=== PATIENT | male | born 1945 | race Caucasian/White ===

== ENCOUNTER 2021-07-30 19:03 | Inpatient (IN) | payer MEDICARE ==
[~2021-07-30 19:03] MED LIST: HUMAN PROTHROMBIN COMPLX 500 UNIT/16 ML VIAL IV ONE
[2021-07-30] MEDS ORDERED: SODIUM CHLORIDE 0.9% 1,000 ML IV STA ×4 (19:12→21:36)
[2021-07-30] MEDS ORDERED: PANTOPRAZOLE 40 MG/10 ML VIAL IVP STA (19:12)
--- NOTE | 2021-07-30 19:17 | ED ---
General Adult HPI - General Stated complaint: Rectal bleed Time Seen by Provider: 07/30/21 19:03 Source: patient, EMS Mode of arrival: EMS Limitations: no limitations - History of Present Illness Initial comments: Patient is a pleasant 76-year-old male presenting to the emergency department with possible rectal bleeding. Patient last known well was yesterday. Patient was found on the floor today. Patient is unclear how he got there. Patient does not believe he fell or passed out. Patient amiss to having some bleeding for the past week. Patient believes he may be coming from the rectum however cannot provide much history on this. Patient is on Eliquis however is unclear why. Patient states he feels fine and has no specific complaints. EMS had blood pressures between 78 and 98 systolic. No abdominal pain or vomiting. Patient denies any area of pain from potential fall. - Related Data Home Medications Medication Instructions Recorded Confirmed Aspirin EC [Ecotrin] 81 mg PO DAILY 03/12/16 03/12/16 Levothyroxine Sodium [Synthroid] 175 mcg PO DAILY 03/12/16 03/12/16 Pravastatin Sodium [Pravachol] 10 mg PO DAILY 03/12/16 03/12/16 amLODIPine BESYLATE [Norvasc] 5 mg PO DAILY 03/12/16 03/12/16 hydroCHLOROthiazide 25 mg PO DAILY 03/12/16 03/12/16 lisinopriL 40 mg PO DAILY 03/12/16 03/12/16 Allergies Allergy/AdvReac Type Severity Reaction Status Date / Time No Known Allergies Allergy Verified 03/12/16 14:04 Review of Systems ROS Statement: Those systems with pertinent positive or pertinent negative responses have been documented in the HPI. ROS Other: All systems not noted in ROS Statement are negative. Constitutional: Denies: fever Eyes: Denies: eye pain ENT: Denies: ear pain Respiratory: Denies: cough Cardiovascular: Denies: chest pain Endocrine: Denies: fatigue Gastrointestinal: Reports: as per HPI. Denies: abdominal pain Genitourinary: Denies: dysuria Musculoskeletal: Denies: back pain Skin: Denies: rash Neurological: Denies: headache, weakness, confusion Past Medical History Past Medical History: Hyperlipidemia, Hypertension, Thyroid Disorder History of Any Multi-Drug Resistant Organisms: None Reported Additional Past Surgical History / Comment(s): aaa Past Psychological History: No Psychological Hx Reported Past Alcohol Use History: None Reported Past Drug Use History: None Reported General Exam Limitations: no limitations General appearance: alert Head exam: Present: atraumatic, normocephalic Eye exam: Present: normal appearance, PERRL ENT exam: Present: mucous membranes dry Neck exam: Present: normal inspection. Absent: tenderness Respiratory exam: Present: normal lung sounds bilaterally Cardiovascular Exam: Present: regular rate, normal rhythm GI/Abdominal exam: Present: soft. Absent: distended, tenderness, guarding, rebound, rigid Rectal exam: Present: other (Rectal exam is somewhat limited by blood in the undergarments. During rectal exam there is not gross blood however. There is some mild stool.). Absent: bloody stool exam: Present: other (Underwear is soaked in blood.) Extremities exam: Present: normal inspection Back exam: Present: normal inspection Neurological exam: Present: alert, oriented X3, CN II-XII intact. Absent: motor sensory deficit Expanded Motor strength exam: RUE: 5, LUE: 5, RLE: 5, LLE: 5 Psychiatric exam: Present: normal affect, normal mood Skin exam: Present: normal color Course Vital Signs 07/30/21 07/30/21 19:10 20:00 Temperature 97.2 F L Pulse Rate 76 85 Respiratory 18 18 Rate Blood Pressure 85/72 75/50 O2 Sat by Pulse 94 L 94 L Oximetry - Reevaluation(s) Reevaluation #1: 07/30/21 19:19 Denny Catheter with gross hematuria 07/30/21 21:34 Case was discussed with Dr. Serrano who did review the scan. He does recommend removing catheter and keeping patient nothing by mouth after midnight as he will likely need to do procedure tomorrow. Case also discussed with Dr. Andrade, who will admit covering for Dr. Wills. Case also discussed with Dr. Hampton who does agree with ICU admission. He does recommend 1 unit of red cells as well as K central. Patient reevaluated several times. EKG Findings - EKG Comments: EKG Findings:: Normal sinus rhythm with rate of 78. For screening AV block TX 208. QRS 90. QT 420. QTc were 78. Left axis. Low QRS voltage. No acute ST change. Procedures - Central Line Placement Right Femoral Consent Obtained: verbal consent, emergent situation Patient Placed on Monitor/Pulse Ox: Yes Prep: mask, gown, gloves Central Line Prep: Chlorhexidine scrub Local Anesthesia Used: Lidocaine 1% Amount of Anesthesia Used (mls): 2 Ultrasound Used for Placement: No Central Line Lumen Inserted: triple Central Line Position: good blood return, all ports aspirated, flushed, capped, sutured in place with 3-0 nylon Dressing Applied: Tegaderm Patient Tolerated Procedure: well, no complications Medical Decision Making - Lab Data Result diagrams: 07/30/21 19:12 07/30/21 19:12 Lab Results 07/30/21 07/30/21 07/30/21 Range/Units 19:12 19:12 19:12 WBC 12.9 H (3.8-10.6) k/uL RBC 3.51 L (4.30-5.90) m/uL Hgb 10.3 L (13.0-17.5) gm/dL Hct 31.0 L (39.0-53.0) % MCV 88.4 (80.0-100.0) fL MCH 29.4 (25.0-35.0) pg MCHC 33.3 (31.0-37.0) g/dL RDW 15.7 H (11.5-15.5) % Plt Count 307 (150-450) k/uL MPV 7.9 Neutrophils % 90 % Lymphocytes % 4 % Monocytes % 5 % Eosinophils % 0 % Basophils % 0 % Neutrophils # 11.6 H (1.3-7.7) k/uL Lymphocytes # 0.5 L (1.0-4.8) k/uL Monocytes # 0.6 (0-1.0) k/uL Eosinophils # 0.0 (0-0.7) k/uL Basophils # 0.0 (0-0.2) k/uL PT 11.4 (9.0-12.0) sec INR 1.1 (<1.2) APTT 24.9 (22.0-30.0) sec Sodium 138 (137-145) mmol/L Potassium 5.3 H (3.5-5.1) mmol/L Chloride 107 (98-107) mmol/L Carbon Dioxide 16 L (22-30) mmol/L Anion Gap 15 mmol/L BUN 81 H (9-20) mg/dL Creatinine 6.82 H (0.66-1.25) mg/dL Est GFR (CKD-EPI)AfAm 8 (>60 ml/min/1.73 sqM) Est GFR (CKD-EPI)NonAf 7 (>60 ml/min/1.73 sqM) Glucose 96 (74-99) mg/dL Calcium 8.8 (8.4-10.2) mg/dL Total Bilirubin 0.5 (0.2-1.3) mg/dL AST 45 (17-59) U/L ALT 18 (4-49) U/L Alkaline Phosphatase 84 (38-126) U/L Troponin I (0.000-0.034) ng/mL Total Protein 5.7 L (6.3-8.2) g/dL Albumin 2.9 L (3.5-5.0) g/dL Blood Type Blood Type Confirm Blood Type Recheck Bld Type Recheck Status Antibody Screen Crossmatch Spec Expiration Date 07/30/21 07/30/21 07/30/21 Range/Units 19:12 19:12 19:34 WBC (3.8-10.6) k/uL RBC (4.30-5.90) m/uL Hgb (13.0-17.5) gm/dL Hct (39.0-53.0) % MCV (80.0-100.0) fL MCH (25.0-35.0) pg MCHC (31.0-37.0) g/dL RDW (11.5-15.5) % Plt Count (150-450) k/uL MPV Neutrophils % % Lymphocytes % % Monocytes % % Eosinophils % % Basophils % % Neutrophils # (1.3-7.7) k/uL Lymphocytes # (1.0-4.8) k/uL Monocytes # (0-1.0) k/uL Eosinophils # (0-0.7) k/uL Basophils # (0-0.2) k/uL PT (9.0-12.0) sec INR (<1.2) APTT (22.0-30.0) sec Sodium (137-145) mmol/L Potassium (3.5-5.1) mmol/L Chloride (98-107) mmol/L Carbon Dioxide (22-30) mmol/L Anion Gap mmol/L BUN (9-20) mg/dL Creatinine (0.66-1.25) mg/dL Est GFR (CKD-EPI)AfAm (>60 ml/min/1.73 sqM) Est GFR (CKD-EPI)NonAf (>60 ml/min/1.73 sqM) Glucose (74-99) mg/dL Calcium (8.4-10.2) mg/dL Total Bilirubin (0.2-1.3) mg/dL AST (17-59) U/L ALT (4-49) U/L Alkaline Phosphatase (38-126) U/L Troponin I 0.119 H* (0.000-0.034) ng/mL Total Protein (6.3-8.2) g/dL Albumin (3.5-5.0) g/dL Blood Type A Positive Blood Type Confirm A Positive Blood Type Recheck No Previous Record Bld Type Recheck Status CABO Indicated Antibody Screen NEGATIVE Crossmatch See Detail Spec Expiration Date 08/02/20212311 - Radiology Data Radiology results: report reviewed (CT abdomen and pelvis shows bilateral hydronephrosis and hydroureter. Possible malpositioned Denny catheter. CT brain and cervical spine shows no acute abnormality.), image reviewed (Chest x- ray shows atheromatous aorta. Mild pulmonary fibrosis.) Critical Care Time Critical Care Time: Yes Total Critical Care Time: 44 Disposition Clinical Impression: Acute renal failure (ARF), Hypotension, Hematuria Disposition: ADMITTED IP TO THIS [facility] Condition: Serious Is patient prescribed a controlled substance at d/c from ED?: No Referrals: None,Stated [REFERRING] - 1-2 days Decision Time: 22:28
[2021-07-30 19:34] LABS: Basophils % (A) 0 %; Eosinophils % (A) 0 %; HGB 10.3 gm/dL (13.0-17.5); Lymphocytes # (A) 0.5 k/uL (1.0-4.8); Lymphocytes % (A) 4 %; MCH 29.4 pg (25.0-35.0); MCHC 33.3 g/dL (31.0-37.0); MCV 88.4 fL (80.0-100.0); Mean Platelet Volume 7.9; Monocytes # (A) 0.6 k/uL (0-1.0); Monocytes % (A) 5 %; Neutrophils # (A) 11.6 k/uL (1.3-7.7); Neutrophils % (A) 90 %; Platelet Count 307 k/uL (150-450); RBC 3.51 m/uL (4.30-5.90); RDW 15.7 % (11.5-15.5); WBC 12.9 k/uL (3.8-10.6)
[2021-07-30 19:43] LABS: Albumin 2.9 g/dL (3.5-5.0); Calcium 8.8 mg/dL (8.4-10.2); Potassium 5.3 mmol/L (3.5-5.1); Total Bilirubin 0.5 mg/dL (0.2-1.3); Total Protein 5.7 g/dL (6.3-8.2)
[2021-07-30 19:46] LABS: INR 1.1 (<1.2); Partial Thromboplastin Time 24.9 sec (22.0-30.0); Prothrombin Time 11.4 sec (9.0-12.0)
--- NOTE | 2021-07-30 20:27 | CT ---
EXAMINATION TYPE: CT brain tomer [facility] DATE OF EXAM: 07/30/2021 COMPARISON: None HISTORY: Fall CT DLP: 1487.3 mGycm Automated exposure control for dose reduction was used. There is cerebral cortical atrophy. There is no mass effect nor midline shift. There is no sign of in tracranial hemorrhage. Ovarium is intact. Skull base is intact. There is normal aeration of the masto id sinuses. Cervical vertebra have normal alignment. There is degenerative disc space narrowing at C3-4 C4-5 and C5-6 with spurring. Facet joints are intact. There is no compression fracture. IMPRESSION: Mild multilevel cervical spondylotic changes. No fracture. Cerebral atrophy. No acute intracranial abnormality.
--- NOTE | 2021-07-30 20:38 | CT ---
EXAMINATION TYPE: CT abdomen pelvis wo con DATE OF EXAM: 07/30/2021 COMPARISON: None HISTORY: Hematuria, arf CT DLP: 871.3 mGycm Automated exposure control for dose reduction was used. Images obtained from the diaphragm to the floor the pelvis with no contrast. There is some mild infiltrate and atelectasis at the lung bases. Heart size is fairly normal. Liver spleen pancreas stomach appear intact. The bile ducts are not dilated. Gallbladder appears normal. There is no adrenal mass. There is bilateral hydronephrosis and hydroureter. Hydroureter more on the right side compared to the left. There is bilateral renal vascular calcification. No renal calculus s een. No evidence of a ureteral calculus. There is Denny catheter in the prosthetic urethra.. Prostate is large and measures 5 cm. There is no inguinal hernia. There is no free fluid in the pelvis. There are stents in the abdominal aorta and iliac arteries. There is no mesenteric edema. There is no ascites or free air. There is no bowel obstruction. The lumbar vertebra appear intact. There is no compression fracture. Bony pelvis is intact. The hip j oints are intact. There is degenerative hip joint space narrowing with acetabular spur formation. IMPRESSION: Bilateral hydronephrosis and hydroureter. No obstructing calculus seen. Malposition of the Denny cath eter apparently in the prosthetic urethra. Atherosclerotic vascular disease. 4 cm lower abdominal aor tic aneurysm. Colonic diverticula without sign of diverticulitis. Urinary bladder not well evaluated due to lack of distention.
--- NOTE | 2021-07-30 20:39 | XR ---
EXAMINATION TYPE: XR chest 1V portable DATE OF EXAM: 07/30/2021 COMPARISON: NONE HISTORY: Weakness TECHNIQUE: Single view FINDINGS: There is no heart failure nor confluent pneumonic infiltrate. There is coarsening of the in terstitial markings. Thoracic aorta is atheromatous. IMPRESSION: Atheromatous aorta. Mild pulmonary fibrosis. No heart failure.
[2021-07-30] MEDS ORDERED: Kcentra PER PHARMACY 1 EACH MISC MISCELLANE PRN (21:32)
[2021-07-30] MEDS ORDERED: HUMAN PROTHROMBIN COMPLX IV ONE (21:45)
[2021-07-30] MEDS ORDERED: MORPHINE SULFATE 4 MG/ML SYRINGE IV PRN ×2 (22:29)
[2021-07-30] MEDS ORDERED: MORPHINE SULFATE 2 MG/ML SYRINGE IV PRN ×2 (22:29)
[2021-07-30] MEDS ORDERED: NALOXONE 0.4 MG/ML 1 ML VIAL IV PRN (22:29)
[2021-07-30] MEDS: NOREPINEPHRINE 32 MG in SODIUM CHLORIDE 0.9% 218 ML IV SCH (22:52)
[2021-07-30 23:38] LABS: Glucose,Whole Blood 82 mg/dL (75-99)
[2021-07-31 01:16] LABS: Basophils % (A) 0 %; Eosinophils % (A) 0 %; HCT 32.8 % (39.0-53.0); HGB 10.4 gm/dL (13.0-17.5); Lymphocytes # (A) 0.4 k/uL (1.0-4.8); Lymphocytes % (A) 4 %; MCH 28.8 pg (25.0-35.0); MCHC 31.7 g/dL (31.0-37.0); MCV 90.8 fL (80.0-100.0); Mean Platelet Volume 7.7; Monocytes # (A) 0.6 k/uL (0-1.0); Monocytes % (A) 5 %; Neutrophils # (A) 9.8 k/uL (1.3-7.7); Neutrophils % (A) 89 %; Platelet Count 297 k/uL (150-450); RBC 3.61 m/uL (4.30-5.90); RDW 15.4 % (11.5-15.5)
[2021-07-31 04:52] LABS: RBC,Urine >182 /hpf (0-5); WBC,Urine >182 /hpf (0-5)
[2021-07-31 04:53] LABS: Appearance,Urine Bloody (Clear)
[2021-07-31 04:55] LABS: Color,Urine Red
[2021-07-31 05:28] LABS: Basophils % (A) 0 %; Eosinophils % (A) 0 %; HCT 34.1 % (39.0-53.0); Lymphocytes # (A) 0.5 k/uL (1.0-4.8); Lymphocytes % (A) 3 %; MCH 28.8 pg (25.0-35.0); MCHC 32.2 g/dL (31.0-37.0); MCV 89.4 fL (80.0-100.0); Mean Platelet Volume 8.5; Monocytes # (A) 0.5 k/uL (0-1.0); Monocytes % (A) 4 %; Neutrophils # (A) 12.1 k/uL (1.3-7.7); Neutrophils % (A) 91 %; Platelet Count 306 k/uL (150-450); RBC 3.81 m/uL (4.30-5.90); RDW 15.6 % (11.5-15.5); WBC 13.3 k/uL (3.8-10.6)
[2021-07-31 05:56] LABS: Albumin 2.6 g/dL (3.5-5.0); Calcium 8.3 mg/dL (8.4-10.2); Potassium 4.7 mmol/L (3.5-5.1); Total Bilirubin 0.5 mg/dL (0.2-1.3); Total Protein 5.2 g/dL (6.3-8.2)
--- NOTE | 2021-07-31 07:45 | P.GSCN ---
History of Present Illness Consult date: 07/31/21 Reason for Consult: Hydronephrosis, hematuria Requesting physician: Bren Andrade History of present illness: The patient is a 76-year-old white male found on the floor yesterday. He has experienced bleeding for the past week, which he believed was coming from his rectum, but he now has a condom catheter and it is clear that the bleeding is of urinary source. He takes Eliquis and is a vague historian. Upon presentation to the ER, he was found to be in renal failure. CT scan shows bilateral hydronephrosis as well as bladder irregularity. Review of Systems - Constitutional Denies chills, Denies fever - Gastrointestinal Denies abdominal pain, Denies nausea, Denies vomiting - Genitourinary Reports as per HPI Past Medical History Past Medical History: Hearing Disorder / Deafness, Hyperlipidemia, Hypertension, Osteoarthritis (OA), Prostate Disorder, Thyroid Disorder History of Any Multi-Drug Resistant Organisms: None Reported Additional Past Surgical History / Comment(s): aaa Past Psychological History: No Psychological Hx Reported Smoking Status: Current every day smoker Past Alcohol Use History: None Reported Past Drug Use History: None Reported Medications and Allergies Home Medications Medication Instructions Recorded Confirmed Type Aspirin EC [Ecotrin] 81 mg PO DAILY 03/12/16 03/12/16 History Levothyroxine Sodium [Synthroid] 175 mcg PO DAILY 03/12/16 03/12/16 History Pravastatin Sodium [Pravachol] 10 mg PO DAILY 03/12/16 03/12/16 History amLODIPine BESYLATE [Norvasc] 5 mg PO DAILY 03/12/16 03/12/16 History hydroCHLOROthiazide 25 mg PO DAILY 03/12/16 03/12/16 History lisinopriL 40 mg PO DAILY 03/12/16 03/12/16 History Allergies Allergy/AdvReac Type Severity Reaction Status Date / Time No Known Allergies Allergy Verified 03/12/16 14:04 Surgical - Exam Vital Signs Temp Pulse Resp BP Pulse Ox 97.2 F L 76 18 85/72 94 L 07/30/21 19:10 07/30/21 19:10 07/30/21 19:10 07/30/21 19:10 07/30/21 19:10 - General well developed, well nourished, no distress - Neck no masses, trachea midline - Respiratory normal respiratory effort - Abdomen Abdomen: soft, non tender, no guarding, no rigid, no rebound - Genitourinary normal penis with no external lesions, testicles non-tender - Psychiatric oriented to time, oriented to person, oriented to place, speech is normal, dhara ry intact Results - Labs 07/31/21 05:08 07/31/21 05:08 Abnormal Lab Results - Last 24 Hours (Table) 07/30/21 07/30/21 07/30/21 Range/Units 19:12 19:12 19:12 WBC 12.9 H (3.8-10.6) k/uL RBC 3.51 L (4.30-5.90) m/uL Hgb 10.3 L (13.0-17.5) gm/dL Hct 31.0 L (39.0-53.0) % RDW 15.7 H (11.5-15.5) % Neutrophils # 11.6 H (1.3-7.7) k/uL Lymphocytes # 0.5 L (1.0-4.8) k/uL Potassium 5.3 H (3.5-5.1) mmol/L Chloride (98-107) mmol/L Carbon Dioxide 16 L (22-30) mmol/L BUN 81 H (9-20) mg/dL Creatinine 6.82 H (0.66-1.25) mg/dL Calcium (8.4-10.2) mg/dL Creatine Kinase (55-170) U/L Troponin I 0.119 H* (0.000-0.034) ng/mL Total Protein 5.7 L (6.3-8.2) g/dL Albumin 2.9 L (3.5-5.0) g/dL Urine RBC (0-5) /hpf Urine WBC (0-5) /hpf Crossmatch 07/30/21 07/30/21 07/31/21 Range/Units 19:12 19:12 00:45 WBC 11.0 H (3.8-10.6) k/uL RBC 3.61 L (4.30-5.90) m/uL Hgb 10.4 L (13.0-17.5) gm/dL Hct 32.8 L (39.0-53.0) % RDW (11.5-15.5) % Neutrophils # 9.8 H (1.3-7.7) k/uL Lymphocytes # 0.4 L (1.0-4.8) k/uL Potassium (3.5-5.1) mmol/L Chloride (98-107) mmol/L Carbon Dioxide (22-30) mmol/L BUN (9-20) mg/dL Creatinine (0.66-1.25) mg/dL Calcium (8.4-10.2) mg/dL Creatine Kinase 643 H (55-170) U/L Troponin I (0.000-0.034) ng/mL Total Protein (6.3-8.2) g/dL Albumin (3.5-5.0) g/dL Urine RBC (0-5) /hpf Urine WBC (0-5) /hpf Crossmatch See Detail 07/31/21 07/31/21 07/31/21 Range/Units 04:00 05:08 05:08 WBC 13.3 H (3.8-10.6) k/uL RBC 3.81 L (4.30-5.90) m/uL Hgb 11.0 L (13.0-17.5) gm/dL Hct 34.1 L (39.0-53.0) % RDW 15.6 H (11.5-15.5) % Neutrophils # 12.1 H (1.3-7.7) k/uL Lymphocytes # 0.5 L (1.0-4.8) k/uL Potassium (3.5-5.1) mmol/L Chloride 114 H (98-107) mmol/L Carbon Dioxide 10 L (22-30) mmol/L BUN 77 H (9-20) mg/dL Creatinine 6.10 H (0.66-1.25) mg/dL Calcium 8.3 L (8.4-10.2) mg/dL Creatine Kinase (55-170) U/L Troponin I (0.000-0.034) ng/mL Total Protein 5.2 L (6.3-8.2) g/dL Albumin 2.6 L (3.5-5.0) g/dL Urine RBC >182 H (0-5) /hpf Urine WBC >182 H (0-5) /hpf Crossmatch Diabetes panel 07/30/21 07/31/21 Range/Units 19:12 05:08 Sodium 138 141 (137-145) mmol/L Potassium 5.3 H 4.7 (3.5-5.1) mmol/L Chloride 107 114 H (98-107) mmol/L Carbon Dioxide 16 L 10 L (22-30) mmol/L BUN 81 H 77 H (9-20) mg/dL Creatinine 6.82 H 6.10 H (0.66-1.25) mg/dL Glucose 96 92 (74-99) mg/dL Calcium 8.8 8.3 L (8.4-10.2) mg/dL AST 45 47 (17-59) U/L ALT 18 18 (4-49) U/L Alkaline Phosphatase 84 73 (38-126) U/L Total Protein 5.7 L 5.2 L (6.3-8.2) g/dL Albumin 2.9 L 2.6 L (3.5-5.0) g/dL Calcium panel 07/30/21 07/31/21 Range/Units 19:12 05:08 Calcium 8.8 8.3 L (8.4-10.2) mg/dL Albumin 2.9 L 2.6 L (3.5-5.0) g/dL Pituitary panel 07/30/21 07/31/21 Range/Units 19:12 05:08 Sodium 138 141 (137-145) mmol/L Potassium 5.3 H 4.7 (3.5-5.1) mmol/L Chloride 107 114 H (98-107) mmol/L Carbon Dioxide 16 L 10 L (22-30) mmol/L BUN 81 H 77 H (9-20) mg/dL Creatinine 6.82 H 6.10 H (0.66-1.25) mg/dL Glucose 96 92 (74-99) mg/dL Calcium 8.8 8.3 L (8.4-10.2) mg/dL Adrenal panel 07/30/21 07/31/21 Range/Units 19:12 05:08 Sodium 138 141 (137-145) mmol/L Potassium 5.3 H 4.7 (3.5-5.1) mmol/L Chloride 107 114 H (98-107) mmol/L Carbon Dioxide 16 L 10 L (22-30) mmol/L BUN 81 H 77 H (9-20) mg/dL Creatinine 6.82 H 6.10 H (0.66-1.25) mg/dL Glucose 96 92 (74-99) mg/dL Calcium 8.8 8.3 L (8.4-10.2) mg/dL Total Bilirubin 0.5 0.5 (0.2-1.3) mg/dL AST 45 47 (17-59) U/L ALT 18 18 (4-49) U/L Alkaline Phosphatase 84 73 (38-126) U/L Total Protein 5.7 L 5.2 L (6.3-8.2) g/dL Albumin 2.9 L 2.6 L (3.5-5.0) g/dL - Imaging CT scan - abdomen: report reviewed, image reviewed Assessment and Plan (1) Gross hematuria Current Visit: Yes Status: Acute Code(s): R31.0 - GROSS HEMATURIA SNOMED Code(s): 282112486 (2) Unspecified hydronephrosis Current Visit: Yes Status: Acute Code(s): N13.30 - UNSPECIFIED HYDR ONEPHROSIS SNOMED Code(s): 39290068 Plan: The patient has unexplained gross hematuria, and he has been found to have bilateral hydronephrosis with renal failure. Specifically, CT scan shows moderate to severe right hydroureteronephrosis down to the bladder, and mild left hydroureteronephrosis. 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 I have recommended to the patient that he undergo cystoscopy, evacuation of clot, transurethral resection of bladder tumor, and possible ureteral stent placement. I have reviewed both the rationale and potential risks of the procedure with the patient. Risks include anesthesia, bleeding, infection, and bladder perforation. He understands and wishes to proceed. I am hopeful that this can be performed later today. Time with Patient: Greater than 30
[2021-07-31] MEDS: PANTOPRAZOLE 40 MG/10 ML VIAL IV SCH (09:13)
--- NOTE | 2021-07-31 10:45 | P.NPCON ---
History of Present Illness - Reason for Consult Consult date: 07/31/21 acute renal failure - Chief Complaint Acute kidney injury - History of Present Illness 76-year-old male seen in consultation because of acute kidney injury. His admission creatinine 6.82, no previous creatinines available He came in because of what was thought by the patient to be rectal bleeding but turned out to be gross hematuria. Workup including CAT scan shows bilateral hydronephrosis and hydroureter suggestive of bladder cancer. Patient denies taking any nonsteroidals. On admission his blood pressure was somewhat low in the 90s to 100's systolic range and additionally home medication included lisinopril hydrochlorothiazide and aspirin levothyroxine pravastatin and amlodipine. Patient is a poor historian and hard of hearing. No nausea vomiting diarrhea abdominal pain no fever chills cough shortness of breath No previous labs available Past Medical History Past Medical History: Hearing Disorder / Deafness, Hyperlipidemia, Hypertension, Osteoarthritis (OA), Prostate Disorder, Thyroid Disorder History of Any Multi-Drug Resistant Organisms: None Reported Additional Past Surgical History / Comment(s): aaa Past Psychological History: No Psychological Hx Reported Smoking Status: Current every day smoker Past Alcohol Use History: None Reported Past Drug Use History: None Reported Medications and Allergies Home Medications Medication Instructions Recorded Confirmed Type Aspirin EC [Ecotrin] 81 mg PO DAILY 03/12/16 03/12/16 History Levothyroxine Sodium [Synthroid] 175 mcg PO DAILY 03/12/16 03/12/16 History Pravastatin Sodium [Pravachol] 10 mg PO DAILY 03/12/16 03/12/16 History amLODIPine BESYLATE [Norvasc] 5 mg PO DAILY 03/12/16 03/12/16 History hydroCHLOROthiazide 25 mg PO DAILY 03/12/16 03/12/16 History lisinopriL 40 mg PO DAILY 03/12/16 03/12/16 History Allergies Allergy/AdvReac Type Severity Reaction Status Date / Time No Known Allergies Allergy Verified 03/12/16 14:04 Physical Exam Vitals: Vital Signs Temp Pulse Pulse Resp BP BP Pulse Ox 07/31/21 10:00 93 25 H 114/83 95 07/31/21 09:45 96 24 104/57 94 L 07/31/21 09:30 92 23 96/55 93 L 07/31/21 09:15 94 24 93/58 95 07/31/21 09:00 91 23 102/60 94 L 07/31/21 08:45 85 18 95/58 93 L 07/31/21 08:30 93 22 99/65 93 L 07/31/21 08:15 92 21 99/58 94 L 07/31/21 08:00 97.5 F L 92 16 101/63 94 L 07/31/21 07:50 93 23 101/63 93 L 07/31/21 07:40 85 23 98/58 93 L 07/31/21 07:30 92 26 H 93 L 07/31/21 07:20 83 18 94 L 07/31/21 07:10 84 17 93 L 07/31/21 07:00 84 19 97/57 94 L 07/31/21 06:30 86 29 H 94/54 94 L 07/31/21 06:20 38 H 94/54 93 L 07/31/21 06:10 82 18 93/55 94 L 07/31/21 06:00 90 15 88/54 94 L 07/31/21 05:50 87 18 88/54 94 L 07/31/21 05:40 95 19 94/56 94 L 07/31/21 05:30 87 38 H 92/56 93 L 07/31/21 05:20 83 19 92/56 95 07/31/21 05:10 92 22 87/59 94 L 07/31/21 05:00 82 26 H 92/54 93 L 07/31/21 04:50 39 H 92/54 94 L 07/31/21 04:40 90 18 85/55 94 L 07/31/21 04:30 95 11 L 90/60 93 L 07/31/21 04:20 86 22 90/60 94 L 07/31/21 04:10 95 13 89/57 94 L 07/31/21 04:00 86 28 H 112/97 94 L 07/31/21 03:50 91 18 112/97 94 L 07/31/21 03:40 41 H 103/81 07/31/21 03:30 99 28 H 87/58 92 L 07/31/21 03:20 92 23 87/58 93 L 07/31/21 03:10 94 31 H 85/56 94 L 07/31/21 03:00 91 25 H 91/53 94 L 07/31/21 02:50 25 H 91/53 94 L 07/31/21 02:40 86 35 H 77/54 93 L 07/31/21 02:30 90 33 H 104/85 93 L 07/31/21 02:20 91 18 104/85 94 L 07/31/21 02:10 92 6 L 78/48 92 L 07/31/21 02:00 75 9 L 76/51 90 L 07/31/21 01:50 85 16 76/51 94 L 07/31/21 01:40 92 27 H 75/51 93 L 07/31/21 01:30 91 30 H 72/51 94 L 07/31/21 01:20 91 20 72/51 93 L 07/31/21 01:10 93 21 74/53 94 L 07/31/21 01:00 82 18 71/54 92 L 07/31/21 00:50 84 16 71/54 93 L 07/31/21 00:40 92 20 81/57 93 L 07/31/21 00:30 88 34 H 93/53 93 L 07/31/21 00:20 92 15 93/53 07/31/21 00:10 86 14 84/57 96 07/31/21 00:00 90 78 24 78/55 94 L 07/30/21 23:59 86 17 95 07/30/21 23:45 97.6 F 82 18 78/52 07/30/21 23:19 89 18 81/51 92 L 07/30/21 23:10 97.4 F L 20 80/54 07/30/21 23:02 70 18 76/50 95 07/30/21 22:40 97.9 F 84 18 74/48 07/30/21 22:38 97.5 F L 82 21 82/58 07/30/21 22:29 98.0 F 83 18 71/43 07/30/21 22:20 82 18 78/52 94 L 07/30/21 22:00 84 18 70/40 93 L 07/30/21 21:30 80 18 82/50 94 L 07/30/21 21:00 80 20 70/44 94 L 07/30/21 20:30 82 18 80/55 93 L 07/30/21 20:00 85 18 75/50 94 L 07/30/21 19:10 97.2 F L 76 18 85/72 94 L Intake and Output 07/30/21 07/31/21 07/31/21 22:59 06:59 14:59 Intake Total 0 1245.049 67.843 Output Total 40 35 Balance 0 1205.049 32.843 Intake: IV 40 0.9 40 Intake, IV Titration 935.049 27.843 Amount Norepinephrine 32 mg In 15.049 27.843 Sodium Chloride 0.9% 218 ml @ 0.05 MCG/KG/MIN 1. 807 mls/hr IV .Q24H [facility] Rx#:[id number] Sodium Chloride 0.9% 1, 920 000 ml @ 130 mls/hr IV . Q7H42M [facility] Rx#:[id number] Blood Product 0 310 Rc As-1 Unit 0 310 [id number] Output: Urine 40 35 Other: Voiding Method Diaper External Catheter # Voids 1 Weight 81.4 kg 81.4 kg On examination he is awake alert but hard of hearing HEENT exam no JVP neck is supple no facial asymmetry no lymph nodes in the neck Lungs are clear to auscultation less than optimal air entry. Heart sounds are unremarkable for any murmur rub gallop Abdomen soft nontender no suprapubic tenderness. No masses felt. Nondistended Extremity exam reveals trace edema Neurologically awake alert seems to be oriented but poor memory of events Results - Lab Results Most recent lab results Calcium 8.3 mg/dL (8.4-10.2) L 07/31/21 05:08 07/31/21 05:08 07/31/21 05:08 Assessment and Plan Assessment: Impression 1. Acute kidney injury possibly chronic no old creatinine available etiology is bilateral [place] nephrosis with likely bladder pathology such as cancer. Creatinine is 6.82 2. Hyperkalemia secondary to acute kidney injury potassium was 5.3 improved to 4.7 3. Likely bladder cancer with involvement of ureteral orifices with bilateral hydrouretenephrosis he did 4. Gap and non-gap acidosis from acute kidney injury bicarb is 16 and this morning is 17. 5. Anemia hemoglobin is 11. Likely from a year and chronic kidney disease. Recommendation 1. Patient currently on norepinephrine, trying to taper it off 2. Start IV normal saline at 75 an hour and maintain it unless vision goes into congestive heart failure 3. Start by mouth bicarbonate 650 4 times a day. 4. Patient proceeding to the cystoscopy this morning Thank you for this consultation and we'll continue to follow closely
[2021-07-31] MEDS ORDERED: SODIUM CHLORIDE 0.9% 1,000 ML IV SCH (11:00)
[2021-07-31] MEDS ORDERED: NEOSTIGMINE 1 MG/ML 10 ML VIAL ONE (11:45)
[2021-07-31] MEDS ORDERED: fentaNYL (PF) 50 MCG/ML 2 ML AMP ONE (11:45)
[2021-07-31] MEDS ORDERED: ROCURONIUM 10 MG/ML (5 ML VIAL) IV ONE ×2 (11:45→20:19)
[2021-07-31] MEDS ORDERED: SUCCINYLCHOLINE CHLORIDE 100 MG/5 ML SYR IV ONE (11:45)
[2021-07-31] MEDS ORDERED: IV FLUID CONTINUATION 1,000 ML IV ONE (11:45)
[2021-07-31] MEDS ORDERED: PHENYLEPHRINE-0.9% NACL SYG 1,000 MCG/10 ML SYRINGE ONE (11:45)
[2021-07-31] MEDS ORDERED: PROPOFOL 10 MG/ML 20 ML VIAL IV ONE ×2 (11:45→20:19)
[2021-07-31] MEDS ORDERED: GLYCOPYRROLATE 0.2 MG/ML 2 ML VIAL ONE (11:45)
[2021-07-31] MEDS: SODIUM CHLORIDE 0.9% 250 ML IV ONE ×2 (12:45→14:29)
[2021-07-31] MEDS ORDERED: SODIUM CHLORIDE 0.9% 250 ML IV ONE ×2 (12:45)
--- NOTE | 2021-07-31 13:31 | P.OP ---
Date of Procedure: 07/31/21 Preoperative Diagnosis: Gross hematuria secondary to bladder tumor, bilateral hydronephrosis Postoperative Diagnosis: Same Procedure(s) Performed: Cystoscopy, evacuation of clot, TURBT (large) Anesthesia: DARRINA Surgeon: Aime Vinson Estimated Blood Loss (ml): 10 IV fluids (ml): 500 Pathology: other (Tumor fragments from right posterolateral bladder wall tumor.) Condition: stable Disposition: PACU Indications for Procedure: The patient is a 76-year-old white male with gross hematuria. CT scan shows bilateral hydronephrosis as well as bladder irregularity. Operative Findings: Several hundred mL of clot removed from bladder. A large, sessile tumor arising from right posterolateral bladder wall. The ureteral orifices are not seen. Description of Procedure: The patient was taken in the operating room and placed in the dorsal lithotomy position, with his legs supported in Kirit stirrups. The external genitalia was prepped and draped sterilely. The 30 lens was used to introduce the 23-Ugandan Stortz cystoscopic sheath through the urethra and into the bladder under direct vision. The urethra appeared normal. The prostate showed evidence of minimal lateral lobe enlargement. No tumors were seen within the prostatic urethra. Upon entering the bladder, abundant clot was noted. The 30 Second Showcase evacuator was used to remove several 100 mL of clot from the bladder. Cystoscopy was then performed. A large, sessile tumor arose from the right posterolateral bladder wall. Although there was no tumor within the left hemitrigone, neither ureteral orifice could be seen. There was no active bleeding. The The Congers urethrotome was used to incise the urethra to 25-Ugandan. The 25-Ugandan ACMI resectoscope sheath was introduced into the bladder. Using the bipolar cutting loop, a portion of the tumor was resected. It was dense, obviously high-grade and muscle invasive. Excellent hemostasis was attained. The Ellik evacuator was used to remove all of the tissue fragments from the bladder. The resected tissue was saved and sent for pathologic examination. A 20-Ugandan Denny catheter was inserted. The return was essentially clear. The patient tolerated the procedure well. He was taken to the recovery room in stable condition.
--- NOTE | 2021-07-31 14:02 | P.CNPUL ---
History of Present Illness Consult date: 07/31/21 Requesting physician: Bren Andrade Reason for consult: other (Critical care management) Chief complaint: Altered mental status, found on floor History of present illness: This is a 76-year-old male patient with a known history of hypertension, hyperlipidemia, hypothyroidism. He is brought into the emergency room last evening after being found on the floor. He was unsure if he fell or passed out. He felt that he had some bleeding that he noted in the toilet and sure whether it was rectal bleeding. Denny catheter was placed and there was gross hematuria. Computed tomography scan of the brain revealed no acute intracranial process. No evidence of fracture. She scan of the abdomen and pelvis revealed bilateral hydronephrosis and hydroureter. No obstructing calculus was seen. There was malposition of the Denny catheter apparently in the prostatic urethra. Chest x-ray showed mild pulmonary fibrosis. White count 13.3. Hemoglobin 11.1. Sodium 141. Potassium 4.7. Creatinine 6.10. Troponin 0.119, 0.077. He was ordered 1 unit of packed red blood cells and received K centra and was admitted to the ICU for closer monitoring. He is seen today in consultation. He is awake and alert in no acute distress. Maintaining O2 saturations in the 90s on room air. He is requiring norepinephrine at 0.07 mcg/kg/m to maintain mean arterial pressures greater than 60. 0.9 normal saline at 75 ML's per hour. The plan is for cystoscopy with Dr. Vinson today. He had several 100 ML's of clot removed from the bladder. 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 A portion of the tumor was resected. It was a dense, obviously high-grade and muscle invasive. Excellent hemostasis was attained. Pathology is pending. Review of Systems REVIEW OF SYSTEMS: CONSTITUTIONAL: He can is. Found on floor. Denies any recent significant weight loss or weight gain. EYES: Denies change in vision. EARS, NOSE, MOUTH, THROAT: Denies headaches, denies sore throat. CARDIOVASCULAR: Denies chest pain, palpitations or syncopal episodes. RESPIRATORY: Denies shortness of breath, cough, congestion or hemoptysis. GASTROINTESTINAL: Denies change in appetite, denies abdominal pain GENITOURINARY: Positive for hematuria, denies infections. MUSKULOSKELETAL: Denies pain, denies swelling. INTEGUMENTARY: Denies rash, denies eczema. NEUROLOGICAL: Denies recent memory loss, no recent seizure activity. PSYCHIATRIC: Denies anxiety, denies depression. HEMATOLOGIC/LYMPHATIC: Denies anemia, denies enlarged lymph nodes. Past Medical History Past Medical History: Hearing Disorder / Deafness, Hyperlipidemia, Hypertension, Osteoarthritis (OA), Prostate Disorder, Thyroid Disorder History of Any Multi-Drug Resistant Organisms: None Reported Additional Past Surgical History / Comment(s): aaa Past Psychological History: No Psychological Hx Reported Smoking Status: Current every day smoker Past Alcohol Use History: None Reported Past Drug Use History: None Reported Medications and Allergies Home Medications Medication Instructions Recorded Confirmed Type hydroCHLOROthiazide 25 mg PO DAILY 03/12/16 07/31/21 History lisinopriL 40 mg PO DAILY 03/12/16 07/31/21 History Clopidogrel [Plavix] 75 mg PO DAILY 07/31/21 07/31/21 History Levothyroxine Sodium [Euthyrox] 175 mcg PO DAILY 07/31/21 07/31/21 History Rosuvastatin Calcium [Crestor] 5 mg PO DAILY 07/31/21 07/31/21 History rOPINIRole HCL [Requip] 1 mg PO BID 07/31/21 07/31/21 History Allergies Allergy/AdvReac Type Severity Reaction Status Date / Time No Known Allergies Allergy Verified 03/12/16 14:04 Physical Exam Vitals: Vital Signs Temp Pulse Pulse Resp BP BP Pulse Ox 07/31/21 11:45 92/52 07/31/21 11:30 93 22 97/61 94 L 07/31/21 11:15 86 12 87/59 95 07/31/21 11:00 91 26 H 91/55 93 L 07/31/21 10:45 88 12 79/65 95 07/31/21 10:30 93 17 104/58 96 07/31/21 10:15 96 24 93/63 94 L 07/31/21 10:00 93 25 H 114/83 95 07/31/21 09:45 96 24 104/57 94 L 07/31/21 09:30 92 23 96/55 93 L 07/31/21 09:15 94 24 93/58 95 07/31/21 09:00 91 23 102/60 94 L 07/31/21 08:45 85 18 95/58 93 L 07/31/21 08:30 93 22 99/65 93 L 07/31/21 08:15 92 21 99/58 94 L 07/31/21 08:00 97.5 F L 92 16 101/63 94 L 07/31/21 07:50 93 23 101/63 93 L 07/31/21 07:40 85 23 98/58 93 L 07/31/21 07:30 92 26 H 93 L 07/31/21 07:20 83 18 94 L 07/31/21 07:10 84 17 93 L 07/31/21 07:00 84 19 97/57 94 L 07/31/21 06:30 86 29 H 94/54 94 L 07/31/21 06:20 38 H 94/54 93 L 07/31/21 06:10 82 18 93/55 94 L 07/31/21 06:00 90 15 88/54 94 L 07/31/21 05:50 87 18 88/54 94 L 07/31/21 05:40 95 19 94/56 94 L 07/31/21 05:30 87 38 H 92/56 93 L 07/31/21 05:20 83 19 92/56 95 07/31/21 05:10 92 22 87/59 94 L 07/31/21 05:00 82 26 H 92/54 93 L 07/31/21 04:50 39 H 92/54 94 L 07/31/21 04:40 90 18 85/55 94 L 07/31/21 04:30 95 11 L 90/60 93 L 07/31/21 04:20 86 22 90/60 94 L 07/31/21 04:10 95 13 89/57 94 L 07/31/21 04:00 86 28 H 112/97 94 L 07/31/21 03:50 91 18 112/97 94 L 07/31/21 03:40 41 H 103/81 07/31/21 03:30 99 28 H 87/58 92 L 07/31/21 03:20 92 23 87/58 93 L 07/31/21 03:10 94 31 H 85/56 94 L 07/31/21 03:00 91 25 H 91/53 94 L 07/31/21 02:50 25 H 91/53 94 L 07/31/21 02:40 86 35 H 77/54 93 L 07/31/21 02:30 90 33 H 104/85 93 L 07/31/21 02:20 91 18 104/85 94 L 07/31/21 02:10 92 6 L 78/48 92 L 07/31/21 02:00 75 9 L 76/51 90 L 07/31/21 01:50 85 16 76/51 94 L 07/31/21 01:40 92 27 H 75/51 93 L 07/31/21 01:30 91 30 H 72/51 94 L 07/31/21 01:20 91 20 72/51 93 L 07/31/21 01:10 93 21 74/53 94 L 07/31/21 01:00 82 18 71/54 92 L 07/31/21 00:50 84 16 71/54 93 L 07/31/21 00:40 92 20 81/57 93 L 07/31/21 00:30 88 34 H 93/53 93 L 07/31/21 00:20 92 15 93/53 07/31/21 00:10 86 14 84/57 96 07/31/21 00:00 90 78 24 78/55 94 L 07/30/21 23:59 86 17 95 07/30/21 23:45 97.6 F 82 18 78/52 07/30/21 23:19 89 18 81/51 92 L 07/30/21 23:10 97.4 F L 20 80/54 07/30/21 23:02 70 18 76/50 95 07/30/21 22:40 97.9 F 84 18 74/48 07/30/21 22:38 97.5 F L 82 21 82/58 07/30/21 22:29 98.0 F 83 18 71/43 07/30/21 22:20 82 18 78/52 94 L 07/30/21 22:00 84 18 70/40 93 L 07/30/21 21:30 80 18 82/50 94 L 07/30/21 21:00 80 20 70/44 94 L 07/30/21 20:30 82 18 80/55 93 L 07/30/21 20:00 85 18 75/50 94 L 07/30/21 19:10 97.2 F L 76 18 85/72 94 L Intake and Output 07/30/21 07/31/21 07/31/21 22:59 06:59 14:59 Intake Total 0 1245.049 742.843 Output Total 40 55 Balance 0 1205.049 687.843 Intake: IV 715 0.9 115 Intake, IV Titration 935.049 27.843 Amount Norepinephrine 32 mg In 15.049 27.843 Sodium Chloride 0.9% 218 ml @ 0.05 MCG/KG/MIN 1. 807 mls/hr IV .Q24H [facility] Rx#:[id number] Sodium Chloride 0.9% 1, 920 000 ml @ 130 mls/hr IV . Q7H42M [facility] Rx#:[id number] Blood Product 0 310 Rc As-1 Unit 0 310 [id number] Output: Urine 40 45 Estimated Blood Loss 10 Other: Voiding Method Diaper Diaper External Catheter External Catheter # Voids 1 Weight 81.4 kg 81.4 kg GENERAL EXAM: Alert, pleasant 76-year-old gentleman, on room air, comfortable in no apparent distress. HEAD: Normocephalic. EYES: Normal reaction of pupils, equal size. NOSE: Clear with pink turbinates. THROAT: No erythema or exudates. NECK: No masses, no JVD. CHEST: No chest wall deformity. LUNGS: Equal air entry with no crackles, wheeze, rhonchi or dullness. CVS: S1 and S2 normal with no audible murmur, regular rhythm. ABDOMEN: No hepatosplenomegaly, normal bowel sounds, no guarding or rigidity. SPINE: No scoliosis or deformity SKIN: No rashes CENTRAL NERVOUS SYSTEM: No focal deficits, tone is normal in all 4 extremities. EXTREMITIES: There is no peripheral edema. No clubbing, no cyanosis. Periphe ral pulses are intact. Results - Laboratory Findings CBC and BMP: 07/31/21 05:08 07/31/21 05:08 PT/INR, D-dimer PT 11.4 sec (9.0-12.0) 07/30/21 19:12 INR 1.1 (<1.2) 07/30/21 19:12 Abnormal lab findings: Abnormal Labs 07/30/21 07/30/21 07/30/21 19:12 19:12 19:12 WBC 12.9 H RBC 3.51 L Hgb 10.3 L Hct 31.0 L RDW 15.7 H Neutrophils # 11.6 H Lymphocytes # 0.5 L Potassium 5.3 H Chloride Carbon Dioxide 16 L BUN 81 H Creatinine 6.82 H Calcium Creatine Kinase Troponin I 0.119 H* Total Protein 5.7 L Albumin 2.9 L Urine RBC Urine WBC Crossmatch 07/30/21 07/30/21 07/31/21 19:12 19:12 00:45 WBC 11.0 H RBC 3.61 L Hgb 10.4 L Hct 32.8 L RDW Neutrophils # 9.8 H Lymphocytes # 0.4 L Potassium Chloride Carbon Dioxide BUN Creatinine Calcium Creatine Kinase 643 H Troponin I Total Protein Albumin Urine RBC Urine WBC Crossmatch See Detail 07/31/21 07/31/21 07/31/21 04:00 05:08 05:08 WBC 13.3 H RBC 3.81 L Hgb 11.0 L Hct 34.1 L RDW 15.6 H Neutrophils # 12.1 H Lymphocytes # 0.5 L Potassium Chloride 114 H Carbon Dioxide 10 L BUN 77 H Creatinine 6.10 H Calcium 8.3 L Creatine Kinase Troponin I Total Protein 5.2 L Albumin 2.6 L Urine RBC >182 H Urine WBC >182 H Crossmatch 07/31/21 05:08 WBC RBC Hgb Hct RDW Neutrophils # Lymphocytes # Potassium Chloride Carbon Dioxide BUN Creatinine Calcium Creatine Kinase Troponin I 0.077 H* Total Protein Albumin Urine RBC Urine WBC Crossmatch Assessment and Plan Assessment: 1 Gross hematuria secondary to bladder tumor status post cystoscopy and biopsies on 07/31/2021. Pathology pending 2 Hypotension requiring pressor support 3 Anemia secondary to above received 1 unit of packed blood cells and K centra. Current hemoglobin 11.0 4 Acute kidney injury secondary to hydronephrosis secondary to above, creatinine 6.10 improved from 6.82 5 Troponin leak 6 Hyperlipidemia 7 History of hypertension 8 Hypothyroidism 9 Smoker Plan: The patient was seen and evaluated by Dr. Hampton CAT scan, chest x-ray, labs reviewed Still requiring pressor support for hypotension Continue to monitor closely here in the ICU Suspect bladder cancer Monitor for recurrent hematuria We will continue to follow and make further recommendations based on his clinical status I, the cosigning physician, performed a history & physical examination of the patient. Lungs sounds are clear. Maintaining good O2 saturations in the 90s on room air. I discussed the assessment and plan of care with my nurse practitioner, Flory Green. I attest to the above consultation as dictated by her. Time with Patient: Greater than 30
[2021-07-31] MEDS ORDERED: propofoL 100 ML IV ONE (14:14)
[2021-07-31 14:48] LABS: ABG Base Excess -17.5 mmol/L; ABG HCO3 13 mmol/L (21-25); ABG Oxygen Saturation 95.8 % (94-97); ABG PCO2 48 mmHg (35-45); ABG PO2 105 mmHg (83-108); ABG TCO2 15 mmol/L (19-24); Allen Test Performed? Yes
[2021-07-31 14:52] LABS: ABG PH 7.04 (7.35-7.45)
[2021-07-31] MEDS ORDERED: SODIUM BICARB 8.4% 50 ML SYR (1 MEQ/ML) IV STA ×2 (14:58→19:58)
--- NOTE | 2021-07-31 15:03 | P.HPIM ---
History of Present Illness H&P Date: 07/31/21 Chief Complaint: Gross hematuria, altered mentation This 76-year-old pleasant gentleman, patient of Dr. Wills. History of hypertension hyperlipidemia, hypothyroidism, who was noted to have some bleeding in the toilet for several days, unsure how long the duration was, however he is on blood thinners, he was found on the floor today, patient denies any headache, however it's unclear how the patient fell. He does not admit to syncopal event, patient was subsequently setting to emergency room from home, to the emergency via EMS, a condom catheter was placed, and that's how they found that patient is having gross hematuria rather than rectal bleeding. In emergency room, central line was placed for IV hydration, blood pressure was 75/50, daily urinalysis, shows over 182 RBCs and WBC, hemoglobin 10.4 WBC count 11.0, platelet 297, creatinine of 6.1, BUN of 77, unknown baseline. Patient had CAT scan, head and cervical spine, shows multilevel cervical spondylosis change, no fracture, and no dislocation. No intracranial hemorrhage, intact calvarium. Computed tomography scan of the abdomen, shows bilateral hydronephrosis, and hydroureter, more on the right than the left, there is bilateral renal vascular calcification, no renal calculi, no ureteral calculi. There is no inguinal hernia, no fluid in the pelvis, bilateral stents in the abdominal aorta and cely c arteries, no mesenteric edema, no ascites or free air. No bowel obstruction, bladder imaging is not well evaluated due to lack of distention there is colonic diverticula, without signs of diverticulitis. Chest x-ray shows mild pulmonary fibrosis Consult was made with nephrology, urology and intensive care management, patient admitted to ICU for significant gross hematuria, obstructive uropathy, with mental status changes, and suspected syncope, with a fall long- term anticoagulation, elevated troponin Patient is taken to the operating room, for cystoscopy, evacuation of clot, and transient Trial resection of the bladder as a CAT scan per review from urology, shows bladder irregularity. There is a large sessile tumor, in the right posterolateral bladder wall. It was dense and suspected to have obviously a high grade tumor, with muscular invasion Review of Systems Constitutional: Reports as per HPI, Denies anorexia, Denies chills, Denies ch ronic headaches, Denies chronic pain, Denies daytime sleepiness, Denies fatigue, Denies fever, Denies lethargy, Denies malaise, Denies night sweats, Denies poor appetite, Denies sweats, Denies weakness, Denies weight gain, Denies weight loss Cardiovascular: Reports as per HPI Respiratory: Reports as per HPI Gastrointestinal: Reports as per HPI, Reports abdominal pain, Denies belching, Denies bloating, Denies BRBPR, Denies change in bowel habits, Denies coffee ground emesis, Denies constipation, Denies diarrhea, Denies dyspepsia, Denies early satiety, Denies excessive gas, Denies heartburn, Denies hematemesis, Denies hematochezia, Denies indigestion, Denies jaundice, Denies lactose intolerance, Denies loss of appetite, Denies melena, Denies nausea, Denies vomiting Genitourinary: Reports hematuria, Reports incontinence Musculoskeletal: Reports as per HPI, Reports limitation of motion Neurological: Reports change in mentation, Reports weakness Psychiatric: Reports as per HPI, Reports disorientation, Reports insomnia Endocrine: Reports as per HPI Hematologic/Lymphatic: Reports as per HPI, Reports easy bleeding Allergic/Immunologic: Reports as per HPI Past Medical History Past Medical History: Hearing Disorder / Deafness, Hyperlipidemia, Hypertension, Osteoarthritis (OA), Prostate Disorder, Thyroid Disorder History of Any Multi-Drug Resistant Organisms: None Reported Additional Past Surgical History / Comment(s): aaa Past Psychological History: No Psychological Hx Reported Smoking Status: Current every day smoker Past Alcohol Use History: None Reported Past Drug Use History: None Reported Medications and Allergies Home Medications Medication Instructions Recorded Confirmed Type hydroCHLOROthiazide 25 mg PO DAILY 03/12/16 07/31/21 History lisinopriL 40 mg PO DAILY 03/12/16 07/31/21 History Clopidogrel [Plavix] 75 mg PO DAILY 07/31/21 07/31/21 History Levothyroxine Sodium [Euthyrox] 175 mcg PO DAILY 07/31/21 07/31/21 History Rosuvastatin Calcium [Crestor] 5 mg PO DAILY 07/31/21 07/31/21 History rOPINIRole HCL [Requip] 1 mg PO BID 07/31/21 07/31/21 History Allergies Allergy/AdvReac Type Severity Reaction Status Date / Time No Known Allergies Allergy Verified 03/12/16 14:04 Physical Exam Vitals: Vital Signs Temp Pulse Pulse Resp BP BP Pulse Ox 07/31/21 11:00 91 26 H 91/55 93 L 07/31/21 10:45 88 12 79/65 95 07/31/21 10:30 93 17 104/58 96 07/31/21 10:15 96 24 93/63 94 L 07/31/21 10:00 93 25 H 114/83 95 07/31/21 09:45 96 24 104/57 94 L 07/31/21 09:30 92 23 96/55 93 L 07/31/21 09:15 94 24 93/58 95 07/31/21 09:00 91 23 102/60 94 L 07/31/21 08:45 85 18 95/58 93 L 07/31/21 08:30 93 22 99/65 93 L 07/31/21 08:15 92 21 99/58 94 L 07/31/21 08:00 97.5 F L 92 16 101/63 94 L 07/31/21 07:50 93 23 101/63 93 L 07/31/21 07:40 85 23 98/58 93 L 07/31/21 07:30 92 26 H 93 L 07/31/21 07:20 83 18 94 L 07/31/21 07:10 84 17 93 L 07/31/21 07:00 84 19 97/57 94 L 07/31/21 06:30 86 29 H 94/54 94 L 07/31/21 06:20 38 H 94/54 93 L 07/31/21 06:10 82 18 93/55 94 L 07/31/21 06:00 90 15 88/54 94 L 07/31/21 05:50 87 18 88/54 94 L 07/31/21 05:40 95 19 94/56 94 L 07/31/21 05:30 87 38 H 92/56 93 L 07/31/21 05:20 83 19 92/56 95 07/31/21 05:10 92 22 87/59 94 L 07/31/21 05:00 82 26 H 92/54 93 L 07/31/21 04:50 39 H 92/54 94 L 07/31/21 04:40 90 18 85/55 94 L 07/31/21 04:30 95 11 L 90/60 93 L 07/31/21 04:20 86 22 90/60 94 L 07/31/21 04:10 95 13 89/57 94 L 07/31/21 04:00 86 28 H 112/97 94 L 07/31/21 03:50 91 18 112/97 94 L 07/31/21 03:40 41 H 103/81 07/31/21 03:30 99 28 H 87/58 92 L 07/31/21 03:20 92 23 87/58 93 L 07/31/21 03:10 94 31 H 85/56 94 L 07/31/21 03:00 91 25 H 91/53 94 L 07/31/21 02:50 25 H 91/53 94 L 07/31/21 02:40 86 35 H 77/54 93 L 07/31/21 02:30 90 33 H 104/85 93 L 07/31/21 02:20 91 18 104/85 94 L 07/31/21 02:10 92 6 L 78/48 92 L 07/31/21 02:00 75 9 L 76/51 90 L 07/31/21 01:50 85 16 76/51 94 L 07/31/21 01:40 92 27 H 75/51 93 L 07/31/21 01:30 91 30 H 72/51 94 L 07/31/21 01:20 91 20 72/51 93 L 07/31/21 01:10 93 21 74/53 94 L 07/31/21 01:00 82 18 71/54 92 L 07/31/21 00:50 84 16 71/54 93 L 07/31/21 00:40 92 20 81/57 93 L 07/31/21 00:30 88 34 H 93/53 93 L 07/31/21 00:20 92 15 93/53 07/31/21 00:10 86 14 84/57 96 07/31/21 00:00 90 78 24 78/55 94 L 07/30/21 23:59 86 17 95 07/30/21 23:45 97.6 F 82 18 78/52 07/30/21 23:19 89 18 81/51 92 L 07/30/21 23:10 97.4 F L 20 80/54 07/30/21 23:02 70 18 76/50 95 07/30/21 22:40 97.9 F 84 18 74/48 07/30/21 22:38 97.5 F L 82 21 82/58 07/30/21 22:29 98.0 F 83 18 71/43 07/30/21 22:20 82 18 78/52 94 L 07/30/21 22:00 84 18 70/40 93 L 07/30/21 21:30 80 18 82/50 94 L 07/30/21 21:00 80 20 70/44 94 L 07/30/21 20:30 82 18 80/55 93 L 07/30/21 20:00 85 18 75/50 94 L 07/30/21 19:10 97.2 F L 76 18 85/72 94 L Intake and Output 07/30/21 07/31/21 07/31/21 22:59 06:59 14:59 Intake Total 0 1245.049 142.843 Output Total 40 45 Balance 0 1205.049 97.843 Intake: IV 115 0.9 115 Intake, IV Titration 935.049 27.843 Amount Norepinephrine 32 mg In 15.049 27.843 Sodium Chloride 0.9% 218 ml @ 0.05 MCG/KG/MIN 1. 807 mls/hr IV .Q24H [facility] Rx#:[id number] Sodium Chloride 0.9% 1, 920 000 ml @ 130 mls/hr IV . Q7H42M [facility] Rx#:[id number] Blood Product 0 310 Rc As-1 Unit 0 310 [id number] Output: Urine 40 45 Other: Voiding Method Diaper External Catheter # Voids 1 Weight 81.4 kg 81.4 kg - Constitutional General appearance: cooperative, no acute distress - EENT Eyes: EOMI, PERRLA, dentition normal, normal appearance ENT: NA/AT - Neck Neck: normal ROM - Respiratory Respiratory: bilateral: CTA, negative: diminished, dullness Results CBC & Chem 7: 07/31/21 05:08 07/31/21 05:08 Labs: Abnormal Lab Results - Last 24 Hours (Table) 07/30/21 07/30/21 07/30/21 Range/Units 19:12 19:12 19:12 WBC 12.9 H (3.8-10.6) k/uL RBC 3.51 L (4.30-5.90) m/uL Hgb 10.3 L (13.0-17.5) gm/dL Hct 31.0 L (39.0-53.0) % RDW 15.7 H (11.5-15.5) % Neutrophils # 11.6 H (1.3-7.7) k/uL Lymphocytes # 0.5 L (1.0-4.8) k/uL Potassium 5.3 H (3.5-5.1) mmol/L Chloride (98-107) mmol/L Carbon Dioxide 16 L (22-30) mmol/L BUN 81 H (9-20) mg/dL Creatinine 6.82 H (0.66-1.25) mg/dL Calcium (8.4-10.2) mg/dL Creatine Kinase (55-170) U/L Troponin I 0.119 H* (0.000-0.034) ng/mL Total Protein 5.7 L (6.3-8.2) g/dL Albumin 2.9 L (3.5-5.0) g/dL Urine RBC (0-5) /hpf Urine WBC (0-5) /hpf Crossmatch 07/30/21 07/30/21 07/31/21 Range/Units 19:12 19:12 00:45 WBC 11.0 H (3.8-10.6) k/uL RBC 3.61 L (4.30-5.90) m/uL Hgb 10.4 L (13.0-17.5) gm/dL Hct 32.8 L (39.0-53.0) % RDW (11.5-15.5) % Neutrophils # 9.8 H (1.3-7.7) k/uL Lymphocytes # 0.4 L (1.0-4.8) k/uL Potassium (3.5-5.1) mmol/L Chloride (98-107) mmol/L Carbon Dioxide (22-30) mmol/L BUN (9-20) mg/dL Creatinine (0.66-1.25) mg/dL Calcium (8.4-10.2) mg/dL Creatine Kinase 643 H (55-170) U/L Troponin I (0.000-0.034) ng/mL Total Protein (6.3-8.2) g/dL Albumin (3.5-5.0) g/dL Urine RBC (0-5) /hpf Urine WBC (0-5) /hpf Crossmatch See Detail 07/31/21 07/31/21 07/31/21 Range/Units 04:00 05:08 05:08 WBC 13.3 H (3.8-10.6) k/uL RBC 3.81 L (4.30-5.90) m/uL Hgb 11.0 L (13.0-17.5) gm/dL Hct 34.1 L (39.0-53.0) % RDW 15.6 H (11.5-15.5) % Neutrophils # 12.1 H (1.3-7.7) k/uL Lymphocytes # 0.5 L (1.0-4.8) k/uL Potassium (3.5-5.1) mmol/L Chloride 114 H (98-107) mmol/L Carbon Dioxide 10 L (22-30) mmol/L BUN 77 H (9-20) mg/dL Creatinine 6.10 H (0.66-1.25) mg/dL Calcium 8.3 L (8.4-10.2) mg/dL Creatine Kinase (55-170) U/L Troponin I (0.000-0.034) ng/mL Total Protein 5.2 L (6.3-8.2) g/dL Albumin 2.6 L (3.5-5.0) g/dL Urine RBC >182 H (0-5) /hpf Urine WBC >182 H (0-5) /hpf Crossmatch 07/31/21 Range/Units 05:08 WBC (3.8-10.6) k/uL RBC (4.30-5.90) m/uL Hgb (13.0-17.5) gm/dL Hct (39.0-53.0) % RDW (11.5-15.5) % Neutrophils # (1.3-7.7) k/uL Lymphocytes # (1.0-4.8) k/uL Potassium (3.5-5.1) mmol/L Chloride (98-107) mmol/L Carbon Dioxide (22-30) mmol/L BUN (9-20) mg/dL Creatinine (0.66-1.25) mg/dL Calcium (8.4-10.2) mg/dL Creatine Kinase (55-170) U/L Troponin I 0.077 H* (0.000-0.034) ng/mL Total Protein (6.3-8.2) g/dL Albumin (3.5-5.0) g/dL Urine RBC (0-5) /hpf Urine WBC (0-5) /hpf Crossmatch Thrombosis Risk Factor Assmnt - DVT/VTE Prophylaxis DVT/VTE Prophylaxis: Contraindicated - See note (Cross hematuria, bladder tumors/p resection 07/30/21) - Choose All That Apply Any of the Below Risk Factors Present?: No Other Risk Factors: Yes Each Risk Factor Represents 2 Points: Central venous access, Malignancy Each Risk Factor Represents 3 Points: Age 75 years or older Other congenital or acquired thrombophilia - If yes, enter type in comment: No Thrombosis Risk Factor Assessment Total Risk Factor Score: 7 Thrombosis Risk Factor Assessment Level: High Risk Assessment and Plan Plan: 1. Gross hematuria, with hypotension, obstructive uropathy, and a suspected bladder tumor, malignancy is highly suspected resumed UTI with pyuria. Patient was seen by urology, status post transurethral bladder resection on 07/31/2021 Dr. Vinson. Patient is in ICU, for hypotension, and is on Levophed. Monitor for CBC, patient will need blood transfusion for hemoglobin under 8 secondary to current Anemia, and NonSTEMI cannot be ruled out IV Rocephin 2. Acute blood loss anemia, with hypotension, from cross hematuria, requiring vasopressors, norepinephrine, maintained in ICU treatment, critical care medicine with Dr. Hampton 3. Obstructive uropathy, with acute kidney failure unknown baseline for CK D. Bilateral hydronephrosis and hydroureter, required bladder to more with partial resection of the bladder on 1120, monitor for renal function, Dr. Contreras is consulted 4. Troponinemia echocardiogram ordered, suspected demand ischemia, with hypotension crisis, troponins are on the downward trend 4. BPH with prostatomegaly has indwelling Denny catheter at this time 5 Thyroid disorder on levothyroxine 175 g daily 6 hyperlipidemia 7 hypertension currently hypotensive hydrocal ties and lisinopril was held 8 current tobacco use DVT prophylaxis heparin subcu, to start in 24 hours. Post op patient reviewed his receive 1 dose kcentra 07/30 GI prophylaxis IV Protonix
[2021-07-31] MEDS: LEVOTHYROXINE 88 MCG TAB PO SCH (15:28)
[2021-07-31] MEDS: SODIUM BICARBONATE TAB 650 MG TAB PO SCH ×3 (15:28→22:52)
[2021-07-31] MEDS ORDERED: DEXTROSE 5% IN WATER 1,000 ML with SODIUM BICARB (1 MEQ/ML) 150 ML IV ONE (15:30)
--- NOTE | 2021-07-31 15:40 | XR ---
EXAMINATION TYPE: XR chest 1V portable DATE OF EXAM: 07/31/2021 COMPARISON: Yesterday HISTORY: Weakness TECHNIQUE: Single view FINDINGS: Endotracheal tube is 3 cm from the litzy. There is nasogastric tube and the tip appears to be at the gastroesophageal junction. There is slight coarsening of the interstitial markings. IMPRESSION: There is improvement in the pulmonary interstitial edema compared to yesterday. Nasogastr ic tube is at the gastroesophageal junction probably in the distal esophagus.
[2021-07-31 15:57] LABS: Glucose,Whole Blood 140 mg/dL (75-99)
[2021-07-31 16:21] LABS: Calcium 8.1 mg/dL (8.4-10.2); Potassium 5.1 mmol/L (3.5-5.1)
[2021-07-31 17:17] LABS: Partial Thromboplastin Time 23.7 sec (22.0-30.0); Prothrombin Time 10.5 sec (9.0-12.0)
[2021-07-31] MEDS ORDERED: CISATRACURIUM 2 MG/ML 5 ML VIAL IV ONE (18:00)
--- NOTE | 2021-07-31 18:32 | P.PN ---
Progress Note - Text Progress Note Date: 07/31/21 Discussed nephrostomy with Drs. Hampton, Alisson, and called Juan Pablo from Anesthesia at 520Pm. At bedside with patient at 6pm following call team from chemical laboratory scientist. Patient systolic 73mmHg and moving about despite max sedation. Juan Pablo suggested paralyzing patient, but sales support manager not comfortable without anesthesia support. Will reassess in am. Dr. Hampton and Alisson aware.
[2021-07-31 19:43] LABS: ABG Base Excess -12.1 mmol/L; ABG HCO3 15 mmol/L (21-25); ABG PCO2 34 mmHg (35-45); ABG PH 7.26 (7.35-7.45); ABG PO2 156 mmHg (83-108); ABG TCO2 16 mmol/L (19-24); Allen Test Performed? Yes
[2021-07-31] MEDS: fentaNYL (PF). 1,000 MCG in SODIUM CHLORIDE 0.9% 80 ML IV SCH (20:03)
[2021-07-31] MEDS ORDERED: LIDOCAINE 1% INJ 10MG/ML (20 ML MDV) SQ ONE (20:43)
--- NOTE | 2021-07-31 21:05 | P.OP ---
Date of Procedure: 07/31/21 Preoperative Diagnosis: hydronephrosis right kidney, only mild left Procedure(s) Performed: right neph tube Anesthesia: local, other (per anesthesia) Estimated Blood Loss (ml): 5 Condition: stable Disposition: no change Operative Findings: cloudy whitten urine sent for cx Description of Procedure: 8.5 fr tube
[2021-07-31] MEDS ORDERED: SODIUM CHLORIDE 0.9% 1,000 ML IV ONE (22:11)
[2021-07-31] MEDS ORDERED: SODIUM CHLORIDE 0.9% 150 ML with VASOPRESSIN 60 UNIT IV SCH ×2 (22:15)
[2021-07-31] MEDS: CISATRACURIUM 200 MG in SODIUM CHLORIDE 0.9% 180 ML IV SCH (22:28)
[2021-07-31 23:04] LABS: HCT 33.3 % (39.0-53.0); HGB 10.7 gm/dL (13.0-17.5); Hypochromasia Slight; MCH 29.5 pg (25.0-35.0); MCHC 32.1 g/dL (31.0-37.0); MCV 91.8 fL (80.0-100.0); Mean Platelet Volume 7.6; Platelet Count 245 k/uL (150-450); RBC 3.63 m/uL (4.30-5.90); RDW 15.5 % (11.5-15.5); WBC 1.6 k/uL (3.8-10.6)
[2021-08-01] MEDS: NOREPINEPHRINE 32 MG in SODIUM CHLORIDE 0.9% 218 ML IV SCH ×3 (00:30→23:38)
--- NOTE | 2021-08-01 00:49 | XR ---
EXAMINATION TYPE: XR chest 1V portable DATE OF EXAM: 08/01/2021 COMPARISON: NONE HISTORY: Tube placement TECHNIQUE: 2 views FINDINGS: The endotracheal tube is 6 cm from the litzy. There is nasogastric tube in the stomach. Th ere is some interstitial increased density at the lung bases consistent with scarring and subsegmenta l atelectasis. There is no heart failure. IMPRESSION: Interstitial density at the lung bases is the same or slightly worse than yesterday. No h eart failure seen.
[2021-08-01 01:04] LABS: Anisocytosis (M) Present; Band Neutrophils % 10 %; Lymphocytes # (M) 0.26 k/uL (1.0-4.8); Neutrophils % (M) 68 %; Nucleated Red Blood Cells 0 /100 WBC (0-0); Polychromasia Present; Total Cells Counted 100
[2021-08-01] MEDS: DEXTROSE 5% IN WATER 1,000 ML with SODIUM BICARB (1 MEQ/ML) 150 ML IV SCH ×2 (03:18→15:20)
[2021-08-01 05:32] LABS: Anisocytosis Slight; HCT 34.1 % (39.0-53.0); HGB 10.7 gm/dL (13.0-17.5); Hypochromasia Slight; MCH 28.3 pg (25.0-35.0); MCHC 31.4 g/dL (31.0-37.0); MCV 90.2 fL (80.0-100.0); Mean Platelet Volume 7.9; Platelet Count 250 k/uL (150-450); Poikilocytosis Slight; RBC 3.78 m/uL (4.30-5.90); RDW 16.1 % (11.5-15.5); WBC 13.7 k/uL (3.8-10.6)
[2021-08-01 05:35] LABS: Albumin 2.2 g/dL (3.5-5.0); Calcium 7.5 mg/dL (8.4-10.2); Total Protein 4.8 g/dL (6.3-8.2)
[2021-08-01 05:47] LABS: ABG Base Excess -4.9 mmol/L; ABG HCO3 24 mmol/L (21-25); ABG Oxygen Saturation 93.7 % (94-97); ABG PO2 70 mmHg (83-108); ABG TCO2 27 mmol/L (19-24); Allen Test Performed? Yes
[2021-08-01 05:48] LABS: Glucose,Whole Blood 174 mg/dL (75-99)
[2021-08-01 05:50] LABS: ABG PCO2 75 mmHg (35-45); ABG PH 7.12 (7.35-7.45)
[2021-08-01] MEDS: INSULIN ASPART (NovoLOG) 100 UNIT/ML VIAL SQ SCH ×3 (06:40→17:43)
[2021-08-01] MEDS: LEVOTHYROXINE 88 MCG TAB PO SCH (06:40)
[2021-08-01 06:46] LABS: Anisocytosis (M) Present; Band Neutrophils % 10 %; Lymphocytes # (M) 0.27 k/uL (1.0-4.8); Metamyelocytes # (M) 0.14 k/uL (0); Metamyelocytes % 1 %; Neutrophils % (M) 87 %; Nucleated Red Blood Cells 0 /100 WBC (0-0); Polychromasia Present; Total Cells Counted 100
[2021-08-01] MEDS ORDERED: SODIUM CHLORIDE 0.9% 2,000 ML IV ONE (08:16)
[2021-08-01] MEDS: SODIUM CHLORIDE 0.9% 1,000 ML IV ONE ×2 (08:20→09:24)
[2021-08-01] MEDS ORDERED: SODIUM CHLORIDE 0.9% 150 ML with VASOPRESSIN 60 UNIT IV SCH ×2 (08:30)
--- NOTE | 2021-08-01 08:39 | P.PN ---
Subjective Patient is seen in follow-up for acute kidney injury. Patient had a right-sided nephrostomy tube placed July 31. No significant output. Intubated. Currently on max dose of Levophed and vasopressin. He is on bicarb drip and also receiving normal saline boluses. Vital signs - tachycardic. On high-dose vasopressor support. HEENT: Intubated. LUNGS: Breath sounds decreased. HEART: Tachycardic. ABDOMEN: Soft, mild distention noted. EXTREMITITES: No edema. Objective - Vital Signs Vital signs: Vital Signs Temp 98 F 08/01/21 08:00 Pulse 103 H 08/01/21 08:00 Resp 20 08/01/21 08:00 BP 97/63 08/01/21 08:00 Pulse Ox 99 08/01/21 08:00 Intake & Output 07/31/21 08/01/21 08/01/21 18:59 06:59 18:59 Intake Total 5991.846 0541.264 110 Output Total 60 60 Balance 1331.432 5436.264 110 Intake: IV 1165 1310 110 0.9 265 110 10 Dextrose 5% in Water 1, 300 1200 100 000 ml @ 100 mls/hr IV . [id number] ONE with Sodium Bicarb (1 Meq/ml) 150 ml Rx#:[id number] Intake, IV Titration 105.884 514.264 Amount Cisatracurium 200 mg In 19.007 Sodium Chloride 0.9% 180 ml @ 1 MCG/KG/MIN 4.884 mls/hr IV .Q24H [facility] Rx#: [id number] Norepinephrine 32 mg In 56.067 267.785 Sodium Chloride 0.9% 218 ml @ 0.05 MCG/KG/MIN 1. 807 mls/hr IV .Q24H [facility] Rx#:[id number] propofoL 1,000 mg In 49.817 227.472 Empty Bag 1 bag @ Titrate IV .Q0M [facility] Rx#: [id number] Output: Urine 50 60 Estimated Blood Loss 10 Other: Voiding Method Indwelling Catheter Indwelling Catheter # Voids 0 0 ABP, PAP, CO, CI - Last Documented Arterial Blood Pressure 71/43 - Labs CBC & Chem 7: 08/01/21 04:12 08/01/21 04:12 Labs: Abnormal Lab Results - Last 24 Hours (Table) 07/31/21 07/31/21 07/31/21 Range/Units 14:45 15:34 15:55 WBC (3.8-10.6) k/uL RBC (4.30-5.90) m/uL Hgb (13.0-17.5) gm/dL Hct (39.0-53.0) % RDW (11.5-15.5) % Neutrophils # (Manual) (1.3-7.7) k/uL Lymphocytes # (Manual) (1.0-4.8) k/uL Metamyelocytes # (Man) (0) k/uL ABG pH 7.04 L* (7.35-7.45) ABG pCO2 48 H (35-45) mmHg ABG pO2 (83-108) mmHg ABG HCO3 13 L (21-25) mmol/L ABG Total CO2 15 L (19-24) mmol/L ABG O2 Saturation (94-97) % Sodium 146 H (137-145) mmol/L Chloride 116 H (98-107) mmol/L Carbon Dioxide 14 L (22-30) mmol/L BUN 81 H (9-20) mg/dL Creatinine 6.51 H (0.66-1.25) mg/dL Glucose 122 H (74-99) mg/dL POC Glucose (mg/dL) 140 H (75-99) mg/dL Calcium 8.1 L (8.4-10.2) mg/dL Alkaline Phosphatase (38-126) U/L Total Protein (6.3-8.2) g/dL Albumin (3.5-5.0) g/dL 07/31/21 07/31/21 08/01/21 Range/Units 19:40 22:10 04:12 WBC 1.6 L 13.7 H (3.8-10.6) k/uL RBC 3.63 L 3.78 L (4.30-5.90) m/uL Hgb 10.7 L 10.7 L (13.0-17.5) gm/dL Hct 33.3 L 34.1 L (39.0-53.0) % RDW 16.1 H (11.5-15.5) % Neutrophils # (Manual) 1.20 L 13.20 H (1.3-7.7) k/uL Lymphocytes # (Manual) 0.26 L 0.27 L (1.0-4.8) k/uL Metamyelocytes # (Man) 0.14 H (0) k/uL ABG pH 7.26 L (7.35-7.45) ABG pCO2 34 L (35-45) mmHg ABG pO2 156 H (83-108) mmHg ABG HCO3 15 L (21-25) mmol/L ABG Total CO2 16 L (19-24) mmol/L ABG O2 Saturation 100.0 H (94-97) % Sodium (137-145) mmol/L Chloride (98-107) mmol/L Carbon Dioxide (22-30) mmol/L BUN (9-20) mg/dL Creatinine (0.66-1.25) mg/dL Glucose (74-99) mg/dL POC Glucose (mg/dL) (75-99) mg/dL Calcium (8.4-10.2) mg/dL Alkaline Phosphatase (38-126) U/L Total Protein (6.3-8.2) g/dL Albumin (3.5-5.0) g/dL 08/01/21 08/01/21 08/01/21 Range/Units 04:12 05:43 05:46 WBC (3.8-10.6) k/uL RBC (4.30-5.90) m/uL Hgb (13.0-17.5) gm/dL Hct (39.0-53.0) % RDW (11.5-15.5) % Neutrophils # (Manual) (1.3-7.7) k/uL Lymphocytes # (Manual) (1.0-4.8) k/uL Metamyelocytes # (Man) (0) k/uL ABG pH 7.12 L* (7.35-7.45) ABG pCO2 75 H* (35-45) mmHg ABG pO2 70 L (83-108) mmHg ABG HCO3 (21-25) mmol/L ABG Total CO2 27 H (19-24) mmol/L ABG O2 Saturation 93.7 L (94-97) % Sodium (137-145) mmol/L Chloride 112 H (98-107) mmol/L Carbon Dioxide (22-30) mmol/L BUN 80 H (9-20) mg/dL Creatinine 6.53 H (0.66-1.25) mg/dL Glucose 178 H (74-99) mg/dL POC Glucose (mg/dL) 174 H (75-99) mg/dL Calcium 7.5 L (8.4-10.2) mg/dL Alkaline Phosphatase 133 H (38-126) U/L Total Protein 4.8 L (6.3-8.2) g/dL Albumin 2.2 L (3.5-5.0) g/dL Microbiology - Last 24 Hours (Table) 07/31/21 04:00 Urine Culture - Preliminary Urine,Voided Assessment and Plan Plan: Assessment: 1. Acute kidney injury secondary to ATN secondary to hypotension and obstructive uropathy. Creatinine was 6.8 on admission and is 6.5 today. Unknown baseline renal function. 2. Hematuria and bilateral hydronephrosis with high suspicion for bladder cancer. Status post right-sided nephrostomy tube placed 07/31/2021. 3. Acute hypercapnic respiratory failure. 4. Metabolic acidosis secondary to acute kidney injury maintained on bicarb drip. 5. Shock maintained on high-dose vasopressor support. Plan: Maintain bicarb drip. Wean vasopressors. Currently receiving normal saline boluses. Recheck BMP at 4 PM today. Continue to assess daily for need for renal replacement therapy. Patient is currently hemodynamically unstable but will attempt SLED if needed. Check phosphorus level.
[2021-08-01 08:44] LABS: Appearance,Urine Turbid (Clear); Bacteria,Urine Many /hpf; Bilirubin,Urine Negative (Negative); Blood,Urine Moderate (Negative); Glucose,Urine (UA) Negative (Negative); Ketones,Urine Negative (Negative); Leukocyte Esterase,Urine Large (Negative); Nitrite,Urine Positive (Negative); PH, Urine 7.5 (5.0-8.0); Protein,Urine 2+ (Negative); RBC,Urine >182 /hpf (0-5); Urobilinogen,Urine <2.0 mg/dL (<2.0); WBC,Urine >182 /hpf (0-5)
[2021-08-01 08:48] LABS: Color,Urine Red; Specific Gravity,Urine 1.049 (1.001-1.035)
[2021-08-01] MEDS ORDERED: ATORVASTATIN 10 MG TAB PO SCH (09:00)
--- NOTE | 2021-08-01 09:16 | IR ---
EXAMINATION TYPE: IR nephrostomy, US guide intraoperative DATE OF EXAM: 07/31/2021 COMPARISON: CT scan dated 07/30/2021 HISTORY: Hydronephrosis, ureteral obstruction PROCEDURE: Maximal barrier technique was utilized. The skin overlying the right kidney was localized using ultrasound and the overlying skin prepped and draped. Ultrasound was utilized with sterile te chnique. Lidocaine used for local anesthesia. Skin blaire was made with a scalpel. Access was gained under ultrasound with a 21-gauge needle to the upper pole posterior calyx right kidney. Urine was cl oudy and returned in the hub of the needle. A 0.018 inch wire was advanced. The access site was dil ated and subsequently an 8.5-Sing[place]an catheter was advanced over wire in the renal pelvis and fixed in place. Urine returned in the hub of the catheter was great colored, turbid. Gentle hand-injection o f contrast material was performed verifying placement. Catheter was fixed to the skin with 2-0 silk a nd a sterile dressing was placed. The patient remained in stable condition without complication. Th e patient was discharged to observation. Attention directed to the left kidney. Ultrasound shows only mild hydronephrosis. IMPRESSION: STATUS POST 8.5 SERBIAN NEPHROSTOMY TUBE PLACEMENT WITH ULTRASOUND AND FLUOROSCOPIC ELAN GREENE. THIS PROCEDURE WAS PERFORMED BY THE UNDERSIGNED. Only mild hydronephrosis noted within the left kidney.
--- NOTE | 2021-08-01 09:24 | P.PN ---
Progress Note - Text Progress Note Date: 08/01/21 Mr. Lorenzo underwent cystoscopy with evacuation of clot yesterday. He was found to have a large, sessile bladder tumor arising from the right posterolateral bladder wall. The tumor was partially resected. Ureteral stents could not be placed. He subsequently underwent placement of a right percutaneous nephrostomy tube, which is draining blood-tinged urine. Unfortunately, output from the nephrostomy tube is minimal and he is requiring vasopressors for hypotension. If his condition stabilizes, he may benefit from left nephrostomy tube placement.
[2021-08-01] MEDS: SODIUM BICARBONATE TAB 650 MG TAB PO SCH ×4 (09:26→21:10)
[2021-08-01] MEDS: HEPARIN SODIUM,PORCINE/PF 5,000 UNIT/0.5 ML SYRINGE SQ SCH ×2 (09:26→21:09)
[2021-08-01] MEDS: PANTOPRAZOLE 40 MG/10 ML VIAL IV SCH (09:26)
[2021-08-01] MEDS: CHLORHEXIDINE GLUCONATE 15 ML CUP MUCOUS MEM SCH ×2 (09:27→21:10)
--- NOTE | 2021-08-01 09:59 | ECHOF ---
Referral Reason:decreased BP MEASUREMENTS -------- HEIGHT: 180.3 cm WEIGHT: 81.2 kg BP: RVIDd: 3.7 cm (< 3.3) IVSd: 1.0 cm (0.6 - 1.1) LVIDd: 3.7 cm (3.9 - 5.3) LVPWd: 0.9 cm (0.6 - 1.1) IVSs: 1.4 cm LVIDs: 3.1 cm LVPWs: 0.9 cm MV E Tal: 0.83 m/s MV DecT: 179 ms MV A Tal: 0.81 m/s MV E/A Ratio: 1.02 RAP: 5.00 mmHg RVSP: 26.36 mmHg FINDINGS -------- This was a technically difficult study with suboptimal views. The left ventricular size is normal. Left ventricular wall thickness is normal. Overall left vent ricular systolic function is moderate-severely impaired with, an EF between 30 - 35 %. The right ventricle is mild to moderately enlarged. The left atrial size is normal. The right atrium was not well visualized. Lumason used The aortic valve was not well visualized. The mitral valve was not well visualized. There is trace mitral regurgitation. The tricuspid valve was not well visualized. Mild tricuspid regurgitation present. Right ventricu lar systolic pressure is normal at < 35 mmHg. The pulmonic valve was not well visualized. The aortic root size is normal. Normal inferior vena cava with normal inspiratory collapse consistent with estimated right atrial pre ssure of 5 mmHg. There is no pericardial effusion. CONCLUSIONS -------- 1. The left ventricular size is normal. 2. Left ventricular wall thickness is normal. 3. Overall left ventricular systolic function is moderate-severely impaired with, an EF between 30 - 35 %. 4. The right ventricle is mild to moderately enlarged. 5. There is trace mitral regurgitation. 6. Mild tricuspid regurgitation present. 7. There is no pericardial effusion. SONOSCOPE OPERATOR: Kaylie Can RDCS
--- NOTE | 2021-08-01 10:25 | P.PN ---
Subjective Progress Note Date: 08/01/21 Principal diagnosis: Respiratory failure. This is a 76-year-old male patient with a known history of hypertension, hyperlipidemia, hypothyroidism. He is brought into the emergency room last evening after being found on the floor. He was unsure if he fell or passed out. He felt that he had some bleeding that he noted in the toilet and sure whether it was rectal bleeding. Denny catheter was placed and there was gross hematuria. Computed tomography scan of the brain revealed no acute intracranial process. No evidence of fracture. She scan of the abdomen and pelvis revealed bilateral hydronephrosis and hydroureter. No obstructing calculus was seen. There was malposition of the Denny catheter apparently in the prostatic urethra. Chest x-ray showed mild pulmonary fibrosis. White count 13.3. Hemoglobin 11.1. Sodium 141. Potassium 4.7. Creatinine 6.10. Troponin 0.119, 0.077. He was ordered 1 unit of packed red blood cells and received K centra and was admi tted to the ICU for closer monitoring. He is seen today in consultation. He is awake and alert in no acute distress. Maintaining O2 saturations in the 90s on room air. He is requiring norepinephrine at 0.07 mcg/kg/m to maintain mean arterial pressures greater than 60. 0.9 normal saline at 75 ML's per hour. The plan is for cystoscopy with Dr. Vinson today. He had several 100 ML's of clot removed from the bladder. 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 A portion of the tumor was resected. It was a dense, obviously high-grade and muscle invasive. Excellent hemostasis was attained. Pathology is pending. Progress note dated 08/01/2021. This is a 76-year-old male admitted to the hospital on July 30. He came in with a number of issues including rectal bleeding. The patient went to the operating room yesterday, and had a right nephrostomy tube placed, a cystoscopy, and bladder tumor resection. The patient was intubated yesterday for the operative procedure. He remains on the ventilator. He has a history of hypertension, hyperlipidemia, and hypothyroidism. Currently, he is on the volume assist control mode, rate 20, tidal volume 500, FiO2 40%, and PEEP of 5. Blood gases show a PaO2 of 70, a pCO2 of 75, and a pH is 7.12. Those blood gases were done on a rate of 16 and a tidal volume of 455. Currently, the patient is on a number drips including 3 ampules of sodium bicarbonate and D5W at 100 mL an hour, will follow-up 40 mcg/kg/m, Nimbex at 0.25 mcg/kg/m, fentanyl at 0.5 mcg/kg/h, norepinephrine at 75 mcg/m, and vasopressin at 0.03 units per minute. White count 13.7, hemoglobin 10.7, hematocrit 34.1, and platelet count 250,000. Sodium 145, potassium 4, chlorides 112, CO2 23, anion gap 10, UA and 80, creatinine 6.53. Albumin is 2.2. Chest x-ray shows some interstitial density at the lung bases, which are worse in the prior x-ray. Objective - Vital Signs Vital signs: Vital Signs Temp 98 F 08/01/21 08:00 Pulse 98 08/01/21 09:00 Resp 20 08/01/21 09:00 BP 86/59 08/01/21 09:00 Pulse Ox 100 08/01/21 09:00 Intake & Output 07/31/21 08/01/21 08/01/21 18:59 06:59 18:59 Intake Total 0902.939 3021.264 1330 Output Total 60 60 105 Balance 4764.104 9154.264 1225 Intake: IV 1165 1310 1330 0.9 247 423 0477 Dextrose 5% in Water 1, 300 1200 300 000 ml @ 100 mls/hr IV . [id number] ONE with Sodium Bicarb (1 Meq/ml) 150 ml Rx#:[id number] Intake, IV Titration 105.884 514.264 Amount Cisatracurium 200 mg In 19.007 Sodium Chloride 0.9% 180 ml @ 1 MCG/KG/MIN 4.884 mls/hr IV .Q24H [facility] Rx#: [id number] Norepinephrine 32 mg In 56.067 267.785 Sodium Chloride 0.9% 218 ml @ 0.05 MCG/KG/MIN 1. 807 mls/hr IV .Q24H [facility] Rx#:[id number] propofoL 1,000 mg In 49.817 227.472 Empty Bag 1 bag @ Titrate IV .Q0M [facility] Rx#: [id number] Output: Drainage 15 Right Lateral Back 15 Urine 50 60 90 Estimated Blood Loss 10 Other: Voiding Method Indwelling Catheter Indwelling Catheter Indwelling Catheter # Voids 0 0 ABP, PAP, CO, CI - Last Documented Arterial Blood Pressure 78/46 - Exam No acute distress, the patient is sedated and paralyzed, and is an orally placed endotracheal tube and NG tube. HEENT examination is grossly unremarkable. Neck supple. Full range of motion. No adenopathy thyromegaly or neck vein distention. Cardiovascular examination reveals regular rhythm rate. S1-S2 normal. No S3 or S4. No discernible murmur noted. Heart sounds are distant. Heart rate 98 bpm. Lungs reveal diffuse bilateral coarse rhonchi. Breath sounds are equal. No wheezes or crackles noted. Abdomen is soft, without bowel sounds. Extremities are intact. No cyanosis clubbing or edema. Skin is without rash or lesion. Neurologic examination cannot be adequately assessed. - Labs CBC & Chem 7: 08/01/21 04:12 08/01/21 04:12 Labs: Abnormal Lab Results - Last 24 Hours (Table) 07/31/21 07/31/21 07/31/21 Range/Units 14:45 15:34 15:55 WBC (3.8-10.6) k/uL RBC (4.30-5.90) m/uL Hgb (13.0-17.5) gm/dL Hct (39.0-53.0) % RDW (11.5-15.5) % Neutrophils # (Manual) (1.3-7.7) k/uL Lymphocytes # (Manual) (1.0-4.8) k/uL Metamyelocytes # (Man) (0) k/uL ABG pH 7.04 L* (7.35-7.45) ABG pCO2 48 H (35-45) mmHg ABG pO2 (83-108) mmHg ABG HCO3 13 L (21-25) mmol/L ABG Total CO2 15 L (19-24) mmol/L ABG O2 Saturation (94-97) % Sodium 146 H (137-145) mmol/L Chloride 116 H (98-107) mmol/L Carbon Dioxide 14 L (22-30) mmol/L BUN 81 H (9-20) mg/dL Creatinine 6.51 H (0.66-1.25) mg/dL Glucose 122 H (74-99) mg/dL POC Glucose (mg/dL) 140 H (75-99) mg/dL Calcium 8.1 L (8.4-10.2) mg/dL Alkaline Phosphatase (38-126) U/L Total Protein (6.3-8.2) g/dL Albumin (3.5-5.0) g/dL Ur Specific [place] (1.001-1.035) Urine Protein (Negative) Urine Blood (Negative) Ur Leukocyte Esterase (Negative) Urine RBC (0-5) /hpf Urine WBC (0-5) /hpf Urine Bacteria (None) /hpf 07/31/21 07/31/21 07/31/21 Range/Units 19:40 20:57 22:10 WBC 1.6 L (3.8-10.6) k/uL RBC 3.63 L (4.30-5.90) m/uL Hgb 10.7 L (13.0-17.5) gm/dL Hct 33.3 L (39.0-53.0) % RDW (11.5-15.5) % Neutrophils # (Manual) 1.20 L (1.3-7.7) k/uL Lymphocytes # (Manual) 0.26 L (1.0-4.8) k/uL Metamyelocytes # (Man) (0) k/uL ABG pH 7.26 L (7.35-7.45) ABG pCO2 34 L (35-45) mmHg ABG pO2 156 H (83-108) mmHg ABG HCO3 15 L (21-25) mmol/L ABG Total CO2 16 L (19-24) mmol/L ABG O2 Saturation 100.0 H (94-97) % Sodium (137-145) mmol/L Chloride (98-107) mmol/L Carbon Dioxide (22-30) mmol/L BUN (9-20) mg/dL Creatinine (0.66-1.25) mg/dL Glucose (74-99) mg/dL POC Glucose (mg/dL) (75-99) mg/dL Calcium (8.4-10.2) mg/dL Alkaline Phosphatase (38-126) U/L Total Protein (6.3-8.2) g/dL Albumin (3.5-5.0) g/dL Ur Specific [place] 1.049 H (1.001-1.035) Urine Protein 2+ H (Negative) Urine Blood Moderate H (Negative) Ur Leukocyte Esterase Large H (Negative) Urine RBC >182 H (0-5) /hpf Urine WBC >182 H (0-5) /hpf Urine Bacteria Many H (None) /hpf 08/01/21 08/01/21 08/01/21 Range/Units 04:12 04:12 05:43 WBC 13.7 H (3.8-10.6) k/uL RBC 3.78 L (4.30-5.90) m/uL Hgb 10.7 L (13.0-17.5) gm/dL Hct 34.1 L (39.0-53.0) % RDW 16.1 H (11.5-15.5) % Neutrophils # (Manual) 13.20 H (1.3-7.7) k/uL Lymphocytes # (Manual) 0.27 L (1.0-4.8) k/uL Metamyelocytes # (Man) 0.14 H (0) k/uL ABG pH 7.12 L* (7.35-7.45) ABG pCO2 75 H* (35-45) mmHg ABG pO2 70 L (83-108) mmHg ABG HCO3 (21-25) mmol/L ABG Total CO2 27 H (19-24) mmol/L ABG O2 Saturation 93.7 L (94-97) % Sodium (137-145) mmol/L Chloride 112 H (98-107) mmol/L Carbon Dioxide (22-30) mmol/L BUN 80 H (9-20) mg/dL Creatinine 6.53 H (0.66-1.25) mg/dL Glucose 178 H (74-99) mg/dL POC Glucose (mg/dL) (75-99) mg/dL Calcium 7.5 L (8.4-10.2) mg/dL Alkaline Phosphatase 133 H (38-126) U/L Total Protein 4.8 L (6.3-8.2) g/dL Albumin 2.2 L (3.5-5.0) g/dL Ur Specific [place] (1.001-1.035) Urine Protein (Negative) Urine Blood (Negative) Ur Leukocyte Esterase (Negative) Urine RBC (0-5) /hpf Urine WBC (0-5) /hpf Urine Bacteria (None) /hpf 08/01/21 Range/Units 05:46 WBC (3.8-10.6) k/uL RBC (4.30-5.90) m/uL Hgb (13.0-17.5) gm/dL Hct (39.0-53.0) % RDW (11.5-15.5) % Neutrophils # (Manual) (1.3-7.7) k/uL Lymphocytes # (Manual) (1.0-4.8) k/uL Metamyelocytes # (Man) (0) k/uL ABG pH (7.35-7.45) ABG pCO2 (35-45) mmHg ABG pO2 (83-108) mmHg ABG HCO3 (21-25) mmol/L ABG Total CO2 (19-24) mmol/L ABG O2 Saturation (94-97) % Sodium (137-145) mmol/L Chloride (98-107) mmol/L Carbon Dioxide (22-30) mmol/L BUN (9-20) mg/dL Creatinine (0.66-1.25) mg/dL Glucose (74-99) mg/dL POC Glucose (mg/dL) 174 H (75-99) mg/dL Calcium (8.4-10.2) mg/dL Alkaline Phosphatase (38-126) U/L Total Protein (6.3-8.2) g/dL Albumin (3.5-5.0) g/dL Ur Specific [place] (1.001-1.035) Urine Protein (Negative) Urine Blood (Negative) Ur Leukocyte Esterase (Negative) Urine RBC (0-5) /hpf Urine WBC (0-5) /hpf Urine Bacteria (None) /hpf Microbiology - Last 24 Hours (Table) 07/31/21 04:00 Urine Culture - Preliminary Urine,Voided Assessment and Plan Assessment: Gross hematuria, secondary to bladder tumor, status post cystoscopy and biopsies, 07/31/2021. Routine postoperative ventilator management. Hypotension, likely secondary to sepsis. Anemia, status post 1 unit of PRBCs. Acute kidney injury, secondary to ATN. Mild troponin leak. Hyperlipidemia. History of hypertension. Hypothyroidism. Prior history of tobacco use. Plan: Plan dated 08/01/2021. Currently, obviously, the patient's quite ill. He is essentially maxed out on norepinephrine and vasopressin. He is currently sedated and paralyzed. Not much more to do for this patient. The patient remains on Rocephin. The other medications are reviewed and are appropriate. Unnecessary medications will be discontinued. Overall prognosis is poor. We will continue to follow make recommendations where appropriate. Time with Patient: Greater than 30
[2021-08-01 11:08] LABS: Glucose,Whole Blood 131 mg/dL (75-99)
[2021-08-01] MEDS: fentaNYL (PF). 1,000 MCG in SODIUM CHLORIDE 0.9% 80 ML IV SCH ×2 (11:44→21:32)
--- NOTE | 2021-08-01 15:37 | P.PN ---
Subjective Progress Note Date: 08/01/21 HISTORY OF PRESENT ILLNESS This 76-year-old pleasant gentleman, patient of Dr. Wills. History of hypertension hyperlipidemia, hypothyroidism, who was noted to have some bleeding in the toilet for several days, unsure how long the duration was, however he is on blood thinners, he was found on the floor today, patient denies any headache, however it's unclear how the patient fell. He does not admit to syncopal event, patient was subsequently setting to emergency room from home, to the emergency via EMS, a condom catheter was placed, and that's how they found that patient is having gross hematuria rather than rectal bleeding. In emergency room, central line was placed for IV hydration, blood pressure was 75/50, daily urinalysis, shows over 182 RBCs and WBC, hemoglobin 10.4 WBC count 11.0, platelet 297, creatinine of 6.1, BUN of 77, unknown baseline. Patient had CAT scan, head and cervical spine, shows multilevel cervical spondylosis change, no fracture, and no dislocation. No intracranial hemorrhage, intact calvarium. Computed tomography scan of the abdomen, shows bilateral hydronephrosis, and hydroureter, more on the right than the left, there is bilateral renal vascular calcification, no renal calculi, no ureteral calculi. There is no inguinal hernia, no fluid in the pelvis, bilateral stents in the abdominal aorta and iliac arteries, no mesenteric edema, no ascites or free air. No bowel obstruction, bladder imaging is not well evaluated due to lack of distention there is colonic diverticula, without signs of diverticulitis. Chest x-ray shows mild pulmonary fibrosis Consult was made with nephrology, urology and intensive care management, patient admitted to ICU for significant gross hematuria, obstructive uropathy, with mental status changes, and suspected syncope, with a fall long-term anticoagulation, elevated troponin Patient is taken to the operating room, for cystoscopy, evacuation of clot, and transient Trial resection of the bladder as a CAT scan per review from urology, shows bladder irregularity. There is a large sessile tumor, in the right posterolateral bladder wall. It was dense and suspected to have obviously a high grade tumor, with muscular invasion 08/01: A remains in the intensive care unit intubated on mechanical ventilation with tidal volume 500, FiO2 40, PEEP of 5. Patient is on levo fed, vasopressin, Nimbex, fentanyl, bicarb drip and propofol. The patient has hematuria from Denny catheter and nephrostomy tube and there is small amount of leaking from the meatus. REVIEW OF SYSTEMS Unable to obtain due to intubation PHYSICAL EXAMINATION Gen: This is a 76-year-old male. He is resting in ICU bed, intubated and on mechanical ventilation HEENT: Head is atraumatic, normocephalic. Pupils equal, round. Sclerae is anicteric. NECK: Supple. No JVD. No lymphadenopathy. No thyromegaly. LUNGS: Bilateral rhonchi. No intercostal retractions. HEART: Regular rate and rhythm. No murmur. ABDOMEN: Soft. Bowel sounds are present. No masses. No tenderness. EXTREMITIES: No pedal edema. No calf tenderness. NEUROLOGICAL: Patient is awake, alert and oriented x3. Cranial nerves 2 through 12 are grossly intact. ASSESSMENT AND PLAN 1. Gross hematuria, with hypotension, obstructive uropathy, and a suspected bladder tumor, malignancy is highly suspected resumed UTI with pyuria. Patient was seen by urology, status post transurethral bladder resection on 07/31/2021 Dr. Vinson. Patient is in ICU, for hypotension, and is on Levophed. Monitor for CBC, patient will need blood transfusion for hemoglobin under 8 secondary to current Anemia, and NonSTEMI cannot be ruled out IV Rocephin 2. Acute blood loss anemia, with hypovolemic hypotension, from gross hematuria, requiring vasopressors, norepinephrine, maintained in ICU treatment, critical care medicine following. 3. Obstructive uropathy, with acute kidney failure unknown baseline for CK D. Bilateral hydronephrosis and hydroureter, required bladder to more with partial resection of the bladder on 1120, monitor for renal function, nephrology is consulted 4. Elevated troponin, rule out non-ST elevated myocardial infarction. Cardiology consult added. 5. Acute hypoxic respiratory failure requiring ongoing intubation mechanical ventilation. Patient is managed by infertility medical assistant. 6. BPH with prostatomegaly has indwelling Denny catheter at this time 7. Hypothyroidism. Continue levothyroxine 175 g daily 8. Hyperlipidemia 9. Hypertension currently hypotensive. 10. Tobacco use and dependence. DVT prophylaxis heparin subcu, to start in 24 hours. Post op patient reviewed his receive 1 dose kcentra 07/30 GI prophylaxis IV Protonix Impression and plan of care have been directed as dictated by the signing physician. Laurie Lawson nurse practitioner acting as scribe for signing physician. Objective - Vital Signs Vital signs: Vital Signs Temp 98 F 08/01/21 08:00 Pulse 96 08/01/21 10:15 Resp 20 08/01/21 10:15 BP 84/60 08/01/21 10:15 Pulse Ox 99 08/01/21 10:15 Intake & Output 07/31/21 08/01/21 08/01/21 18:59 06:59 18:59 Intake Total 6168.964 3142.264 1440 Output Total 60 60 115 Balance 0108.402 8412.264 1325 Intake: IV 1165 1310 1440 0.9 945 550 0760 Dextrose 5% in Water 1, 300 1200 400 000 ml @ 100 mls/hr IV . [id number] ONE with Sodium Bicarb (1 Meq/ml) 150 ml Rx#:[id number] Intake, IV Titration 105.884 514.264 Amount Cisatracurium 200 mg In 19.007 Sodium Chloride 0.9% 180 ml @ 1 MCG/KG/MIN 4.884 mls/hr IV .Q24H [facility] Rx#: [id number] Norepinephrine 32 mg In 56.067 267.785 Sodium Chloride 0.9% 218 ml @ 0.05 MCG/KG/MIN 1. 807 mls/hr IV .Q24H [facility] Rx#:[id number] propofoL 1,000 mg In 49.817 227.472 Empty Bag 1 bag @ Titrate IV .Q0M [facility] Rx#: [id number] Output: Drainage 25 Right Lateral Back 25 Urine 50 60 90 Estimated Blood Loss 10 Other: Voiding Method Indwelling Catheter Indwelling Catheter Indwelling Catheter # Voids 0 0 ABP, PAP, CO, CI - Last Documented Arterial Blood Pressure 72/48 - Labs CBC & Chem 7: 08/01/21 04:12 08/01/21 04:12 Labs: Abnormal Lab Results - Last 24 Hours (Table) 07/31/21 07/31/21 07/31/21 Range/Units 14:45 15:34 15:55 WBC (3.8-10.6) k/uL RBC (4.30-5.90) m/uL Hgb (13.0-17.5) gm/dL Hct (39.0-53.0) % RDW (11.5-15.5) % Neutrophils # (Manual) (1.3-7.7) k/uL Lymphocytes # (Manual) (1.0-4.8) k/uL Metamyelocytes # (Man) (0) k/uL ABG pH 7.04 L* (7.35-7.45) ABG pCO2 48 H (35-45) mmHg ABG pO2 (83-108) mmHg ABG HCO3 13 L (21-25) mmol/L ABG Total CO2 15 L (19-24) mmol/L ABG O2 Saturation (94-97) % Sodium 146 H (137-145) mmol/L Chloride 116 H (98-107) mmol/L Carbon Dioxide 14 L (22-30) mmol/L BUN 81 H (9-20) mg/dL Creatinine 6.51 H (0.66-1.25) mg/dL Glucose 122 H (74-99) mg/dL POC Glucose (mg/dL) 140 H (75-99) mg/dL Calcium 8.1 L (8.4-10.2) mg/dL Alkaline Phosphatase (38-126) U/L Total Protein (6.3-8.2) g/dL Albumin (3.5-5.0) g/dL Ur Specific [place] (1.001-1.035) Urine Protein (Negative) Urine Blood (Negative) Ur Leukocyte Esterase (Negative) Urine RBC (0-5) /hpf Urine WBC (0-5) /hpf Urine Bacteria (None) /hpf 07/31/21 07/31/21 07/31/21 Range/Units 19:40 20:57 22:10 WBC 1.6 L (3.8-10.6) k/uL RBC 3.63 L (4.30-5.90) m/uL Hgb 10.7 L (13.0-17.5) gm/dL Hct 33.3 L (39.0-53.0) % RDW (11.5-15.5) % Neutrophils # (Manual) 1.20 L (1.3-7.7) k/uL Lymphocytes # (Manual) 0.26 L (1.0-4.8) k/uL Metamyelocytes # (Man) (0) k/uL ABG pH 7.26 L (7.35-7.45) ABG pCO2 34 L (35-45) mmHg ABG pO2 156 H (83-108) mmHg ABG HCO3 15 L (21-25) mmol/L ABG Total CO2 16 L (19-24) mmol/L ABG O2 Saturation 100.0 H (94-97) % Sodium (137-145) mmol/L Chloride (98-107) mmol/L Carbon Dioxide (22-30) mmol/L BUN (9-20) mg/dL Creatinine (0.66-1.25) mg/dL Glucose (74-99) mg/dL POC Glucose (mg/dL) (75-99) mg/dL Calcium (8.4-10.2) mg/dL Alkaline Phosphatase (38-126) U/L Total Protein (6.3-8.2) g/dL Albumin (3.5-5.0) g/dL Ur Specific [place] 1.049 H (1.001-1.035) Urine Protein 2+ H (Negative) Urine Blood Moderate H (Negative) Ur Leukocyte Esterase Large H (Negative) Urine RBC >182 H (0-5) /hpf Urine WBC >182 H (0-5) /hpf Urine Bacteria Many H (None) /hpf 08/01/21 08/01/21 08/01/21 Range/Units 04:12 04:12 05:43 WBC 13.7 H (3.8-10.6) k/uL RBC 3.78 L (4.30-5.90) m/uL Hgb 10.7 L (13.0-17.5) gm/dL Hct 34.1 L (39.0-53.0) % RDW 16.1 H (11.5-15.5) % Neutrophils # (Manual) 13.20 H (1.3-7.7) k/uL Lymphocytes # (Manual) 0.27 L (1.0-4.8) k/uL Metamyelocytes # (Man) 0.14 H (0) k/uL ABG pH 7.12 L* (7.35-7.45) ABG pCO2 75 H* (35-45) mmHg ABG pO2 70 L (83-108) mmHg ABG HCO3 (21-25) mmol/L ABG Total CO2 27 H (19-24) mmol/L ABG O2 Saturation 93.7 L (94-97) % Sodium (137-145) mmol/L Chloride 112 H (98-107) mmol/L Carbon Dioxide (22-30) mmol/L BUN 80 H (9-20) mg/dL Creatinine 6.53 H (0.66-1.25) mg/dL Glucose 178 H (74-99) mg/dL POC Glucose (mg/dL) (75-99) mg/dL Calcium 7.5 L (8.4-10.2) mg/dL Alkaline Phosphatase 133 H (38-126) U/L Total Protein 4.8 L (6.3-8.2) g/dL Albumin 2.2 L (3.5-5.0) g/dL Ur Specific [place] (1.001-1.035) Urine Protein (Negative) Urine Blood (Negative) Ur Leukocyte Esterase (Negative) Urine RBC (0-5) /hpf Urine WBC (0-5) /hpf Urine Bacteria (None) /hpf 08/01/21 Range/Units 05:46 WBC (3.8-10.6) k/uL RBC (4.30-5.90) m/uL Hgb (13.0-17.5) gm/dL Hct (39.0-53.0) % RDW (11.5-15.5) % Neutrophils # (Manual) (1.3-7.7) k/uL Lymphocytes # (Manual) (1.0-4.8) k/uL Metamyelocytes # (Man) (0) k/uL ABG pH (7.35-7.45) ABG pCO2 (35-45) mmHg ABG pO2 (83-108) mmHg ABG HCO3 (21-25) mmol/L ABG Total CO2 (19-24) mmol/L ABG O2 Saturation (94-97) % Sodium (137-145) mmol/L Chloride (98-107) mmol/L Carbon Dioxide (22-30) mmol/L BUN (9-20) mg/dL Creatinine (0.66-1.25) mg/dL Glucose (74-99) mg/dL POC Glucose (mg/dL) 174 H (75-99) mg/dL Calcium (8.4-10.2) mg/dL Alkaline Phosphatase (38-126) U/L Total Protein (6.3-8.2) g/dL Albumin (3.5-5.0) g/dL Ur Specific [place] (1.001-1.035) Urine Protein (Negative) Urine Blood (Negative) Ur Leukocyte Esterase (Negative) Urine RBC (0-5) /hpf Urine WBC (0-5) /hpf Urine Bacteria (None) /hpf Microbiology - Last 24 Hours (Table) 07/31/21 04:00 Urine Culture - Preliminary Urine,Voided
[2021-08-01 17:03] LABS: Potassium 4.3 mmol/L (3.5-5.1)
[2021-08-01] MEDS: SODIUM CHLORIDE 0.9% 150 ML with VASOPRESSIN 60 UNIT IV SCH ×2 (21:33)
[2021-08-01] MEDS: CISATRACURIUM 200 MG in SODIUM CHLORIDE 0.9% 180 ML IV SCH (22:19)
[2021-08-01] MEDS ORDERED: CISATRACURIUM 2 MG/ML 5 ML VIAL IV ONE (23:49)
[2021-08-01 23:58] LABS: Glucose,Whole Blood 121 mg/dL (75-99)
[2021-08-02] MEDS: INSULIN ASPART (NovoLOG) 100 UNIT/ML VIAL SQ SCH ×4 (01:11→18:21)
[2021-08-02] MEDS: DEXTROSE 5% IN WATER 1,000 ML with SODIUM BICARB (1 MEQ/ML) 150 ML IV SCH (02:58)
[2021-08-02 05:59] LABS: Anisocytosis Slight; HCT 30.1 % (39.0-53.0); HGB 9.9 gm/dL (13.0-17.5); MCH 29.1 pg (25.0-35.0); MCV 88.1 fL (80.0-100.0); Mean Platelet Volume 8.3; Platelet Count 125 k/uL (150-450); Poikilocytosis Slight; RBC 3.41 m/uL (4.30-5.90); RDW 16.3 % (11.5-15.5); WBC 21.2 k/uL (3.8-10.6)
[2021-08-02 05:59] LABS: Glucose,Whole Blood 113 mg/dL (75-99)
[2021-08-02 06:03] LABS: Calcium 6.8 mg/dL (8.4-10.2); Phosphorus 6.1 mg/dL (2.5-4.5); Potassium 4.1 mmol/L (3.5-5.1)
[2021-08-02] MEDS: LEVOTHYROXINE 88 MCG TAB PO SCH (06:21)
[2021-08-02 06:31] LABS: Allen Test Performed? Yes
[2021-08-02 06:36] LABS: ABG Base Excess 0.2 mmol/L; ABG HCO3 27 mmol/L (21-25); ABG PCO2 59 mmHg (35-45); ABG PH 7.28 (7.35-7.45); ABG PO2 92 mmHg (83-108); ABG TCO2 13 mmol/L (19-24)
[2021-08-02 06:38] LABS: Band Neutrophils % 8 %; Monocytes # (M) 0.42 k/uL (0-1.0); Neutrophils % (M) 82 %; Nucleated Red Blood Cells 0 /100 WBC (0-0); Total Cells Counted 100
[2021-08-02] MEDS: NOREPINEPHRINE 32 MG in SODIUM CHLORIDE 0.9% 218 ML IV SCH (08:12)
--- NOTE | 2021-08-02 08:12 | XR ---
EXAMINATION TYPE: XR chest 1V portable DATE OF EXAM: 08/02/2021 COMPARISON: Chest x-ray 08/01/2021 HISTORY: Intubated TECHNIQUE: Single frontal view of the chest is obtained. FINDINGS: Endotracheal tube and NG tube are overlying appropriate positions. There are overlying art ifacts. No evident pneumothorax, difficult to exclude a small left pleural effusion. There is retroca rdiac density obscuring the hemidiaphragm, bilateral patchy perihilar density is noted. Cardiac media stinal silhouette is stable. IMPRESSION: Correlate for pneumonia, interstitial edema, findings are similar to prior exam
[2021-08-02] MEDS: SODIUM BICARBONATE TAB 650 MG TAB PO SCH ×4 (09:09→21:43)
[2021-08-02] MEDS: HEPARIN SODIUM,PORCINE/PF 5,000 UNIT/0.5 ML SYRINGE SQ SCH ×2 (09:09→21:43)
[2021-08-02] MEDS: CHLORHEXIDINE GLUCONATE 15 ML CUP MUCOUS MEM SCH ×2 (09:09→21:43)
[2021-08-02] MEDS: PANTOPRAZOLE 40 MG/10 ML VIAL IV SCH (09:09)
--- NOTE | 2021-08-02 09:20 | P.PN ---
Subjective Patient is seen in follow-up for acute kidney injury. Patient had a right-sided nephrostomy tube placed July 31. About 250 mL output from the nephrostomy tube. Urine output remains low. Creatinine stable. Intubated. Currently on max dose of Levophed and vasopressin. He is on bicarb drip. Vital signs: On high-dose vasopressor support. HEENT: Intubated. LUNGS: Breath sounds decreased. HEART: Regular rate and rhythm. ABDOMEN: Soft, no distention. EXTREMITITES: No edema. Objective - Vital Signs Vital signs: Vital Signs Temp 98.9 F 08/02/21 04:00 Pulse 78 08/02/21 08:15 Resp 20 08/02/21 08:15 BP 108/64 08/02/21 08:15 Pulse Ox 100 08/02/21 08:15 Intake & Output 08/01/21 08/02/21 08/02/21 18:59 06:59 18:59 Intake Total 3951.053 1690.685 575.810 Output Total 315 487 250 Balance 3636.053 1203.685 325.810 Weight 81.4 kg Intake: IV 3320 1320 220 0.9 2120 120 20 Dextrose 5% in Water 1, 1200 1100 000 ml @ 100 mls/hr IV . [id number] ONE with Sodium Bicarb (1 Meq/ml) 150 ml Rx#:[id number] Dextrose 5% in Water 1, 100 200 000 ml @ 100 mls/hr IV . [id number] [facility] with Sodium Bicarb (1 Meq/ml) 150 ml Rx#:[id number] Intake, IV Titration 451.053 330.685 355.810 Amount Cisatracurium 200 mg In 27.676 23.199 64.591 Sodium Chloride 0.9% 180 ml @ 1 MCG/KG/MIN 4.884 mls/hr IV .Q24H [facility] Rx#: [id number] Norepinephrine 32 mg In 263.087 86.398 217.633 Sodium Chloride 0.9% 218 ml @ 0.05 MCG/KG/MIN 1. 807 mls/hr IV .Q24H [facility] Rx#:[id number] Sodium Chloride 0.9% 150 21.088 0 ml @ 0.04 UNITS/MIN 6.12 mls/hr IV .Q24H [facility] with Vasopressin 60 unit Rx#: [id number] fentaNYL (PF). 1,000 mcg 63.831 In Sodium Chloride 0.9% 80 ml @ 0.5 MCG/KG/HR 4. 07 mls/hr IV .Q24H [facility] Rx #:[id number] propofoL 1,000 mg In 96.459 200 73.586 Empty Bag 1 bag @ Titrate IV .Q0M [facility] Rx#: [id number] Other 180 40 Output: Drainage 215 147 Right Lateral Back 215 147 Urine 100 340 250 Other: Voiding Method Indwelling Catheter Indwelling Catheter ABP, PAP, CO, CI - Last Documented Arterial Blood Pressure 107/52 - Labs CBC & Chem 7: 08/02/21 05:18 08/02/21 05:18 Labs: Abnormal Lab Results - Last 24 Hours (Table) 08/01/21 08/01/21 08/01/21 Range/Units 04:12 11:07 16:00 WBC (3.8-10.6) k/uL RBC (4.30-5.90) m/uL Hgb (13.0-17.5) gm/dL Hct (39.0-53.0) % RDW (11.5-15.5) % Plt Count (150-450) k/uL Neutrophils # (Manual) (1.3-7.7) k/uL ABG pH (7.35-7.45) ABG pCO2 (35-45) mmHg ABG HCO3 (21-25) mmol/L ABG Total CO2 (19-24) mmol/L ABG O2 Saturation (94-97) % Chloride 111 H (98-107) mmol/L BUN 80 H (9-20) mg/dL Creatinine 6.35 H (0.66-1.25) mg/dL Glucose 111 H (74-99) mg/dL POC Glucose (mg/dL) 131 H (75-99) mg/dL Calcium 7.0 L (8.4-10.2) mg/dL Phosphorus 6.0 H (2.5-4.5) mg/dL Procalcitonin 42.40 H (0.02-0.09) ng/mL 08/01/21 08/02/21 08/02/21 Range/Units 23:57 05:18 05:18 WBC 21.2 H (3.8-10.6) k/uL RBC 3.41 L (4.30-5.90) m/uL Hgb 9.9 L (13.0-17.5) gm/dL Hct 30.1 L (39.0-53.0) % RDW 16.3 H (11.5-15.5) % Plt Count 125 L (150-450) k/uL Neutrophils # (Manual) 19.00 H (1.3-7.7) k/uL ABG pH (7.35-7.45) ABG pCO2 (35-45) mmHg ABG HCO3 (21-25) mmol/L ABG Total CO2 (19-24) mmol/L ABG O2 Saturation (94-97) % Chloride (98-107) mmol/L BUN 78 H (9-20) mg/dL Creatinine 6.41 H (0.66-1.25) mg/dL Glucose 125 H (74-99) mg/dL POC Glucose (mg/dL) 121 H (75-99) mg/dL Calcium 6.8 L (8.4-10.2) mg/dL Phosphorus 6.1 H (2.5-4.5) mg/dL Procalcitonin (0.02-0.09) ng/mL 08/02/21 08/02/21 Range/Units 05:48 06:20 WBC (3.8-10.6) k/uL RBC (4.30-5.90) m/uL Hgb (13.0-17.5) gm/dL Hct (39.0-53.0) % RDW (11.5-15.5) % Plt Count (150-450) k/uL Neutrophils # (Manual) (1.3-7.7) k/uL ABG pH 7.28 L (7.35-7.45) ABG pCO2 59 H (35-45) mmHg ABG HCO3 27 H (21-25) mmol/L ABG Total CO2 13 L (19-24) mmol/L ABG O2 Saturation 98.0 H (94-97) % Chloride (98-107) mmol/L BUN (9-20) mg/dL Creatinine (0.66-1.25) mg/dL Glucose (74-99) mg/dL POC Glucose (mg/dL) 113 H (75-99) mg/dL Calcium (8.4-10.2) mg/dL Phosphorus (2.5-4.5) mg/dL Procalcitonin (0.02-0.09) ng/mL Microbiology - Last 24 Hours (Table) 08/01/21 11:12 Gram Stain - Preliminary Sputum Sputum Culture - Preliminary 07/31/21 20:57 Urine Culture - Preliminary Urine,Suprapubic 07/31/21 04:00 Urine Culture - Preliminary Urine,Voided Gram Neg Bacilli Assessment and Plan Plan: Assessment: 1. Acute kidney injury secondary to ATN secondary to hypotension and obstructive uropathy. Creatinine was 6.8 on admission and is 6.41 today. Unknown baseline renal function. 2. Hematuria and bilateral hydronephrosis with high suspicion for bladder cancer. Status post right-sided nephrostomy tube placed 07/31/2021. 3. Acute hypercapnic respiratory failure. 4. Metabolic acidosis secondary to acute kidney injury maintained on bicarb drip. 5. Shock maintained on high-dose vasopressor support. 6. Hyperphosphatemia secondary to acute kidney injury. Plan: Stop bicarb drip. Start normal saline at 75 mL an hour. Wean FiO2 and vasopressors. Recheck BMP this afternoon. Continue to assess daily for need for renal replacement therapy. Patient remains hemodynamically unstable but will attempt SLED if needed.
[2021-08-02] MEDS: SODIUM CHLORIDE 0.45% 1,000 ML IV SCH ×2 (09:35→23:12)
[2021-08-02] MEDS: SODIUM CHLORIDE 0.9% 1,000 ML IV SCH ×2 (09:42→23:12)
--- NOTE | 2021-08-02 11:38 | P.PN ---
Subjective Progress Note Date: 08/02/21 Principal diagnosis: Respiratory failure. This is a 76-year-old male patient with a known history of hypertension, hyperlipidemia, hypothyroidism. He is brought into the emergency room last evening after being found on the floor. He was unsure if he fell or passed out. He felt that he had some bleeding that he noted in the toilet and sure whether it was rectal bleeding. Denny catheter was placed and there was gross hematuria. Computed tomography scan of the brain revealed no acute intracranial process. No evidence of fracture. She scan of the abdomen and pelvis revealed bilateral hydronephrosis and hydroureter. No obstructing calculus was seen. There was malposition of the Denny catheter apparently in the prostatic urethra. Chest x-ray showed mild pulmonary fibrosis. White count 13.3. Hemoglobin 11.1. Sodium 141. Potassium 4.7. Creatinine 6.10. Troponin 0.119, 0.077. He was ordered 1 unit of packed red blood cells and received K centra and was admi tted to the ICU for closer monitoring. He is seen today in consultation. He is awake and alert in no acute distress. Maintaining O2 saturations in the 90s on room air. He is requiring norepinephrine at 0.07 mcg/kg/m to maintain mean arterial pressures greater than 60. 0.9 normal saline at 75 ML's per hour. The plan is for cystoscopy with Dr. Vinson today. He had several 100 ML's of clot removed from the bladder. 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 A portion of the tumor was resected. It was a dense, obviously high-grade and muscle invasive. Excellent hemostasis was attained. Pathology is pending. Progress note dated 08/01/2021. This is a 76-year-old male admitted to the hospital on July 30. He came in with a number of issues including rectal bleeding. The patient went to the operating room yesterday, and had a right nephrostomy tube placed, a cystoscopy, and bladder tumor resection. The patient was intubated yesterday for the operative procedure. He remains on the ventilator. He has a history of hypertension, hyperlipidemia, and hypothyroidism. Currently, he is on the volume assist control mode, rate 20, tidal volume 500, FiO2 40%, and PEEP of 5. Blood gases show a PaO2 of 70, a pCO2 of 75, and a pH is 7.12. Those blood gases were done on a rate of 16 and a tidal volume of 455. Currently, the patient is on a number drips including 3 ampules of sodium bicarbonate and D5W at 100 mL an hour, will follow-up 40 mcg/kg/m, Nimbex at 0.25 mcg/kg/m, fentanyl at 0.5 mcg/kg/h, norepinephrine at 75 mcg/m, and vasopressin at 0.03 units per minute. White count 13.7, hemoglobin 10.7, hematocrit 34.1, and platelet count 250,000. Sodium 145, potassium 4, chlorides 112, CO2 23, anion gap 10, UA and 80, creatinine 6.53. Albumin is 2.2. Chest x-ray shows some interstitial density at the lung bases, which are worse in the prior x-ray. Progress note dated 08/02/2021. 76-year-old male, 251. The patient was admitted to the hospital on July 30. He came in with hematuria. The patient went to the operating room, and had a right nephrostomy tube placed, a cystoscopy, and bladder tumor resection. Pat hology is currently pending. The patient was intubated for the procedure, remains on the mechanical ventilator. Today, is postop day #2. The patient remains on the volume assist control mode, rate 20, tidal volume 500, FiO2 40%, and PEEP of 5. Blood gases show pO2 of 92, pCO2 of 59, and a pH of 7.28. The rate was increased from 20-26 breaths or minute. The patient currently is on vasopressin at 0.04 units per minute, propofol at 40 mcg/kg/m, norepinephrine 37 mcg/m, and 3 ampules of sodium bicarbonate and D5W at 100 mL an hour. In addition, the patient is on fentanyl at 0.5 mcg/kg/h, and Nimbex at 0.5 mcg/kg/m. The patient has a carrier IV of saline at 10 mL an hour. Because of the normal bicarbonate concentration on the electrolyte profile,the bicarbonate drip will be discontinued in favor of 0.45 saline at 75 mL an hour. White count 21.2, hemoglobin 9.9, hematocrit 30.1, and platelet count 125,000. Sodium 144, potassium 4.1, chlorides 107, CO2 25, anion gap is 12, BUN 78, and creatinine 6.41. Glucose is 125. Phosphorus is 6.1. Chest x-ray shows diffuse bilateral infiltrates, with a small left pleural effusion, which could be consistent with either pneumonia or interstitial edema. Objective - Vital Signs Vital signs: Vital Signs Temp 98.6 F 08/02/21 08:30 Pulse 77 08/02/21 11:15 Resp 26 H 08/02/21 11:15 BP 90/57 08/02/21 11:15 Pulse Ox 100 08/02/21 11:15 Intake & Output 08/01/21 08/02/21 08/02/21 18:59 06:59 18:59 Intake Total 3951.053 1690.685 866.186 Output Total 315 487 305 Balance 3636.053 1203.685 561.186 Weight 81.4 kg 81.4 kg Intake: IV 3320 1320 475 0.9 2120 120 50 Dextrose 5% in Water 1, 1200 1100 000 ml @ 100 mls/hr IV . [id number] ONE with Sodium Bicarb (1 Meq/ml) 150 ml Rx#:[id number] Dextrose 5% in Water 1, 100 200 000 ml @ 100 mls/hr IV . [id number] [facility] with Sodium Bicarb (1 Meq/ml) 150 ml Rx#:[id number] Sodium Chloride 0.45% 1, 225 000 ml @ 75 mls/hr IV . [id number] [facility] Rx#:[id number] Intake, IV Titration 451.053 330.685 391.186 Amount Cisatracurium 200 mg In 27.676 23.199 64.591 Sodium Chloride 0.9% 180 ml @ 1 MCG/KG/MIN 4.884 mls/hr IV .Q24H [facility] Rx#: [id number] Norepinephrine 32 mg In 263.087 86.398 253.009 Sodium Chloride 0.9% 218 ml @ 0.05 MCG/KG/MIN 1. 807 mls/hr IV .Q24H [facility] Rx#:[id number] Sodium Chloride 0.9% 150 21.088 0 ml @ 0.04 UNITS/MIN 6.12 mls/hr IV .Q24H [facility] with Vasopressin 60 unit Rx#: [id number] fentaNYL (PF). 1,000 mcg 63.831 In Sodium Chloride 0.9% 80 ml @ 0.5 MCG/KG/HR 4. 07 mls/hr IV .Q24H [facility] Rx #:[id number] propofoL 1,000 mg In 96.459 200 73.586 Empty Bag 1 bag @ Titrate IV .Q0M [facility] Rx#: [id number] Other 180 40 Output: Drainage 215 147 250 Right Lateral Back 215 147 250 Urine 100 340 55 Other: Voiding Method Indwelling Catheter Indwelling Catheter Indwelling Catheter ABP, PAP, CO, CI - Last Documented Arterial Blood Pressure 80/42 - Exam No acute distress, the patient is sedated and paralyzed, and is an orally placed endotracheal tube and NG tube. HEENT examination is grossly unremarkable. Neck supple. Full range of motion. No adenopathy thyromegaly or neck vein distention. Cardiovascular examination reveals regular rhythm rate. S1-S2 normal. No S3 or S4. No discernible murmur noted. Heart sounds are distant. Heart rate 77 bpm. Lungs reveal diffuse bilateral coarse rhonchi. Breath sounds are equal. No wheezes or crackles noted. Abdomen is soft, without bowel sounds. Extremities are intact. No cyanosis clubbing or edema. Skin is without rash or lesion. Neurologic examination cannot be adequately assessed because he is sedated and paralyzed. - Labs CBC & Chem 7: 08/02/21 05:18 08/02/21 05:18 Labs: Abnormal Lab Results - Last 24 Hours (Table) 08/01/21 08/01/21 08/01/21 Range/Units 04:12 16:00 23:57 WBC (3.8-10.6) k/uL RBC (4.30-5.90) m/uL Hgb (13.0-17.5) gm/dL Hct (39.0-53.0) % RDW (11.5-15.5) % Plt Count (150-450) k/uL Neutrophils # (Manual) (1.3-7.7) k/uL ABG pH (7.35-7.45) ABG pCO2 (35-45) mmHg ABG HCO3 (21-25) mmol/L ABG Total CO2 (19-24) mmol/L ABG O2 Saturation (94-97) % Chloride 111 H (98-107) mmol/L BUN 80 H (9-20) mg/dL Creatinine 6.35 H (0.66-1.25) mg/dL Glucose 111 H (74-99) mg/dL POC Glucose (mg/dL) 121 H (75-99) mg/dL Calcium 7.0 L (8.4-10.2) mg/dL Phosphorus 6.0 H (2.5-4.5) mg/dL Procalcitonin 42.40 H (0.02-0.09) ng/mL 08/02/21 08/02/21 08/02/21 Range/Units 05:18 05:18 05:48 WBC 21.2 H (3.8-10.6) k/uL RBC 3.41 L (4.30-5.90) m/uL Hgb 9.9 L (13.0-17.5) gm/dL Hct 30.1 L (39.0-53.0) % RDW 16.3 H (11.5-15.5) % Plt Count 125 L (150-450) k/uL Neutrophils # (Manual) 19.00 H (1.3-7.7) k/uL ABG pH (7.35-7.45) ABG pCO2 (35-45) mmHg ABG HCO3 (21-25) mmol/L ABG Total CO2 (19-24) mmol/L ABG O2 Saturation (94-97) % Chloride (98-107) mmol/L BUN 78 H (9-20) mg/dL Creatinine 6.41 H (0.66-1.25) mg/dL Glucose 125 H (74-99) mg/dL POC Glucose (mg/dL) 113 H (75-99) mg/dL Calcium 6.8 L (8.4-10.2) mg/dL Phosphorus 6.1 H (2.5-4.5) mg/dL Procalcitonin (0.02-0.09) ng/mL 08/02/21 Range/Units 06:20 WBC (3.8-10.6) k/uL RBC (4.30-5.90) m/uL Hgb (13.0-17.5) gm/dL Hct (39.0-53.0) % RDW (11.5-15.5) % Plt Count (150-450) k/uL Neutrophils # (Manual) (1.3-7.7) k/uL ABG pH 7.28 L (7.35-7.45) ABG pCO2 59 H (35-45) mmHg ABG HCO3 27 H (21-25) mmol/L ABG Total CO2 13 L (19-24) mmol/L ABG O2 Saturation 98.0 H (94-97) % Chloride (98-107) mmol/L BUN (9-20) mg/dL Creatinine (0.66-1.25) mg/dL Glucose (74-99) mg/dL POC Glucose (mg/dL) (75-99) mg/dL Calcium (8.4-10.2) mg/dL Phosphorus (2.5-4.5) mg/dL Procalcitonin (0.02-0.09) ng/mL Microbiology - Last 24 Hours (Table) 07/31/21 04:00 Urine Culture - Final Urine,Voided Klebsiella oxytoca 08/01/21 11:12 Gram Stain - Preliminary Sputum Sputum Culture - Preliminary 07/31/21 20:57 Urine Culture - Preliminary Urine,Suprapubic Assessment and Plan Assessment: Gross hematuria, secondary to bladder tumor, status post cystoscopy and biopsies, 07/31/2021. Routine postoperative ventilator management, with intubation for the procedure above, on July 31. Hypotension, likely secondary to sepsis. Anemia, status post 1 unit of PRBCs. Acute kidney injury, secondary to ATN. Mild troponin leak. Hyperlipidemia. History of hypertension. Hypothyroidism. Prior history of tobacco use. Plan: Plan dated 08/01/2021. Currently, obviously, the patient's quite ill. He is essentially maxed out on norepinephrine and vasopressin. He is currently sedated and paralyzed. Not much more to do for this patient. The patient remains on Rocephin. The other medications are reviewed and are appropriate. Unnecessary medications will be discontinued. Overall prognosis is poor. We will continue to follow make recommendations where appropriate. Plan dated 08/02/2021. The respiratory rate on the ventilator will be increased to 26 breaths per minute. This will help to reduce see PaCO2, and increase the pH to are normal range. The patient remains on both vasopressin and norepinephrine, for blood pressure support. In addition, the patient's on propofol, Nimbex, and fentanyl. The patient's sodium bicarbonate drip will be continued, and the patient will be placed on half-normal saline at 75 mL an hour. We will continue to follow make recommendations where appropriate. Overall prognosis remains poor. Time with Patient: Greater than 30
[2021-08-02 11:53] LABS: Glucose,Whole Blood 122 mg/dL (75-99)
--- NOTE | 2021-08-02 12:00 | P.CRDCN ---
History of Present Illness History of present illness: This is Dr. Hubbard dictating a consult on this patient The patient was interviewed and examined IMPRESSION / ASSESSMENT: Patient with multiple medical problems and currently intubated on multiple pressors and sodium bicarb drip Borderline troponin abnormality LV dysfunction EF is 30-35% PLAN: From a cardiac standpoint we ordered 2-D echo shows severe LV dysfunction. In this setting of being intubated with S3 failure and hemodynamic instability troponins are quite expected Troponin leak is minor considering renal failure, and severe hemodynamic instability Continue ICU care From a cardiac standpoint no further workup to this point HPI Patient presented with rectal bleeding He is found on the floor His blood pressure was between [address] of the abdomen and pelvis showed bilateral hydronephrosis and hydroureter Chest x-ray showed after matters aorta and mild pulmonary fibrosis His 2-D echo shows reduced LV systolic function of 30-35% Cardiac G was consulted on account of borderline troponins of 0.12 and 0.77 I saw the patient on 01 of August, he was intubated, he was on multiple pressors Chest x-ray today shows diffuse bilateral infiltrates with small left pleural effusion ROS: No fever chills or rigors, no cough, phlegm or expectoration, no nausea, vomiting or diarrhea, no hematuria, dysuria, no musculoskeletal complaints, no strokes or seizures, no skin lesions. EXAMINATION: Blood pressure 90 mmHg respirations 26 pulse rate in the 70s Breath sounds are reduced bilaterally Heart sounds S1 and S2 are soft REVIEW OF LABS, ECG & MEDICAL DATA history of hypertension dyslipidemia hypothyroidism Hemoglobin around 10, mildly increased white count of 13.7 Patient is acidotic Sodium 142 potassium 4.3 Creatinine greater than 6 Past Medical History Past Medical History: Hearing Disorder / Deafness, Hyperlipidemia, Hypertension, Osteoarthritis (OA), Prostate Disorder, Thyroid Disorder History of Any Multi-Drug Resistant Organisms: None Reported Additional Past Surgical History / Comment(s): aaa Past Psychological History: No Psychological Hx Reported Smoking Status: Current every day smoker Past Alcohol Use History: None Reported Past Drug Use History: None Reported Medications and Allergies Home Medications Medication Instructions Recorded Confirmed Type hydroCHLOROthiazide 25 mg PO DAILY 03/12/16 07/31/21 History lisinopriL 40 mg PO DAILY 03/12/16 07/31/21 History Clopidogrel [Plavix] 75 mg PO DAILY 07/31/21 07/31/21 History Levothyroxine Sodium [Euthyrox] 175 mcg PO DAILY 07/31/21 07/31/21 History Rosuvastatin Calcium [Crestor] 5 mg PO DAILY 07/31/21 07/31/21 History rOPINIRole HCL [Requip] 1 mg PO BID 07/31/21 07/31/21 History Allergies Allergy/AdvReac Type Severity Reaction Status Date / Time No Known Allergies Allergy Verified 03/12/16 14:04 Physical Exam Vitals: Vital Signs Temp Pulse Resp BP Pulse Ox 08/02/21 11:15 77 26 H 90/57 100 08/02/21 11:00 78 26 H 87/58 100 08/02/21 10:45 78 26 H 87/52 97 08/02/21 10:30 78 26 H 99/63 08/02/21 10:15 78 26 H 92/59 100 08/02/21 10:00 79 26 H 93/63 100 08/02/21 09:45 77 26 H 98/64 100 08/02/21 09:30 81 26 H 108/66 08/02/21 09:15 75 26 H 96/61 100 08/02/21 09:00 81 26 H 90/57 100 08/02/21 08:45 81 20 101/85 100 08/02/21 08:30 98.6 F 84 20 111/66 100 08/02/21 08:15 78 20 108/64 100 08/02/21 08:00 81 20 111/68 99 08/02/21 07:45 82 20 98/60 99 08/02/21 07:30 96 20 88/52 99 08/02/21 07:15 98 20 85/50 98 08/02/21 07:00 98 20 84/52 98 08/02/21 06:45 97 20 88/52 98 08/02/21 06:30 96 20 99/59 98 08/02/21 06:15 91 20 99/59 99 08/02/21 06:00 90 20 95/59 99 08/02/21 05:45 89 20 100/63 99 08/02/21 05:30 90 20 104/60 99 08/02/21 05:15 94 20 93/56 99 08/02/21 05:00 96 20 90/57 98 08/02/21 04:45 98 20 103/59 98 08/02/21 04:30 98 20 87/54 99 08/02/21 04:15 98 20 91/58 98 08/02/21 04:00 98.9 F 95 20 88/56 98 08/02/21 03:45 97 20 91/57 98 08/02/ 03:30 96 20 87/55 98 08/02/ 03:15 95 20 89/56 98 08/02/21 03:00 93 20 92/56 98 08/02/21 02:45 92 20 93/55 99 08/02/21 02:30 99 20 95/58 98 08/02/21 02:15 99 20 95/58 98 08/02/21 02:00 103 H 20 91/56 98 08/02/21 01:45 106 H 20 91/56 98 08/02/21 01:30 105 H 20 92/55 98 08/02/21 01:15 103 H 20 99/61 98 08/02/21 01:00 100 20 105/61 99 08/02/21 00:45 101 H 20 105/61 98 08/02/21 00:30 100 20 104/62 98 08/02/ 00:15 91 20 110/67 99 08/02/ 00:00 98.9 F 89 20 82/53 99 22/21 23:45 96 20 82/53 99 22/21 23:30 94 20 102/63 99 22/21 23:15 93 20 98/59 99 22/21 23:00 92 20 99/63 99 22/21 22:47 94 20 99/63 99 22/21 22:45 92 20 99/63 99 22/21 22:30 96 20 97/59 99 22/21 22:15 96 20 89/57 99 22/21 22:00 98 20 95/59 98 22/21 21:45 98 20 95/59 99 22/21 21:30 98 20 94/58 99 22/21 21:15 98 20 93/61 99 22/21 21:00 95 20 97/62 99 22/21 20:45 97 20 97/62 99 22/21 20:30 96 20 98/61 99 22/21 20:15 95 20 98/63 99 08/01/21 20:00 98.4 F 96 20 98/64 100 08/01/21 19:45 96 20 98/64 100 08/01/21 19:30 96 20 98/62 99 08/01/21 19:00 97 20 85/56 99 08/01/21 18:45 93 20 85/56 99 08/01/21 18:30 93 20 94/61 99 08/01/21 18:15 93 20 90/59 100 08/01/21 18:00 97 20 88/57 99 08/01/21 17:45 97 20 98/63 08/01/21 17:30 96 20 95/64 99 08/01/21 17:15 95 20 94/61 08/01/21 17:00 96 20 93/60 99 08/01/21 16:45 96 20 91/60 99 08/01/21 16:30 93 20 91/60 99 08/01/21 16:15 93 20 93/61 99 08/01/21 16:00 98.5 F 92 20 94/64 99 08/01/21 15:45 92 20 91/62 08/01/21 15:37 20 08/01/21 15:30 91 20 85/56 08/01/21 15:15 91 20 85/55 99 08/01/21 15:00 93 20 92/61 100 08/01/21 14:45 96 20 94/60 99 08/01/21 14:30 94 20 89/62 99 08/01/21 14:15 98.2 F 93 20 94/60 100 08/01/21 14:00 93 20 74/52 100 08/01/21 13:45 98 20 88/61 99 08/01/21 13:30 94 20 91/61 100 08/01/21 13:15 93 20 87/56 99 08/01/21 13:00 95 20 85/58 100 08/01/21 12:45 96 20 84/57 99 08/01/21 12:30 95 20 93/61 100 08/01/21 12:15 94 20 96/66 100 08/01/21 12:00 98.1 F 96 20 89/62 98 Intake and Output 08/01/21 08/02/21 08/02/21 22:59 06:59 14:59 Intake Total 5189.674 8408.583 866.186 Output Total 377 265 305 Balance 941.613 735.583 561.186 Intake: IV 990 770 475 0.9 90 70 50 Dextrose 5% in Water 1, 900 600 000 ml @ 100 mls/hr IV . [id number] ONE with Sodium Bicarb (1 Meq/ml) 150 ml Rx#:[id number] Dextrose 5% in Water 1, 100 200 000 ml @ 100 mls/hr IV . [id number] [facility] with Sodium Bicarb (1 Meq/ml) 150 ml Rx#:[id number] Sodium Chloride 0.45% 1, 225 000 ml @ 75 mls/hr IV . [id number] [facility] Rx#:[id number] Intake, IV Titration 228.613 230.583 391.186 Amount Cisatracurium 200 mg In 23.199 64.591 Sodium Chloride 0.9% 180 ml @ 1 MCG/KG/MIN 4.884 mls/hr IV .Q24H [facility] Rx#: [id number] Norepinephrine 32 mg In 128.511 86.398 253.009 Sodium Chloride 0.9% 218 ml @ 0.05 MCG/KG/MIN 1. 807 mls/hr IV .Q24H [facility] Rx#:[id number] Sodium Chloride 0.9% 150 0.102 20.986 0 ml @ 0.04 UNITS/MIN 6.12 mls/hr IV .Q24H [facility] with Vasopressin 60 unit Rx#: [id number] propofoL 1,000 mg In 100 100 73.586 Empty Bag 1 bag @ Titrate IV .Q0M [facility] Rx#: [id number] Other 100 Output: Drainage 167 125 250 Right Lateral Back 167 125 250 Urine 210 140 55 Other: Voiding Method Indwelling Catheter Indwelling Catheter Indwelling Catheter Weight 81.4 kg ABP, PAP, CO, CI - Last 8 Hours Arterial Blood Pressure 80/42 Arterial Blood Pressure 79/43 Arterial Blood Pressure 80/43 Arterial Blood Pressure 81/43 Arterial Blood Pressure 95/50 Arterial Blood Pressure 83/43 Arterial Blood Pressure 88/46 Arterial Blood Pressure 96/50 Arterial Blood Pressure 103/52 Arterial Blood Pressure 89/44 Arterial Blood Pressure 81/42 Arterial Blood Pressure 107/52 Arterial Blood Pressure 109/52 Arterial Blood Pressure 130/59 Arterial Blood Pressure 92/45 Arterial Blood Pressure 81/42 Arterial Blood Pressure 80/42 Arterial Blood Pressure 80/42 Arterial Blood Pressure 90/44 Arterial Blood Pressure 100/46 Arterial Blood Pressure 98/46 Arterial Blood Pressure 96/46 Arterial Blood Pressure 96/47 Arterial Blood Pressure 93/47 Arterial Blood Pressure 88/45 Arterial Blood Pressure 104/50 Arterial Blood Pressure 79/43 Arterial Blood Pressure 92/46 Results 08/02/21 05:18 08/02/21 05:18 CBC 08/02/21 Range/Units 05:18 WBC 21.2 H (3.8-10.6) k/uL RBC 3.41 L (4.30-5.90) m/uL Hgb 9.9 L (13.0-17.5) gm/dL Hct 30.1 L (39.0-53.0) % Plt Count 125 L (150-450) k/uL Comprehensive Metabolic Panel 08/01/21 08/02/21 Range/Units 16:00 05:18 Sodium 142 144 (137-145) mmol/L Potassium 4.3 4.1 (3.5-5.1) mmol/L Chloride 111 H 107 (98-107) mmol/L Carbon Dioxide 22 25 (22-30) mmol/L BUN 80 H 78 H (9-20) mg/dL Creatinine 6.35 H 6.41 H (0.66-1.25) mg/dL Glucose 111 H 125 H (74-99) mg/dL Calcium 7.0 L 6.8 L (8.4-10.2) mg/dL Current Medications Generic Name Dose Route Start Last Admin Trade Name Freq PRN Reason Stop Dose Admin Chlorhexidine Gluconate 15 ml 08/01/21 09:00 08/02/21 09:09 Chlorhexidine Gluconate 15 Ml Cup MUCOUS MEM 15 ml BID [facility] Administration Heparin Sodium (Porcine) 5,000 unit 08/01/21 09:00 08/02/21 09:09 Heparin Sodium,Porcine/Pf 5,000 Unit/0.5 Ml Syringe SQ 5,000 unit Q12HR [facility] Administration Norepinephrine Bitartrate 32 250 mls @ 1.807 mls/hr 07/30/21 22:30 08/02/21 11:28 mg/ Sodium Chloride IV 0.34 mcg/kg/min .Q24H [facility] 12.29 mls/hr Titration Protocol 0.05 MCG/KG/MIN Ceftriaxone Sodium 1 gm/ 50 mls @ 100 mls/hr 07/31/21 14:30 08/02/21 09:09 Sodium Chloride IVPB 100 mls/hr Q24HR [facility] Administration Propofol 1,000 mg/ IV Solution 100 mls @ 0 mls/hr 07/31/21 14:30 08/02/21 08:06 IV 40 mcg/kg/min .Q0M [facility] 19.536 mls/hr Administration Protocol Titrate Fentanyl Citrate 1,000 mcg/ 100 mls @ 4.07 mls/hr 07/31/21 20:00 08/01/21 21:32 Sodium Chloride IV Not Given .Q24H [facility] Protocol 0.5 MCG/KG/HR Cisatracurium Besylate 200 mg/ 200 mls @ 4.884 mls/hr 07/31/21 22:15 08/02/21 08:38 Sodium Chloride IV 0.5 mcg/kg/min .Q24H [facility] 2.442 mls/hr Titration Protocol 1 MCG/KG/MIN Vasopressin 60 unit/ Sodium 153 mls @ 6.12 mls/hr 08/01/21 21:09 08/02/21 07:35 Chloride IV 0.04 units/min .Q24H [facility] 6.12 mls/hr Titration Protocol 0.04 UNITS/MIN Sodium Chloride 1,000 mls @ 75 mls/hr 08/02/21 09:30 08/02/21 09:42 Saline 0.9% IV 75 mls/hr .[id number] [facility] Administration Sodium Chloride 1,000 mls @ 75 mls/hr 08/02/21 09:30 08/02/21 09:35 Saline 0.45% IV 75 mls/hr .[id number] [facility] Administration Insulin Aspart 0 unit 08/01/21 06:00 08/02/21 06:08 Insulin Aspart (Novolog) 100 Unit/Ml Vial SQ Not Given Q6H [facility] Protocol Levothyroxine Sodium 176 mcg 07/31/21 12:00 08/02/21 06:21 Levothyroxine 88 Mcg Tab PO 176 mcg DAILY@0630 [facility] Administration Miscellaneous Information 1 each 07/30/21 21:32 Kcentra Per Pharmacy 1 Each Misc MISCELLANE DIRECTED PRN Bleeding Protocol Naloxone HCl 0.2 mg 07/30/21 22:29 Naloxone 0.4 Mg/Ml 1 Ml Vial IV Q2M PRN Opioid Reversal Pantoprazole Sodium 40 mg 07/31/21 09:00 08/02/21 09:09 Pantoprazole 40 Mg/10 Ml Vial IV 40 mg DAILY [facility] Administration Sodium Bicarbonate 650 mg 07/31/21 13:00 08/02/21 09:09 Sodium Bicarbonate Tab 650 Mg Tab PO 650 mg QID [facility] Administration Intake and Output 08/01/21 08/02/21 08/02/21 22:59 06:59 14:59 Intake Total 5425.522 8711.583 866.186 Output Total 377 265 305 Balance 941.613 735.583 561.186 Intake: IV 990 770 475 0.9 90 70 50 Dextrose 5% in Water 1, 900 600 000 ml @ 100 mls/hr IV . [id number] ONE with Sodium Bicarb (1 Meq/ml) 150 ml Rx#:[id number] Dextrose 5% in Water 1, 100 200 000 ml @ 100 mls/hr IV . [id number] [facility] with Sodium Bicarb (1 Meq/ml) 150 ml Rx#:[id number] Sodium Chloride 0.45% 1, 225 000 ml @ 75 mls/hr IV . [id number] [facility] Rx#:[id number] Intake, IV Titration 228.613 230.583 391.186 Amount Cisatracurium 200 mg In 23.199 64.591 Sodium Chloride 0.9% 180 ml @ 1 MCG/KG/MIN 4.884 mls/hr IV .Q24H [facility] Rx#: [id number] Norepinephrine 32 mg In 128.511 86.398 253.009 Sodium Chloride 0.9% 218 ml @ 0.05 MCG/KG/MIN 1. 807 mls/hr IV .Q24H [facility] Rx#:[id number] Sodium Chloride 0.9% 150 0.102 20.986 0 ml @ 0.04 UNITS/MIN 6.12 mls/hr IV .Q24H [facility] with Vasopressin 60 unit Rx#: [id number] propofoL 1,000 mg In 100 100 73.586 Empty Bag 1 bag @ Titrate IV .Q0M [facility] Rx#: [id number] Other 100 Output: Drainage 167 125 250 Right Lateral Back 167 125 250 Urine 210 140 55 Other: Voiding Method Indwelling Catheter Indwelling Catheter Indwelling Catheter Weight 81.4 kg Patient Weight 08/03/21 06:59 Weight 81.4 kg 08/02/21 05:18 08/02/21 05:18
--- NOTE | 2021-08-02 12:50 | P.PN ---
Subjective Progress Note Date: 08/02/21 HISTORY OF PRESENT ILLNESS This 76-year-old pleasant gentleman, patient of Dr. Wills. History of hypertension hyperlipidemia, hypothyroidism, who was noted to have some bleeding in the toilet for several days, unsure how long the duration was, however he is on blood thinners, he was found on the floor today, patient denies any headache, however it's unclear how the patient fell. He does not admit to syncopal event, patient was subsequently setting to emergency room from home, to the emergency via EMS, a condom catheter was placed, and that's how they found that patient is having gross hematuria rather than rectal bleeding. In emergency room, central line was placed for IV hydration, blood pressure was 75/50, daily urinalysis, shows over 182 RBCs and WBC, hemoglobin 10.4 WBC count 11.0, platelet 297, creatinine of 6.1, BUN of 77, unknown baseline. Patient had CAT scan, head and cervical spine, shows multilevel cervical spondylosis change, no fracture, and no dislocation. No intracranial hemorrhage, intact calvarium. Computed tomography scan of the abdomen, shows bilateral hydronephrosis, and hydroureter, more on the right than the left, there is bilateral renal vascular calcification, no renal calculi, no ureteral calculi. There is no inguinal hernia, no fluid in the pelvis, bilateral stents in the abdominal aorta and iliac arteries, no mesenteric edema, no ascites or free air. No bowel obstruction, bladder imaging is not well evaluated due to lack of distention there is colonic diverticula, without signs of diverticulitis. Chest x-ray shows mild pulmonary fibrosis Consult was made with nephrology, urology and intensive care management, patient admitted to ICU for significant gross hematuria, obstructive uropathy, with mental status changes, and suspected syncope, with a fall long-term anticoagulation, elevated troponin Patient is taken to the operating room, for cystoscopy, evacuation of clot, and transient Trial resection of the bladder as a CAT scan per review from urology, shows bladder irregularity. There is a large sessile tumor, in the right posterolateral bladder wall. It was dense and suspected to have obviously a high grade tumor, with muscular invasion 08/01: Patient remains in the intensive care unit intubated on mechanical ventilation with tidal volume 500, FiO2 40, PEEP of 5. Patient is on levo fed, vasopressin, Nimbex, fentanyl, bicarb drip and propofol. The patient has hematuria from Denny catheter and nephrostomy tube and there is small amount of leaking from the meatus. 08/02: Patient remains in the intensive care unit intubated and on mechanical ventilation with tidal volume 500, FiO2 50, PEEP 5. Patient has been weaned down on norepinephrine continued on vasopressin, Nimbex, fentanyl and propofol. He has been afebrile, heart rate 77, blood pressure 92/59, pulse ox 100%. He had monitor sinus rhythm. Repeat blood work reveals WBC 21.2, hemoglobin 9.9, platelet count 125. Lites are within normal limits. BUN 78 creatinine 6.41. Capillary blood glucose running between 113 and 121. Urine culture has been finalized with ESBL Klebsiella oxytoca and antibiotics will be changed from ceftriaxone to Zosyn. REVIEW OF SYSTEMS Unable to obtain due to intubation PHYSICAL EXAMINATION Gen: This is a 76-year-old male. He is resting in ICU bed, intubated and on mechanical ventilation HEENT: Head is atraumatic, normocephalic. Sclerae is anicteric. NECK: Supple. No JVD. No lymphadenopathy. No thyromegaly. LUNGS: Bilateral rhonchi. No intercostal retractions. HEART: Regular rate and rhythm. No murmur. ABDOMEN: Soft. Bowel sounds are present. No masses. No tenderness. Denny catheter with hematuria. Nephrostomy tube draining jemal urine. EXTREMITIES: No pedal edema. No calf tenderness. NEUROLOGICAL: Patient is sedated. ASSESSMENT AND PLAN 1. Gross hematuria, with hypotension, obstructive uropathy, and a suspected bladder tumor, malignancy is highly suspected resumed UTI with pyuria. Patient was seen by urology, status post transurethral bladder resection on 07/31/2021 Dr. Vinson. Patient managed in ICU. 2. Acute blood loss anemia, with hypovolemic and septic hypotension, from gross hematuria, requiring vasopressors, norepinephrine, maintained in ICU treatment, critical care medicine following. She is status post 1 unit packed RBCs. 3. Acute kidney injury secondary to bilateral hydronephrosis and hydroureter with workup suggestive of bladder cancer, unknown baseline for CK D. neurology consult appreciated. 4. Elevated troponin, rule out non-ST elevated myocardial infarction. Cardiology consult pending. 5. Acute hypoxic respiratory failure requiring ongoing intubation mechanical ventilation. Patient is managed by structural ironworker. 6. Acute ESBL Klebsiella urinary tract infection with sepsis and septic shock requiring vasopressors. IV antibiotics changed from ceftriaxone to Zosyn, continue vasopressor support. 7. Thrombocytopenia secondary to sepsis. 8. BPH with prostatomegaly has indwelling Denny catheter at this time 9. Hypothyroidism. Continue levothyroxine 175 g daily 10. Hyperlipidemia 11. Hypertension currently hypotensive. 12. Tobacco use and dependence. DVT prophylaxis heparin subcu, to start in 24 hours. Post op patient reviewed his receive 1 dose kcentra 07/30 GI prophylaxis IV Protonix Prognosis guarded. CODE STATUS full code Impression and plan of care have been directed as dictated by the signing physician. Laurie Lawson nurse practitioner acting as scribe for signing physician. Objective - Vital Signs Vital signs: Vital Signs Temp 98.6 F 08/02/21 08:30 Pulse 79 08/02/21 10:00 Resp 26 H 08/02/21 10:00 BP 93/63 08/02/21 10:00 Pulse Ox 100 08/02/21 10:00 Intake & Output 08/01/21 08/02/21 08/02/21 18:59 06:59 18:59 Intake Total 3951.053 1690.685 769.438 Output Total 315 487 250 Balance 3636.053 1203.685 519.438 Weight 81.4 kg 81.4 kg Intake: IV 3320 1320 390 0.9 2120 120 40 Dextrose 5% in Water 1, 1200 1100 000 ml @ 100 mls/hr IV . [id number] ONE with Sodium Bicarb (1 Meq/ml) 150 ml Rx#:[id number] Dextrose 5% in Water 1, 100 200 000 ml @ 100 mls/hr IV . [id number] [facility] with Sodium Bicarb (1 Meq/ml) 150 ml Rx#:[id number] Sodium Chloride 0.45% 1, 150 000 ml @ 75 mls/hr IV . [id number] [facility] Rx#:[id number] Intake, IV Titration 451.053 330.685 379.438 Amount Cisatracurium 200 mg In 27.676 23.199 64.591 Sodium Chloride 0.9% 180 ml @ 1 MCG/KG/MIN 4.884 mls/hr IV .Q24H [facility] Rx#: [id number] Norepinephrine 32 mg In 263.087 86.398 241.261 Sodium Chloride 0.9% 218 ml @ 0.05 MCG/KG/MIN 1. 807 mls/hr IV .Q24H [facility] Rx#:[id number] Sodium Chloride 0.9% 150 21.088 0 ml @ 0.04 UNITS/MIN 6.12 mls/hr IV .Q24H [facility] with Vasopressin 60 unit Rx#: [id number] fentaNYL (PF). 1,000 mcg 63.831 In Sodium Chloride 0.9% 80 ml @ 0.5 MCG/KG/HR 4. 07 mls/hr IV .Q24H [facility] Rx #:[id number] propofoL 1,000 mg In 96.459 200 73.586 Empty Bag 1 bag @ Titrate IV .Q0M [facility] Rx#: [id number] Other 180 40 Output: Drainage 215 147 Right Lateral Back 215 147 Urine 100 340 250 Other: Voiding Method Indwelling Catheter Indwelling Catheter Indwelling Catheter ABP, PAP, CO, CI - Last Documented Arterial Blood Pressure 83/43 - Labs CBC & Chem 7: 08/02/21 05:18 08/02/21 05:18 Labs: Abnormal Lab Results - Last 24 Hours (Table) 08/01/21 08/01/21 08/01/21 Range/Units 04:12 11:07 16:00 WBC (3.8-10.6) k/uL RBC (4.30-5.90) m/uL Hgb (13.0-17.5) gm/dL Hct (39.0-53.0) % RDW (11.5-15.5) % Plt Count (150-450) k/uL Neutrophils # (Manual) (1.3-7.7) k/uL ABG pH (7.35-7.45) ABG pCO2 (35-45) mmHg ABG HCO3 (21-25) mmol/L ABG Total CO2 (19-24) mmol/L ABG O2 Saturation (94-97) % Chloride 111 H (98-107) mmol/L BUN 80 H (9-20) mg/dL Creatinine 6.35 H (0.66-1.25) mg/dL Glucose 111 H (74-99) mg/dL POC Glucose (mg/dL) 131 H (75-99) mg/dL Calcium 7.0 L (8.4-10.2) mg/dL Phosphorus 6.0 H (2.5-4.5) mg/dL Procalcitonin 42.40 H (0.02-0.09) ng/mL 08/01/21 08/02/21 08/02/21 Range/Units 23:57 05:18 05:18 WBC 21.2 H (3.8-10.6) k/uL RBC 3.41 L (4.30-5.90) m/uL Hgb 9.9 L (13.0-17.5) gm/dL Hct 30.1 L (39.0-53.0) % RDW 16.3 H (11.5-15.5) % Plt Count 125 L (150-450) k/uL Neutrophils # (Manual) 19.00 H (1.3-7.7) k/uL ABG pH (7.35-7.45) ABG pCO2 (35-45) mmHg ABG HCO3 (21-25) mmol/L ABG Total CO2 (19-24) mmol/L ABG O2 Saturation (94-97) % Chloride (98-107) mmol/L BUN 78 H (9-20) mg/dL Creatinine 6.41 H (0.66-1.25) mg/dL Glucose 125 H (74-99) mg/dL POC Glucose (mg/dL) 121 H (75-99) mg/dL Calcium 6.8 L (8.4-10.2) mg/dL Phosphorus 6.1 H (2.5-4.5) mg/dL Procalcitonin (0.02-0.09) ng/mL 08/02/21 08/02/21 Range/Units 05:48 06:20 WBC (3.8-10.6) k/uL RBC (4.30-5.90) m/uL Hgb (13.0-17.5) gm/dL Hct (39.0-53.0) % RDW (11.5-15.5) % Plt Count (150-450) k/uL Neutrophils # (Manual) (1.3-7.7) k/uL ABG pH 7.28 L (7.35-7.45) ABG pCO2 59 H (35-45) mmHg ABG HCO3 27 H (21-25) mmol/L ABG Total CO2 13 L (19-24) mmol/L ABG O2 Saturation 98.0 H (94-97) % Chloride (98-107) mmol/L BUN (9-20) mg/dL Creatinine (0.66-1.25) mg/dL Glucose (74-99) mg/dL POC Glucose (mg/dL) 113 H (75-99) mg/dL Calcium (8.4-10.2) mg/dL Phosphorus (2.5-4.5) mg/dL Procalcitonin (0.02-0.09) ng/mL Microbiology - Last 24 Hours (Table) 08/01/21 11:12 Gram Stain - Preliminary Sputum Sputum Culture - Preliminary 07/31/21 20:57 Urine Culture - Preliminary Urine,Suprapubic 07/31/21 04:00 Urine Culture - Preliminary Urine,Voided Gram Neg Bacilli
[2021-08-02] MEDS: PIPERACILLIN-TAZOBACTAM 3.375 GM in SODIUM CHLORIDE 0.9% 100 ML IVPB SCH ×2 (13:18→21:43)
[2021-08-02] MEDS: fentaNYL (PF). 1,000 MCG in SODIUM CHLORIDE 0.9% 80 ML IV SCH (13:45)
[2021-08-02 17:53] LABS: Glucose,Whole Blood 115 mg/dL (75-99)
[2021-08-02 18:56] LABS: Calcium 6.9 mg/dL (8.4-10.2); Potassium 3.6 mmol/L (3.5-5.1)
[2021-08-02 23:51] LABS: Glucose,Whole Blood 134 mg/dL (75-99)
[2021-08-02] MEDS: CISATRACURIUM 200 MG in SODIUM CHLORIDE 0.9% 180 ML IV SCH (23:53)
[2021-08-03 00:59] LABS: Glucose,Whole Blood 148 mg/dL (75-99)
[2021-08-03] MEDS: ERTAPENEM 0.5 GM in SODIUM CHLORIDE 0.9% 50 ML IVPB SCH ×2 (01:02→20:15)
[2021-08-03] MEDS: INSULIN ASPART (NovoLOG) 100 UNIT/ML VIAL SQ SCH ×4 (01:03→17:40)
[2021-08-03 01:20] LABS: Hepatitis B Surface AB- Quant 3.5 mIU/mL; Hepatitis B Surface Antibody Nonreactive (Nonreactive); Hepatitis B Surface Antigen Nonreactive (Nonreactive)
[2021-08-03] MEDS: NOREPINEPHRINE 32 MG in SODIUM CHLORIDE 0.9% 218 ML IV SCH (02:50)
[2021-08-03 05:46] LABS: Calcium 7.2 mg/dL (8.4-10.2); Potassium 3.3 mmol/L (3.5-5.1)
[2021-08-03 05:48] LABS: Glucose,Whole Blood 124 mg/dL (75-99)
[2021-08-03 05:57] LABS: ABG Base Excess -0.5 mmol/L; ABG HCO3 24 mmol/L (21-25); ABG Oxygen Saturation 99.3 % (94-97); ABG PCO2 37 mmHg (35-45); ABG PH 7.42 (7.35-7.45); ABG PO2 126 mmHg (83-108); ABG TCO2 25 mmol/L (19-24); Allen Test Performed? Yes
[2021-08-03] MEDS: SODIUM CHLORIDE 0.9% 150 ML with VASOPRESSIN 60 UNIT IV SCH ×2 (06:00)
[2021-08-03] MEDS: fentaNYL (PF). 1,000 MCG in SODIUM CHLORIDE 0.9% 80 ML IV SCH ×2 (06:00→15:49)
[2021-08-03 06:47] LABS: Anisocytosis Slight; Basophils % (A) 0 %; Eosinophils % (A) 0 %; HCT 27.6 % (39.0-53.0); HGB 9.3 gm/dL (13.0-17.5); Lymphocytes # (A) 0.6 k/uL (1.0-4.8); Lymphocytes % (A) 4 %; MCH 29.2 pg (25.0-35.0); MCHC 33.5 g/dL (31.0-37.0); MCV 87.2 fL (80.0-100.0); Mean Platelet Volume 9.3; Monocytes # (A) 0.4 k/uL (0-1.0); Monocytes % (A) 2 %; Neutrophils # (A) 13.3 k/uL (1.3-7.7); Neutrophils % (A) 92 %; Poikilocytosis Slight; RBC 3.17 m/uL (4.30-5.90); RDW 16.3 % (11.5-15.5); WBC 14.5 k/uL (3.8-10.6)
[2021-08-03] MEDS ORDERED: POTASSIUM BICARBONATE/CIT AC 20 MEQ TABLET.EFF PO ONE ×2 (08:23→15:27)
[2021-08-03] MEDS ORDERED: FUROSEMIDE 10 MG/ML 10 ML VIAL IV STA (08:23)
--- NOTE | 2021-08-03 09:11 | XR ---
EXAMINATION TYPE: XR chest 1V portable DATE OF EXAM: 08/03/2021 COMPARISON: Chest x-ray 08/02/2021 HISTORY: Intubated TECHNIQUE: Single frontal view of the chest is obtained. FINDINGS: Endotracheal tube and NG tube are overlying appropriate positions. There is interval obscu red appearance of the right hemidiaphragm. Cardiac mediastinal silhouette is stable accounting for di fferences in technique. There is no evident pneumothorax. There are overlying artifacts. Bibasilar in creased attenuation is present. Interstitium is increased. IMPRESSION: Correlate for pneumonia, congestive heart failure versus atelectasis, possible associate d effusion
--- NOTE | 2021-08-03 09:26 | P.PN ---
Subjective Patient is seen in follow-up for acute kidney injury. Patient had a right-sided nephrostomy tube placed July 31. About 250 mL output from the nephrostomy tube. Urine output 10-15 mL an hour. Creatinine 6.47 today. Intubated. Remains on Levophed and vasopressin. Vital signs: On vasopressor support. HEENT: Intubated. LUNGS: Breath sounds decreased. HEART: Regular rate and rhythm. ABDOMEN: Soft, no distention. EXTREMITITES: Trace edema. Objective - Vital Signs Vital signs: Vital Signs Temp 97.8 F 08/03/21 08:00 Pulse 63 08/03/21 08:00 Resp 26 H 08/03/21 08:00 BP 117/78 08/03/21 08:00 Pulse Ox 100 08/03/21 08:00 Intake & Output 08/02/21 08/03/21 08/03/21 18:59 06:59 18:59 Intake Total 2107.911 1533.809 211.244 Output Total 720 105 275 Balance 9809.158 2349.809 -63.756 Weight 81.4 kg 93.2 kg Intake: IV 1170 1120 170 0.9 120 120 20 Dextrose 5% in Water 1, 200 000 ml @ 100 mls/hr IV . [id number] [facility] with Sodium Bicarb (1 Meq/ml) 150 ml Rx#:[id number] Piperacillin-Tazobactam 3 100 100 .375 gm In Sodium Chloride 0.9% 100 ml @ 25 mls/hr IVPB Q12HR [facility] Rx #:[id number] Sodium Chloride 0.45% 1, 750 900 150 000 ml @ 75 mls/hr IV . [id number] [facility] Rx#:[id number] Intake, IV Titration 767.911 383.809 41.244 Amount Cisatracurium 200 mg In 75.051 Sodium Chloride 0.9% 180 ml @ 1 MCG/KG/MIN 4.884 mls/hr IV .Q24H [facility] Rx#: [id number] Norepinephrine 32 mg In 327.496 78.148 41.244 Sodium Chloride 0.9% 218 ml @ 0.05 MCG/KG/MIN 1. 807 mls/hr IV .Q24H [facility] Rx#:[id number] Sodium Chloride 0.9% 150 0 131.912 ml @ 0.04 UNITS/MIN 6.12 mls/hr IV .Q24H [facility] with Vasopressin 60 unit Rx#: [id number] fentaNYL (PF). 1,000 mcg 100 In Sodium Chloride 0.9% 80 ml @ 0.5 MCG/KG/HR 4. 07 mls/hr IV .Q24H [facility] Rx #:[id number] propofoL 1,000 mg In 265.364 173.749 Empty Bag 1 bag @ Titrate IV .Q0M [facility] Rx#: [id number] Tube Feeding 140 30 Other 30 Output: Drainage 600 25 250 Right Lateral Back 600 25 250 Urine 120 80 25 Other: Voiding Method Indwelling Catheter Indwelling Catheter ABP, PAP, CO, CI - Last Documented Arterial Blood Pressure 113/55 - Labs CBC & Chem 7: 08/03/21 04:30 08/03/21 04:30 Labs: Abnormal Lab Results - Last 24 Hours (Table) 08/02/21 08/02/21 08/02/21 Range/Units 11:52 17:51 18:08 WBC (3.8-10.6) k/uL RBC (4.30-5.90) m/uL Hgb (13.0-17.5) gm/dL Hct (39.0-53.0) % RDW (11.5-15.5) % ABG pO2 (83-108) mmHg ABG Total CO2 (19-24) mmol/L ABG O2 Saturation (94-97) % Potassium (3.5-5.1) mmol/L Carbon Dioxide (22-30) mmol/L BUN 84 H (9-20) mg/dL Creatinine 6.28 H (0.66-1.25) mg/dL Glucose 109 H (74-99) mg/dL POC Glucose (mg/dL) 122 H 115 H (75-99) mg/dL Calcium 6.9 L (8.4-10.2) mg/dL 08/02/21 08/03/21 08/03/21 Range/Units 23:47 00:58 04:30 WBC 14.5 H (3.8-10.6) k/uL RBC 3.17 L (4.30-5.90) m/uL Hgb 9.3 L (13.0-17.5) gm/dL Hct 27.6 L (39.0-53.0) % RDW 16.3 H (11.5-15.5) % ABG pO2 (83-108) mmHg ABG Total CO2 (19-24) mmol/L ABG O2 Saturation (94-97) % Potassium (3.5-5.1) mmol/L Carbon Dioxide (22-30) mmol/L BUN (9-20) mg/dL Creatinine (0.66-1.25) mg/dL Glucose (74-99) mg/dL POC Glucose (mg/dL) 134 H 148 H (75-99) mg/dL Calcium (8.4-10.2) mg/dL 08/03/21 08/03/21 08/03/21 Range/Units 04:30 05:46 05:53 WBC (3.8-10.6) k/uL RBC (4.30-5.90) m/uL Hgb (13.0-17.5) gm/dL Hct (39.0-53.0) % RDW (11.5-15.5) % ABG pO2 126 H (83-108) mmHg ABG Total CO2 25 H (19-24) mmol/L ABG O2 Saturation 99.3 H (94-97) % Potassium 3.3 L (3.5-5.1) mmol/L Carbon Dioxide 21 L (22-30) mmol/L BUN 85 H (9-20) mg/dL Creatinine 6.47 H (0.66-1.25) mg/dL Glucose 125 H (74-99) mg/dL POC Glucose (mg/dL) 124 H (75-99) mg/dL Calcium 7.2 L (8.4-10.2) mg/dL Microbiology - Last 24 Hours (Table) 08/02/21 05:18 Blood Culture - Preliminary Blood No Growth after 24 hours 08/02/21 16:48 Urine Culture - Preliminary Urine,Catheterized 07/31/21 20:57 Urine Culture - Preliminary Urine,Suprapubic Gram Neg Bacilli 07/31/21 04:00 Urine Culture - Final Urine,Voided Klebsiella oxytoca 08/01/21 11:05 Blood Culture - Preliminary Blood No Growth after 24 hours Assessment and Plan Plan: Assessment: 1. Acute kidney injury secondary to ATN secondary to hypotension and obstructive uropathy. Creatinine was 6.8 on admission and is 6.47 today. Unknown baseline renal function. Urine output 10-15 mL an hour. About 250 mL obtained from the nephrostomy 2. 2. Hematuria and bilateral hydronephrosis with high suspicion for bladder cancer. Status post right-sided nephrostomy tube placed 07/31/2021. 3. Acute hypercapnic and hypoxic respiratory failure. 4. Metabolic acidosis secondary to acute kidney injury s/p bicarb drip. Now on oral bicarb. 5. Shock maintained on high-dose vasopressor support. 6. Hyperphosphatemia secondary to acute kidney injury. 7. Klebsiella UTI on antibiotics. Plan: Receiving tube feeds. Change maintenance fluids to normal saline at 50 mL an hour. Lasix 80 mg IV once today. Wean FiO2 and vasopressors. Potassium being replaced. Continue to assess daily for need for renal replacement therapy. No urgent need at this time. Add PhosLo.
[2021-08-03] MEDS: LEVOTHYROXINE 88 MCG TAB PO SCH (09:31)
[2021-08-03] MEDS: SODIUM BICARBONATE TAB 650 MG TAB PO SCH ×4 (09:31→21:47)
[2021-08-03] MEDS: CHLORHEXIDINE GLUCONATE 15 ML CUP MUCOUS MEM SCH ×2 (09:31→20:15)
[2021-08-03] MEDS: HEPARIN SODIUM,PORCINE/PF 5,000 UNIT/0.5 ML SYRINGE SQ SCH ×2 (09:31→20:15)
[2021-08-03] MEDS: PANTOPRAZOLE 40 MG/10 ML VIAL IV SCH (09:31)
[2021-08-03 09:49] LABS: Platelet Count 93 k/uL (150-450)
--- NOTE | 2021-08-03 11:14 | P.PN ---
Subjective Progress Note Date: 08/03/21 Principal diagnosis: Respiratory failure. This is a 76-year-old male patient with a known history of hypertension, hyperlipidemia, hypothyroidism. He is brought into the emergency room last evening after being found on the floor. He was unsure if he fell or passed out. He felt that he had some bleeding that he noted in the toilet and sure whether it was rectal bleeding. Denny catheter was placed and there was gross hematuria. Computed tomography scan of the brain revealed no acute intracranial process. No evidence of fracture. She scan of the abdomen and pelvis revealed bilateral hydronephrosis and hydroureter. No obstructing calculus was seen. There was malposition of the Denny catheter apparently in the prostatic urethra. Chest x-ray showed mild pulmonary fibrosis. White count 13.3. Hemoglobin 11.1. Sodium 141. Potassium 4.7. Creatinine 6.10. Troponin 0.119, 0.077. He was ordered 1 unit of packed red blood cells and received K centra and was admi tted to the ICU for closer monitoring. He is seen today in consultation. He is awake and alert in no acute distress. Maintaining O2 saturations in the 90s on room air. He is requiring norepinephrine at 0.07 mcg/kg/m to maintain mean arterial pressures greater than 60. 0.9 normal saline at 75 ML's per hour. The plan is for cystoscopy with Dr. Vinson today. He had several 100 ML's of clot removed from the bladder. 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 A portion of the tumor was resected. It was a dense, obviously high-grade and muscle invasive. Excellent hemostasis was attained. Pathology is pending. Progress note dated 08/01/2021. This is a 76-year-old male admitted to the hospital on July 30. He came in with a number of issues including rectal bleeding. The patient went to the operating room yesterday, and had a right nephrostomy tube placed, a cystoscopy, and bladder tumor resection. The patient was intubated yesterday for the operative procedure. He remains on the ventilator. He has a history of hypertension, hyperlipidemia, and hypothyroidism. Currently, he is on the volume assist control mode, rate 20, tidal volume 500, FiO2 40%, and PEEP of 5. Blood gases show a PaO2 of 70, a pCO2 of 75, and a pH is 7.12. Those blood gases were done on a rate of 16 and a tidal volume of 455. Currently, the patient is on a number drips including 3 ampules of sodium bicarbonate and D5W at 100 mL an hour, will follow-up 40 mcg/kg/m, Nimbex at 0.25 mcg/kg/m, fentanyl at 0.5 mcg/kg/h, norepinephrine at 75 mcg/m, and vasopressin at 0.03 units per minute. White count 13.7, hemoglobin 10.7, hematocrit 34.1, and platelet count 250,000. Sodium 145, potassium 4, chlorides 112, CO2 23, anion gap 10, UA and 80, creatinine 6.53. Albumin is 2.2. Chest x-ray shows some interstitial density at the lung bases, which are worse in the prior x-ray. Progress note dated 08/02/2021. 76-year-old male, 251. The patient was admitted to the hospital on July 30. He came in with hematuria. The patient went to the operating room, and had a right nephrostomy tube placed, a cystoscopy, and bladder tumor resection. Pat hology is currently pending. The patient was intubated for the procedure, remains on the mechanical ventilator. Today, is postop day #2. The patient remains on the volume assist control mode, rate 20, tidal volume 500, FiO2 40%, and PEEP of 5. Blood gases show pO2 of 92, pCO2 of 59, and a pH of 7.28. The rate was increased from 20-26 breaths or minute. The patient currently is on vasopressin at 0.04 units per minute, propofol at 40 mcg/kg/m, norepinephrine 37 mcg/m, and 3 ampules of sodium bicarbonate and D5W at 100 mL an hour. In addition, the patient is on fentanyl at 0.5 mcg/kg/h, and Nimbex at 0.5 mcg/kg/m. The patient has a carrier IV of saline at 10 mL an hour. Because of the normal bicarbonate concentration on the electrolyte profile,the bicarbonate drip will be discontinued in favor of 0.45 saline at 75 mL an hour. White count 21.2, hemoglobin 9.9, hematocrit 30.1, and platelet count 125,000. Sodium 144, potassium 4.1, chlorides 107, CO2 25, anion gap is 12, BUN 78, and creatinine 6.41. Glucose is 125. Phosphorus is 6.1. Chest x-ray shows diffuse bilateral infiltrates, with a small left pleural effusion, which could be consistent with either pneumonia or interstitial edema. Progress note dated 08/03/2021. 76-year-old male, again seen in room 251. The patient remains on the mechanical ventilator. He was admitted to the hospital on July 30. He came in with hematuria. He went to the operating room and had a right nephrostomy tube, cystoscopy, and bladder tumor resection. Pathology is currently pending. Urine cytology was nondiagnostic. He is postop day #3. He remains on the ventilator, on the volume assist control mode, rate 26, tidal volume 500, FiO2 40%, and PEEP of 5. Arterial blood gases show a PaO2 of 126, pCO2 37, and pH is 7.41. The FiO2 was dropped to 30%. He remains on propofol at 25 mcg/kg/m, vasopressin at 0.04 units per minute, norepinephrine at 13 mcg/m, and fentanyl at 0.5 mcg/kg/h. In addition, he is on saline at 50 mL an hour, and vital 1.2 at 40 mL an hour, with a goal of 45 mL an hour. Nimbex has been weaned off. White count 14.5, hemoglobin 9.3, hematocrit 27.6, and platelet count 93,000. Sodium 140, pot assium 3.3, chlorides 106, CO2 21, anion gap is 13, BUN is 85, with a creatinine 6.47. Calcium is 7.2. Urine is showing Klebsiella oxytoca from the . Chest x-ray showed diffuse patchy infiltrates, which could be consistent with pneumonia or fluid overload. Objective - Vital Signs Vital signs: Vital Signs Temp 97.8 F 08/03/21 08:00 Pulse 63 08/03/21 08:00 Resp 26 H 08/03/21 08:00 BP 117/78 08/03/21 08:00 Pulse Ox 100 08/03/21 08:00 Intake & Output 08/02/21 08/03/21 08/03/21 18:59 06:59 18:59 Intake Total 2107.911 1533.809 451.244 Output Total 720 105 300 Balance 2890.515 5978.809 151.244 Weight 81.4 kg 93.2 kg Intake: IV 1170 1120 290 0.9 120 120 40 Dextrose 5% in Water 1, 200 000 ml @ 100 mls/hr IV . [id number] [facility] with Sodium Bicarb (1 Meq/ml) 150 ml Rx#:[id number] Piperacillin-Tazobactam 3 100 100 .375 gm In Sodium Chloride 0.9% 100 ml @ 25 mls/hr IVPB Q12HR [facility] Rx #:[id number] Sodium Chloride 0.45% 1, 750 900 250 000 ml @ 75 mls/hr IV . [id number] [facility] Rx#:[id number] Intake, IV Titration 767.911 383.809 41.244 Amount Cisatracurium 200 mg In 75.051 Sodium Chloride 0.9% 180 ml @ 1 MCG/KG/MIN 4.884 mls/hr IV .Q24H [facility] Rx#: [id number] Norepinephrine 32 mg In 327.496 78.148 41.244 Sodium Chloride 0.9% 218 ml @ 0.05 MCG/KG/MIN 1. 807 mls/hr IV .Q24H [facility] Rx#:[id number] Sodium Chloride 0.9% 150 0 131.912 ml @ 0.04 UNITS/MIN 6.12 mls/hr IV .Q24H [facility] with Vasopressin 60 unit Rx#: [id number] fentaNYL (PF). 1,000 mcg 100 In Sodium Chloride 0.9% 80 ml @ 0.5 MCG/KG/HR 4. 07 mls/hr IV .Q24H [facility] Rx #:[id number] propofoL 1,000 mg In 265.364 173.749 Empty Bag 1 bag @ Titrate IV .Q0M [facility] Rx#: [id number] Tube Feeding 140 30 120 Other 30 Output: Drainage 600 25 250 Right Lateral Back 600 25 250 Urine 120 80 50 Other: Voiding Method Indwelling Catheter Indwelling Catheter ABP, PAP, CO, CI - Last Documented Arterial Blood Pressure 113/55 - Exam No acute distress, the patient is sedated and has an orally placed endotracheal tube and NG tube. HEENT examination is grossly unremarkable. Neck supple. Full range of motion. No adenopathy thyromegaly or neck vein distention. Cardiovascular examination reveals regular rhythm rate. S1-S2 normal. No S3 or S4. No discernible murmur noted. Heart sounds are distant. Heart rate 63 bpm. Lungs reveal diffuse bilateral coarse rhonchi. Breath sounds are equal. No wheezes or crackles noted. Abdomen is soft, without bowel sounds. Extremities are intact. No cyanosis clubbing or edema. Skin is without rash or lesion. Neurologic examination cannot be adequately assessed because he is heavily sedated. - Labs CBC & Chem 7: 08/03/21 04:30 08/03/21 04:30 Labs: Abnormal Lab Results - Last 24 Hours (Table) 08/02/21 08/02/21 08/02/21 Range/Units 11:52 17:51 18:08 WBC (3.8-10.6) k/uL RBC (4.30-5.90) m/uL Hgb (13.0-17.5) gm/dL Hct (39.0-53.0) % RDW (11.5-15.5) % Plt Count (150-450) k/uL Neutrophils # (1.3-7.7) k/uL Lymphocytes # (1.0-4.8) k/uL ABG pO2 (83-108) mmHg ABG Total CO2 (19-24) mmol/L ABG O2 Saturation (94-97) % Potassium (3.5-5.1) mmol/L Carbon Dioxide (22-30) mmol/L BUN 84 H (9-20) mg/dL Creatinine 6.28 H (0.66-1.25) mg/dL Glucose 109 H (74-99) mg/dL POC Glucose (mg/dL) 122 H 115 H (75-99) mg/dL Calcium 6.9 L (8.4-10.2) mg/dL 08/02/21 08/03/21 08/03/21 Range/Units 23:47 00:58 04:30 WBC 14.5 H (3.8-10.6) k/uL RBC 3.17 L (4.30-5.90) m/uL Hgb 9.3 L (13.0-17.5) gm/dL Hct 27.6 L (39.0-53.0) % RDW 16.3 H (11.5-15.5) % Plt Count 93 L (150-450) k/uL Neutrophils # 13.3 H (1.3-7.7) k/uL Lymphocytes # 0.6 L (1.0-4.8) k/uL ABG pO2 (83-108) mmHg ABG Total CO2 (19-24) mmol/L ABG O2 Saturation (94-97) % Potassium (3.5-5.1) mmol/L Carbon Dioxide (22-30) mmol/L BUN (9-20) mg/dL Creatinine (0.66-1.25) mg/dL Glucose (74-99) mg/dL POC Glucose (mg/dL) 134 H 148 H (75-99) mg/dL Calcium (8.4-10.2) mg/dL 08/03/21 08/03/21 08/03/21 Range/Units 04:30 05:46 05:53 WBC (3.8-10.6) k/uL RBC (4.30-5.90) m/uL Hgb (13.0-17.5) gm/dL Hct (39.0-53.0) % RDW (11.5-15.5) % Plt Count (150-450) k/uL Neutrophils # (1.3-7.7) k/uL Lymphocytes # (1.0-4.8) k/uL ABG pO2 126 H (83-108) mmHg ABG Total CO2 25 H (19-24) mmol/L ABG O2 Saturation 99.3 H (94-97) % Potassium 3.3 L (3.5-5.1) mmol/L Carbon Dioxide 21 L (22-30) mmol/L BUN 85 H (9-20) mg/dL Creatinine 6.47 H (0.66-1.25) mg/dL Glucose 125 H (74-99) mg/dL POC Glucose (mg/dL) 124 H (75-99) mg/dL Calcium 7.2 L (8.4-10.2) mg/dL Microbiology - Last 24 Hours (Table) 08/02/21 05:18 Blood Culture - Preliminary Blood No Growth after 24 hours 08/02/21 16:48 Urine Culture - Preliminary Urine,Catheterized 07/31/21 20:57 Urine Culture - Preliminary Urine,Suprapubic Gram Neg Bacilli 07/31/21 04:00 Urine Culture - Final Urine,Voided Klebsiella oxytoca 08/01/21 11:05 Blood Culture - Preliminary Blood No Growth after 24 hours Assessment and Plan Assessment: Gross hematuria, secondary to bladder tumor, status post cystoscopy and biopsies, 07/31/2021, postop day #3. Routine postoperative ventilator management, with intubation for the procedure above, on July 31. Hypotension, likely secondary to sepsis from Klebsiella oxytoca urinary tract infection. Anemia, status post 1 unit of PRBCs. Acute kidney injury, secondary to ATN. Mild troponin leak. Hyperlipidemia. History of hypertension. Hypothyroidism. Prior history of tobacco use. Plan: Plan dated 08/01/2021. Currently, obviously, the patient's quite ill. He is essentially maxed out on norepinephrine and vasopressin. He is currently sedated and paralyzed. Not much more to do for this patient. The patient remains on Rocephin. The other medications are reviewed and are appropriate. Unnecessary medications will be discontinued. Overall prognosis is poor. We will continue to follow make recommendations where appropriate. Plan dated 08/02/2021. The respiratory rate on the ventilator will be increased to 26 breaths per minute. This will help to reduce see PaCO2, and increase the pH to are normal range. The patient remains on both vasopressin and norepinephrine, for blood pressure support. In addition, the patient's on propofol, Nimbex, and fentanyl. The patient's sodium bicarbonate drip will be continued, and the patient will be placed on half-normal saline at 75 mL an hour. We will continue to follow make recommendations where appropriate. Overall prognosis remains poor. Plan dated 08/03/2021. The Klebsiella in the urine was extended spectrum beta-lactamase producing Klebsiella. The patient is currently on ertapenem. The patient remains on norepinephrine and vasopressin. The patient's overall prognosis is very poor. Pathology from the recent surgery still pending. Urine cytology was nondiagnostic. We were able to wean the patient off the Nimbex. We will continue to follow and make recommendations where appropriate. Overall progn osis remains very poor. Time with Patient: Greater than 30
[2021-08-03] MEDS: IPRATROPIUM-ALBUTEROL 3 ML NEB INHALATION SCH ×4 (11:30→23:04)
[2021-08-03 11:56] LABS: Glucose,Whole Blood 148 mg/dL (75-99)
--- NOTE | 2021-08-03 12:45 | P.CONS ---
History of Present Illness - Reason for Consult Consult date: 08/02/21 ESBL UTI Requesting physician: Bren Andrade - Chief Complaint hematuria x 1 day - History of Present Illness History of Present Illness : Patient is a 76-year male presenting to the ER on 07/30/2021 for evaluation of possible rectal bleeding patient apparently did have symptom started the day before presentation to the hospital patient denies having any abdominal pain no vomiting patient subsequently was noticed to have hematuria after placement of a condom catheter patient did have a CT abdominal pelvis which was bilateral hydronephrosis and hydroureter no obstructing calculus is seen chronic diverticula without signs of diverticulitis patient did have a ultrasound guided nephrostomy tube placement on the right side on 07/31/2021 patient subsequently did have cystoscopy with evacuation of clot and transurethral resection of a bladder tumor, patient did have urine cultures which were finalized with ESBL Klebsiella patient has been treated with Zosyn infectious he was consulted for further management of antibiotic therapy most information has been obtained from review the chart talking to nursing staff as the patient is currently intubated on the vent sedated and is unable to provide reliable history Review of system: Positive points mentioned in history of present illness complete review could not be obtained because of his underlying medical condition Past medical history : Reviewed, documented below Past surgical history : Reviewed, documented below Social history: Reviewed, documented below Medications: Reviewed, as documented below EXAMINATION: Vital sigans= Reviewed and documented below GENERAL DESCRIPTION: Elderly male intubated on the vent, no distress. No tachypnea or accessory muscle of respiration use. HEENT: Shows Pallor , no scleral icterus. Oral mucous membrane is dry. NECK: Trachea central, no thyromegaly. LUNGS: Unlabored breathing. Decreased breath sound at the base. No wheeze or crackle. HEART: S1, S2, regular rate and rhythm. ABDOMEN: Soft, no tenderness , guarding or rigidity EXTREMITIES: No edema feet SKIN: No rash, no masses palpable. NEUROLOGICAL: The patient is sedated on the vent LABS AND RADIOLOGY: Reviewed results see below Assessment : Patient presented to the hospital with hematuria in this patient subsequent work-up condition with evidence of bilateral hydronephrosis patient is status post right nephrostomy tube placement and is also status post cystoscopy with resection of bladder tumor with urine culture have been finalized with ESBL Klebsiella 2-renal insufficiency and high risk of nephrotoxicity1- Plan: 1-discontinue Zosyn 2-start the patient on Invanz 500 mg daily to suggest to the kidney function 3-urine culture obtained from the Denny catheter is a previous sample was from his right nephrostomy tube We will follow on clinical condition and cultures to further adjust medication if needed Thank you for this consultation we will follow the patient along with you Past Medical History Past Medical History: Hearing Disorder / Deafness, Hyperlipidemia, Hypertension, Osteoarthritis (OA), Prostate Disorder, Thyroid Disorder History of Any Multi-Drug Resistant Organisms: ESBL Year Discovered:: 07/31/21 MDRO Source:: ESBL URINE Additional Past Surgical History / Comment(s): aaa Past Psychological History: No Psychological Hx Reported Smoking Status: Current every day smoker Past Alcohol Use History: None Reported Past Drug Use History: None Reported Medications and Allergies Home Medications Medication Instructions Recorded Confirmed Type hydroCHLOROthiazide 25 mg PO DAILY 03/12/16 07/31/21 History lisinopriL 40 mg PO DAILY 03/12/16 07/31/21 History Clopidogrel [Plavix] 75 mg PO DAILY 07/31/21 07/31/21 History Levothyroxine Sodium [Euthyrox] 175 mcg PO DAILY 07/31/21 07/31/21 History Rosuvastatin Calcium [Crestor] 5 mg PO DAILY 07/31/21 07/31/21 History rOPINIRole HCL [Requip] 1 mg PO BID 07/31/21 07/31/21 History Allergies Allergy/AdvReac Type Severity Reaction Status Date / Time No Known Allergies Allergy Verified 03/12/16 14:04 Physical Exam Vitals: Vital Signs Temp Pulse Resp BP Pulse Ox 08/03/21 12:15 68 26 H 109/71 98 08/03/21 12:00 97.8 F 63 26 H 109/73 99 08/03/21 11:45 66 26 H 104/66 99 08/03/21 11:39 57 L 08/03/21 11:30 65 26 H 104/69 99 08/03/21 11:15 65 26 H 105/69 99 08/03/21 11:00 61 26 H 105/68 99 08/03/21 10:45 64 26 H 107/69 99 08/03/21 10:30 64 26 H 108/68 99 08/03/21 10:15 67 26 H 101/68 99 08/03/21 10:00 63 26 H 103/67 99 08/03/21 09:45 67 26 H 107/71 99 08/03/21 09:30 60 26 H 105/71 99 08/03/21 09:15 61 26 H 106/68 99 08/03/21 09:00 58 L 26 H 107/66 99 08/03/21 08:45 61 26 H 114/76 100 08/03/21 08:30 64 26 H 115/78 100 08/03/21 08:15 59 L 26 H 118/74 100 08/03/21 08:00 97.8 F 63 26 H 117/78 100 08/03/21 07:45 56 L 26 H 116/76 100 08/03/21 07:30 54 L 26 H 100/69 100 08/03/21 07:15 59 L 26 H 113/75 100 08/03/21 07:00 59 L 26 H 114/76 100 08/03/21 06:45 57 L 26 H 110/73 100 08/03/21 06:30 59 L 26 H 114/79 100 08/03/21 06:15 66 26 H 113/73 100 08/03/21 06:00 59 L 26 H 109/71 100 08/03/21 05:45 63 26 H 107/69 100 08/03/21 05:30 70 26 H 111/71 100 08/03/21 05:15 60 26 H 110/73 100 08/03/21 05:00 64 26 H 110/73 100 08/03/21 04:45 61 26 H 114/73 100 08/03/21 04:30 63 26 H 116/72 100 08/03/21 04:15 63 26 H 119/74 100 08/03/21 04:00 97 F L 63 26 H 120/78 100 08/03/21 03:45 64 26 H 116/76 100 08/03/21 03:30 64 26 H 113/78 100 08/03/21 03:15 63 26 H 114/73 100 08/03/21 03:00 63 26 H 113/74 100 08/03/21 02:45 68 26 H 112/70 100 08/03/21 02:30 64 26 H 108/72 100 08/03/21 02:15 64 26 H 100/66 100 08/03/21 02:00 64 26 H 99/62 99 08/03/21 01:45 70 26 H 106/70 100 08/03/21 01:30 70 26 H 85/62 100 08/03/21 01:15 74 26 H 91/57 100 08/03/21 01:00 76 26 H 110/71 99 08/03/21 00:45 79 26 H 106/72 95 08/03/21 00:30 85 45 H 104/73 95 08/03/21 00:15 75 26 H 110/71 100 08/03/21 00:00 97.9 F 72 26 H 101/65 100 08/02/21 23:45 71 26 H 101/64 08/02/21 23:30 73 26 H 106/70 100 08/02/21 23:15 73 26 H 114/72 100 08/02/21 23:00 67 26 H 102/66 100 08/02/21 22:45 72 26 H 103/67 100 08/02/21 22:30 72 26 H 101/65 100 08/02/21 22:15 72 26 H 92/60 100 08/02/21 22:00 74 26 H 92/60 08/02/21 21:45 74 26 H 95/65 100 08/02/21 21:30 73 26 H 102/66 100 08/02/21 21:15 72 26 H 104/65 08/02/21 21:00 74 26 H 102/67 100 08/02/21 20:45 75 26 H 99/65 08/02/21 20:30 74 26 H 104/67 100 08/02/21 20:15 75 24 98/61 100 08/02/21 20:00 98.2 F 72 26 H 96/61 08/02/21 19:45 74 26 H 91/59 100 08/02/21 19:30 73 26 H 95/62 08/02/21 19:15 75 26 H 107/67 100 08/02/21 19:00 74 26 H 91/58 100 08/02/21 18:45 77 26 H 91/58 100 08/02/21 18:30 75 26 H 94/60 08/02/21 18:15 73 26 H 105/65 100 08/02/21 18:00 73 26 H 102/64 100 08/02/21 17:45 76 26 H 93/61 100 08/02/21 17:30 73 26 H 82/52 100 08/02/21 17:15 81 26 H 95/62 100 08/02/21 17:00 75 26 H 95/60 100 08/02/21 16:45 74 26 H 95/61 08/02/21 16:30 75 26 H 91/59 100 08/02/21 16:15 75 26 H 90/59 08/02/21 16:00 98.9 F 75 26 H 92/58 08/02/21 15:45 76 26 H 87/57 100 08/02/21 15:30 77 26 H 85/56 08/02/21 15:15 78 26 H 91/58 100 08/02/21 15:00 77 26 H 101/62 100 08/02/21 14:45 77 26 H 95/58 100 08/02/21 14:30 78 26 H 93/58 100 08/02/21 14:15 76 26 H 87/57 08/02/21 14:00 78 26 H 101/63 08/02/21 13:45 75 26 H 104/63 100 08/02/21 13:30 78 26 H 101/61 100 08/02/21 13:15 77 26 H 87/53 100 08/02/21 13:00 76 26 H 92/59 08/02/21 12:45 78 26 H 97/61 100 Intake and Output 08/02/21 08/03/21 08/03/21 22:59 06:59 14:59 Intake Total 9242.243 5624.471 571.244 Output Total 320 35 320 Balance 762.900 0672.471 251.244 Intake: IV 855 680 410 0.9 80 80 60 Piperacillin-Tazobactam 3 175 .375 gm In Sodium Chloride 0.9% 100 ml @ 25 mls/hr IVPB Q12HR [facility] Rx #:[id number] Sodium Chloride 0.45% 1, 600 600 350 000 ml @ 75 mls/hr IV . [id number] [facility] Rx#:[id number] Intake, IV Titration 114.986 373.471 41.244 Amount Norepinephrine 32 mg In 42.256 67.81 41.244 Sodium Chloride 0.9% 218 ml @ 0.05 MCG/KG/MIN 1. 807 mls/hr IV .Q24H [facility] Rx#:[id number] Sodium Chloride 0.9% 150 131.912 ml @ 0.04 UNITS/MIN 6.12 mls/hr IV .Q24H [facility] with Vasopressin 60 unit Rx#: [id number] propofoL 1,000 mg In 72.730 173.749 Empty Bag 1 bag @ Titrate IV .Q0M [facility] Rx#: [id number] Tube Feeding 110 120 Other 30 Output: Drainage 225 250 Right Lateral Back 225 250 Urine 95 35 70 Other: Voiding Method Indwelling Catheter Indwelling Catheter Indwelling Catheter Weight 93.2 kg ABP, PAP, CO, CI - Last 8 Hours Arterial Blood Pressure 101/49 Arterial Blood Pressure 107/51 Arterial Blood Pressure 107/52 Arterial Blood Pressure 101/49 Arterial Blood Pressure 104/50 Arterial Blood Pressure 103/49 Arterial Blood Pressure 102/48 Arterial Blood Pressure 100/47 Arterial Blood Pressure 100/47 Arterial Blood Pressure 100/47 Arterial Blood Pressure 98/47 Arterial Blood Pressure 106/51 Arterial Blood Pressure 102/48 Arterial Blood Pressure 104/52 Arterial Blood Pressure 105/49 Arterial Blood Pressure 110/52 Arterial Blood Pressure 110/53 Arterial Blood Pressure 113/55 Arterial Blood Pressure 113/53 Arterial Blood Pressure 111/51 Arterial Blood Pressure 102/50 Arterial Blood Pressure 107/53 Arterial Blood Pressure 110/52 Arterial Blood Pressure 108/51 Arterial Blood Pressure 111/53 Arterial Blood Pressure 108/51 Arterial Blood Pressure 107/50 Arterial Blood Pressure 102/48 Arterial Blood Pressure 110/54 Arterial Blood Pressure 112/56 Arterial Blood Pressure 113/55 Results CBC & Chem 7: 08/03/21 04:30 08/03/21 04:30 Labs: Abnormal Lab Results - Last 24 Hours (Table) 08/02/21 08/02/21 08/02/21 Range/Units 17:51 18:08 23:47 WBC (3.8-10.6) k/uL RBC (4.30-5.90) m/uL Hgb (13.0-17.5) gm/dL Hct (39.0-53.0) % RDW (11.5-15.5) % Plt Count (150-450) k/uL Neutrophils # (1.3-7.7) k/uL Lymphocytes # (1.0-4.8) k/uL ABG pO2 (83-108) mmHg ABG Total CO2 (19-24) mmol/L ABG O2 Saturation (94-97) % Potassium (3.5-5.1) mmol/L Carbon Dioxide (22-30) mmol/L BUN 84 H (9-20) mg/dL Creatinine 6.28 H (0.66-1.25) mg/dL Glucose 109 H (74-99) mg/dL POC Glucose (mg/dL) 115 H 134 H (75-99) mg/dL Calcium 6.9 L (8.4-10.2) mg/dL 08/03/21 08/03/21 08/03/21 Range/Units 00:58 04:30 04:30 WBC 14.5 H (3.8-10.6) k/uL RBC 3.17 L (4.30-5.90) m/uL Hgb 9.3 L (13.0-17.5) gm/dL Hct 27.6 L (39.0-53.0) % RDW 16.3 H (11.5-15.5) % Plt Count 93 L (150-450) k/uL Neutrophils # 13.3 H (1.3-7.7) k/uL Lymphocytes # 0.6 L (1.0-4.8) k/uL ABG pO2 (83-108) mmHg ABG Total CO2 (19-24) mmol/L ABG O2 Saturation (94-97) % Potassium 3.3 L (3.5-5.1) mmol/L Carbon Dioxide 21 L (22-30) mmol/L BUN 85 H (9-20) mg/dL Creatinine 6.47 H (0.66-1.25) mg/dL Glucose 125 H (74-99) mg/dL POC Glucose (mg/dL) 148 H (75-99) mg/dL Calcium 7.2 L (8.4-10.2) mg/dL 08/03/21 08/03/21 08/03/21 Range/Units 05:46 05:53 11:55 WBC (3.8-10.6) k/uL RBC (4.30-5.90) m/uL Hgb (13.0-17.5) gm/dL Hct (39.0-53.0) % RDW (11.5-15.5) % Plt Count (150-450) k/uL Neutrophils # (1.3-7.7) k/uL Lymphocytes # (1.0-4.8) k/uL ABG pO2 126 H (83-108) mmHg ABG Total CO2 25 H (19-24) mmol/L ABG O2 Saturation 99.3 H (94-97) % Potassium (3.5-5.1) mmol/L Carbon Dioxide (22-30) mmol/L BUN (9-20) mg/dL Creatinine (0.66-1.25) mg/dL Glucose (74-99) mg/dL POC Glucose (mg/dL) 124 H 148 H (75-99) mg/dL Calcium (8.4-10.2) mg/dL Microbiology - Last 24 Hours (Table) 08/01/21 11:12 Gram Stain - Final Sputum Sputum Culture - Final Strep agalactiae - (group b) 08/02/21 05:18 Blood Culture - Preliminary Blood No Growth after 24 hours 08/02/21 16:48 Urine Culture - Preliminary Urine,Catheterized 07/31/21 20:57 Urine Culture - Preliminary Urine,Suprapubic Gram Neg Bacilli 07/31/21 04:00 Urine Culture - Final Urine,Voided Klebsiella oxytoca 08/01/21 11:05 Blood Culture - Preliminary Blood No Growth after 24 hours
[2021-08-03] MEDS: SODIUM CHLORIDE 0.9% 1,000 ML IV SCH (13:01)
[2021-08-03] MEDS: CALCIUM ACETATE 667 MG TAB PO SCH ×2 (13:03→18:06)
--- NOTE | 2021-08-03 14:35 | P.PN ---
Subjective Progress Note Date: 08/03/21 HISTORY OF PRESENT ILLNESS This 76-year-old pleasant gentleman, patient of Dr. Wills. History of hypertension hyperlipidemia, hypothyroidism, who was noted to have some bleeding in the toilet for several days, unsure how long the duration was, however he is on blood thinners, he was found on the floor today, patient denies any headache, however it's unclear how the patient fell. He does not admit to syncopal event, patient was subsequently setting to emergency room from home, to the emergency via EMS, a condom catheter was placed, and that's how they found that patient is having gross hematuria rather than rectal bleeding. In emergency room, central line was placed for IV hydration, blood pressure was 75/50, daily urinalysis, shows over 182 RBCs and WBC, hemoglobin 10.4 WBC count 11.0, platelet 297, creatinine of 6.1, BUN of 77, unknown baseline. Patient had CAT scan, head and cervical spine, shows multilevel cervical spondylosis change, no fracture, and no dislocation. No intracranial hemorrhage, intact calvarium. Computed tomography scan of the abdomen, shows bilateral hydronephrosis, and hydroureter, more on the right than the left, there is bilateral renal vascular calcification, no renal calculi, no ureteral calculi. There is no inguinal hernia, no fluid in the pelvis, bilateral stents in the abdominal aorta and iliac arteries, no mesenteric edema, no ascites or free air. No bowel obstruction, bladder imaging is not well evaluated due to lack of distention there is colonic diverticula, without signs of diverticulitis. Chest x-ray shows mild pulmonary fibrosis Consult was made with nephrology, urology and intensive care management, patient admitted to ICU for significant gross hematuria, obstructive uropathy, with mental status changes, and suspected syncope, with a fall long-term anticoagulation, elevated troponin Patient is taken to the operating room, for cystoscopy, evacuation of clot, and transient Trial resection of the bladder as a CAT scan per review from urology, shows bladder irregularity. There is a large sessile tumor, in the right posterolateral bladder wall. It was dense and suspected to have obviously a high grade tumor, with muscular invasion 08/01: Patient remains in the intensive care unit intubated on mechanical ventilation with tidal volume 500, FiO2 40, PEEP of 5. Patient is on levo fed, vasopressin, Nimbex, fentanyl, bicarb drip and propofol. The patient has hematuria from Denny catheter and nephrostomy tube and there is small amount of leaking from the meatus. 08/02: Patient remains in the intensive care unit intubated and on mechanical ventilation with tidal volume 500, FiO2 50, PEEP 5. Patient has been weaned down on norepinephrine continued on vasopressin, Nimbex, fentanyl and propofol. He has been afebrile, heart rate 77, blood pressure 92/59, pulse ox 100%. He had monitor sinus rhythm. Repeat blood work reveals WBC 21.2, hemoglobin 9.9, platelet count 125. Lites are within normal limits. BUN 78 creatinine 6.41. Capillary blood glucose running between 113 and 121. Urine culture has been finalized with ESBL Klebsiella oxytoca and antibiotics will be changed from ceftriaxone to Zosyn. 08/03 patient examined while intubated. Patient is postop 3 continues to remain ventilator on assist control mode respiratory rate of 26 and volume 500 FiO2 40 and PEEP of 5. FiO2 decreased to 30 with patient maintaining her oxygen saturations between 96-98%. He continues to remain on propofol at 25 valentin per KG per minute. Vasopressin at 0.04 units per minute, norepinephrine at 20 mics KG per minute and fentanyl 0.5 valentin per KG per minute. Patient's bicarb drip was discontinued and is currently on half-normal saline at 50 mL per hour. Nimbex has been discontinued. Patient vitals are stable with temp 97.8 pulse 63 respiratory rate 26 blood pressure 109/71. Leukocytosis of 14.5, hemoglobin 9.3 platelet has reduced to 93. Potassium is 3.3 bicarb 21 BUN 85 creatinine 6. 47. Urine output is approximately 10-15 mL per hour about 250 developed intermittent nephrostomy tube. Lasix 80 mg IV to be given today. Potassium is being repleted. No need for dialysis as at this point per nephrology REVIEW OF SYSTEMS Unable to obtain due to intubation PHYSICAL EXAMINATION Gen: This is a 76-year-old male. He is resting in ICU bed, intubated and on mechanical ventilation HEENT: Head is atraumatic, normocephalic. Sclerae is anicteric. NECK: Supple. No JVD. No lymphadenopathy. No thyromegaly. LUNGS: Bilateral rhonchi. No intercostal retractions. HEART: Regular rate and rhythm. No murmur. ABDOMEN: Soft. Bowel sounds are present. No masses. No tenderness. Denny catheter with hematuria. Nephrostomy tube draining jemal urine. EXTREMITIES: No pedal edema. No calf tenderness. NEUROLOGICAL: Patient is sedated. ASSESSMENT AND PLAN 1. Gross hematuria, with hypotension, obstructive uropathy, and a suspected bladder tumor, malignancy is highly suspected resumed UTI with pyuria. Patient was seen by urology, status post transurethral bladder resection on 07/31/2021 Dr. Vinson. Patient managed in ICU. 2. Acute blood loss anemia, with hypovolemic and septic hypotension, from gross hematuria, requiring vasopressors, norepinephrine, maintained in ICU treatment, critical care medicine following. She is status post 1 unit packed RBCs. 3. Acute kidney injury secondary to bilateral hydronephrosis and hydroureter with workup suggestive of bladder cancer, unknown baseline for CK D. neurology consult appreciated. Lasix 80 IV today. Normocytic 150 mL/h. PhosLo recomm ended by nephrology. 4. Elevated troponin, rule out non-ST elevated myocardial infarction. Cardio logy consult pending. 5. Acute hypoxic respiratory failure requiring ongoing intubation mechanical ventilation. And tinea to wean down on vent settings Patient is managed by semiconductor equipment technician. 6. Acute ESBL Klebsiella urinary tract infection with sepsis and septic shock requiring vasopressors. IV antibiotics changed from ceftriaxone to Zosyn, continue vasopressor support. 7. Thrombocytopenia secondary to sepsis. 8. BPH with prostatomegaly has indwelling Denny catheter at this time 9. Hypothyroidism. Continue levothyroxine 175 g daily 10. Hyperlipidemia 11. Hypertension currently hypotensive. 12. Tobacco use and dependence. DVT prophylaxis heparin subcu, to start in 24 hours. Post op patient reviewed his receive 1 dose kcentra 07/30 GI prophylaxis IV Protonix Prognosis guarded. CODE STATUS full code Objective - Vital Signs Vital signs: Vital Signs Temp 97 F L 08/03/21 04:00 Pulse 59 L 08/03/21 06:00 Resp 26 H 08/03/21 06:00 BP 109/71 08/03/21 06:00 Pulse Ox 100 08/03/21 06:00 Intake & Output 08/02/21 08/02/21 08/03/21 06:59 18:59 06:59 Intake Total 0102.849 2571.911 1533.809 Output Total 487 720 105 Balance 1613.158 1694.911 1428.809 Weight 81.4 kg 93.2 kg Intake: IV 1320 1170 1120 0.9 120 120 120 Dextrose 5% in Water 1, 1100 000 ml @ 100 mls/hr IV . [id number] [facility] with Sodium Bicarb (1 Meq/ml) 150 ml Rx#:[id number] Dextrose 5% in Water 1, 100 200 000 ml @ 100 mls/hr IV . [id number] [facility] with Sodium Bicarb (1 Meq/ml) 150 ml Rx#:[id number] Piperacillin-Tazobactam 3 100 100 .375 gm In Sodium Chloride 0.9% 100 ml @ 25 mls/hr IVPB Q12HR [facility] Rx #:[id number] Sodium Chloride 0.45% 1, 750 900 000 ml @ 75 mls/hr IV . [id number] [facility] Rx#:[id number] Intake, IV Titration 330.685 767.911 383.809 Amount Cisatracurium 200 mg In 23.199 75.051 Sodium Chloride 0.9% 180 ml @ 1 MCG/KG/MIN 4.884 mls/hr IV .Q24H [facility] Rx#: [id number] Norepinephrine 32 mg In 86.398 327.496 78.148 Sodium Chloride 0.9% 218 ml @ 0.05 MCG/KG/MIN 1. 807 mls/hr IV .Q24H [facility] Rx#:[id number] Sodium Chloride 0.9% 150 21.088 0 131.912 ml @ 0.04 UNITS/MIN 6.12 mls/hr IV .Q24H [facility] with Vasopressin 60 unit Rx#: [id number] fentaNYL (PF). 1,000 mcg 100 In Sodium Chloride 0.9% 80 ml @ 0.5 MCG/KG/HR 4. 07 mls/hr IV .Q24H [facility] Rx #:[id number] propofoL 1,000 mg In 200 265.364 173.749 Empty Bag 1 bag @ Titrate IV .Q0M [facility] Rx#: [id number] Tube Feeding 140 30 Other 40 30 Output: Drainage 147 600 25 Right Lateral Back 147 600 25 Urine 340 120 80 Other: Voiding Method Indwelling Catheter Indwelling Catheter Indwelling Catheter ABP, PAP, CO, CI - Last Documented Arterial Blood Pressure 108/51 - Labs CBC & Chem 7: 08/03/21 04:30 08/03/21 13:40 Labs: Abnormal Lab Results - Last 24 Hours (Table) 08/02/21 08/02/21 08/02/21 Range/Units 05:18 06:20 11:52 Neutrophils # (Manual) 19.00 H (1.3-7.7) k/uL ABG pH 7.28 L (7.35-7.45) ABG pCO2 59 H (35-45) mmHg ABG pO2 (83-108) mmHg ABG HCO3 27 H (21-25) mmol/L ABG Total CO2 13 L (19-24) mmol/L ABG O2 Saturation 98.0 H (94-97) % Potassium (3.5-5.1) mmol/L Carbon Dioxide (22-30) mmol/L BUN (9-20) mg/dL Creatinine (0.66-1.25) mg/dL Glucose (74-99) mg/dL POC Glucose (mg/dL) 122 H (75-99) mg/dL Calcium (8.4-10.2) mg/dL 08/02/21 08/02/21 08/02/21 Range/Units 17:51 18:08 23:47 Neutrophils # (Manual) (1.3-7.7) k/uL ABG pH (7.35-7.45) ABG pCO2 (35-45) mmHg ABG pO2 (83-108) mmHg ABG HCO3 (21-25) mmol/L ABG Total CO2 (19-24) mmol/L ABG O2 Saturation (94-97) % Potassium (3.5-5.1) mmol/L Carbon Dioxide (22-30) mmol/L BUN 84 H (9-20) mg/dL Creatinine 6.28 H (0.66-1.25) mg/dL Glucose 109 H (74-99) mg/dL POC Glucose (mg/dL) 115 H 134 H (75-99) mg/dL Calcium 6.9 L (8.4-10.2) mg/dL 08/03/21 08/03/21 08/03/21 Range/Units 00:58 04:30 05:46 Neutrophils # (Manual) (1.3-7.7) k/uL ABG pH (7.35-7.45) ABG pCO2 (35-45) mmHg ABG pO2 (83-108) mmHg ABG HCO3 (21-25) mmol/L ABG Total CO2 (19-24) mmol/L ABG O2 Saturation (94-97) % Potassium 3.3 L (3.5-5.1) mmol/L Carbon Dioxide 21 L (22-30) mmol/L BUN 85 H (9-20) mg/dL Creatinine 6.47 H (0.66-1.25) mg/dL Glucose 125 H (74-99) mg/dL POC Glucose (mg/dL) 148 H 124 H (75-99) mg/dL Calcium 7.2 L (8.4-10.2) mg/dL 08/03/21 Range/Units 05:53 Neutrophils # (Manual) (1.3-7.7) k/uL ABG pH (7.35-7.45) ABG pCO2 (35-45) mmHg ABG pO2 126 H (83-108) mmHg ABG HCO3 (21-25) mmol/L ABG Total CO2 25 H (19-24) mmol/L ABG O2 Saturation 99.3 H (94-97) % Potassium (3.5-5.1) mmol/L Carbon Dioxide (22-30) mmol/L BUN (9-20) mg/dL Creatinine (0.66-1.25) mg/dL Glucose (74-99) mg/dL POC Glucose (mg/dL) (75-99) mg/dL Calcium (8.4-10.2) mg/dL Microbiology - Last 24 Hours (Table) 08/02/21 16:48 Urine Culture - Preliminary Urine,Catheterized 07/31/21 20:57 Urine Culture - Preliminary Urine,Suprapubic Gram Neg Bacilli 07/31/21 04:00 Urine Culture - Final Urine,Voided Klebsiella oxytoca 08/01/21 11:05 Blood Culture - Preliminary Blood No Growth after 24 hours
[2021-08-03 17:24] LABS: Glucose,Whole Blood 140 mg/dL (75-99)
--- NOTE | 2021-08-03 22:01 | PN ---
PROGRESS NOTE DATE OF SERVICE: 08/03/2021 REASON FOR FOLLOWUP: ESBL Klebsiella urinary tract infection. INTERVAL HISTORY: The patient is afebrile. The patient remains intubated on the vent. FiO2 is currently 40%. No significant purulent secretions through ET, diarrhea or any other changes reported by nursing staff. PHYSICAL EXAMINATION: Blood pressure 101/64, pulse of 70, temperature of 97.8. He is 98% on 40% FiO2. General description is an elderly male lying in bed in no distress. Respiratory system: Unlabored breathing, decreased breath sounds at the base. No wheeze. Heart S1, S2. Regular rate and rhythm. Abdomen soft, no tenderness. LABS: White count down to 14.5, creatinine is 6.47. DIAGNOSTIC IMPRESSION AND PLAN: Patient with sepsis with a complicated urinary tract infection, bilateral hydronephrosis with right nephrostomy tube. Cystoscopy and resection of the bladder tumor. Patient to continue with ertapenem while monitoring his clinical course closely. Continue supportive care. MMODL / IJN: [id number] /
[2021-08-03 23:25] LABS: Glucose,Whole Blood 161 mg/dL (75-99)
[2021-08-04] MEDS: SODIUM CHLORIDE 0.9% 150 ML with VASOPRESSIN 60 UNIT IV SCH ×2 (00:35)
[2021-08-04] MEDS: INSULIN ASPART (NovoLOG) 100 UNIT/ML VIAL SQ SCH ×4 (00:36→17:46)
[2021-08-04] MEDS: IPRATROPIUM-ALBUTEROL 3 ML NEB INHALATION SCH ×6 (03:10→23:26)
[2021-08-04 05:28] LABS: Glucose,Whole Blood 149 mg/dL (75-99)
[2021-08-04 06:05] LABS: ABG HCO3 27 mmol/L (21-25); ABG Oxygen Saturation 91.8 % (94-97); ABG PCO2 41 mmHg (35-45); ABG PH 7.44 (7.35-7.45); ABG TCO2 29 mmol/L (19-24)
[2021-08-04] MEDS: CALCIUM ACETATE 667 MG TAB PO SCH ×3 (06:05→17:46)
[2021-08-04] MEDS: LEVOTHYROXINE 88 MCG TAB PO SCH (06:05)
[2021-08-04 06:34] LABS: ABG PO2 58 mmHg (83-108); Allen Test Performed? no
--- NOTE | 2021-08-04 07:37 | XR ---
EXAMINATION TYPE: XR chest 1V portable DATE OF EXAM: 08/04/2021 CLINICAL HISTORY: Difficulty breathing progress study. TECHNIQUE: Single AP portable upright view of the chest is obtained. COMPARISON: Chest x-ray from one day earlier and older studies. FINDINGS: Stable endotracheal and orogastric tubes. Persistent left greater than right bibasilar opacities. Persistent mid lung opacity. Cardiac silhouet te size stable and upper limits of normal. Osseous structures are intact. IMPRESSION: Persistent left midlung and bibasilar acute infiltrates and/or atelectasis. No significan t change from one day earlier.
[2021-08-04] MEDS: CISATRACURIUM 200 MG in SODIUM CHLORIDE 0.9% 180 ML IV SCH (08:06)
[2021-08-04] MEDS: NOREPINEPHRINE 32 MG in SODIUM CHLORIDE 0.9% 218 ML IV SCH (08:07)
[2021-08-04 08:12] LABS: Basophils % (A) 0 %; Eosinophils # (A) 0.1 k/uL (0-0.7); Eosinophils % (A) 1 %; HCT 26.4 % (39.0-53.0); HGB 8.8 gm/dL (13.0-17.5); Lymphocytes # (A) 0.7 k/uL (1.0-4.8); Lymphocytes % (A) 5 %; MCH 29.3 pg (25.0-35.0); MCHC 33.3 g/dL (31.0-37.0); MCV 88.2 fL (80.0-100.0); Mean Platelet Volume 9.3; Monocytes # (A) 0.3 k/uL (0-1.0); Monocytes % (A) 2 %; Neutrophils % (A) 90 %; RBC 2.99 m/uL (4.30-5.90); RDW 15.9 % (11.5-15.5); WBC 13.3 k/uL (3.8-10.6)
[2021-08-04 08:17] LABS: Platelet Count 72 k/uL (150-450)
[2021-08-04 08:29] LABS: Albumin 1.8 g/dL (3.5-5.0); Calcium 7.6 mg/dL (8.4-10.2); Potassium 3.4 mmol/L (3.5-5.1); Total Bilirubin 1.1 mg/dL (0.2-1.3)
[2021-08-04] MEDS: SODIUM CHLORIDE 0.9% 1,000 ML IV SCH (09:05)
[2021-08-04] MEDS: CHLORHEXIDINE GLUCONATE 15 ML CUP MUCOUS MEM SCH ×2 (09:05→21:01)
[2021-08-04] MEDS: SODIUM BICARBONATE TAB 650 MG TAB PO SCH ×4 (09:05→21:01)
[2021-08-04] MEDS: HEPARIN SODIUM,PORCINE/PF 5,000 UNIT/0.5 ML SYRINGE SQ SCH ×2 (09:05→10:24)
[2021-08-04] MEDS: PANTOPRAZOLE 40 MG/10 ML VIAL IV SCH (09:05)
[2021-08-04] MEDS ORDERED: HYDROmorphone 1 MG/ML 1 ML SYRINGE IVP PRN (10:10)
--- NOTE | 2021-08-04 11:54 | P.PN ---
Subjective Patient went to atrial fibrillation with RVR He was seen in cardiac consultation previously Currently he is on a Cardizem drip and his rate is in the 60s Labs reviewed White count 13,000 Hemoglobin 8.8 Platelet count 72,000 PO2 58 on ABG Sodium 141, potassium 3.4 Creatinine close to 6 I spoke to the nurse He is on metoprolol tartrate We will increase the dose of metoprolol to 25 mg 3 times a day The dose of Cardizem drip. Will be reduced and hopefully we can taper it off tomorrow Objective - Vital Signs Vital signs: Vital Signs Temp 98 F 08/04/21 08:00 Pulse 76 08/04/21 11:00 Resp 55 H 08/04/21 11:00 BP 96/63 08/04/21 04:45 Pulse Ox 100 08/04/21 11:00 Intake & Output 08/03/21 08/04/21 08/04/21 18:59 06:59 18:59 Intake Total 3333.606 9018.220 803.105 Output Total 835 790 250 Balance 388.788 413.220 553.105 Weight 94.5 kg Intake: IV 610 460 213 0.9 110 110 163 Sodium Chloride 0.45% 1, 350 000 ml @ 75 mls/hr IV . [id number] [facility] Rx#:[id number] Sodium Chloride 0.9% 1, 150 350 50 000 ml @ 50 mls/hr IV . Q20H [facility] Rx#:[id number] Intake, IV Titration 253.788 218.220 305.105 Amount Norepinephrine 32 mg In 86.991 68.368 Sodium Chloride 0.9% 218 ml @ 0.05 MCG/KG/MIN 1. 807 mls/hr IV .Q24H [facility] Rx#:[id number] Sodium Chloride 0.45% 1, 75 000 ml @ 75 mls/hr IV . [id number] [facility] Rx#:[id number] Sodium Chloride 0.9% 150 120.36 ml @ 0.04 UNITS/MIN 6.12 mls/hr IV .Q24H [facility] with Vasopressin 60 unit Rx#: [id number] fentaNYL (PF). 1,000 mcg 95.577 77.059 In Sodium Chloride 0.9% 80 ml @ 0.5 MCG/KG/HR 4. 07 mls/hr IV .Q24H [facility] Rx #:[id number] propofoL 1,000 mg In 71.220 97.860 84.678 Empty Bag 1 bag @ Titrate IV .Q0M [facility] Rx#: [id number] Tube Feeding 360 495 225 Other 30 60 Output: Drainage 500 300 Right Lateral Back 500 300 Urine 335 490 250 Other: Voiding Method Indwelling Catheter Indwelling Catheter Indwelling Catheter ABP, PAP, CO, CI - Last Documented Arterial Blood Pressure 130/63 - Labs CBC & Chem 7: 08/04/21 07:50 08/04/21 07:50 Labs: Abnormal Lab Results - Last 24 Hours (Table) 08/03/21 08/03/21 08/03/21 Range/Units 11:55 13:40 17:22 WBC (3.8-10.6) k/uL RBC (4.30-5.90) m/uL Hgb (13.0-17.5) gm/dL Hct (39.0-53.0) % RDW (11.5-15.5) % Plt Count (150-450) k/uL Neutrophils # (1.3-7.7) k/uL Lymphocytes # (1.0-4.8) k/uL ABG pO2 (83-108) mmHg ABG HCO3 (21-25) mmol/L ABG Total CO2 (19-24) mmol/L ABG O2 Saturation (94-97) % Potassium 3.3 L (3.5-5.1) mmol/L BUN (9-20) mg/dL Creatinine (0.66-1.25) mg/dL Glucose (74-99) mg/dL POC Glucose (mg/dL) 148 H 140 H (75-99) mg/dL Calcium (8.4-10.2) mg/dL Alkaline Phosphatase (38-126) U/L Total Protein (6.3-8.2) g/dL Albumin (3.5-5.0) g/dL 08/03/21 08/04/21 08/04/21 Range/Units 23:24 05:27 06:03 WBC (3.8-10.6) k/uL RBC (4.30-5.90) m/uL Hgb (13.0-17.5) gm/dL Hct (39.0-53.0) % RDW (11.5-15.5) % Plt Count (150-450) k/uL Neutrophils # (1.3-7.7) k/uL Lymphocytes # (1.0-4.8) k/uL ABG pO2 58 L* (83-108) mmHg ABG HCO3 27 H (21-25) mmol/L ABG Total CO2 29 H (19-24) mmol/L ABG O2 Saturation 91.8 L (94-97) % Potassium (3.5-5.1) mmol/L BUN (9-20) mg/dL Creatinine (0.66-1.25) mg/dL Glucose (74-99) mg/dL POC Glucose (mg/dL) 161 H 149 H (75-99) mg/dL Calcium (8.4-10.2) mg/dL Alkaline Phosphatase (38-126) U/L Total Protein (6.3-8.2) g/dL Albumin (3.5-5.0) g/dL 08/04/21 08/04/21 Range/Units 07:50 07:50 WBC 13.3 H (3.8-10.6) k/uL RBC 2.99 L (4.30-5.90) m/uL Hgb 8.8 L (13.0-17.5) gm/dL Hct 26.4 L (39.0-53.0) % RDW 15.9 H (11.5-15.5) % Plt Count 72 L (150-450) k/uL Neutrophils # 12.0 H (1.3-7.7) k/uL Lymphocytes # 0.7 L (1.0-4.8) k/uL ABG pO2 (83-108) mmHg ABG HCO3 (21-25) mmol/L ABG Total CO2 (19-24) mmol/L ABG O2 Saturation (94-97) % Potassium 3.4 L (3.5-5.1) mmol/L BUN 95 H (9-20) mg/dL Creatinine 5.96 H (0.66-1.25) mg/dL Glucose 124 H (74-99) mg/dL POC Glucose (mg/dL) (75-99) mg/dL Calcium 7.6 L (8.4-10.2) mg/dL Alkaline Phosphatase 198 H (38-126) U/L Total Protein 4.0 L (6.3-8.2) g/dL Albumin 1.8 L (3.5-5.0) g/dL Microbiology - Last 24 Hours (Table) 08/02/21 05:18 Blood Culture - Preliminary Blood No Growth after 48 hours 08/02/21 16:48 Urine Culture - Final Urine,Catheterized 08/01/21 11:05 Blood Culture - Preliminary Blood No Growth after 48 hours 08/01/21 11:12 Gram Stain - Final Sputum Sputum Culture - Final Strep agalactiae - (group b)
--- NOTE | 2021-08-04 12:11 | P.PN ---
Progress Note - Text Progress Note Date: 08/04/21 The serum creatinine level has improved slightly to 5.96. Pathology shows high- grade, muscle invasive urothelial carcinoma, as expected. The patient may benefit from placement of a left nephrostomy tube when stable enough to undergo this, though urine output from the Denny catheter has increased.
--- NOTE | 2021-08-04 12:11 | P.PN ---
Subjective Progress Note Date: 08/04/21 Principal diagnosis: Respiratory failure. This is a 76-year-old male patient with a known history of hypertension, hyperlipidemia, hypothyroidism. He is brought into the emergency room last evening after being found on the floor. He was unsure if he fell or passed out. He felt that he had some bleeding that he noted in the toilet and sure whether it was rectal bleeding. Denny catheter was placed and there was gross hematuria. Computed tomography scan of the brain revealed no acute intracranial process. No evidence of fracture. She scan of the abdomen and pelvis revealed bilateral hydronephrosis and hydroureter. No obstructing calculus was seen. There was malposition of the Denny catheter apparently in the prostatic urethra. Chest x-ray showed mild pulmonary fibrosis. White count 13.3. Hemoglobin 11.1. Sodium 141. Potassium 4.7. Creatinine 6.10. Troponin 0.119, 0.077. He was ordered 1 unit of packed red blood cells and received K centra and was admi tted to the ICU for closer monitoring. He is seen today in consultation. He is awake and alert in no acute distress. Maintaining O2 saturations in the 90s on room air. He is requiring norepinephrine at 0.07 mcg/kg/m to maintain mean arterial pressures greater than 60. 0.9 normal saline at 75 ML's per hour. The plan is for cystoscopy with Dr. Vinson today. He had several 100 ML's of clot removed from the bladder. 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 A portion of the tumor was resected. It was a dense, obviously high-grade and muscle invasive. Excellent hemostasis was attained. Pathology is pending. Progress note dated 08/01/2021. This is a 76-year-old male admitted to the hospital on July 30. He came in with a number of issues including rectal bleeding. The patient went to the operating room yesterday, and had a right nephrostomy tube placed, a cystoscopy, and bladder tumor resection. The patient was intubated yesterday for the operative procedure. He remains on the ventilator. He has a history of hypertension, hyperlipidemia, and hypothyroidism. Currently, he is on the volume assist control mode, rate 20, tidal volume 500, FiO2 40%, and PEEP of 5. Blood gases show a PaO2 of 70, a pCO2 of 75, and a pH is 7.12. Those blood gases were done on a rate of 16 and a tidal volume of 455. Currently, the patient is on a number drips including 3 ampules of sodium bicarbonate and D5W at 100 mL an hour, will follow-up 40 mcg/kg/m, Nimbex at 0.25 mcg/kg/m, fentanyl at 0.5 mcg/kg/h, norepinephrine at 75 mcg/m, and vasopressin at 0.03 units per minute. White count 13.7, hemoglobin 10.7, hematocrit 34.1, and platelet count 250,000. Sodium 145, potassium 4, chlorides 112, CO2 23, anion gap 10, UA and 80, creatinine 6.53. Albumin is 2.2. Chest x-ray shows some interstitial density at the lung bases, which are worse in the prior x-ray. Progress note dated 08/02/2021. 76-year-old male, 251. The patient was admitted to the hospital on July 30. He came in with hematuria. The patient went to the operating room, and had a right nephrostomy tube placed, a cystoscopy, and bladder tumor resection. Pat hology is currently pending. The patient was intubated for the procedure, remains on the mechanical ventilator. Today, is postop day #2. The patient remains on the volume assist control mode, rate 20, tidal volume 500, FiO2 40%, and PEEP of 5. Blood gases show pO2 of 92, pCO2 of 59, and a pH of 7.28. The rate was increased from 20-26 breaths or minute. The patient currently is on vasopressin at 0.04 units per minute, propofol at 40 mcg/kg/m, norepinephrine 37 mcg/m, and 3 ampules of sodium bicarbonate and D5W at 100 mL an hour. In addition, the patient is on fentanyl at 0.5 mcg/kg/h, and Nimbex at 0.5 mcg/kg/m. The patient has a carrier IV of saline at 10 mL an hour. Because of the normal bicarbonate concentration on the electrolyte profile,the bicarbonate drip will be discontinued in favor of 0.45 saline at 75 mL an hour. White count 21.2, hemoglobin 9.9, hematocrit 30.1, and platelet count 125,000. Sodium 144, potassium 4.1, chlorides 107, CO2 25, anion gap is 12, BUN 78, and creatinine 6.41. Glucose is 125. Phosphorus is 6.1. Chest x-ray shows diffuse bilateral infiltrates, with a small left pleural effusion, which could be consistent with either pneumonia or interstitial edema. Progress note dated 08/03/2021. 76-year-old male, again seen in room 251. The patient remains on the mechanical ventilator. He was admitted to the hospital on July 30. He came in with hematuria. He went to the operating room and had a right nephrostomy tube, cystoscopy, and bladder tumor resection. Pathology is currently pending. Urine cytology was nondiagnostic. He is postop day #3. He remains on the ventilator, on the volume assist control mode, rate 26, tidal volume 500, FiO2 40%, and PEEP of 5. Arterial blood gases show a PaO2 of 126, pCO2 37, and pH is 7.41. The FiO2 was dropped to 30%. He remains on propofol at 25 mcg/kg/m, vasopressin at 0.04 units per minute, norepinephrine at 13 mcg/m, and fentanyl at 0.5 mcg/kg/h. In addition, he is on saline at 50 mL an hour, and vital 1.2 at 40 mL an hour, with a goal of 45 mL an hour. Nimbex has been weaned off. White count 14.5, hemoglobin 9.3, hematocrit 27.6, and platelet count 93,000. Sodium 140, pot assium 3.3, chlorides 106, CO2 21, anion gap is 13, BUN is 85, with a creatinine 6.47. Calcium is 7.2. Urine is showing Klebsiella oxytoca from the . Chest x-ray showed diffuse patchy infiltrates, which could be consistent with pneumonia or fluid overload. Progress note dated 08/04/2021. 76-year-old male, again seen in room 251. The patient remains on mechanical ventilator. He is postop day #4, status post right nephrostomy tube, cystoscopy, and bladder tumor resection. The pathology report did come back showing malignancy. Currently, the patient's on volume assist control, rate 26, tidal volume 500, FiO2 40%, and PEEP of 5. Blood gases show pO2 of 58, pCO2 41, and a pH is 7.44. Those blood gases were done on 30% FiO2. The patient's on saline at 50 mL an hour, vasopressin at 0.03 units per minute, norepinephrine which is been weaned down to 8 mcg/m, propofol at 30 mcg/kg/m, and fentanyl at 0.5 mcg/kg/h. The patient remains on vital 1.2, at goal, which is 45 mL an hour. White count 13.3, hemoglobin 8.8, hematocrit 26.4, and platelet count 72,000. Sodium 141, potassium 3.4, chlorides 107, CO2 24, anion gap 10, BUN 95, and creatinine 5.96. Sputum is showing group B strep, urine is showing gram- negative bacilli, which may be Klebsiella oxytoca. Chest x-ray continues to show bilateral and bibasilar infiltrates and/or atelectasis. Abnormalities, are more left than right sided. Objective - Vital Signs Vital signs: Vital Signs Temp 98 F 08/04/21 08:00 Pulse 76 08/04/21 11:00 Resp 55 H 08/04/21 11:00 BP 96/63 08/04/21 04:45 Pulse Ox 100 08/04/21 11:00 Intake & Output 08/03/21 08/04/21 08/04/21 18:59 06:59 18:59 Intake Total 6932.414 6257.220 803.105 Output Total 835 790 250 Balance 388.788 413.220 553.105 Weight 94.5 kg Intake: IV 610 460 213 0.9 110 110 163 Sodium Chloride 0.45% 1, 350 000 ml @ 75 mls/hr IV . [id number] [facility] Rx#:[id number] Sodium Chloride 0.9% 1, 150 350 50 000 ml @ 50 mls/hr IV . Q20H [facility] Rx#:[id number] Intake, IV Titration 253.788 218.220 305.105 Amount Norepinephrine 32 mg In 86.991 68.368 Sodium Chloride 0.9% 218 ml @ 0.05 MCG/KG/MIN 1. 807 mls/hr IV .Q24H [facility] Rx#:[id number] Sodium Chloride 0.45% 1, 75 000 ml @ 75 mls/hr IV . [id number] [facility] Rx#:[id number] Sodium Chloride 0.9% 150 120.36 ml @ 0.04 UNITS/MIN 6.12 mls/hr IV .Q24H [facility] with Vasopressin 60 unit Rx#: [id number] fentaNYL (PF). 1,000 mcg 95.577 77.059 In Sodium Chloride 0.9% 80 ml @ 0.5 MCG/KG/HR 4. 07 mls/hr IV .Q24H [facility] Rx #:[id number] propofoL 1,000 mg In 71.220 97.860 84.678 Empty Bag 1 bag @ Titrate IV .Q0M [facility] Rx#: [id number] Tube Feeding 360 495 225 Other 30 60 Output: Drainage 500 300 Right Lateral Back 500 300 Urine 335 490 250 Other: Voiding Method Indwelling Catheter Indwelling Catheter Indwelling Catheter ABP, PAP, CO, CI - Last Documented Arterial Blood Pressure 130/63 - Exam No acute distress, the patient is sedated and has an orally placed endotracheal tube and NG tube. HEENT examination is grossly unremarkable. Neck supple. Full range of motion. No adenopathy thyromegaly or neck vein distention. Cardiovascular examination reveals regular rhythm rate. S1-S2 normal. No S3 or S4. No discernible murmur noted. Heart sounds are distant. Heart rate 76 bpm. Lungs reveal diffuse bilateral coarse rhonchi. Breath sounds are equal. No wheezes or crackles noted. Abdomen is soft, without bowel sounds. Extremities are intact. No cyanosis clubbing or edema. Skin is without rash or lesion. Neurologic examination cannot be adequately assessed because he is heavily sedated. - Labs CBC & Chem 7: 08/04/21 07:50 08/04/21 07:50 Labs: Abnormal Lab Results - Last 24 Hours (Table) 08/03/21 08/03/21 08/03/21 Range/Units 13:40 17:22 23:24 WBC (3.8-10.6) k/uL RBC (4.30-5.90) m/uL Hgb (13.0-17.5) gm/dL Hct (39.0-53.0) % RDW (11.5-15.5) % Plt Count (150-450) k/uL Neutrophils # (1.3-7.7) k/uL Lymphocytes # (1.0-4.8) k/uL ABG pO2 (83-108) mmHg ABG HCO3 (21-25) mmol/L ABG Total CO2 (19-24) mmol/L ABG O2 Saturation (94-97) % Potassium 3.3 L (3.5-5.1) mmol/L BUN (9-20) mg/dL Creatinine (0.66-1.25) mg/dL Glucose (74-99) mg/dL POC Glucose (mg/dL) 140 H 161 H (75-99) mg/dL Calcium (8.4-10.2) mg/dL Alkaline Phosphatase (38-126) U/L Total Protein (6.3-8.2) g/dL Albumin (3.5-5.0) g/dL 08/04/21 08/04/21 08/04/21 Range/Units 05:27 06:03 07:50 WBC (3.8-10.6) k/uL RBC (4.30-5.90) m/uL Hgb (13.0-17.5) gm/dL Hct (39.0-53.0) % RDW (11.5-15.5) % Plt Count (150-450) k/uL Neutrophils # (1.3-7.7) k/uL Lymphocytes # (1.0-4.8) k/uL ABG pO2 58 L* (83-108) mmHg ABG HCO3 27 H (21-25) mmol/L ABG Total CO2 29 H (19-24) mmol/L ABG O2 Saturation 91.8 L (94-97) % Potassium 3.4 L (3.5-5.1) mmol/L BUN 95 H (9-20) mg/dL Creatinine 5.96 H (0.66-1.25) mg/dL Glucose 124 H (74-99) mg/dL POC Glucose (mg/dL) 149 H (75-99) mg/dL Calcium 7.6 L (8.4-10.2) mg/dL Alkaline Phosphatase 198 H (38-126) U/L Total Protein 4.0 L (6.3-8.2) g/dL Albumin 1.8 L (3.5-5.0) g/dL 08/04/21 Range/Units 07:50 WBC 13.3 H (3.8-10.6) k/uL RBC 2.99 L (4.30-5.90) m/uL Hgb 8.8 L (13.0-17.5) gm/dL Hct 26.4 L (39.0-53.0) % RDW 15.9 H (11.5-15.5) % Plt Count 72 L (150-450) k/uL Neutrophils # 12.0 H (1.3-7.7) k/uL Lymphocytes # 0.7 L (1.0-4.8) k/uL ABG pO2 (83-108) mmHg ABG HCO3 (21-25) mmol/L ABG Total CO2 (19-24) mmol/L ABG O2 Saturation (94-97) % Potassium (3.5-5.1) mmol/L BUN (9-20) mg/dL Creatinine (0.66-1.25) mg/dL Glucose (74-99) mg/dL POC Glucose (mg/dL) (75-99) mg/dL Calcium (8.4-10.2) mg/dL Alkaline Phosphatase (38-126) U/L Total Protein (6.3-8.2) g/dL Albumin (3.5-5.0) g/dL Microbiology - Last 24 Hours (Table) 08/02/21 05:18 Blood Culture - Preliminary Blood No Growth after 48 hours 08/02/21 16:48 Urine Culture - Final Urine,Catheterized 08/01/21 11:05 Blood Culture - Preliminary Blood No Growth after 48 hours 08/01/21 11:12 Gram Stain - Final Sputum Sputum Culture - Final Strep agalactiae - (group b) Assessment and Plan Assessment: Gross hematuria, secondary to bladder tumor, status post cystoscopy and biopsi es, 07/31/2021, postop day #4. Pathology is positive for malignancy. Routine postoperative ventilator management, with intubation for the procedure above, on July 31. Hypotension, likely secondary to sepsis from Klebsiella oxytoca urinary tract infection. Anemia, status post 1 unit of PRBCs. Acute kidney injury, secondary to ATN. Mild troponin leak. Hyperlipidemia. History of hypertension. Hypothyroidism. Prior history of tobacco use. Plan: Plan dated 08/01/2021. Currently, obviously, the patient's quite ill. He is essentially maxed out on norepinephrine and vasopressin. He is currently sedated and paralyzed. Not much more to do for this patient. The patient remains on Rocephin. The other medications are reviewed and are appropriate. Unnecessary medications will be discontinued. Overall prognosis is poor. We will continue to follow make recommendations where appropriate. Plan dated 08/02/2021. The respiratory rate on the ventilator will be increased to 26 breaths per minute. This will help to reduce see PaCO2, and increase the pH to are normal range. The patient remains on both vasopressin and norepinephrine, for blood pressure support. In addition, the patient's on propofol, Nimbex, and fentanyl. The patient's sodium bicarbonate drip will be continued, and the patient will be placed on half-normal saline at 75 mL an hour. We will continue to follow make recommendations where appropriate. Overall prognosis remains poor. Plan dated 08/03/2021. The Klebsiella in the urine was extended spectrum beta-lactamase producing Klebsiella. The patient is currently on ertapenem. The patient remains on norepinephrine and vasopressin. The patient's overall prognosis is very poor. Pathology from the recent surgery still pending. Urine cytology was nondiagnostic. We were able to wean the patient off the Nimbex. We will continue to follow and make recommendations where appropriate. Overall prognosis remains very poor. Plan dated 08/04/2021. Currently, the patient is still on the ventilator. The vasopressin remains a 0.03 units per minute and norepinephrine has been weaned down 8 mcg/m. The patient remains on propofol and fentanyl. The patient was weaned off of Nimbex a few days ago. Overall, the patient has shown some improvement. The pathology report is back on the chart, showing malignancy. Urine cytology was nondiagnostic. We will continue to follow and make recommendations where a ppropriate. Overall prognosis remains poor given the path report. The patient is not quite ready to be taken off of life support. Time with Patient: Greater than 30
[2021-08-04 12:41] LABS: Glucose,Whole Blood 156 mg/dL (75-99)
--- NOTE | 2021-08-04 13:03 | P.PN ---
Subjective Progress Note Date: 08/04/21 Follow-up for acute kidney injury, on mechanical ventilator. Urine output improved since yesterday, 1625 ML's in the last 24 hours. Objective - Vital Signs Vital signs: Vital Signs Temp 98 F 08/04/21 08:00 Pulse 76 08/04/21 11:00 Resp 55 H 08/04/21 11:00 BP 96/63 08/04/21 04:45 Pulse Ox 100 08/04/21 11:00 Intake & Output 08/03/21 08/04/21 08/04/21 18:59 06:59 18:59 Intake Total 8238.203 2002.220 805.340 Output Total 835 790 250 Balance 388.788 413.220 555.340 Weight 94.5 kg Intake: IV 610 460 213 0.9 110 110 163 Sodium Chloride 0.45% 1, 350 000 ml @ 75 mls/hr IV . [id number] [facility] Rx#:[id number] Sodium Chloride 0.9% 1, 150 350 50 000 ml @ 50 mls/hr IV . Q20H [facility] Rx#:[id number] Intake, IV Titration 253.788 218.220 307.340 Amount Norepinephrine 32 mg In 86.991 70.603 Sodium Chloride 0.9% 218 ml @ 0.05 MCG/KG/MIN 1. 807 mls/hr IV .Q24H [facility] Rx#:[id number] Sodium Chloride 0.45% 1, 75 000 ml @ 75 mls/hr IV . [id number] [facility] Rx#:[id number] Sodium Chloride 0.9% 150 120.36 ml @ 0.04 UNITS/MIN 6.12 mls/hr IV .Q24H [facility] with Vasopressin 60 unit Rx#: [id number] fentaNYL (PF). 1,000 mcg 95.577 77.059 In Sodium Chloride 0.9% 80 ml @ 0.5 MCG/KG/HR 4. 07 mls/hr IV .Q24H [facility] Rx #:[id number] propofoL 1,000 mg In 71.220 97.860 84.678 Empty Bag 1 bag @ Titrate IV .Q0M [facility] Rx#: [id number] Tube Feeding 360 495 225 Other 30 60 Output: Drainage 500 300 Right Lateral Back 500 300 Urine 335 490 250 Other: Voiding Method Indwelling Catheter Indwelling Catheter Indwelling Catheter ABP, PAP, CO, CI - Last Documented Arterial Blood Pressure 130/63 - Exam Acute distress S1-S2 heard decreased breath sounds Trace edema - Labs CBC & Chem 7: 08/04/21 07:50 08/04/21 07:50 Labs: Abnormal Lab Results - Last 24 Hours (Table) 08/03/21 08/03/21 08/03/21 Range/Units 13:40 17:22 23:24 WBC (3.8-10.6) k/uL RBC (4.30-5.90) m/uL Hgb (13.0-17.5) gm/dL Hct (39.0-53.0) % RDW (11.5-15.5) % Plt Count (150-450) k/uL Neutrophils # (1.3-7.7) k/uL Lymphocytes # (1.0-4.8) k/uL ABG pO2 (83-108) mmHg ABG HCO3 (21-25) mmol/L ABG Total CO2 (19-24) mmol/L ABG O2 Saturation (94-97) % Potassium 3.3 L (3.5-5.1) mmol/L BUN (9-20) mg/dL Creatinine (0.66-1.25) mg/dL Glucose (74-99) mg/dL POC Glucose (mg/dL) 140 H 161 H (75-99) mg/dL Calcium (8.4-10.2) mg/dL Alkaline Phosphatase (38-126) U/L Total Protein (6.3-8.2) g/dL Albumin (3.5-5.0) g/dL 08/04/21 08/04/21 08/04/21 Range/Units 05:27 06:03 07:50 WBC (3.8-10.6) k/uL RBC (4.30-5.90) m/uL Hgb (13.0-17.5) gm/dL Hct (39.0-53.0) % RDW (11.5-15.5) % Plt Count (150-450) k/uL Neutrophils # (1.3-7.7) k/uL Lymphocytes # (1.0-4.8) k/uL ABG pO2 58 L* (83-108) mmHg ABG HCO3 27 H (21-25) mmol/L ABG Total CO2 29 H (19-24) mmol/L ABG O2 Saturation 91.8 L (94-97) % Potassium 3.4 L (3.5-5.1) mmol/L BUN 95 H (9-20) mg/dL Creatinine 5.96 H (0.66-1.25) mg/dL Glucose 124 H (74-99) mg/dL POC Glucose (mg/dL) 149 H (75-99) mg/dL Calcium 7.6 L (8.4-10.2) mg/dL Alkaline Phosphatase 198 H (38-126) U/L Total Protein 4.0 L (6.3-8.2) g/dL Albumin 1.8 L (3.5-5.0) g/dL 08/04/21 08/04/21 Range/Units 07:50 12:39 WBC 13.3 H (3.8-10.6) k/uL RBC 2.99 L (4.30-5.90) m/uL Hgb 8.8 L (13.0-17.5) gm/dL Hct 26.4 L (39.0-53.0) % RDW 15.9 H (11.5-15.5) % Plt Count 72 L (150-450) k/uL Neutrophils # 12.0 H (1.3-7.7) k/uL Lymphocytes # 0.7 L (1.0-4.8) k/uL ABG pO2 (83-108) mmHg ABG HCO3 (21-25) mmol/L ABG Total CO2 (19-24) mmol/L ABG O2 Saturation (94-97) % Potassium (3.5-5.1) mmol/L BUN (9-20) mg/dL Creatinine (0.66-1.25) mg/dL Glucose (74-99) mg/dL POC Glucose (mg/dL) 156 H (75-99) mg/dL Calcium (8.4-10.2) mg/dL Alkaline Phosphatase (38-126) U/L Total Protein (6.3-8.2) g/dL Albumin (3.5-5.0) g/dL Microbiology - Last 24 Hours (Table) 08/02/21 05:18 Blood Culture - Preliminary Blood No Growth after 48 hours 08/02/21 16:48 Urine Culture - Final Urine,Catheterized 08/01/21 11:05 Blood Culture - Preliminary Blood No Growth after 48 hours 08/01/21 11:12 Gram Stain - Final Sputum Sputum Culture - Final Strep agalactiae - (group b) Assessment and Plan Assessment: #1 acute kidney injury, nonoliguric multifactorial. -Hemodynamic ATN with low blood pressures. -Obstructive uropathy with urothelial bladder cancer. #2 hematuria secondary to bladder malignancy #3 obstructive uropathy with bilateral hydronephrosis status post right nephrostomy tube. #4 metabolic acidosis secondary to acute kidney injury #5 shock on pressors #6 ventilator dependent respiratory failure #7 Klebsiella UTI with septic shock Plan: #1 renal function better than yesterday with improved urine output. #2 agree with urology needs a left nephrostomy tube #3 maintain on IV fluids for now. #4 avoid nephrotoxic agents.
[2021-08-04] MEDS: ENOXAPARIN 30 MG/0.3 ML SYRINGE SQ SCH (13:44)
[2021-08-04 17:42] LABS: Glucose,Whole Blood 142 mg/dL (75-99)
[2021-08-04] MEDS: ERTAPENEM 0.5 GM in SODIUM CHLORIDE 0.9% 50 ML IVPB SCH (21:01)
--- NOTE | 2021-08-04 21:45 | P.PN ---
Subjective Progress Note Date: 08/04/21 HISTORY OF PRESENT ILLNESS This 76-year-old pleasant gentleman, patient of Dr. Wills. History of hypertension hyperlipidemia, hypothyroidism, who was noted to have some bleeding in the toilet for several days, unsure how long the duration was, however he is on blood thinners, he was found on the floor today, patient denies any headache, however it's unclear how the patient fell. He does not admit to syncopal event, patient was subsequently setting to emergency room from home, to the emergency via EMS, a condom catheter was placed, and that's how they found that patient is having gross hematuria rather than rectal bleeding. In emergency room, central line was placed for IV hydration, blood pressure was 75/50, daily urinalysis, shows over 182 RBCs and WBC, hemoglobin 10.4 WBC count 11.0, platelet 297, creatinine of 6.1, BUN of 77, unknown baseline. Patient had CAT scan, head and cervical spine, shows multilevel cervical spondylosis change, no fracture, and no dislocation. No intracranial hemorrhage, intact calvarium. Computed tomography scan of the abdomen, shows bilateral hydronephrosis, and hydroureter, more on the right than the left, there is bilateral renal vascular calcification, no renal calculi, no ureteral calculi. There is no inguinal hernia, no fluid in the pelvis, bilateral stents in the abdominal aorta and iliac arteries, no mesenteric edema, no ascites or free air. No bowel obstruction, bladder imaging is not well evaluated due to lack of distention there is colonic diverticula, without signs of diverticulitis. Chest x-ray shows mild pulmonary fibrosis Consult was made with nephrology, urology and intensive care management, patient admitted to ICU for significant gross hematuria, obstructive uropathy, with mental status changes, and suspected syncope, with a fall long-term anticoagulation, elevated troponin Patient is taken to the operating room, for cystoscopy, evacuation of clot, and transient Trial resection of the bladder as a CAT scan per review from urology, shows bladder irregularity. There is a large sessile tumor, in the right posterolateral bladder wall. It was dense and suspected to have obviously a high grade tumor, with muscular invasion 08/01: Patient remains in the intensive care unit intubated on mechanical ventilation with tidal volume 500, FiO2 40, PEEP of 5. Patient is on levo fed, vasopressin, Nimbex, fentanyl, bicarb drip and propofol. The patient has hematuria from Denny catheter and nephrostomy tube and there is small amount of leaking from the meatus. 08/02: Patient remains in the intensive care unit intubated and on mechanical ventilation with tidal volume 500, FiO2 50, PEEP 5. Patient has been weaned down on norepinephrine continued on vasopressin, Nimbex, fentanyl and propofol. He has been afebrile, heart rate 77, blood pressure 92/59, pulse ox 100%. He had monitor sinus rhythm. Repeat blood work reveals WBC 21.2, hemoglobin 9.9, platelet count 125. Lites are within normal limits. BUN 78 creatinine 6.41. Capillary blood glucose running between 113 and 121. Urine culture has been finalized with ESBL Klebsiella oxytoca and antibiotics will be changed from ceftriaxone to Zosyn. 08/03 patient examined while intubated. Patient is postop 3 continues to remain ventilator on assist control mode respiratory rate of 26 and volume 500 FiO2 40 and PEEP of 5. FiO2 decreased to 30 with patient maintaining her oxygen saturations between 96-98%. He continues to remain on propofol at 25 valentin per KG per minute. Vasopressin at 0.04 units per minute, norepinephrine at 20 mics KG per minute and fentanyl 0.5 valentin per KG per minute. Patient's bicarb drip was discontinued and is currently on half-normal saline at 50 mL per hour. Nimbex has been discontinued. Patient vitals are stable with temp 97.8 pulse 63 respiratory rate 26 blood pressure 109/71. Leukocytosis of 14.5, hemoglobin 9.3 platelet has reduced to 93. Potassium is 3.3 bicarb 21 BUN 85 creatinine 6. 47. Urine output is approximately 10-15 mL per hour about 250 developed intermittent nephrostomy tube. Lasix 80 mg IV to be given today. Potassium is being repleted. No need for dialysis as at this point per nephrology Patient contineus to remain intubated with vent setting involving assist control, resp rate 26, tidal vol 500, PEEP 5 and Fio2 40 %. Patient continues to remain aon vasopressor and norepinephrine. Sedation mentained with propofol and fentanyl. Patient is noticed to move his lower extremities but doesnot follow any commands. UO has improved appears to be 40 ml/ hr but appears to be serosangunous, continues to have 250 - 300 ml every 6 hour. pathology consistent with high-grade, muscle invasive urothelial carcinoma. Patient was seen by urology who has recommended left nephrostomy tube in next few days. patient was noted to be in atrial fib ad is on cardizem drip, metoprolol dose increased to 25 mg po TID per cardiology. REVIEW OF SYSTEMS Unable to obtain due to intubation PHYSICAL EXAMINATION Gen: This is a 76-year-old male. He is resting in ICU bed, intubated and on mechanical ventilation HEENT: Head is atraumatic, normocephalic. Sclerae is anicteric. NECK: Supple. No JVD. No lymphadenopathy. No thyromegaly. LUNGS: Bilateral rhonchi. No intercostal retractions. HEART: irregularly irregular rate and rhythm. No murmur. ABDOMEN: Soft. Bowel sounds are present. No masses. No tenderness. Denny catheter with hematuria. Nephrostomy tube draining jemal urine. EXTREMITIES: No pedal edema. No calf tenderness. NEUROLOGICAL: Patient is sedated. ASSESSMENT AND PLAN 1. Gross hematuria, with hypotension, obstructive uropathy, and a suspected bladder tumor, malignancy is highly suspected resumed UTI with pyuria. Patient was seen by urology, status post transurethral bladder resection on 07/31/2021 Dr. Vinson. Patient managed in ICU.pathology -high-grade, muscle invasive urothelial carcinoma as expected 2. Acute blood loss anemia, with hypovolemic and septic hypotension, from gross hematuria, requiring vasopressors, norepinephrine, maintained in ICU treatment, critical care medicine following. She is status post 1 unit packed RBCs. 3. Acute kidney injury secondary to bilateral hydronephrosis and hydroureter with workup suggestive of bladder cancer, unknown baseline for CK D. neurology consult appreciated. urine output 40 ml/ hr PhosLo recommended by nephrology. 4. Elevated troponin, rule out non-ST elevated myocardial infarction. Cardiology consult pending. 5. Acute hypoxic respiratory failure requiring ongoing intubation mechanical ventilation. And tinea to wean down on vent settings Patient is managed by hospital clerk. 6. Acute ESBL Klebsiella urinary tract infection with sepsis and septic shock requiring vasopressors. IV antibiotics changed from ceftriaxone to Zosyn, continue vasopressor support. 7. Thrombocytopenia secondary to sepsis. 8. BPH with prostatomegaly has indwelling Denny catheter at this time 9. Hypothyroidism. Continue levothyroxine 175 g daily 10. Hyperlipidemia 11. Hypertension currently hypotensive. 12. Tobacco use and dependence. DVT prophylaxis heparin subcu, to start in 24 hours. Post op patient reviewed his receive 1 dose kcentra 07/30 GI prophylaxis IV Protonix Prognosis guarded. CODE STATUS full code Objective - Vital Signs Vital signs: Vital Signs Temp 97.8 F 08/04/21 04:00 Pulse 69 08/04/21 06:15 Resp 26 H 08/04/21 06:15 BP 96/63 08/04/21 04:45 Pulse Ox 94 L 08/04/21 06:15 Intake & Output 08/03/21 08/03/21 08/04/21 06:59 18:59 06:59 Intake Total 6581.479 5472.788 1203.220 Output Total 105 835 790 Balance 1428.809 388.788 413.220 Weight 93.2 kg 94.5 kg Intake: IV 1120 610 460 0.9 120 110 110 Piperacillin-Tazobactam 3 100 .375 gm In Sodium Chloride 0.9% 100 ml @ 25 mls/hr IVPB Q12HR [facility] Rx #:[id number] Sodium Chloride 0.45% 1, 900 350 000 ml @ 75 mls/hr IV . [id number] [facility] Rx#:[id number] Sodium Chloride 0.9% 1, 150 350 000 ml @ 50 mls/hr IV . Q20H [facility] Rx#:[id number] Intake, IV Titration 383.809 253.788 218.220 Amount Norepinephrine 32 mg In 78.148 86.991 Sodium Chloride 0.9% 218 ml @ 0.05 MCG/KG/MIN 1. 807 mls/hr IV .Q24H [facility] Rx#:[id number] Sodium Chloride 0.9% 150 131.912 120.36 ml @ 0.04 UNITS/MIN 6.12 mls/hr IV .Q24H [facility] with Vasopressin 60 unit Rx#: [id number] fentaNYL (PF). 1,000 mcg 95.577 In Sodium Chloride 0.9% 80 ml @ 0.5 MCG/KG/HR 4. 07 mls/hr IV .Q24H [facility] Rx #:[id number] propofoL 1,000 mg In 173.749 71.220 97.860 Empty Bag 1 bag @ Titrate IV .Q0M [facility] Rx#: [id number] Tube Feeding 30 360 495 Other 30 Output: Drainage 25 500 300 Right Lateral Back 25 500 300 Urine 80 335 490 Other: Voiding Method Indwelling Catheter Indwelling Catheter Indwelling Catheter ABP, PAP, CO, CI - Last Documented Arterial Blood Pressure 99/49 - Labs CBC & Chem 7: 08/04/21 07:50 08/04/21 07:50 Labs: Abnormal Lab Results - Last 24 Hours (Table) 08/03/21 08/03/21 08/03/21 Range/Units 04:30 11:55 13:40 WBC 14.5 H (3.8-10.6) k/uL RBC 3.17 L (4.30-5.90) m/uL Hgb 9.3 L (13.0-17.5) gm/dL Hct 27.6 L (39.0-53.0) % RDW 16.3 H (11.5-15.5) % Plt Count 93 L (150-450) k/uL Neutrophils # 13.3 H (1.3-7.7) k/uL Lymphocytes # 0.6 L (1.0-4.8) k/uL Potassium 3.3 L (3.5-5.1) mmol/L POC Glucose (mg/dL) 148 H (75-99) mg/dL 08/03/21 08/03/21 08/04/21 Range/Units 17:22 23:24 05:27 WBC (3.8-10.6) k/uL RBC (4.30-5.90) m/uL Hgb (13.0-17.5) gm/dL Hct (39.0-53.0) % RDW (11.5-15.5) % Plt Count (150-450) k/uL Neutrophils # (1.3-7.7) k/uL Lymphocytes # (1.0-4.8) k/uL Potassium (3.5-5.1) mmol/L POC Glucose (mg/dL) 140 H 161 H 149 H (75-99) mg/dL Microbiology - Last 24 Hours (Table) 08/02/21 16:48 Urine Culture - Final Urine,Catheterized 08/01/21 11:05 Blood Culture - Preliminary Blood No Growth after 48 hours 08/01/21 11:12 Gram Stain - Final Sputum Sputum Culture - Final Strep agalactiae - (group b) 08/02/21 05:18 Blood Culture - Preliminary Blood No Growth after 24 hours
[2021-08-04 23:18] LABS: Glucose,Whole Blood 119 mg/dL (75-99)
[2021-08-05] MEDS: INSULIN ASPART (NovoLOG) 100 UNIT/ML VIAL SQ SCH ×5 (00:03→23:03)
[2021-08-05 03:36] LABS: Basophils % (A) 0 %; Eosinophils # (A) 0.1 k/uL (0-0.7); Eosinophils % (A) 1 %; HCT 25.3 % (39.0-53.0); HGB 8.1 gm/dL (13.0-17.5); Lymphocytes # (A) 0.7 k/uL (1.0-4.8); Lymphocytes % (A) 8 %; MCH 28.2 pg (25.0-35.0); MCHC 31.9 g/dL (31.0-37.0); MCV 88.4 fL (80.0-100.0); Mean Platelet Volume 9.5; Monocytes # (A) 0.3 k/uL (0-1.0); Monocytes % (A) 4 %; Neutrophils # (A) 7.4 k/uL (1.3-7.7); Neutrophils % (A) 84 %; RBC 2.86 m/uL (4.30-5.90); RDW 15.9 % (11.5-15.5); WBC 8.8 k/uL (3.8-10.6)
[2021-08-05 03:37] LABS: Platelet Count 63 k/uL (150-450)
[2021-08-05 03:46] LABS: Albumin 1.8 g/dL (3.5-5.0); Calcium 7.8 mg/dL (8.4-10.2); Potassium 3.5 mmol/L (3.5-5.1); Total Bilirubin 0.7 mg/dL (0.2-1.3)
[2021-08-05] MEDS: IPRATROPIUM-ALBUTEROL 3 ML NEB INHALATION SCH ×6 (03:48→23:12)
[2021-08-05] MEDS: SODIUM CHLORIDE 0.9% 1,000 ML IV SCH (04:36)
[2021-08-05 05:48] LABS: Glucose,Whole Blood 137 mg/dL (75-99)
[2021-08-05] MEDS: LEVOTHYROXINE 88 MCG TAB PO SCH (05:50)
[2021-08-05 05:59] LABS: ABG Base Excess 3.3 mmol/L; ABG HCO3 28 mmol/L (21-25); ABG Oxygen Saturation 98.8 % (94-97); ABG PCO2 43 mmHg (35-45); ABG PH 7.42 (7.35-7.45); ABG PO2 117 mmHg (83-108); ABG TCO2 29 mmol/L (19-24); Allen Test Performed? Yes
[2021-08-05] MEDS: CALCIUM ACETATE 667 MG TAB PO SCH ×3 (06:13→17:38)
--- NOTE | 2021-08-05 08:12 | XR ---
EXAMINATION TYPE: XR chest 1V portable DATE OF EXAM: 08/05/2021 COMPARISON: Chest x-ray 08/04/2021 HISTORY: Intubated TECHNIQUE: Single frontal view of the chest is obtained. FINDINGS: Endotracheal tube, NG tube are overlying appropriate positions. Patient is rotated, there are overlying artifacts. Retrocardiac, bibasilar density persists. There is no evident pneumothorax. Cardiac mediastinal silhouette is stable. IMPRESSION: Findings similar to prior exam. Correlate for basilar atelectasis versus pneumonia or ed rachel, difficult to exclude effusion
[2021-08-05] MEDS: SODIUM CHLORIDE 0.9% 150 ML with VASOPRESSIN 60 UNIT IV SCH ×2 (08:27)
[2021-08-05] MEDS: NOREPINEPHRINE 32 MG in SODIUM CHLORIDE 0.9% 218 ML IV SCH ×2 (08:28→23:03)
--- NOTE | 2021-08-05 09:29 | PN ---
PROGRESS NOTE DATE OF SERVICE: 08/04/2021 REASON FOR FOLLOW UP: Complicated Klebsiella ESBL urinary tract infection. INTERVAL HISTORY: The patient is currently afebrile. Patient remains to be intubated on the vent. FiO2 is currently at 40%. No significant purulent secretions through the ET, diarrhea, or any other changes reported by the nursing staff. EXAMINATION: Blood pressure 105/51, pulse of 79, temperature of 98.4. He is 99% on 40% FIO2. General description is an elderly male lying in bed in no distress. Respiratory system: Unlabored breathing, decreased breath sounds in the bases. No wheeze. Heart S1, S2. Regular rate and rhythm. Abdomen soft, no tenderness. Extremities: No edema of the feet. LABS: Hemoglobin 8.8, white count 13.3, creatinine 5.9. DIAGNOSTIC IMPRESSION AND PLAN: 1. Patient with complicated urinary tract infection in this patient status post right- sided nephrostomy and cystoscopy with bladder tumor infection. Patient is covered with Invanz that will be continued and monitor clinical course closely. Continue supportive care. 2. Sputum showing a Streptococcus agalactiae should be covered with the Ertapenem the patient is on. MMODL / IJN: [id number] /
[2021-08-05] MEDS: ENOXAPARIN 30 MG/0.3 ML SYRINGE SQ SCH (10:06)
[2021-08-05] MEDS: SODIUM BICARBONATE TAB 650 MG TAB PO SCH ×4 (10:06→21:53)
[2021-08-05] MEDS: CHLORHEXIDINE GLUCONATE 15 ML CUP MUCOUS MEM SCH ×2 (10:06→21:53)
[2021-08-05] MEDS: PANTOPRAZOLE 40 MG/10 ML VIAL IV SCH (10:06)
[2021-08-05] MEDS ORDERED: FUROSEMIDE 10 MG/ML 10 ML VIAL IV STA (10:33)
--- NOTE | 2021-08-05 12:01 | P.PN ---
Subjective Progress Note Date: 08/05/21 Follow-up for acute kidney injury, on mechanical ventilator. Urine output of 1600 ML's in the last 24 hours. Objective - Vital Signs Vital signs: Vital Signs Temp 98.7 F 08/05/21 08:00 Pulse 96 08/05/21 11:00 Resp 29 H 08/05/21 11:00 BP 116/69 08/05/21 11:00 Pulse Ox 99 08/05/21 11:00 Intake & Output 08/04/21 08/05/21 08/05/21 18:59 06:59 18:59 Intake Total 7826.118 1874.619 571.207 Output Total 1110 580 35 Balance 745.340 851.619 536.207 Weight 96 kg 96 kg Intake: IV 613 520 200 0.9 563 520 200 Sodium Chloride 0.9% 1, 50 000 ml @ 50 mls/hr IV . Q20H [facility] Rx#:[id number] Intake, IV Titration 407.340 281.619 161.207 Amount Norepinephrine 32 mg In 70.603 43.127 Sodium Chloride 0.9% 218 ml @ 0.05 MCG/KG/MIN 1. 807 mls/hr IV .Q24H [facility] Rx#:[id number] Sodium Chloride 0.45% 1, 75 000 ml @ 75 mls/hr IV . [id number] [facility] Rx#:[id number] Sodium Chloride 0.9% 150 103.657 25.092 ml @ 0.04 UNITS/MIN 6.12 mls/hr IV .Q24H [facility] with Vasopressin 60 unit Rx#: [id number] fentaNYL (PF). 1,000 mcg 77.059 In Sodium Chloride 0.9% 80 ml @ 0.5 MCG/KG/HR 4. 07 mls/hr IV .Q24H [facility] Rx #:[id number] propofoL 1,000 mg In 184.678 177.962 92.988 Empty Bag 1 bag @ Titrate IV .Q0M [facility] Rx#: [id number] Tube Feeding 675 540 180 Other 160 90 30 Output: Drainage 500 200 Right Lateral Back 500 200 Urine 610 380 35 Other: Voiding Method Indwelling Catheter Indwelling Catheter Indwelling Catheter ABP, PAP, CO, CI - Last Documented Arterial Blood Pressure 95/46 - Exam Acute distress S1-S2 heard decreased breath sounds Trace edema - Labs CBC & Chem 7: 08/05/21 03:15 08/05/21 03:15 Labs: Abnormal Lab Results - Last 24 Hours (Table) 08/04/21 08/04/21 08/04/21 Range/Units 12:39 17:40 23:17 RBC (4.30-5.90) m/uL Hgb (13.0-17.5) gm/dL Hct (39.0-53.0) % RDW (11.5-15.5) % Plt Count (150-450) k/uL Lymphocytes # (1.0-4.8) k/uL ABG pO2 (83-108) mmHg ABG HCO3 (21-25) mmol/L ABG Total CO2 (19-24) mmol/L ABG O2 Saturation (94-97) % Chloride (98-107) mmol/L BUN (9-20) mg/dL Creatinine (0.66-1.25) mg/dL Glucose (74-99) mg/dL POC Glucose (mg/dL) 156 H 142 H 119 H (75-99) mg/dL Calcium (8.4-10.2) mg/dL Alkaline Phosphatase (38-126) U/L Total Protein (6.3-8.2) g/dL Albumin (3.5-5.0) g/dL 08/05/21 08/05/21 08/05/21 Range/Units 03:15 03:15 05:46 RBC 2.86 L (4.30-5.90) m/uL Hgb 8.1 L (13.0-17.5) gm/dL Hct 25.3 L (39.0-53.0) % RDW 15.9 H (11.5-15.5) % Plt Count 63 L (150-450) k/uL Lymphocytes # 0.7 L (1.0-4.8) k/uL ABG pO2 (83-108) mmHg ABG HCO3 (21-25) mmol/L ABG Total CO2 (19-24) mmol/L ABG O2 Saturation (94-97) % Chloride 108 H (98-107) mmol/L BUN 95 H (9-20) mg/dL Creatinine 5.68 H (0.66-1.25) mg/dL Glucose 118 H (74-99) mg/dL POC Glucose (mg/dL) 137 H (75-99) mg/dL Calcium 7.8 L (8.4-10.2) mg/dL Alkaline Phosphatase 227 H (38-126) U/L Total Protein 4.0 L (6.3-8.2) g/dL Albumin 1.8 L (3.5-5.0) g/dL 08/05/21 Range/Units 05:56 RBC (4.30-5.90) m/uL Hgb (13.0-17.5) gm/dL Hct (39.0-53.0) % RDW (11.5-15.5) % Plt Count (150-450) k/uL Lymphocytes # (1.0-4.8) k/uL ABG pO2 117 H (83-108) mmHg ABG HCO3 28 H (21-25) mmol/L ABG Total CO2 29 H (19-24) mmol/L ABG O2 Saturation 98.8 H (94-97) % Chloride (98-107) mmol/L BUN (9-20) mg/dL Creatinine (0.66-1.25) mg/dL Glucose (74-99) mg/dL POC Glucose (mg/dL) (75-99) mg/dL Calcium (8.4-10.2) mg/dL Alkaline Phosphatase (38-126) U/L Total Protein (6.3-8.2) g/dL Albumin (3.5-5.0) g/dL Microbiology - Last 24 Hours (Table) 08/02/21 05:18 Blood Culture - Preliminary Blood No Growth after 72 hours 07/31/21 20:57 Urine Culture - Final Urine,Suprapubic Klebsiella oxytoca 08/01/21 11:05 Blood Culture - Preliminary Blood No Growth after 72 hours Assessment and Plan Assessment: #1 acute kidney injury, nonoliguric multifactorial. -Hemodynamic ATN with low blood pressures. -Obstructive uropathy with urothelial bladder cancer. #2 hematuria secondary to bladder malignancy #3 obstructive uropathy with bilateral hydronephrosis status post right nephrostomy tube. #4 metabolic acidosis secondary to acute kidney injury #5 shock on pressors #6 ventilator dependent respiratory failure #7 Klebsiella UTI with septic shock Plan: #1 renal function better than yesterday with improved urine output. #2 agree with urology for left nephrostomy tube #3 maintain on IV fluids for now. As needed diuretics #4 avoid nephrotoxic agents.
[2021-08-05 12:03] LABS: Glucose,Whole Blood 133 mg/dL (75-99)
--- NOTE | 2021-08-05 15:00 | P.PN ---
Subjective Progress Note Date: 08/05/21 Principal diagnosis: Respiratory failure. This is a 76-year-old male patient with a known history of hypertension, hyperlipidemia, hypothyroidism. He is brought into the emergency room last evening after being found on the floor. He was unsure if he fell or passed out. He felt that he had some bleeding that he noted in the toilet and sure whether it was rectal bleeding. Denny catheter was placed and there was gross hematuria. Computed tomography scan of the brain revealed no acute intracranial process. No evidence of fracture. She scan of the abdomen and pelvis revealed bilateral hydronephrosis and hydroureter. No obstructing calculus was seen. There was malposition of the Denny catheter apparently in the prostatic urethra. Chest x-ray showed mild pulmonary fibrosis. White count 13.3. Hemoglobin 11.1. Sodium 141. Potassium 4.7. Creatinine 6.10. Troponin 0.119, 0.077. He was ordered 1 unit of packed red blood cells and received K centra and was admi tted to the ICU for closer monitoring. He is seen today in consultation. He is awake and alert in no acute distress. Maintaining O2 saturations in the 90s on room air. He is requiring norepinephrine at 0.07 mcg/kg/m to maintain mean arterial pressures greater than 60. 0.9 normal saline at 75 ML's per hour. The plan is for cystoscopy with Dr. Vinson today. He had several 100 ML's of clot removed from the bladder. 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 A portion of the tumor was resected. It was a dense, obviously high-grade and muscle invasive. Excellent hemostasis was attained. Pathology is pending. Progress note dated 08/01/2021. This is a 76-year-old male admitted to the hospital on July 30. He came in with a number of issues including rectal bleeding. The patient went to the operating room yesterday, and had a right nephrostomy tube placed, a cystoscopy, and bladder tumor resection. The patient was intubated yesterday for the operative procedure. He remains on the ventilator. He has a history of hypertension, hyperlipidemia, and hypothyroidism. Currently, he is on the volume assist control mode, rate 20, tidal volume 500, FiO2 40%, and PEEP of 5. Blood gases show a PaO2 of 70, a pCO2 of 75, and a pH is 7.12. Those blood gases were done on a rate of 16 and a tidal volume of 455. Currently, the patient is on a number drips including 3 ampules of sodium bicarbonate and D5W at 100 mL an hour, will follow-up 40 mcg/kg/m, Nimbex at 0.25 mcg/kg/m, fentanyl at 0.5 mcg/kg/h, norepinephrine at 75 mcg/m, and vasopressin at 0.03 units per minute. White count 13.7, hemoglobin 10.7, hematocrit 34.1, and platelet count 250,000. Sodium 145, potassium 4, chlorides 112, CO2 23, anion gap 10, UA and 80, creatinine 6.53. Albumin is 2.2. Chest x-ray shows some interstitial density at the lung bases, which are worse in the prior x-ray. Progress note dated 08/02/2021. 76-year-old male, 251. The patient was admitted to the hospital on July 30. He came in with hematuria. The patient went to the operating room, and had a right nephrostomy tube placed, a cystoscopy, and bladder tumor resection. Pat hology is currently pending. The patient was intubated for the procedure, remains on the mechanical ventilator. Today, is postop day #2. The patient remains on the volume assist control mode, rate 20, tidal volume 500, FiO2 40%, and PEEP of 5. Blood gases show pO2 of 92, pCO2 of 59, and a pH of 7.28. The rate was increased from 20-26 breaths or minute. The patient currently is on vasopressin at 0.04 units per minute, propofol at 40 mcg/kg/m, norepinephrine 37 mcg/m, and 3 ampules of sodium bicarbonate and D5W at 100 mL an hour. In addition, the patient is on fentanyl at 0.5 mcg/kg/h, and Nimbex at 0.5 mcg/kg/m. The patient has a carrier IV of saline at 10 mL an hour. Because of the normal bicarbonate concentration on the electrolyte profile,the bicarbonate drip will be discontinued in favor of 0.45 saline at 75 mL an hour. White count 21.2, hemoglobin 9.9, hematocrit 30.1, and platelet count 125,000. Sodium 144, potassium 4.1, chlorides 107, CO2 25, anion gap is 12, BUN 78, and creatinine 6.41. Glucose is 125. Phosphorus is 6.1. Chest x-ray shows diffuse bilateral infiltrates, with a small left pleural effusion, which could be consistent with either pneumonia or interstitial edema. Progress note dated 08/03/2021. 76-year-old male, again seen in room 251. The patient remains on the mechanical ventilator. He was admitted to the hospital on July 30. He came in with hematuria. He went to the operating room and had a right nephrostomy tube, cystoscopy, and bladder tumor resection. Pathology is currently pending. Urine cytology was nondiagnostic. He is postop day #3. He remains on the ventilator, on the volume assist control mode, rate 26, tidal volume 500, FiO2 40%, and PEEP of 5. Arterial blood gases show a PaO2 of 126, pCO2 37, and pH is 7.41. The FiO2 was dropped to 30%. He remains on propofol at 25 mcg/kg/m, vasopressin at 0.04 units per minute, norepinephrine at 13 mcg/m, and fentanyl at 0.5 mcg/kg/h. In addition, he is on saline at 50 mL an hour, and vital 1.2 at 40 mL an hour, with a goal of 45 mL an hour. Nimbex has been weaned off. White count 14.5, hemoglobin 9.3, hematocrit 27.6, and platelet count 93,000. Sodium 140, pot assium 3.3, chlorides 106, CO2 21, anion gap is 13, BUN is 85, with a creatinine 6.47. Calcium is 7.2. Urine is showing Klebsiella oxytoca from the . Chest x-ray showed diffuse patchy infiltrates, which could be consistent with pneumonia or fluid overload. Progress note dated 08/04/2021. 76-year-old male, again seen in room 251. The patient remains on mechanical ventilator. He is postop day #4, status post right nephrostomy tube, cystoscopy, and bladder tumor resection. The pathology report did come back showing malignancy. Currently, the patient's on volume assist control, rate 26, tidal volume 500, FiO2 40%, and PEEP of 5. Blood gases show pO2 of 58, pCO2 41, and a pH is 7.44. Those blood gases were done on 30% FiO2. The patient's on saline at 50 mL an hour, vasopressin at 0.03 units per minute, norepinephrine which is been weaned down to 8 mcg/m, propofol at 30 mcg/kg/m, and fentanyl at 0.5 mcg/kg/h. The patient remains on vital 1.2, at goal, which is 45 mL an hour. White count 13.3, hemoglobin 8.8, hematocrit 26.4, and platelet count 72,000. Sodium 141, potassium 3.4, chlorides 107, CO2 24, anion gap 10, BUN 95, and creatinine 5.96. Sputum is showing group B strep, urine is showing gram- negative bacilli, which may be Klebsiella oxytoca. Chest x-ray continues to show bilateral and bibasilar infiltrates and/or atelectasis. Abnormalities, are more left than right sided. Progress note dated 08/05/2021. 76-year-old male, again seen in room 251. The patient remains on the ventilator. He is postop day #5, status post right nephrostomy tube, cystoscopy , and bladder tumor resection. The pathology was consistent with malignancy. The patient remains on the volume assist control mode, rate 26, tidal volume 500, FiO2 40%, and PEEP of 5. The patient's blood gases showed a pO2 of 117, PaCO2 43, pH is 7.42. The FiO2 was dropped down to 30%. Patient is on saline at 50 mL an hour, vasopressin at 0.02 units per minute, norepinephrine at 4.8 mcg/m propofol at 10 mcg/kg/m and vital AF at 45 mL an hour, which is goal. The patient is currently on ertapenem for extended spectrum beta-lactamase producing Klebsiella. We will attempt a spontaneous breathing trial on the patient today, after stopping his propofol. In addition, we'll give him Lasix, 60 mg IV push once. White count 8.8, hemoglobin 8.1, hematocrit 25.3, platelet count 63,000. Sodium 142, potassium 3.5, chlorides 108, CO2 26, anion gap 8, BUN 95, creatinine 5.68. Albumin is 1.8. Chest x-ray shows bibasilar infiltrates. There is no evident pneumothorax. Objective - Vital Signs Vital signs: Vital Signs Temp 98.7 F 08/05/21 08:00 Pulse 105 H 08/05/21 13:00 Resp 37 H 08/05/21 13:00 BP 81/50 08/05/21 11:30 Pulse Ox 97 08/05/21 13:00 Intake & Output 08/04/21 08/05/21 08/05/21 18:59 06:59 18:59 Intake Total 2264.540 2387.619 909.026 Output Total 1110 580 335 Balance 745.340 851.619 574.026 Weight 96 kg 96 kg Intake: IV 613 520 350 0.9 563 520 350 Sodium Chloride 0.9% 1, 50 000 ml @ 50 mls/hr IV . Q20H [facility] Rx#:[id number] Intake, IV Titration 407.340 281.619 184.026 Amount Norepinephrine 32 mg In 70.603 58.934 Sodium Chloride 0.9% 218 ml @ 0.05 MCG/KG/MIN 1. 807 mls/hr IV .Q24H [facility] Rx#:[id number] Sodium Chloride 0.45% 1, 75 000 ml @ 75 mls/hr IV . [id number] [facility] Rx#:[id number] Sodium Chloride 0.9% 150 103.657 25.092 ml @ 0.04 UNITS/MIN 6.12 mls/hr IV .Q24H [facility] with Vasopressin 60 unit Rx#: [id number] fentaNYL (PF). 1,000 mcg 77.059 In Sodium Chloride 0.9% 80 ml @ 0.5 MCG/KG/HR 4. 07 mls/hr IV .Q24H [facility] Rx #:[id number] propofoL 1,000 mg In 184.678 177.962 100.000 Empty Bag 1 bag @ Titrate IV .Q0M [facility] Rx#: [id number] Tube Feeding 675 540 315 Other 160 90 60 Output: Drainage 500 200 Right Lateral Back 500 200 Urine 610 380 335 Other: Voiding Method Indwelling Catheter Indwelling Catheter Indwelling Catheter ABP, PAP, CO, CI - Last Documented Arterial Blood Pressure 142/65 - Exam No acute distress, the patient is sedated and has an orally placed endotracheal tube and NG tube. HEENT examination is grossly unremarkable. Neck supple. Full range of motion. No adenopathy thyromegaly or neck vein distention. Cardiovascular examination reveals regular rhythm rate. S1-S2 normal. No S3 or S4. No discernible murmur noted. Heart sounds are distant. Heart rate 105 bpm. Lungs reveal diffuse bilateral coarse rhonchi. Breath sounds are equal. No wheezes or crackles noted. Saturations are 97%. Abdomen is soft, without bowel sounds. Extremities are intact. No cyanosis clubbing or edema. Skin is without rash or lesion. Neurologic examination cannot be adequately assessed because he is heavily sedated. - Labs CBC & Chem 7: 08/05/21 03:15 08/05/21 03:15 Labs: Abnormal Lab Results - Last 24 Hours (Table) 08/04/21 08/04/21 08/05/21 Range/Units 17:40 23:17 03:15 RBC 2.86 L (4.30-5.90) m/uL Hgb 8.1 L (13.0-17.5) gm/dL Hct 25.3 L (39.0-53.0) % RDW 15.9 H (11.5-15.5) % Plt Count 63 L (150-450) k/uL Lymphocytes # 0.7 L (1.0-4.8) k/uL ABG pO2 (83-108) mmHg ABG HCO3 (21-25) mmol/L ABG Total CO2 (19-24) mmol/L ABG O2 Saturation (94-97) % Chloride (98-107) mmol/L BUN (9-20) mg/dL Creatinine (0.66-1.25) mg/dL Glucose (74-99) mg/dL POC Glucose (mg/dL) 142 H 119 H (75-99) mg/dL Calcium (8.4-10.2) mg/dL Alkaline Phosphatase (38-126) U/L Total Protein (6.3-8.2) g/dL Albumin (3.5-5.0) g/dL 08/05/21 08/05/21 08/05/21 Range/Units 03:15 05:46 05:56 RBC (4.30-5.90) m/uL Hgb (13.0-17.5) gm/dL Hct (39.0-53.0) % RDW (11.5-15.5) % Plt Count (150-450) k/uL Lymphocytes # (1.0-4.8) k/uL ABG pO2 117 H (83-108) mmHg ABG HCO3 28 H (21-25) mmol/L ABG Total CO2 29 H (19-24) mmol/L ABG O2 Saturation 98.8 H (94-97) % Chloride 108 H (98-107) mmol/L BUN 95 H (9-20) mg/dL Creatinine 5.68 H (0.66-1.25) mg/dL Glucose 118 H (74-99) mg/dL POC Glucose (mg/dL) 137 H (75-99) mg/dL Calcium 7.8 L (8.4-10.2) mg/dL Alkaline Phosphatase 227 H (38-126) U/L Total Protein 4.0 L (6.3-8.2) g/dL Albumin 1.8 L (3.5-5.0) g/dL 08/05/21 Range/Units 12:01 RBC (4.30-5.90) m/uL Hgb (13.0-17.5) gm/dL Hct (39.0-53.0) % RDW (11.5-15.5) % Plt Count (150-450) k/uL Lymphocytes # (1.0-4.8) k/uL ABG pO2 (83-108) mmHg ABG HCO3 (21-25) mmol/L ABG Total CO2 (19-24) mmol/L ABG O2 Saturation (94-97) % Chloride (98-107) mmol/L BUN (9-20) mg/dL Creatinine (0.66-1.25) mg/dL Glucose (74-99) mg/dL POC Glucose (mg/dL) 133 H (75-99) mg/dL Calcium (8.4-10.2) mg/dL Alkaline Phosphatase (38-126) U/L Total Protein (6.3-8.2) g/dL Albumin (3.5-5.0) g/dL Microbiology - Last 24 Hours (Table) 08/01/21 11:05 Blood Culture - Preliminary Blood No Growth after 96 hours 08/02/21 05:18 Blood Culture - Preliminary Blood No Growth after 72 hours 07/31/21 20:57 Urine Culture - Final Urine,Suprapubic Klebsiella oxytoca Assessment and Plan Assessment: Gross hematuria, secondary to bladder tumor, status post cystoscopy and biopsie s, 07/31/2021, postop day #5. Pathology is positive for malignancy. Routine postoperative ventilator management, with intubation for the procedure above, on July 31. Hypotension, likely secondary to sepsis from Klebsiella oxytoca urinary tract infection. Anemia, status post 1 unit of PRBCs. Acute kidney injury, secondary to ATN. Mild troponin leak. Hyperlipidemia. History of hypertension. Hypothyroidism. Prior history of tobacco use. Plan: Plan dated 08/01/2021. Currently, obviously, the patient's quite ill. He is essentially maxed out on norepinephrine and vasopressin. He is currently sedated and paralyzed. Not much more to do for this patient. The patient remains on Rocephin. The other medications are reviewed and are appropriate. Unnecessary medications will be discontinued. Overall prognosis is poor. We will continue to follow make recommendations where appropriate. Plan dated 08/02/2021. The respiratory rate on the ventilator will be increased to 26 breaths per minute. This will help to reduce see PaCO2, and increase the pH to are normal range. The patient remains on both vasopressin and norepinephrine, for blood pressure support. In addition, the patient's on propofol, Nimbex, and fentanyl. The patient's sodium bicarbonate drip will be continued, and the patient will be placed on half-normal saline at 75 mL an hour. We will continue to follow make recommendations where appropriate. Overall prognosis remains poor. Plan dated 08/03/2021. The Klebsiella in the urine was extended spectrum beta-lactamase producing Klebsiella. The patient is currently on ertapenem. The patient remains on norepinephrine and vasopressin. The patient's overall prognosis is very poor. Pathology from the recent surgery still pending. Urine cytology was nondiagnostic. We were able to wean the patient off the Nimbex. We will continue to follow and make recommendations where appropriate. Overall prognosis remains very poor. Plan dated 08/04/2021. Currently, the patient is still on the ventilator. The vasopressin remains a 0.03 units per minute and norepinephrine has been weaned down 8 mcg/m. The patient remains on propofol and fentanyl. The patient was weaned off of Nimbex a few days ago. Overall, the patient has shown some improvement. The pathology report is back on the chart, showing malignancy. Urine cytology was nondiagnostic. We will continue to follow and make recommendations where ap propriate. Overall prognosis remains poor given the path report. The patient is not quite ready to be taken off of life support. Plan dated 08/05/2021. The patient remains on the mechanical ventilator. The patient is being seen by nephrology. We will attempt to wean the vasopressin off. I told the nurse even if it means going up a bit higher on the norepinephrine, that would be a good thing. The patient remains on antibiotic or his Klebsiella oxytoca infection. We will attempt a spontaneous breathing trial. The patient is also given Lasix, 60 mg IV push once. No additional recommendations are made. We will continue to follow and make recommendations where appropriate. Again, prognosis is very guarded. Time with Patient: Greater than 30
--- NOTE | 2021-08-05 17:14 | PN ---
PROGRESS NOTE DATE OF SERVICE: 08/05/2021 REASON FOR FOLLOWUP: ESBL Klebsiella complicated urinary tract infection. INTERVAL COURSE: The patient is afebrile. The patient is currently hemodynamically slightly stable. He is currently off the vasopressor, still on Levaquin. No significant purulent secretions through the ET, diarrhea or any other changes reported by nursing staff. PHYSICAL EXAMINATION: Blood pressure 119/64, pulse of 93, temperature 97.8. He is 95% on 30% FiO2. General description is an elderly male lying in bed in no distress. Respiratory system: Unlabored breathing, decreased intensity of breath sounds in the base, with no wheeze. Heart S1, S2. Regular rate and rhythm. Abdomen soft, no tenderness. LABS: Hemoglobin 8.1, white count 8.8, creatinine 5.68. DIAGNOSTIC IMPRESSION AND PLAN: Patient with complicated urinary tract infection, urine has been positive for ESBL Klebsiella. Patient is covered with Invanz. White count has normalized. Continue current treatment protocol and monitor clinical course closely. MMODL / IJN: [id number] /
--- NOTE | 2021-08-05 17:22 | P.PN ---
Subjective Progress Note Date: 08/05/21 HISTORY OF PRESENT ILLNESS This 76-year-old pleasant gentleman, patient of Dr. Wills. History of hypertension hyperlipidemia, hypothyroidism, who was noted to have some bleeding in the toilet for several days, unsure how long the duration was, however he is on blood thinners, he was found on the floor today, patient denies any headache, however it's unclear how the patient fell. He does not admit to syncopal event, patient was subsequently setting to emergency room from home, to the emergency via EMS, a condom catheter was placed, and that's how they found that patient is having gross hematuria rather than rectal bleeding. In emergency room, central line was placed for IV hydration, blood pressure was 75/50, daily urinalysis, shows over 182 RBCs and WBC, hemoglobin 10.4 WBC count 11.0, platelet 297, creatinine of 6.1, BUN of 77, unknown baseline. Patient had CAT scan, head and cervical spine, shows multilevel cervical spondylosis change, no fracture, and no dislocation. No intracranial hemorrhage, intact calvarium. Computed tomography scan of the abdomen, shows bilateral hydronephrosis, and hydroureter, more on the right than the left, there is bilateral renal vascular calcification, no renal calculi, no ureteral calculi. There is no inguinal hernia, no fluid in the pelvis, bilateral stents in the abdominal aorta and iliac arteries, no mesenteric edema, no ascites or free air. No bowel obstruction, bladder imaging is not well evaluated due to lack of distention there is colonic diverticula, without signs of diverticulitis. Chest x-ray shows mild pulmonary fibrosis Consult was made with nephrology, urology and intensive care management, patient admitted to ICU for significant gross hematuria, obstructive uropathy, with mental status changes, and suspected syncope, with a fall long-term anticoagulation, elevated troponin Patient is taken to the operating room, for cystoscopy, evacuation of clot, and transient Trial resection of the bladder as a CAT scan per review from urology, shows bladder irregularity. There is a large sessile tumor, in the right posterolateral bladder wall. It was dense and suspected to have obviously a high grade tumor, with muscular invasion 08/01: Patient remains in the intensive care unit intubated on mechanical ventilation with tidal volume 500, FiO2 40, PEEP of 5. Patient is on levo fed, vasopressin, Nimbex, fentanyl, bicarb drip and propofol. The patient has hematuria from Denny catheter and nephrostomy tube and there is small amount of leaking from the meatus. 08/02: Patient remains in the intensive care unit intubated and on mechanical ventilation with tidal volume 500, FiO2 50, PEEP 5. Patient has been weaned down on norepinephrine continued on vasopressin, Nimbex, fentanyl and propofol. He has been afebrile, heart rate 77, blood pressure 92/59, pulse ox 100%. He had monitor sinus rhythm. Repeat blood work reveals WBC 21.2, hemoglobin 9.9, platelet count 125. Lites are within normal limits. BUN 78 creatinine 6.41. Capillary blood glucose running between 113 and 121. Urine culture has been finalized with ESBL Klebsiella oxytoca and antibiotics will be changed from ceftriaxone to Zosyn. 08/03 patient examined while intubated. Patient is postop 3 continues to remain ventilator on assist control mode respiratory rate of 26 and volume 500 FiO2 40 and PEEP of 5. FiO2 decreased to 30 with patient maintaining her oxygen saturations between 96-98%. He continues to remain on propofol at 25 valentin per KG per minute. Vasopressin at 0.04 units per minute, norepinephrine at 20 mics KG per minute and fentanyl 0.5 valentin per KG per minute. Patient's bicarb drip was discontinued and is currently on half-normal saline at 50 mL per hour. Nimbex has been discontinued. Patient vitals are stable with temp 97.8 pulse 63 respiratory rate 26 blood pressure 109/71. Leukocytosis of 14.5, hemoglobin 9.3 platelet has reduced to 93. Potassium is 3.3 bicarb 21 BUN 85 creatinine 6. 47. Urine output is approximately 10-15 mL per hour about 250 developed intermittent nephrostomy tube. Lasix 80 mg IV to be given today. Potassium is being repleted. No need for dialysis as at this point per nephrology Patient contineus to remain intubated with vent setting involving assist control, resp rate 26, tidal vol 500, PEEP 5 and Fio2 40 %. Patient continues to remain aon vasopressor and norepinephrine. Sedation mentained with propofol and fentanyl. Patient is noticed to move his lower extremities but doesnot follow any commands. UO has improved appears to be 40 ml/ hr but appears to be serosangunous, continues to have 250 - 300 ml every 6 hour. pathology consistent with high-grade, muscle invasive urothelial carcinoma. Patient was seen by urology who has recommended left nephrostomy tube in next few days. patient was noted to be in atrial fib ad is on cardizem drip, metoprolol dose increased to 25 mg po TID per cardiology 08/05 patient examined at bedside continues to remain on the ventilator. He is currently on assist control respiratory rate of 26 tidal volume 500 FiO2 40% and PEEP of 5. Continues to remain on normal saline 50 cc/h, vasopressin .02 micrograms per, norepi at 4.8 mics per KG per minute, propofol at 10 mics per KG per minute. Patient was given 1 dose of Lasix per pulmonary. Labs are reviewed patient has a hemoglobin of 8.1 platelets stable at 63. An ABG was obtained and pH 7.42 PO2 117 and bicarb 28 BUN 95 creatinine 5.68 albumin low at 1.8 patient continues to receive Invanz per infectious disease patient initiated on enteral tube feeding blood sugar stable less than 150 urine output is maintained at 40 cc/h. 300 mL drained out of the nephrostomy tube tube today. Nephrology recommend continuing IV fluids diuresis as needed. No plan for renal replacement REVIEW OF SYSTEMS Unable to obtain due to intubation PHYSICAL EXAMINATION Gen: This is a 76-year-old male. He is resting in ICU bed, intubated and on mechanical ventilation HEENT: Head is atraumatic, normocephalic. Sclerae is anicteric. NECK: Supple. No JVD. No lymphadenopathy. No thyromegaly. LUNGS: Bilateral rhonchi. No intercostal retractions. HEART: irregularly irregular rate and rhythm. No murmur. ABDOMEN: Soft. Bowel sounds are present. No masses. No tenderness. Denny catheter with hematuria. Nephrostomy tube draining jemal urine. EXTREMITIES: No pedal edema. No calf tenderness. NEUROLOGICAL: Patient is sedated. ASSESSMENT AND PLAN 1. Gross hematuria, with hypotension, obstructive uropathy, and a suspected bladder tumor, malignancy is highly suspected resumed UTI with pyuria. Patient was seen by urology, status post transurethral bladder resection on 07/31/2021 Dr. Vinson. Patient managed in ICU.pathology -high-grade, muscle invasive urothelial carcinoma as expected 2. Acute blood loss anemia, with hypovolemic and septic hypotension, from gross hematuria, requiring vasopressors, norepinephrine, maintained in ICU treatment, critical care medicine following. She is status post 1 unit packed RBCs. 3. Acute kidney injury secondary to bilateral hydronephrosis and hydroureter with workup suggestive of bladder cancer, unknown baseline for CK D. neurology consult appreciated. urine output 40 ml/ hr PhosLo recommended by nephrology. sodium bicar 650 mg po BID, no indication for renal replacement therapy 4. Elevated troponin, rule out non-ST elevated myocardial infarction. Cardiology consult pending. 5. Acute hypoxic respiratory failure requiring ongoing intubation mechanical ventilation. And tinea to wean down on vent settings Patient is managed by floor worker well service. 6. Acute ESBL Klebsiella urinary tract infection with sepsis and septic shock requiring vasopressors. IV antibiotics changed from ceftriaxone to Zosyn, continue vasopressor support. 7. Thrombocytopenia secondary to sepsis. 8. BPH with prostatomegaly has indwelling Denny catheter at this time 9. Hypothyroidism. Continue levothyroxine 175 g daily 10. Hyperlipidemia 11. Hypertension currently hypotensive. 12. Tobacco use and dependence. DVT prophylaxis heparin subcu, to start in 24 hours. Post op patient reviewed his receive 1 dose kcentra 07/30 GI prophylaxis IV Protonix Prognosis guarded. CODE STATUS full code Objective - Vital Signs Vital signs: Vital Signs Temp 98.8 F 08/05/21 04:00 Pulse 82 08/05/21 07:00 Resp 26 H 08/05/21 07:00 BP 99/66 08/04/21 20:30 Pulse Ox 100 08/05/21 07:00 Intake & Output 08/04/21 08/05/21 08/05/21 18:59 06:59 18:59 Intake Total 4180.220 5071.619 256.207 Output Total 1110 580 35 Balance 745.340 851.619 221.207 Weight 96 kg 96 kg Intake: IV 613 520 50 0.9 563 520 50 Sodium Chloride 0.9% 1, 50 000 ml @ 50 mls/hr IV . Q20H [facility] Rx#:[id number] Intake, IV Titration 407.340 281.619 161.207 Amount Norepinephrine 32 mg In 70.603 43.127 Sodium Chloride 0.9% 218 ml @ 0.05 MCG/KG/MIN 1. 807 mls/hr IV .Q24H [facility] Rx#:[id number] Sodium Chloride 0.45% 1, 75 000 ml @ 75 mls/hr IV . [id number] [facility] Rx#:[id number] Sodium Chloride 0.9% 150 103.657 25.092 ml @ 0.04 UNITS/MIN 6.12 mls/hr IV .Q24H [facility] with Vasopressin 60 unit Rx#: [id number] fentaNYL (PF). 1,000 mcg 77.059 In Sodium Chloride 0.9% 80 ml @ 0.5 MCG/KG/HR 4. 07 mls/hr IV .Q24H [facility] Rx #:[id number] propofoL 1,000 mg In 184.678 177.962 92.988 Empty Bag 1 bag @ Titrate IV .Q0M [facility] Rx#: [id number] Tube Feeding 675 540 45 Other 160 90 Output: Drainage 500 200 Right Lateral Back 500 200 Urine 610 380 35 Other: Voiding Method Indwelling Catheter Indwelling Catheter ABP, PAP, CO, CI - Last Documented Arterial Blood Pressure 95/46 - Labs CBC & Chem 7: 08/05/21 03:15 08/05/21 03:15 Labs: Abnormal Lab Results - Last 24 Hours (Table) 08/04/21 08/04/21 08/04/21 Range/Units 12:39 17:40 23:17 RBC (4.30-5.90) m/uL Hgb (13.0-17.5) gm/dL Hct (39.0-53.0) % RDW (11.5-15.5) % Plt Count (150-450) k/uL Lymphocytes # (1.0-4.8) k/uL ABG pO2 (83-108) mmHg ABG HCO3 (21-25) mmol/L ABG Total CO2 (19-24) mmol/L ABG O2 Saturation (94-97) % Chloride (98-107) mmol/L BUN (9-20) mg/dL Creatinine (0.66-1.25) mg/dL Glucose (74-99) mg/dL POC Glucose (mg/dL) 156 H 142 H 119 H (75-99) mg/dL Calcium (8.4-10.2) mg/dL Alkaline Phosphatase (38-126) U/L Total Protein (6.3-8.2) g/dL Albumin (3.5-5.0) g/dL 08/05/21 08/05/21 08/05/21 Range/Units 03:15 03:15 05:46 RBC 2.86 L (4.30-5.90) m/uL Hgb 8.1 L (13.0-17.5) gm/dL Hct 25.3 L (39.0-53.0) % RDW 15.9 H (11.5-15.5) % Plt Count 63 L (150-450) k/uL Lymphocytes # 0.7 L (1.0-4.8) k/uL ABG pO2 (83-108) mmHg ABG HCO3 (21-25) mmol/L ABG Total CO2 (19-24) mmol/L ABG O2 Saturation (94-97) % Chloride 108 H (98-107) mmol/L BUN 95 H (9-20) mg/dL Creatinine 5.68 H (0.66-1.25) mg/dL Glucose 118 H (74-99) mg/dL POC Glucose (mg/dL) 137 H (75-99) mg/dL Calcium 7.8 L (8.4-10.2) mg/dL Alkaline Phosphatase 227 H (38-126) U/L Total Protein 4.0 L (6.3-8.2) g/dL Albumin 1.8 L (3.5-5.0) g/dL 08/05/21 Range/Units 05:56 RBC (4.30-5.90) m/uL Hgb (13.0-17.5) gm/dL Hct (39.0-53.0) % RDW (11.5-15.5) % Plt Count (150-450) k/uL Lymphocytes # (1.0-4.8) k/uL ABG pO2 117 H (83-108) mmHg ABG HCO3 28 H (21-25) mmol/L ABG Total CO2 29 H (19-24) mmol/L ABG O2 Saturation 98.8 H (94-97) % Chloride (98-107) mmol/L BUN (9-20) mg/dL Creatinine (0.66-1.25) mg/dL Glucose (74-99) mg/dL POC Glucose (mg/dL) (75-99) mg/dL Calcium (8.4-10.2) mg/dL Alkaline Phosphatase (38-126) U/L Total Protein (6.3-8.2) g/dL Albumin (3.5-5.0) g/dL Microbiology - Last 24 Hours (Table) 08/02/21 05:18 Blood Culture - Preliminary Blood No Growth after 72 hours 07/31/21 20:57 Urine Culture - Final Urine,Suprapubic Klebsiella oxytoca 08/01/21 11:05 Blood Culture - Preliminary Blood No Growth after 72 hours
[2021-08-05 17:34] LABS: Glucose,Whole Blood 114 mg/dL (75-99)
[2021-08-05] MEDS: ERTAPENEM 0.5 GM in SODIUM CHLORIDE 0.9% 50 ML IVPB SCH (21:53)
[2021-08-05 23:13] LABS: Glucose,Whole Blood 130 mg/dL (75-99)
[2021-08-06] MEDS: IPRATROPIUM-ALBUTEROL 3 ML NEB INHALATION SCH ×6 (03:20→23:25)
[2021-08-06] MEDS: SODIUM CHLORIDE 0.9% 1,000 ML IV SCH (03:49)
[2021-08-06 04:47] LABS: Anisocytosis Slight; Basophils % (A) 0 %; Eosinophils # (A) 0.1 k/uL (0-0.7); Eosinophils % (A) 1 %; HCT 27.8 % (39.0-53.0); HGB 9.4 gm/dL (13.0-17.5); Lymphocytes # (A) 0.7 k/uL (1.0-4.8); Lymphocytes % (A) 7 %; MCH 29.5 pg (25.0-35.0); MCHC 33.9 g/dL (31.0-37.0); Mean Platelet Volume 9.7; Monocytes # (A) 0.5 k/uL (0-1.0); Monocytes % (A) 5 %; Neutrophils # (A) 8.9 k/uL (1.3-7.7); Neutrophils % (A) 86 %; RBC 3.19 m/uL (4.30-5.90); RDW 16.4 % (11.5-15.5); WBC 10.5 k/uL (3.8-10.6)
[2021-08-06 04:50] LABS: Platelet Count 99 k/uL (150-450)
[2021-08-06] MEDS: INSULIN ASPART (NovoLOG) 100 UNIT/ML VIAL SQ SCH ×3 (05:00→15:55)
[2021-08-06 05:15] LABS: Potassium 3.2 mmol/L (3.5-5.1)
[2021-08-06] MEDS: CALCIUM ACETATE 667 MG TAB PO SCH ×3 (06:09→17:23)
[2021-08-06] MEDS: LEVOTHYROXINE 88 MCG TAB PO SCH (06:09)
[2021-08-06] MEDS: NOREPINEPHRINE 32 MG in SODIUM CHLORIDE 0.9% 218 ML IV SCH (06:09)
[2021-08-06 06:26] LABS: ABG Base Excess 2.7 mmol/L; ABG HCO3 27 mmol/L (21-25); ABG Oxygen Saturation 97.9 % (94-97); ABG PCO2 43 mmHg (35-45); ABG PH 7.41 (7.35-7.45); ABG PO2 78 mmHg (83-108)
--- NOTE | 2021-08-06 07:37 | XR ---
EXAMINATION TYPE: XR chest 1V DATE OF EXAM: 08/06/2021 CLINICAL HISTORY: Difficulty breathing progress study. TECHNIQUE: Single AP portable semiupright view of the chest is obtained. COMPARISON: Chest x-ray from one day earlier and older studies FINDINGS: Stable endotracheal and orogastric tubes. Persistent left greater than right bibasilar opacities and small left pleural effusion. Persistent mi d lung opacity. Cardiac silhouette size stable and upper limits of normal. Osseous structures are int act. IMPRESSION: Persistent left midlung and left greater than right bibasilar opacities with small left p leural effusion. No significant change from one day earlier.
[2021-08-06] MEDS: PANTOPRAZOLE 40 MG/10 ML VIAL IV SCH (08:02)
[2021-08-06] MEDS: ENOXAPARIN 30 MG/0.3 ML SYRINGE SQ SCH (08:02)
[2021-08-06] MEDS: SODIUM BICARBONATE TAB 650 MG TAB PO SCH ×4 (08:02→20:26)
[2021-08-06] MEDS: CHLORHEXIDINE GLUCONATE 15 ML CUP MUCOUS MEM SCH ×2 (08:02→20:26)
[2021-08-06] MEDS ORDERED: POTASSIUM BICARBONATE/CIT AC 20 MEQ TABLET.EFF PO ONE (08:16)
--- NOTE | 2021-08-06 09:11 | P.PN ---
Subjective Patient is seen in follow-up for acute kidney injury. Patient had a right-sided nephrostomy tube placed July 31. Urine output 50-60 mL an hour. Creatinine 5.27 today. Intubated. Remains on Levophed. Vital signs: On vasopressor support. HEENT: Intubated. LUNGS: Breath sounds decreased. HEART: Regular rate and rhythm. ABDOMEN: Soft, no distention. EXTREMITITES: Trace edema. Objective - Vital Signs Vital signs: Vital Signs Temp 99.2 F 08/06/21 04:00 Pulse 90 08/06/21 08:53 Resp 26 H 08/06/21 07:00 BP 112/65 08/05/21 19:00 Pulse Ox 99 08/06/21 07:00 Intake & Output 08/05/21 08/06/21 08/06/21 18:59 06:59 18:59 Intake Total 2481.454 4646.673 104.56 Output Total 945 1815 60 Balance 665.957 -504.327 44.56 Weight 96 kg 88.9 kg Intake: IV 650 550 40 0.9 650 550 40 Intake, IV Titration 285.957 175.673 64.56 Amount Norepinephrine 32 mg In 77.249 75.673 Sodium Chloride 0.9% 218 ml @ 0.05 MCG/KG/MIN 1. 807 mls/hr IV .Q24H [facility] Rx#:[id number] Sodium Chloride 0.9% 150 25.092 ml @ 0.04 UNITS/MIN 6.12 mls/hr IV .Q24H [facility] with Vasopressin 60 unit Rx#: [id number] propofoL 1,000 mg In 183.616 100.000 64.56 Empty Bag 1 bag @ Titrate IV .Q0M [facility] Rx#: [id number] Tube Feeding 585 495 Other 90 90 Output: Drainage 1200 Right Lateral Back 1200 Urine 945 615 60 Other: Voiding Method Indwelling Catheter Indwelling Catheter ABP, PAP, CO, CI - Last Documented Arterial Blood Pressure 118/48 - Labs CBC & Chem 7: 08/06/21 04:23 08/06/21 04:23 Labs: Abnormal Lab Results - Last 24 Hours (Table) 08/05/21 08/05/21 08/05/21 Range/Units 12:01 17:32 23:02 RBC (4.30-5.90) m/uL Hgb (13.0-17.5) gm/dL Hct (39.0-53.0) % RDW (11.5-15.5) % Plt Count (150-450) k/uL Neutrophils # (1.3-7.7) k/uL Lymphocytes # (1.0-4.8) k/uL ABG pO2 (83-108) mmHg ABG HCO3 (21-25) mmol/L ABG O2 Saturation (94-97) % Potassium (3.5-5.1) mmol/L Chloride (98-107) mmol/L BUN (9-20) mg/dL Creatinine (0.66-1.25) mg/dL Glucose (74-99) mg/dL POC Glucose (mg/dL) 133 H 114 H 130 H (75-99) mg/dL Calcium (8.4-10.2) mg/dL 08/06/21 08/06/21 08/06/21 Range/Units 04:23 04:23 06:10 RBC 3.19 L (4.30-5.90) m/uL Hgb 9.4 L (13.0-17.5) gm/dL Hct 27.8 L (39.0-53.0) % RDW 16.4 H (11.5-15.5) % Plt Count 99 L D (150-450) k/uL Neutrophils # 8.9 H (1.3-7.7) k/uL Lymphocytes # 0.7 L (1.0-4.8) k/uL ABG pO2 78 L (83-108) mmHg ABG HCO3 27 H (21-25) mmol/L ABG O2 Saturation 97.9 H (94-97) % Potassium 3.2 L (3.5-5.1) mmol/L Chloride 109 H (98-107) mmol/L BUN 101 H* (9-20) mg/dL Creatinine 5.27 H (0.66-1.25) mg/dL Glucose 132 H (74-99) mg/dL POC Glucose (mg/dL) (75-99) mg/dL Calcium 8.0 L (8.4-10.2) mg/dL Microbiology - Last 24 Hours (Table) 08/02/21 05:18 Blood Culture - Preliminary Blood No Growth after 96 hours 08/01/21 11:05 Blood Culture - Preliminary Blood No Growth after 96 hours Assessment and Plan Plan: Assessment: 1. Acute kidney injury secondary to ATN secondary to hypotension and obstructive uropathy. Creatinine was 6.8 on admission and is 5.27 today. Unknown baseline renal function. Nonoliguric. 2. Hematuria and bilateral hydronephrosis with high suspicion for bladder cancer. Status post right-sided nephrostomy tube placed 07/31/2021. May also need left-sided nephrostomy tube. 3. Acute hypercapnic and hypoxic respiratory failure. 4. Metabolic acidosis secondary to acute kidney injury s/p bicarb drip. Now on oral bicarb. 5. Shock maintained on Levophed. 6. Hyperphosphatemia secondary to acute kidney injury. On PhosLo. 7. Klebsiella UTI on antibiotics. 8. Hypokalemia from poor intake. Plan: Receiving tube feeds. Hep-Lock IV fluids. Wean FiO2 and vasopressors. Potassium being replaced. Continue to assess daily for need for renal replacement therapy. No urgent need at this time.
--- NOTE | 2021-08-06 09:38 | P.PN ---
Subjective Progress Note Date: 08/06/21 On today's evaluation on 08/06/2021 patient seen in follow-up in intensive care unit, he remains sedated, and mechanically ventilated, on assist-control mode of ventilation with a rate of 26, tidal I'm is 500, FiO2 of 30% and PEEP of 5, this morning's blood gas shows pO2 of 70, pCO2 of 43, and pH of 7.41, this was done on FiO2 of 30% and above mentioned vent settings, currently on 0.9 normal saline at a rate of 50 ML per hour, to prevent is being weaned down and is currently infusing at 5 mics per kilo per minute, levo fed is infusing at 16 mics per minute. He is on tube feedings with vital AF at a rate of 45 with a goal 45 and standard water flushes. he is in sinus mechanism with a rate of 86, current blood pressure is 134/61. Chest x-ray was reviewed showing persistent left midlung and left greater than right eye basilar opacities with small left pleural effusion with no significant change compared to the previous chest x- ray. His labs have been reviewed showing white blood cell, 10.5, hemoglobin of 9.4, sodium is 145, potassium 3.2, chloride is 109, CO2 26, BUN of 101, creatinine of 5.27. Patient is on Invanz for ESBL Klebsiella Oxytoca in the urine cultures and strep group B in the sputum. Blood cultures have shown no growth thus far, repeat urine culture has shown no growth. Urine output is in the order of 40-50 ML per hour from the Denny catheter, and patient has a right- sided nephrostomy in place with an average outputs of 1 L in the 12 hour shift. Yesterday was given a sedation holiday, however he quickly failed related to agitation however he did not fully wake up and follow command. We will attempt sedation holiday again today. Objective - Vital Signs Vital signs: Vital Signs Temp 99.2 F 08/06/21 04:00 Pulse 90 08/06/21 08:53 Resp 26 H 08/06/21 07:00 BP 112/65 08/05/21 19:00 Pulse Ox 99 08/06/21 07:00 Intake & Output 08/05/21 08/06/21 08/06/21 18:59 06:59 18:59 Intake Total 5206.603 7116.673 109.717 Output Total 945 1815 60 Balance 665.957 -504.327 49.717 Weight 96 kg 88.9 kg Intake: IV 650 550 40 0.9 650 550 40 Intake, IV Titration 285.957 175.673 69.717 Amount Norepinephrine 32 mg In 77.249 75.673 Sodium Chloride 0.9% 218 ml @ 0.05 MCG/KG/MIN 1. 807 mls/hr IV .Q24H [facility] Rx#:[id number] Sodium Chloride 0.9% 150 25.092 ml @ 0.04 UNITS/MIN 6.12 mls/hr IV .Q24H [facility] with Vasopressin 60 unit Rx#: [id number] propofoL 1,000 mg In 183.616 100.000 69.717 Empty Bag 1 bag @ Titrate IV .Q0M [facility] Rx#: [id number] Tube Feeding 585 495 Other 90 90 Output: Drainage 1200 Right Lateral Back 1200 Urine 945 615 60 Other: Voiding Method Indwelling Catheter Indwelling Catheter ABP, PAP, CO, CI - Last Documented Arterial Blood Pressure 118/48 - Exam GENERAL EXAM: Sedated, intubated 76-year-old white male, On assist control mode of ventilation with FiO2 of 30% and PEEP of 5 comfortable in no apparent distress. HEAD: Normocephalic/atraumatic. EYES: Normal reaction of pupils, equal size. Conjunctiva pink, sclera white. NOSE: Clear with pink turbinates. THROAT: No erythema or exudates. NECK: No masses, no JVD, no thyroid enlargement, no adenopathy. CHEST: No chest wall deformity. Symmetrical expansion. LUNGS: Equal air entry with no crackles, wheeze, rhonchi or dullness. CVS: Regular rate and rhythm, normal S1 and S2, no gallops, no murmurs, no rubs ABDOMEN: Soft, nontender. No hepatosplenomegaly, normal bowel sounds, no guarding or rigidity. EXTREMITIES: No clubbing, no edema, no cyanosis, 2+ pulses and upper and lower extremities. MUSCULOSKELETAL: Muscle strength and tone normal. Right-sided nephrostomy tube is present with clear yellow urine SPINE: No scoliosis or deformity SKIN: No rashes CENTRAL NERVOUS SYSTEM: Sedated intubated No focal deficits, tone is normal in all 4 extremities. - Labs CBC & Chem 7: 08/06/21 04:23 08/06/21 04:23 Labs: Abnormal Lab Results - Last 24 Hours (Table) 08/05/21 08/05/21 08/05/21 Range/Units 12:01 17:32 23:02 RBC (4.30-5.90) m/uL Hgb (13.0-17.5) gm/dL Hct (39.0-53.0) % RDW (11.5-15.5) % Plt Count (150-450) k/uL Neutrophils # (1.3-7.7) k/uL Lymphocytes # (1.0-4.8) k/uL ABG pO2 (83-108) mmHg ABG HCO3 (21-25) mmol/L ABG O2 Saturation (94-97) % Potassium (3.5-5.1) mmol/L Chloride (98-107) mmol/L BUN (9-20) mg/dL Creatinine (0.66-1.25) mg/dL Glucose (74-99) mg/dL POC Glucose (mg/dL) 133 H 114 H 130 H (75-99) mg/dL Calcium (8.4-10.2) mg/dL 08/06/21 08/06/21 08/06/21 Range/Units 04:23 04:23 06:10 RBC 3.19 L (4.30-5.90) m/uL Hgb 9.4 L (13.0-17.5) gm/dL Hct 27.8 L (39.0-53.0) % RDW 16.4 H (11.5-15.5) % Plt Count 99 L D (150-450) k/uL Neutrophils # 8.9 H (1.3-7.7) k/uL Lymphocytes # 0.7 L (1.0-4.8) k/uL ABG pO2 78 L (83-108) mmHg ABG HCO3 27 H (21-25) mmol/L ABG O2 Saturation 97.9 H (94-97) % Potassium 3.2 L (3.5-5.1) mmol/L Chloride 109 H (98-107) mmol/L BUN 101 H* (9-20) mg/dL Creatinine 5.27 H (0.66-1.25) mg/dL Glucose 132 H (74-99) mg/dL POC Glucose (mg/dL) (75-99) mg/dL Calcium 8.0 L (8.4-10.2) mg/dL Microbiology - Last 24 Hours (Table) 08/02/21 05:18 Blood Culture - Preliminary Blood No Growth after 96 hours 08/01/21 11:05 Blood Culture - Preliminary Blood No Growth after 96 hours Assessment and Plan Plan: Assessment: #1. Gross hematuria, secondary to bladder tumor, status post cystoscopy and biopsies, 07/31/2021, postop day #5. Pathology is positive for invasive high- grade urothelial carcinoma #2. Routine postoperative ventilator management, with intubation for the procedure above, on July 31. #3. Septic shock related to ESBL Klebsiella Oxytoca UTI, and Strep pneumonia group B #4. Anemia, status post 1 unit of PRBCs. #5. Acute kidney injury, secondary to ATN, right-sided hydronephrosis, status post right nephrostomy tube placement on 07/31/2021, renal function is currently improving #6. Mild troponin leak. #7. Hyperlipidemia. #8. History of hypertension. #9. Hypothyroidism. #10. Prior history of tobacco use. Plan: Continue weaning norepinephrine Continue current ventilator settings Continue current antibiotics We will attempt another sedation holiday today If patient tolerates a sedation holiday will proceed with pressure-support of 8, and CPAP of 5 trial Today's labs and chest x-rays have been reviewed Patient remains a full code and currently there is no next of kin who is making decisions on patient's behalf Consult social work for initiation of process patient may need legal guardian We'll continue to closely follow in the intensive care unit I performed a history & physical examination of the patient and discussed their management with my nurse practitioner, Britt Castillo. I reviewed the nurse practitioner's note and agree with the documented findings and plan of care. Lung sounds are positive for diminished breath sounds throughout the lung ballard. The findings and the impression was discussed with the patient. I attest to the documentation by the nurse practitioner. Time with Patient: Greater than 30
[2021-08-06 11:22] LABS: Glucose,Whole Blood 165 mg/dL (75-99)
--- NOTE | 2021-08-06 12:44 | P.PN ---
Subjective Progress Note Date: 08/06/21 HISTORY OF PRESENT ILLNESS This 76-year-old pleasant gentleman, patient of Dr. Wills. History of hypertension hyperlipidemia, hypothyroidism, who was noted to have some bleeding in the toilet for several days, unsure how long the duration was, however he is on blood thinners, he was found on the floor today, patient denies any headache, however it's unclear how the patient fell. He does not admit to syncopal event, patient was subsequently setting to emergency room from home, to the emergency via EMS, a condom catheter was placed, and that's how they found that patient is having gross hematuria rather than rectal bleeding. In emergency room, central line was placed for IV hydration, blood pressure was 75/50, daily urinalysis, shows over 182 RBCs and WBC, hemoglobin 10.4 WBC count 11.0, platelet 297, creatinine of 6.1, BUN of 77, unknown baseline. Patient had CAT scan, head and cervical spine, shows multilevel cervical spondylosis change, no fracture, and no dislocation. No intracranial hemorrhage, intact calvarium. Computed tomography scan of the abdomen, shows bilateral hydronephrosis, and hydroureter, more on the right than the left, there is bilateral renal vascular calcification, no renal calculi, no ureteral calculi. There is no inguinal hernia, no fluid in the pelvis, bilateral stents in the abdominal aorta and iliac arteries, no mesenteric edema, no ascites or free air. No bowel obstruction, bladder imaging is not well evaluated due to lack of distention there is colonic diverticula, without signs of diverticulitis. Chest x-ray shows mild pulmonary fibrosis Consult was made with nephrology, urology and intensive care management, patient admitted to ICU for significant gross hematuria, obstructive uropathy, with mental status changes, and suspected syncope, with a fall long-term anticoagulation, elevated troponin Patient is taken to the operating room, for cystoscopy, evacuation of clot, and transient Trial resection of the bladder as a CAT scan per review from urology, shows bladder irregularity. There is a large sessile tumor, in the right posterolateral bladder wall. It was dense and suspected to have obviously a high grade tumor, with muscular invasion 08/01: Patient remains in the intensive care unit intubated on mechanical ventilation with tidal volume 500, FiO2 40, PEEP of 5. Patient is on levo fed, vasopressin, Nimbex, fentanyl, bicarb drip and propofol. The patient has hematuria from Denny catheter and nephrostomy tube and there is small amount of leaking from the meatus. 08/02: Patient remains in the intensive care unit intubated and on mechanical ventilation with tidal volume 500, FiO2 50, PEEP 5. Patient has been weaned down on norepinephrine continued on vasopressin, Nimbex, fentanyl and propofol. He has been afebrile, heart rate 77, blood pressure 92/59, pulse ox 100%. He had monitor sinus rhythm. Repeat blood work reveals WBC 21.2, hemoglobin 9.9, platelet count 125. Lites are within normal limits. BUN 78 creatinine 6.41. Capillary blood glucose running between 113 and 121. Urine culture has been finalized with ESBL Klebsiella oxytoca and antibiotics will be changed from ceftriaxone to Zosyn. 08/03 patient examined while intubated. Patient is postop 3 continues to remain ventilator on assist control mode respiratory rate of 26 and volume 500 FiO2 40 and PEEP of 5. FiO2 decreased to 30 with patient maintaining her oxygen saturations between 96-98%. He continues to remain on propofol at 25 valentin per KG per minute. Vasopressin at 0.04 units per minute, norepinephrine at 20 mics KG per minute and fentanyl 0.5 valentin per KG per minute. Patient's bicarb drip was discontinued and is currently on half-normal saline at 50 mL per hour. Nimbex has been discontinued. Patient vitals are stable with temp 97.8 pulse 63 respiratory rate 26 blood pressure 109/71. Leukocytosis of 14.5, hemoglobin 9.3 platelet has reduced to 93. Potassium is 3.3 bicarb 21 BUN 85 creatinine 6. 47. Urine output is approximately 10-15 mL per hour about 250 developed intermittent nephrostomy tube. Lasix 80 mg IV to be given today. Potassium is being repleted. No need for dialysis as at this point per nephrology Patient contineus to remain intubated with vent setting involving assist control, resp rate 26, tidal vol 500, PEEP 5 and Fio2 40 %. Patient continues to remain aon vasopressor and norepinephrine. Sedation mentained with propofol and fentanyl. Patient is noticed to move his lower extremities but doesnot follow any commands. UO has improved appears to be 40 ml/ hr but appears to be serosangunous, continues to have 250 - 300 ml every 6 hour. pathology consistent with high-grade, muscle invasive urothelial carcinoma. Patient was seen by urology who has recommended left nephrostomy tube in next few days. patient was noted to be in atrial fib ad is on cardizem drip, metoprolol dose increased to 25 mg po TID per cardiology 08/05 patient examined at bedside continues to remain on the ventilator. He is currently on assist control respiratory rate of 26 tidal volume 500 FiO2 40% and PEEP of 5. Continues to remain on normal saline 50 cc/h, vasopressin .02 micrograms per, norepi at 4.8 mics per KG per minute, propofol at 10 mics per KG per minute. Patient was given 1 dose of Lasix per pulmonary. Labs are reviewed patient has a hemoglobin of 8.1 platelets stable at 63. An ABG was obtained and pH 7.42 PO2 117 and bicarb 28 BUN 95 creatinine 5.68 albumin low at 1.8 patient continues to receive Invanz per infectious disease patient initiated on enteral tube feeding blood sugar stable less than 150 urine output is maintained at 40 cc/h. 300 mL drained out of the nephrostomy tube tube today. Nephrology recommend continuing IV fluids diuresis as needed. No plan for renal replacement 08/06 patient examined at bedside continues to remain intubated. Patient is noted to have nonpurposeful movement. currently on assist control respiratory rate of 26 tidal volume 500 FiO2 30% and PEEP of 5. Continues to remain on normal saline, patient is self weaned off his pressors apparently on levo fed at 60 valentin per KG per minute. Continuous remain in sinus rhythm blood pressure controlled. Chest x-ray showing persistent left mid lung and left greater than right basilar opacities with small left pleural effusion with no change compared to previous x-ray. Patient had good urine output after 40-50 mL per hour from the Denny catheter. He has right-sided nephrostomy tube with 1200 mL output since midnight. PH 7.41 pCO2 43 pO2 78, bicarb 27, hemoglobin stable at 9.4 Creatinine 5.27 calcium of 8. Plan for sedation withdrawal today for evaluating patient's mental status. REVIEW OF SYSTEMS Unable to obtain due to intubation PHYSICAL EXAMINATION Gen: This is a 76-year-old male. He is resting in ICU bed, intubated and on mechanical ventilation HEENT: Head is atraumatic, normocephalic. Sclerae is anicteric. NECK: Supple. No JVD. No lymphadenopathy. No thyromegaly. LUNGS: Bilateral rhonchi. No intercostal retractions. HEART: irregularly irregular rate and rhythm. No murmur. ABDOMEN: Soft. Bowel sounds are present. No masses. No tenderness. Denny cat heter with hematuria. Nephrostomy tube draining jemal urine. EXTREMITIES: No pedal edema. No calf tenderness. NEUROLOGICAL: Patient is sedated. ASSESSMENT AND PLAN 1. Gross hematuria, with hypotension, obstructive uropathy, and a suspected bladder tumor, malignancy is highly suspected resumed UTI with pyuria. Patient was seen by urology, status post transurethral bladder resection on 07/31/2021 Dr. Vinson. Patient managed in ICU.pathology -high-grade, muscle invasive urothelial carcinoma as expected 2. Acute blood loss anemia, with hypovolemic and septic hypotension, from gross hematuria, requiring vasopressors, norepinephrine, maintained in ICU treatment, critical care medicine following. She is status post 1 unit packed RBCs. 3. Worsening Acute kidney injury secondary to bilateral hydronephrosis and hydroureter with workup suggestive of bladder cancer, unknown baseline for CK D. neurology consult appreciated. urine output 40 ml/ hr PhosLo recommended by nephrology. sodium bicar 650 mg po BID, no indication for renal replacement therapy 4. Elevated troponin, rule out non-ST elevated myocardial infarction. Cardiology consult pending. 5. Acute hypoxic respiratory failure requiring ongoing intubation mechanical ventilation. And tinea to wean down on vent settings Patient is managed by site administrator. 6. Acute ESBL Klebsiella urinary tract infection with sepsis and septic shock requiring vasopressors. IV antibiotics changed from ceftriaxone to Zosyn, continue vasopressor support. 7. Thrombocytopenia secondary to sepsis. 8. BPH with prostatomegaly has indwelling Denny catheter at this time 9. Hypothyroidism. Continue levothyroxine 175 g daily 10. Hyperlipidemia 11. Hypertension currently hypotensive. 12. Tobacco use and dependence. DVT prophylaxis heparin subcu, to start in 24 hours. Post op patient reviewed his receive 1 dose kcentra 07/30 GI prophylaxis IV Protonix Prognosis guarded. Patient may need legal guardian appointed if he is not able to make his decisions CODE STATUS full code Objective - Vital Signs Vital signs: Vital Signs Temp 99.2 F 08/06/21 04:00 Pulse 90 08/06/21 08:53 Resp 26 H 08/06/21 07:00 BP 112/65 08/05/21 19:00 Pulse Ox 99 08/06/21 07:00 Intake & Output 08/05/21 08/06/21 08/06/21 18:59 06:59 18:59 Intake Total 2461.573 2682.673 109.717 Output Total 945 1815 60 Balance 665.957 -504.327 49.717 Weight 96 kg 88.9 kg Intake: IV 650 550 40 0.9 650 550 40 Intake, IV Titration 285.957 175.673 69.717 Amount Norepinephrine 32 mg In 77.249 75.673 Sodium Chloride 0.9% 218 ml @ 0.05 MCG/KG/MIN 1. 807 mls/hr IV .Q24H [facility] Rx#:[id number] Sodium Chloride 0.9% 150 25.092 ml @ 0.04 UNITS/MIN 6.12 mls/hr IV .Q24H [facility] with Vasopressin 60 unit Rx#: [id number] propofoL 1,000 mg In 183.616 100.000 69.717 Empty Bag 1 bag @ Titrate IV .Q0M [facility] Rx#: [id number] Tube Feeding 585 495 Other 90 90 Output: Drainage 1200 Right Lateral Back 1200 Urine 945 615 60 Other: Voiding Method Indwelling Catheter Indwelling Catheter ABP, PAP, CO, CI - Last Documented Arterial Blood Pressure 118/48 - Labs CBC & Chem 7: 08/06/21 04:23 08/06/21 04:23 Labs: Abnormal Lab Results - Last 24 Hours (Table) 08/05/21 08/05/21 08/05/21 Range/Units 12:01 17:32 23:02 RBC (4.30-5.90) m/uL Hgb (13.0-17.5) gm/dL Hct (39.0-53.0) % RDW (11.5-15.5) % Plt Count (150-450) k/uL Neutrophils # (1.3-7.7) k/uL Lymphocytes # (1.0-4.8) k/uL ABG pO2 (83-108) mmHg ABG HCO3 (21-25) mmol/L ABG O2 Saturation (94-97) % Potassium (3.5-5.1) mmol/L Chloride (98-107) mmol/L BUN (9-20) mg/dL Creatinine (0.66-1.25) mg/dL Glucose (74-99) mg/dL POC Glucose (mg/dL) 133 H 114 H 130 H (75-99) mg/dL Calcium (8.4-10.2) mg/dL 08/06/21 08/06/21 08/06/21 Range/Units 04:23 04:23 06:10 RBC 3.19 L (4.30-5.90) m/uL Hgb 9.4 L (13.0-17.5) gm/dL Hct 27.8 L (39.0-53.0) % RDW 16.4 H (11.5-15.5) % Plt Count 99 L D (150-450) k/uL Neutrophils # 8.9 H (1.3-7.7) k/uL Lymphocytes # 0.7 L (1.0-4.8) k/uL ABG pO2 78 L (83-108) mmHg ABG HCO3 27 H (21-25) mmol/L ABG O2 Saturation 97.9 H (94-97) % Potassium 3.2 L (3.5-5.1) mmol/L Chloride 109 H (98-107) mmol/L BUN 101 H* (9-20) mg/dL Creatinine 5.27 H (0.66-1.25) mg/dL Glucose 132 H (74-99) mg/dL POC Glucose (mg/dL) (75-99) mg/dL Calcium 8.0 L (8.4-10.2) mg/dL Microbiology - Last 24 Hours (Table) 08/02/21 05:18 Blood Culture - Preliminary Blood No Growth after 96 hours 08/01/21 11:05 Blood Culture - Preliminary Blood No Growth after 96 hours
--- NOTE | 2021-08-06 13:11 | P.PN ---
Progress Note - Text Progress Note Date: 08/06/21 The patient remains unresponsive. Urine output has improved, as his output from the Denny catheter actually exceeds the output from the right nephrostomy tube. The urine is clear yellow in color. The serum creatinine level has decreased to 5.27. Placement of a left nephrostomy tube may further improve renal function, and should be considered if his overall condition improves.
[2021-08-06 15:36] LABS: Glucose,Whole Blood 151 mg/dL (75-99)
[2021-08-06] MEDS ORDERED: POTASSIUM BICARBONATE/CIT AC 20 MEQ TABLET.EFF NG-TUBE SCH (16:00)
--- NOTE | 2021-08-06 17:54 | PN ---
PROGRESS NOTE DATE OF SERVICE: 08/06/2021 REASON FOR FOLLOW UP: Complicated UTI. INTERVAL HISTORY: The patient is afebrile. The patient remains to be intubated on the vent. FiO2 is currently 30%. No significant purulent secretions through ET, diarrhea or any other changes reported by nursing staff. PHYSICAL EXAMINATION: Blood pressure 122/60 with a pulse of 86, temperature 99.1. He is 100% on 30% FiO2. General description is an elderly male intubated on the vent. Respiratory system: Unlabored breathing, decreased intensity of breath sounds. No wheeze. Heart S1, S2. Regular rate and rhythm. Abdomen soft, no tenderness. LABS: Hemoglobin 9.4, white count 10.5, creatinine 5.27. Blood culture negative. DIAGNOSTIC IMPRESSION AND PLAN: Patient with ESBL Klebsiella complicated UTI, status post right nephrostomy tube cystoscopy and resection of bladder tumor. Patient is covered with Invanz to continue for now while monitor clinical course closely. Continue supportive care. MMODL / IJN: [id number] /
[2021-08-06] MEDS: ERTAPENEM 0.5 GM in SODIUM CHLORIDE 0.9% 50 ML IVPB SCH (21:37)
[2021-08-07] MEDS: INSULIN ASPART (NovoLOG) 100 UNIT/ML VIAL SQ SCH ×4 (00:14→18:03)
[2021-08-07 00:17] LABS: Glucose,Whole Blood 129 mg/dL (75-99)
[2021-08-07] MEDS: IPRATROPIUM-ALBUTEROL 3 ML NEB INHALATION SCH ×6 (03:21→23:50)
[2021-08-07 04:22] LABS: Basophils % (A) 0 %; Eosinophils # (A) 0.1 k/uL (0-0.7); Eosinophils % (A) 1 %; HCT 27.1 % (39.0-53.0); HGB 8.9 gm/dL (13.0-17.5); Lymphocytes # (A) 0.7 k/uL (1.0-4.8); Lymphocytes % (A) 7 %; MCH 28.4 pg (25.0-35.0); MCHC 32.9 g/dL (31.0-37.0); MCV 86.1 fL (80.0-100.0); Mean Platelet Volume 9.6; Monocytes # (A) 0.4 k/uL (0-1.0); Monocytes % (A) 4 %; Neutrophils % (A) 85 %; Platelet Count 124 k/uL (150-450); RBC 3.15 m/uL (4.30-5.90); RDW 15.9 % (11.5-15.5); WBC 9.4 k/uL (3.8-10.6)
[2021-08-07 04:36] LABS: Calcium 8.2 mg/dL (8.4-10.2); Potassium 3.6 mmol/L (3.5-5.1)
[2021-08-07 05:57] LABS: ABG Base Excess -2.9 mmol/L; ABG HCO3 21 mmol/L (21-25); ABG Oxygen Saturation 98.3 % (94-97); ABG PCO2 32 mmHg (35-45); ABG PH 7.44 (7.35-7.45); ABG PO2 93 mmHg (83-108); ABG TCO2 22 mmol/L (19-24); Allen Test Performed? Yes
[2021-08-07] MEDS ORDERED: POTASSIUM BICARBONATE/CIT AC 20 MEQ TABLET.EFF NG-TUBE SCH (06:00)
[2021-08-07] MEDS: CALCIUM ACETATE 667 MG TAB PO SCH ×3 (06:42→18:03)
[2021-08-07] MEDS: LEVOTHYROXINE 88 MCG TAB PO SCH (06:42)
[2021-08-07 06:53] LABS: Glucose,Whole Blood 148 mg/dL (75-99)
--- NOTE | 2021-08-07 09:07 | P.PN ---
Subjective Patient is seen in follow-up for acute kidney injury. Patient had a right-sided nephrostomy tube placed July 31. Urine output 50-60 mL an hour. Creatinine 4.92 today. Intubated. Remains on Levophed. Receiving tube feeds. Vital signs: On vasopressor support. HEENT: Intubated. LUNGS: Breath sounds decreased. HEART: Regular rate and rhythm. ABDOMEN: Soft, no distention. EXTREMITITES: Trace edema. Objective - Vital Signs Vital signs: Vital Signs Temp 98.6 F 08/07/21 04:00 Pulse 90 08/07/21 07:00 Resp 29 H 08/07/21 07:00 BP 120/73 08/07/21 07:00 Pulse Ox 96 08/07/21 07:00 Intake & Output 08/06/21 08/07/21 08/07/21 18:59 06:59 18:59 Intake Total 9009.221 7273.205 30.137 Output Total 775 2010 Balance 520.474 -991.795 30.137 Weight 93 kg Intake: IV 520 240 0.9 520 240 Intake, IV Titration 145.474 148.205 30.137 Amount Ertapenem 0.5 gm In 100 Sodium Chloride 0.9% 50 ml @ 100 mls/hr IVPB DAILY@2100 [facility] Rx#: [id number] Norepinephrine 32 mg In 65.978 13.445 Sodium Chloride 0.9% 218 ml @ 0.05 MCG/KG/MIN 1. 807 mls/hr IV .Q24H [facility] Rx#:[id number] propofoL 1,000 mg In 79.496 34.76 30.137 Empty Bag 1 bag @ Titrate IV .Q0M [facility] Rx#: [id number] Tube Feeding 540 540 Other 90 90 Output: Drainage 1300 Right Lateral Back 1300 Urine 775 710 Other: Voiding Method Indwelling Catheter Indwelling Catheter ABP, PAP, CO, CI - Last Documented Arterial Blood Pressure 117/67 - Labs CBC & Chem 7: 08/07/21 04:00 08/07/21 04:00 Labs: Abnormal Lab Results - Last 24 Hours (Table) 08/06/21 08/06/21 08/07/21 Range/Units 11: 15:34 00:14 RBC (4.30-5.90) m/uL Hgb (13.0-17.5) gm/dL Hct (39.0-53.0) % RDW (11.5-15.5) % Plt Count (150-450) k/uL Neutrophils # (1.3-7.7) k/uL Lymphocytes # (1.0-4.8) k/uL ABG pCO2 (35-45) mmHg ABG O2 Saturation (94-97) % Sodium (137-145) mmol/L Chloride (98-107) mmol/L BUN (9-20) mg/dL Creatinine (0.66-1.25) mg/dL Glucose (74-99) mg/dL POC Glucose (mg/dL) 165 H 151 H 129 H (75-99) mg/dL Calcium (8.4-10.2) mg/dL 08/07/21 08/07/21 08/07/21 Range/Units 04:00 04:00 05:48 RBC 3.15 L (4.30-5.90) m/uL Hgb 8.9 L (13.0-17.5) gm/dL Hct 27.1 L (39.0-53.0) % RDW 15.9 H (11.5-15.5) % Plt Count 124 L (150-450) k/uL Neutrophils # 8.0 H (1.3-7.7) k/uL Lymphocytes # 0.7 L (1.0-4.8) k/uL ABG pCO2 32 L (35-45) mmHg ABG O2 Saturation 98.3 H (94-97) % Sodium 147 H (137-145) mmol/L Chloride 112 H (98-107) mmol/L BUN 106 H* (9-20) mg/dL Creatinine 4.92 H (0.66-1.25) mg/dL Glucose 132 H (74-99) mg/dL POC Glucose (mg/dL) (75-99) mg/dL Calcium 8.2 L (8.4-10.2) mg/dL 08/07/21 Range/Units 06:51 RBC (4.30-5.90) m/uL Hgb (13.0-17.5) gm/dL Hct (39.0-53.0) % RDW (11.5-15.5) % Plt Count (150-450) k/uL Neutrophils # (1.3-7.7) k/uL Lymphocytes # (1.0-4.8) k/uL ABG pCO2 (35-45) mmHg ABG O2 Saturation (94-97) % Sodium (137-145) mmol/L Chloride (98-107) mmol/L BUN (9-20) mg/dL Creatinine (0.66-1.25) mg/dL Glucose (74-99) mg/dL POC Glucose (mg/dL) 148 H (75-99) mg/dL Calcium (8.4-10.2) mg/dL Microbiology - Last 24 Hours (Table) 08/02/21 05:18 Blood Culture - Preliminary Blood No Growth after 120 hours 08/01/21 11:05 Blood Culture - Preliminary Blood No Growth after 120 hours Assessment and Plan Plan: Assessment: 1. Acute kidney injury secondary to ATN secondary to hypotension and obstructive uropathy. Creatinine was 6.8 on admission and is 4.92 today. Unknown baseline renal function. Nonoliguric. 2. Hematuria and bilateral hydronephrosis with high suspicion for bladder cancer. Status post right-sided nephrostomy tube placed 07/31/2021. May also need left-sided nephrostomy tube. 3. Acute hypercapnic and hypoxic respiratory failure. 4. Metabolic acidosis secondary to acute kidney injury s/p bicarb drip. Now on oral bicarb. 5. Shock maintained on Levophed. 6. Hyperphosphatemia secondary to acute kidney injury. On PhosLo. 7. Klebsiella UTI on antibiotics. 8. Hypokalemia from poor intake. Being replaced. 9. Hypernatremia from lack of oral water intake. Plan: Receiving tube feeds. Increase free water to 50 mL per hour with tube feeds. Wean FiO2 and vasopressors. Potassium being replaced. Continue to assess daily for need for renal replacement therapy. No urgent need at this time.
[2021-08-07] MEDS: ENOXAPARIN 30 MG/0.3 ML SYRINGE SQ SCH (09:40)
[2021-08-07] MEDS: SODIUM BICARBONATE TAB 650 MG TAB PO SCH ×4 (09:40→21:52)
[2021-08-07] MEDS: CHLORHEXIDINE GLUCONATE 15 ML CUP MUCOUS MEM SCH ×2 (09:40→21:52)
[2021-08-07] MEDS: PANTOPRAZOLE 40 MG/10 ML VIAL IV SCH (09:41)
--- NOTE | 2021-08-07 10:46 | XR ---
EXAMINATION TYPE: XR chest 1V DATE OF EXAM: 08/07/2021 COMPARISON: 08/06/2021 HISTORY: 76 years Male. STUDY INDICATION GIVEN: Intubated . TECHNIQUE: AP chest radial IMPRESSION: Endotracheal tube and enteric tubes in good positioning. Left greater than right bibasilar opacities with mild interstitial edema. No significant change. No pneumothorax or large effusion. Stable cardiac silhouette. Stable osseous structures.
[2021-08-07 12:18] LABS: Glucose,Whole Blood 147 mg/dL (75-99)
--- NOTE | 2021-08-07 13:22 | P.PN ---
Subjective Progress Note Date: 08/07/21 HISTORY OF PRESENT ILLNESS This 76-year-old pleasant gentleman, patient of Dr. Wills. History of hypertension hyperlipidemia, hypothyroidism, who was noted to have some bleeding in the toilet for several days, unsure how long the duration was, however he is on blood thinners, he was found on the floor today, patient denies any headache, however it's unclear how the patient fell. He does not admit to syncopal event, patient was subsequently setting to emergency room from home, to the emergency via EMS, a condom catheter was placed, and that's how they found that patient is having gross hematuria rather than rectal bleeding. In emergency room, central line was placed for IV hydration, blood pressure was 75/50, daily urinalysis, shows over 182 RBCs and WBC, hemoglobin 10.4 WBC count 11.0, platelet 297, creatinine of 6.1, BUN of 77, unknown baseline. Patient had CAT scan, head and cervical spine, shows multilevel cervical spondylosis change, no fracture, and no dislocation. No intracranial hemorrhage, intact calvarium. Computed tomography scan of the abdomen, shows bilateral hydronephrosis, and hydroureter, more on the right than the left, there is bilateral renal vascular calcification, no renal calculi, no ureteral calculi. There is no inguinal hernia, no fluid in the pelvis, bilateral stents in the abdominal aorta and iliac arteries, no mesenteric edema, no ascites or free air. No bowel obstruction, bladder imaging is not well evaluated due to lack of distention there is colonic diverticula, without signs of diverticulitis. Chest x-ray shows mild pulmonary fibrosis Consult was made with nephrology, urology and intensive care management, patient admitted to ICU for significant gross hematuria, obstructive uropathy, with mental status changes, and suspected syncope, with a fall long-term anticoagulation, elevated troponin Patient is taken to the operating room, for cystoscopy, evacuation of clot, and transient Trial resection of the bladder as a CAT scan per review from urology, shows bladder irregularity. There is a large sessile tumor, in the right posterolateral bladder wall. It was dense and suspected to have obviously a high grade tumor, with muscular invasion 08/01: Patient remains in the intensive care unit intubated on mechanical ventilation with tidal volume 500, FiO2 40, PEEP of 5. Patient is on levo fed, vasopressin, Nimbex, fentanyl, bicarb drip and propofol. The patient has hematuria from Denny catheter and nephrostomy tube and there is small amount of leaking from the meatus. 08/02: Patient remains in the intensive care unit intubated and on mechanical ventilation with tidal volume 500, FiO2 50, PEEP 5. Patient has been weaned down on norepinephrine continued on vasopressin, Nimbex, fentanyl and propofol. He has been afebrile, heart rate 77, blood pressure 92/59, pulse ox 100%. He had monitor sinus rhythm. Repeat blood work reveals WBC 21.2, hemoglobin 9.9, platelet count 125. Lites are within normal limits. BUN 78 creatinine 6.41. Capillary blood glucose running between 113 and 121. Urine culture has been finalized with ESBL Klebsiella oxytoca and antibiotics will be changed from ceftriaxone to Zosyn. 08/03 patient examined while intubated. Patient is postop 3 continues to remain ventilator on assist control mode respiratory rate of 26 and volume 500 FiO2 40 and PEEP of 5. FiO2 decreased to 30 with patient maintaining her oxygen saturations between 96-98%. He continues to remain on propofol at 25 valentin per KG per minute. Vasopressin at 0.04 units per minute, norepinephrine at 20 mics KG per minute and fentanyl 0.5 valentin per KG per minute. Patient's bicarb drip was discontinued and is currently on half-normal saline at 50 mL per hour. Nimbex has been discontinued. Patient vitals are stable with temp 97.8 pulse 63 respiratory rate 26 blood pressure 109/71. Leukocytosis of 14.5, hemoglobin 9.3 platelet has reduced to 93. Potassium is 3.3 bicarb 21 BUN 85 creatinine 6. 47. Urine output is approximately 10-15 mL per hour about 250 developed intermittent nephrostomy tube. Lasix 80 mg IV to be given today. Potassium is being repleted. No need for dialysis as at this point per nephrology Patient contineus to remain intubated with vent setting involving assist control, resp rate 26, tidal vol 500, PEEP 5 and Fio2 40 %. Patient continues to remain aon vasopressor and norepinephrine. Sedation mentained with propofol and fentanyl. Patient is noticed to move his lower extremities but doesnot follow any commands. UO has improved appears to be 40 ml/ hr but appears to be serosangunous, continues to have 250 - 300 ml every 6 hour. pathology consistent with high-grade, muscle invasive urothelial carcinoma. Patient was seen by urology who has recommended left nephrostomy tube in next few days. patient was noted to be in atrial fib ad is on cardizem drip, metoprolol dose increased to 25 mg po TID per cardiology 08/05 patient examined at bedside continues to remain on the ventilator. He is currently on assist control respiratory rate of 26 tidal volume 500 FiO2 40% and PEEP of 5. Continues to remain on normal saline 50 cc/h, vasopressin .02 micrograms per, norepi at 4.8 mics per KG per minute, propofol at 10 mics per KG per minute. Patient was given 1 dose of Lasix per pulmonary. Labs are reviewed patient has a hemoglobin of 8.1 platelets stable at 63. An ABG was obtained and pH 7.42 PO2 117 and bicarb 28 BUN 95 creatinine 5.68 albumin low at 1.8 patient continues to receive Invanz per infectious disease patient initiated on enteral tube feeding blood sugar stable less than 150 urine output is maintained at 40 cc/h. 300 mL drained out of the nephrostomy tube tube today. Nephrology recommend continuing IV fluids diuresis as needed. No plan for renal replacement 08/06 patient examined at bedside continues to remain intubated. Patient is noted to have nonpurposeful movement. currently on assist control respiratory rate of 26 tidal volume 500 FiO2 30% and PEEP of 5. Continues to remain on normal saline, patient is self weaned off his pressors apparently on levo fed at 60 avlentin per KG per minute. Continuous remain in sinus rhythm blood pressure controlled. Chest x-ray showing persistent left mid lung and left greater than right basilar opacities with small left pleural effusion with no change compared to previous x-ray. Patient had good urine output after 40-50 mL per hour from the Denny catheter. He has right-sided nephrostomy tube with 1200 mL output since midnight. PH 7.41 pCO2 43 pO2 78, bicarb 27, hemoglobin stable at 9.4 Creatinine 5.27 calcium of 8. Plan for sedation withdrawal today for evaluating patient's mental status. 08/07 patient examined bedside neurology consultPatient is currently off PROPOFOL with nonpurposeful movement involving bilateral lower extremities. No episodes of agitation. Vitals are stable with a temp of 99.2, pulse 101 respiratory rate 32 blood pressure 1:30/63. Patient is currently on norepinephrine 0.13 valentin per KG per minute and normal saline running at 50 mL per hour. He is at assist control respiratory rate 26 tidal volume 500 FiO2 30 and PEEP of 5. Chest x-ray repeated this morning suggests of left greater than right bibasilar opacity with mild interstitial edema no significant change. No large effusion. Labs are reviewed patient hemoglobin is 8.9 dated 124 sodium 147 bicarb 112 BUN 106 creatinine 4.93 glucose stable between 130 and 148. Patient's nephew updated on the bladder cancer and poor prognosis. A CT head to be repeated this morning to check for change REVIEW OF SYSTEMS Unable to obtain due to intubation PHYSICAL EXAMINATION Gen: This is a 76-year-old male. He is resting in ICU bed, intubated and on mechanical ventilation HEENT: Head is atraumatic, normocephalic. Sclerae is anicteric. NECK: Supple. No JVD. No lymphadenopathy. No thyromegaly. LUNGS: Bilateral rhonchi. No intercostal retractions. HEART: irregularly irregular rate and rhythm. No murmur. ABDOMEN: Soft. Bowel sounds are present. No masses. No tenderness. Denny catheter with hematuria. Nephrostomy tube draining jemal urine. EXTREMITIES: No pedal edema. No calf tenderness. NEUROLOGICAL: Patient is sedated. ASSESSMENT AND PLAN 1. Gross hematuria, with hypotension, obstructive uropathy, and a suspected bladder tumor, malignancy is highly suspected resumed UTI with pyuria. Patient was seen by urology, status post transurethral bladder resection on 07/31/2021 Dr. Vinson. Patient managed in ICU.pathology -high-grade, muscle invasive uro thelial carcinoma as expected 2. Acute blood loss anemia, with hypovolemic and septic hypotension, from gross hematuria, requiring vasopressors, norepinephrine, maintained in ICU treatment, critical care medicine following. She is status post 1 unit packed RBCs. 3. Worsening Acute kidney injury secondary to bilateral hydronephrosis and hydroureter with workup suggestive of bladder cancer, unknown baseline for CK D. neurology consult appreciated. urine output 40 ml/ hr PhosLo recommended by nephrology. sodium bicar 650 mg po BID, no indication for renal replacement therapy 4. Elevated troponin, rule out non-ST elevated myocardial infarction. Cardiology consult pending. 5. Acute hypoxic respiratory failure requiring ongoing intubation mechanical ventilation. And tinea to wean down on vent settings Patient is managed by technical specialist cytogenetics. 6. Acute ESBL Klebsiella urinary tract infection with sepsis and septic shock requiring vasopressors. IV antibiotics changed from ceftriaxone to Zosyn, continue vasopressor support. 7. Thrombocytopenia secondary to sepsis. 8. BPH with prostatomegaly has indwelling Denny catheter at this time 9. Hypothyroidism. Continue levothyroxine 175 g daily 10. Hyperlipidemia 11. Hypertension currently hypotensive. 12. Tobacco use and dependence. DVT prophylaxis heparin subcu, to start in 24 hours. Post op patient reviewed his receive 1 dose kcentra 07/30 GI prophylaxis IV Protonix Prognosis guarded. Patient may need legal guardian appointed if he is not able to make his decisions CODE STATUS full code Objective - Vital Signs Vital signs: Vital Signs Temp 98.6 F 08/07/21 04:00 Pulse 90 08/07/21 07:00 Resp 29 H 08/07/21 07:00 BP 120/73 08/07/21 07:00 Pulse Ox 96 08/07/21 07:00 Intake & Output 08/06/21 08/07/21 08/07/21 18:59 06:59 18:59 Intake Total 9779.454 6481.205 30.137 Output Total 775 2010 Balance 520.474 -991.795 30.137 Weight 93 kg Intake: IV 520 240 0.9 520 240 Intake, IV Titration 145.474 148.205 30.137 Amount Ertapenem 0.5 gm In 100 Sodium Chloride 0.9% 50 ml @ 100 mls/hr IVPB DAILY@2100 [facility] Rx#: [id number] Norepinephrine 32 mg In 65.978 13.445 Sodium Chloride 0.9% 218 ml @ 0.05 MCG/KG/MIN 1. 807 mls/hr IV .Q24H [facility] Rx#:[id number] propofoL 1,000 mg In 79.496 34.76 30.137 Empty Bag 1 bag @ Titrate IV .Q0M [facility] Rx#: [id number] Tube Feeding 540 540 Other 90 90 Output: Drainage 1300 Right Lateral Back 1300 Urine 775 710 Other: Voiding Method Indwelling Catheter Indwelling Catheter ABP, PAP, CO, CI - Last Documented Arterial Blood Pressure 117/67 - Labs CBC & Chem 7: 08/07/21 04:00 08/07/21 04:00 Labs: Abnormal Lab Results - Last 24 Hours (Table) 08/06/21 08/06/21 08/07/21 Range/Units 11:21 15:34 00:14 RBC (4.30-5.90) m/uL Hgb (13.0-17.5) gm/dL Hct (39.0-53.0) % RDW (11.5-15.5) % Plt Count (150-450) k/uL Neutrophils # (1.3-7.7) k/uL Lymphocytes # (1.0-4.8) k/uL ABG pCO2 (35-45) mmHg ABG O2 Saturation (94-97) % Sodium (137-145) mmol/L Chloride (98-107) mmol/L BUN (9-20) mg/dL Creatinine (0.66-1.25) mg/dL Glucose (74-99) mg/dL POC Glucose (mg/dL) 165 H 151 H 129 H (75-99) mg/dL Calcium (8.4-10.2) mg/dL 08/07/21 08/07/21 08/07/21 Range/Units 04:00 04:00 05:48 RBC 3.15 L (4.30-5.90) m/uL Hgb 8.9 L (13.0-17.5) gm/dL Hct 27.1 L (39.0-53.0) % RDW 15.9 H (11.5-15.5) % Plt Count 124 L (150-450) k/uL Neutrophils # 8.0 H (1.3-7.7) k/uL Lymphocytes # 0.7 L (1.0-4.8) k/uL ABG pCO2 32 L (35-45) mmHg ABG O2 Saturation 98.3 H (94-97) % Sodium 147 H (137-145) mmol/L Chloride 112 H (98-107) mmol/L BUN 106 H* (9-20) mg/dL Creatinine 4.92 H (0.66-1.25) mg/dL Glucose 132 H (74-99) mg/dL POC Glucose (mg/dL) (75-99) mg/dL Calcium 8.2 L (8.4-10.2) mg/dL 08/07/21 Range/Units 06:51 RBC (4.30-5.90) m/uL Hgb (13.0-17.5) gm/dL Hct (39.0-53.0) % RDW (11.5-15.5) % Plt Count (150-450) k/uL Neutrophils # (1.3-7.7) k/uL Lymphocytes # (1.0-4.8) k/uL ABG pCO2 (35-45) mmHg ABG O2 Saturation (94-97) % Sodium (137-145) mmol/L Chloride (98-107) mmol/L BUN (9-20) mg/dL Creatinine (0.66-1.25) mg/dL Glucose (74-99) mg/dL POC Glucose (mg/dL) 148 H (75-99) mg/dL Calcium (8.4-10.2) mg/dL Microbiology - Last 24 Hours (Table) 08/02/21 05:18 Blood Culture - Preliminary Blood No Growth after 120 hours 08/01/21 11:05 Blood Culture - Preliminary Blood No Growth after 120 hours
--- NOTE | 2021-08-07 13:40 | P.PN ---
Subjective Progress Note Date: 08/07/21 Principal diagnosis: Respiratory failure. This is a 76-year-old male patient with a known history of hypertension, hyperlipidemia, hypothyroidism. He is brought into the emergency room last evening after being found on the floor. He was unsure if he fell or passed out. He felt that he had some bleeding that he noted in the toilet and sure whether it was rectal bleeding. Denny catheter was placed and there was gross hematuria. Computed tomography scan of the brain revealed no acute intracranial process. No evidence of fracture. She scan of the abdomen and pelvis revealed bilateral hydronephrosis and hydroureter. No obstructing calculus was seen. There was malposition of the Denny catheter apparently in the prostatic urethra. Chest x-ray showed mild pulmonary fibrosis. White count 13.3. Hemoglobin 11.1. Sodium 141. Potassium 4.7. Creatinine 6.10. Troponin 0.119, 0.077. He was ordered 1 unit of packed red blood cells and received K centra and was admi tted to the ICU for closer monitoring. He is seen today in consultation. He is awake and alert in no acute distress. Maintaining O2 saturations in the 90s on room air. He is requiring norepinephrine at 0.07 mcg/kg/m to maintain mean arterial pressures greater than 60. 0.9 normal saline at 75 ML's per hour. The plan is for cystoscopy with Dr. Vinson today. He had several 100 ML's of clot removed from the bladder. 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 A portion of the tumor was resected. It was a dense, obviously high-grade and muscle invasive. Excellent hemostasis was attained. Pathology is pending. Progress note dated 08/01/2021. This is a 76-year-old male admitted to the hospital on July 30. He came in with a number of issues including rectal bleeding. The patient went to the operating room yesterday, and had a right nephrostomy tube placed, a cystoscopy, and bladder tumor resection. The patient was intubated yesterday for the operative procedure. He remains on the ventilator. He has a history of hypertension, hyperlipidemia, and hypothyroidism. Currently, he is on the volume assist control mode, rate 20, tidal volume 500, FiO2 40%, and PEEP of 5. Blood gases show a PaO2 of 70, a pCO2 of 75, and a pH is 7.12. Those blood gases were done on a rate of 16 and a tidal volume of 455. Currently, the patient is on a number drips including 3 ampules of sodium bicarbonate and D5W at 100 mL an hour, will follow-up 40 mcg/kg/m, Nimbex at 0.25 mcg/kg/m, fentanyl at 0.5 mcg/kg/h, norepinephrine at 75 mcg/m, and vasopressin at 0.03 units per minute. White count 13.7, hemoglobin 10.7, hematocrit 34.1, and platelet count 250,000. Sodium 145, potassium 4, chlorides 112, CO2 23, anion gap 10, UA and 80, creatinine 6.53. Albumin is 2.2. Chest x-ray shows some interstitial density at the lung bases, which are worse in the prior x-ray. Progress note dated 08/02/2021. 76-year-old male, 251. The patient was admitted to the hospital on July 30. He came in with hematuria. The patient went to the operating room, and had a right nephrostomy tube placed, a cystoscopy, and bladder tumor resection. Pat hology is currently pending. The patient was intubated for the procedure, remains on the mechanical ventilator. Today, is postop day #2. The patient remains on the volume assist control mode, rate 20, tidal volume 500, FiO2 40%, and PEEP of 5. Blood gases show pO2 of 92, pCO2 of 59, and a pH of 7.28. The rate was increased from 20-26 breaths or minute. The patient currently is on vasopressin at 0.04 units per minute, propofol at 40 mcg/kg/m, norepinephrine 37 mcg/m, and 3 ampules of sodium bicarbonate and D5W at 100 mL an hour. In addition, the patient is on fentanyl at 0.5 mcg/kg/h, and Nimbex at 0.5 mcg/kg/m. The patient has a carrier IV of saline at 10 mL an hour. Because of the normal bicarbonate concentration on the electrolyte profile,the bicarbonate drip will be discontinued in favor of 0.45 saline at 75 mL an hour. White count 21.2, hemoglobin 9.9, hematocrit 30.1, and platelet count 125,000. Sodium 144, potassium 4.1, chlorides 107, CO2 25, anion gap is 12, BUN 78, and creatinine 6.41. Glucose is 125. Phosphorus is 6.1. Chest x-ray shows diffuse bilateral infiltrates, with a small left pleural effusion, which could be consistent with either pneumonia or interstitial edema. Progress note dated 08/03/2021. 76-year-old male, again seen in room 251. The patient remains on the mechanical ventilator. He was admitted to the hospital on July 30. He came in with hematuria. He went to the operating room and had a right nephrostomy tube, cystoscopy, and bladder tumor resection. Pathology is currently pending. Urine cytology was nondiagnostic. He is postop day #3. He remains on the ventilator, on the volume assist control mode, rate 26, tidal volume 500, FiO2 40%, and PEEP of 5. Arterial blood gases show a PaO2 of 126, pCO2 37, and pH is 7.41. The FiO2 was dropped to 30%. He remains on propofol at 25 mcg/kg/m, vasopressin at 0.04 units per minute, norepinephrine at 13 mcg/m, and fentanyl at 0.5 mcg/kg/h. In addition, he is on saline at 50 mL an hour, and vital 1.2 at 40 mL an hour, with a goal of 45 mL an hour. Nimbex has been weaned off. White count 14.5, hemoglobin 9.3, hematocrit 27.6, and platelet count 93,000. Sodium 140, pot assium 3.3, chlorides 106, CO2 21, anion gap is 13, BUN is 85, with a creatinine 6.47. Calcium is 7.2. Urine is showing Klebsiella oxytoca from the . Chest x-ray showed diffuse patchy infiltrates, which could be consistent with pneumonia or fluid overload. Progress note dated 08/04/2021. 76-year-old male, again seen in room 251. The patient remains on mechanical ventilator. He is postop day #4, status post right nephrostomy tube, cystoscopy, and bladder tumor resection. The pathology report did come back showing malignancy. Currently, the patient's on volume assist control, rate 26, tidal volume 500, FiO2 40%, and PEEP of 5. Blood gases show pO2 of 58, pCO2 41, and a pH is 7.44. Those blood gases were done on 30% FiO2. The patient's on saline at 50 mL an hour, vasopressin at 0.03 units per minute, norepinephrine which is been weaned down to 8 mcg/m, propofol at 30 mcg/kg/m, and fentanyl at 0.5 mcg/kg/h. The patient remains on vital 1.2, at goal, which is 45 mL an hour. White count 13.3, hemoglobin 8.8, hematocrit 26.4, and platelet count 72,000. Sodium 141, potassium 3.4, chlorides 107, CO2 24, anion gap 10, BUN 95, and creatinine 5.96. Sputum is showing group B strep, urine is showing gram- negative bacilli, which may be Klebsiella oxytoca. Chest x-ray continues to show bilateral and bibasilar infiltrates and/or atelectasis. Abnormalities, are more left than right sided. Progress note dated 08/05/2021. 76-year-old male, again seen in room 251. The patient remains on the ventilator. He is postop day #5, status post right nephrostomy tube, cystoscopy , and bladder tumor resection. The pathology was consistent with malignancy. The patient remains on the volume assist control mode, rate 26, tidal volume 500, FiO2 40%, and PEEP of 5. The patient's blood gases showed a pO2 of 117, PaCO2 43, pH is 7.42. The FiO2 was dropped down to 30%. Patient is on saline at 50 mL an hour, vasopressin at 0.02 units per minute, norepinephrine at 4.8 mcg/m propofol at 10 mcg/kg/m and vital AF at 45 mL an hour, which is goal. The patient is currently on ertapenem for extended spectrum beta-lactamase producing Klebsiella. We will attempt a spontaneous breathing trial on the patient today, after stopping his propofol. In addition, we'll give him Lasix, 60 mg IV push once. White count 8.8, hemoglobin 8.1, hematocrit 25.3, platelet count 63,000. Sodium 142, potassium 3.5, chlorides 108, CO2 26, anion gap 8, BUN 95, creatinine 5.68. Albumin is 1.8. Chest x-ray shows bibasilar infiltrates. There is no evident pneumothorax. On today's evaluation on 08/06/2021 patient seen in follow-up in intensive care unit, he remains sedated, and mechanically ventilated, on assist-control mode of ventilation with a rate of 26, tidal I'm is 500, FiO2 of 30% and PEEP of 5, this morning's blood gas shows pO2 of 70, pCO2 of 43, and pH of 7.41, this was done o n FiO2 of 30% and above mentioned vent settings, currently on 0.9 normal saline at a rate of 50 ML per hour, to prevent is being weaned down and is currently infusing at 5 mics per kilo per minute, levo fed is infusing at 16 mics per minute. He is on tube feedings with vital AF at a rate of 45 with a goal 45 and standard water flushes. he is in sinus mechanism with a rate of 86, current blood pressure is 134/61. Chest x-ray was reviewed showing persistent left midlung and left greater than right eye basilar opacities with small left pleural effusion with no significant change compared to the previous chest x- ray. His labs have been reviewed showing white blood cell, 10.5, hemoglobin of 9.4, sodium is 145, potassium 3.2, chloride is 109, CO2 26, BUN of 101, creatinine of 5.27. Patient is on Invanz for ESBL Klebsiella Oxytoca in the urine cultures and strep group B in the sputum. Blood cultures have shown no growth thus far, repeat urine culture has shown no growth. Urine output is in the order of 40-50 ML per hour from the Denny catheter, and patient has a right- sided nephrostomy in place with an average outputs of 1 L in the 12 hour shift. Yesterday was given a sedation holiday, however he quickly failed related to agitation however he did not fully wake up and follow command. We will attempt sedation holiday again today. Progress note dated 08/07/2021. The patient remains in the intensive care unit. He is again seen in room 251. The patient is on the mechanical ventilator, with settings of volume assist control, rate 26, tidal volume 500, FiO2 30%, PEEP of 5. Blood gases show a PaO2 of 93, pCO2 32, and a pH is 7.44. Today is postop day #7, status post righ t nephrostomy tube, cystoscopy, and bladder tumor resection. Pathology was consistent with malignancy. In addition, the patient's on saline at 20 mL an hour, norepinephrine at 10.6 mcg/m, and vital AF at 45 mL an hour, which is goal. The patient has been off of sedation for some time now, is not responding appropriately. Hence, we'll have neurology see him. In addition, the patient is on ertapenem, for extended spectrum beta-lactamase producing Klebsiella oxytoca infection. Labs include a white count 9.4, hemoglobin 8.9, hematocrit 27.1, and platelet count 124,000. Sodium 147, potassium 3.6, chlorides 112, CO2 27, anion gap 8, BUN 106, and creatinine were 4.92. Chest x-ray shows bibasilar infiltrates, or atelectasis, left greater than right. Objective - Vital Signs Vital signs: Vital Signs Temp 99.2 F 08/07/21 12:00 Pulse 101 H 08/07/21 13:00 Resp 32 H 08/07/21 13:00 BP 120/73 08/07/21 08:00 Pulse Ox 96 08/07/21 13:00 Intake & Output 08/06/21 08/07/21 08/07/21 18:59 06:59 18:59 Intake Total 9721.442 1515.205 500.137 Output Total 775 2010 425 Balance 520.474 -991.795 75.137 Weight 93 kg Intake: IV 520 240 120 0.9 520 240 120 Intake, IV Titration 145.474 148.205 30.137 Amount Ertapenem 0.5 gm In 100 Sodium Chloride 0.9% 50 ml @ 100 mls/hr IVPB DAILY@2100 [facility] Rx#: [id number] Norepinephrine 32 mg In 65.978 13.445 Sodium Chloride 0.9% 218 ml @ 0.05 MCG/KG/MIN 1. 807 mls/hr IV .Q24H [facility] Rx#:[id number] propofoL 1,000 mg In 79.496 34.76 30.137 Empty Bag 1 bag @ Titrate IV .Q0M [facility] Rx#: [id number] Tube Feeding 540 540 270 Other 90 90 80 Output: Drainage 1300 Right Lateral Back 1300 Urine 775 710 425 Other: Voiding Method Indwelling Catheter Indwelling Catheter Indwelling Catheter ABP, PAP, CO, CI - Last Documented Arterial Blood Pressure 130/63 - Exam No acute distress, the patient is not on any sedation, and has an orally placed endotracheal tube and NG tube HEENT examination is grossly unremarkable. Neck supple. Full range of motion. No adenopathy thyromegaly or neck vein distention. Cardiovascular examination reveals regular rhythm rate. S1-S2 normal. No S3 or S4. No discernible murmur noted. Heart sounds are distant. Heart rate 101 bpm. Lungs reveal diffuse bilateral coarse rhonchi. Breath sounds are equal. No wheezes or crackles noted. Saturations are 96%. Abdomen is soft, without bowel sounds. Extremities are intact. No cyanosis clubbing or edema. Skin is without rash or lesion. Neurologic examination reveals a patient who is not sedated, but is not responsive to verbal or painful stimuli. - Labs CBC & Chem 7: 08/07/21 04:00 08/07/21 04:00 Labs: Abnormal Lab Results - Last 24 Hours (Table) 08/06/21 08/07/21 08/07/21 Range/Units 15:34 00:14 04:00 RBC 3.15 L (4.30-5.90) m/uL Hgb 8.9 L (13.0-17.5) gm/dL Hct 27.1 L (39.0-53.0) % RDW 15.9 H (11.5-15.5) % Plt Count 124 L (150-450) k/uL Neutrophils # 8.0 H (1.3-7.7) k/uL Lymphocytes # 0.7 L (1.0-4.8) k/uL ABG pCO2 (35-45) mmHg ABG O2 Saturation (94-97) % Sodium (137-145) mmol/L Chloride (98-107) mmol/L BUN (9-20) mg/dL Creatinine (0.66-1.25) mg/dL Glucose (74-99) mg/dL POC Glucose (mg/dL) 151 H 129 H (75-99) mg/dL Calcium (8.4-10.2) mg/dL 08/07/21 08/07/21 08/07/21 Range/Units 04:00 05:48 06:51 RBC (4.30-5.90) m/uL Hgb (13.0-17.5) gm/dL Hct (39.0-53.0) % RDW (11.5-15.5) % Plt Count (150-450) k/uL Neutrophils # (1.3-7.7) k/uL Lymphocytes # (1.0-4.8) k/uL ABG pCO2 32 L (35-45) mmHg ABG O2 Saturation 98.3 H (94-97) % Sodium 147 H (137-145) mmol/L Chloride 112 H (98-107) mmol/L BUN 106 H* (9-20) mg/dL Creatinine 4.92 H (0.66-1.25) mg/dL Glucose 132 H (74-99) mg/dL POC Glucose (mg/dL) 148 H (75-99) mg/dL Calcium 8.2 L (8.4-10.2) mg/dL 08/07/21 Range/Units 12:16 RBC (4.30-5.90) m/uL Hgb (13.0-17.5) gm/dL Hct (39.0-53.0) % RDW (11.5-15.5) % Plt Count (150-450) k/uL Neutrophils # (1.3-7.7) k/uL Lymphocytes # (1.0-4.8) k/uL ABG pCO2 (35-45) mmHg ABG O2 Saturation (94-97) % Sodium (137-145) mmol/L Chloride (98-107) mmol/L BUN (9-20) mg/dL Creatinine (0.66-1.25) mg/dL Glucose (74-99) mg/dL POC Glucose (mg/dL) 147 H (75-99) mg/dL Calcium (8.4-10.2) mg/dL Microbiology - Last 24 Hours (Table) 08/01/21 11:05 Blood Culture - Final Blood No Growth after 144 hours 08/02/21 05:18 Blood Culture - Preliminary Blood No Growth after 120 hours Assessment and Plan Assessment: Gross hematuria, secondary to bladder tumor, status post cystoscopy and biopsies, 07/31/2021, postop day #7. Pathology is positive for malignancy. Routine postoperative ventilator management, with intubation for the procedure above, on July 31. New onset mental status changes, neurology consulted 08/07/2021. Hypotension, likely secondary to sepsis from ESBL Klebsiella oxytoca urinary tract infection. Anemia, status post 1 unit of PRBCs. Acute kidney injury, secondary to ATN. Mild troponin leak. Hyperlipidemia. History of hypertension. Hypothyroidism. Prior history of tobacco use. Plan: Plan dated 08/01/2021. Currently, obviously, the patient's quite ill. He is essentially maxed out on norepinephrine and vasopressin. He is currently sedated and paralyzed. Not much more to do for this patient. The patient remains on Rocephin. The other medications are reviewed and are appropriate. Unnecessary medications will be discontinued. Overall prognosis is poor. We will continue to follow make recom mendations where appropriate. Plan dated 08/02/2021. The respiratory rate on the ventilator will be increased to 26 breaths per minute. This will help to reduce see PaCO2, and increase the pH to are normal range. The patient remains on both vasopressin and norepinephrine, for blood pressure support. In addition, the patient's on propofol, Nimbex, and fentanyl. The patient's sodium bicarbonate drip will be continued, and the patient will be placed on half-normal saline at 75 mL an hour. We will continue to follow make recommendations where appropriate. Overall prognosis remains poor. Plan dated 08/03/2021. The Klebsiella in the urine was extended spectrum beta-lactamase producing Kl ebsiella. The patient is currently on ertapenem. The patient remains on norepinephrine and vasopressin. The patient's overall prognosis is very poor. Pathology from the recent surgery still pending. Urine cytology was nondiagnostic. We were able to wean the patient off the Nimbex. We will con tinue to follow and make recommendations where appropriate. Overall prognosis remains very poor. Plan dated 08/04/2021. Currently, the patient is still on the ventilator. The vasopressin remains a 0.03 units per minute and norepinephrine has been weaned down 8 mcg/m. The patient remains on propofol and fentanyl. The patient was weaned off of Nimbex a few days ago. Overall, the patient has shown some improvement. The pathology report is back on the chart, showing malignancy. Urine cytology was nondiagnostic. We will continue to follow and make recommendations where appropriate. Overall prognosis remains poor given the path report. The patient is not quite ready to be taken off of life support. Plan dated 08/05/2021. The patient remains on the mechanical ventilator. The patient is being seen by nephrology. We will attempt to wean the vasopressin off. I told the nurse even if it means going up a bit higher on the norepinephrine, that would be a good thing. The patient remains on antibiotic or his Klebsiella oxytoca infection. We will attempt a spontaneous breathing trial. The patient is also given Lasix, 60 mg IV push once. No additional recommendations are made. We will continue to follow and make recommendations where appropriate. Again, prognosis is very guarded. Plan dated 08/07/2021. The patient has been off his sedation for some time. Unfortunately, he is not responding. We will ask for a neurology consult. They will probably order a computed tomography scan, and EEG. The patient remains on norepinephrine at about 11 mcg/m. He is receiving tube feedings with vital AF at goal. Addition, the patient is on ertapenem for extended spectrum beta-lactamase producing Klebsiella oxytoca infection. Prognosis is guarded. We will continue to follow make recommendations where appropriate. Time with Patient: Greater than 30
--- NOTE | 2021-08-07 13:59 | P.CNNES ---
History of Present Illness Consult date: 08/07/21 Requesting physician: Flory Green Reason for Consult: unresponsive off sedation History of Present Illness: This is a 76-year-old gentleman with medical history of hypertension, hyperlipidemia, hypothyroidism presented to the emergency department on 07/30/2021 after being found on the floor and unsure if he passed out. It seems that the patient had rectal bleeding and the toilet. Neurology is consulted since patient is unresponsive even though the patient is off sedation. She was obtained from medical record and his nurse. Per the nurse, sedation has been held for about 7-8 hours yesterday during the day but no improvement in his mentation or neurological exam. Today the IV propofol 10mcg/kg/min has been hel d since 7am and also no improvement and he would move his head from sided to side. Recently the during this hospital admission it was noted the patient has gross hematuria secondary due to a bladder tumor last post cystoscopy scope he and biopsy on 07/31/2021. 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 During his hospital stay it was felt the patient was in septic shock related to the ESBL Klebsiella UTI and strep pneumo group B Patient was intubated and on ventilator for the procedure on 07/31/21. Patient also had acute kidney injury and was improving as well as had anemia and received 1 unit of red blood cell. Some of the other workup in the hospital consisted of: Most current vital signs his blood pressure of 117/63, heart rate of 97, respiratory of 29, pulse ox of 97% on the 30% FiO2. Most recent temperature is 98.7 patient had a blood pressure of 95/63 on 08/07/2021 at 9:30 also had some recordings in the 90s systolic. Blood pressure on 07/31/2021 was in the 76/42 and was as low as the 50s over 30s. More sent white blood cell is 9.4 thousand which is drastically better compared to during this hospital stay at. Most recent hemoglobin is 8.9, platelets is the 124K and was as low as 6200 on 08/05 Sodium is 147, creatinine is 4.92, calcium is 8.2, POC glucose is 148. AST is 35 ALT is 14 on 08/05/2021. TSH is 1.190 Of the head on 07/30/2021 is reported as cerebral atrophy. No acute intracranial abnormality. CT cervical spine was reported as mild multilevel cervical spondylitic changes. No fracture. The echo was reported as left ventricular size is normal. Wall thickness is normal. Ejection fraction of 30-35%. Review of Systems Review of system: Is limited but apparent positive and negative as per HPI. Past Medical History Past Medical History: Hearing Disorder / Deafness, Hyperlipidemia, Hypertension, Osteoarthritis (OA), Prostate Disorder, Thyroid Disorder History of Any Multi-Drug Resistant Organisms: ESBL Date of last positivie culture/infection: 07/31/21 MDRO Source:: ESBL URINE Additional Past Surgical History / Comment(s): aaa Past Psychological History: No Psychological Hx Reported Smoking Status: Current every day smoker Past Alcohol Use History: None Reported Past Drug Use History: None Reported Medications and Allergies Home Medications Medication Instructions Recorded Confirmed Type hydroCHLOROthiazide 25 mg PO DAILY 03/12/16 07/31/21 History lisinopriL 40 mg PO DAILY 03/12/16 07/31/21 History Clopidogrel [Plavix] 75 mg PO DAILY 07/31/21 07/31/21 History Levothyroxine Sodium [Euthyrox] 175 mcg PO DAILY 07/31/21 07/31/21 History Rosuvastatin Calcium [Crestor] 5 mg PO DAILY 07/31/21 07/31/21 History rOPINIRole HCL [Requip] 1 mg PO BID 07/31/21 07/31/21 History Allergies Allergy/AdvReac Type Severity Reaction Status Date / Time No Known Allergies Allergy Verified 03/12/16 14:04 Physical Examination - Vital Signs Vital Signs: Vital Signs Temp Pulse Resp BP Pulse Ox 08/07/21 11:00 97 29 H 97 08/07/21 10:30 101 H 29 H 96 08/07/21 10:00 96 28 H 96 08/07/21 09:30 90 26 H 86 L 08/07/21 09:00 98 30 H 96 08/07/21 08:30 94 28 H 99 08/07/21 08:00 98.7 F 93 29 H 120/73 96 08/07/21 07:30 93 29 H 96 08/07/21 07:00 90 29 H 120/73 96 08/07/21 06:30 87 26 H 120/73 95 08/07/21 06:00 88 26 H 120/73 96 08/07/21 05:30 86 26 H 120/73 96 08/07/21 05:00 86 26 H 120/73 96 08/07/21 04:30 90 30 H 116/68 95 08/07/21 04:00 98.6 F 87 30 H 107/65 08/07/21 03:38 87 08/07/21 03:30 85 26 H 107/65 97 08/07/21 03:21 85 08/07/21 03:00 86 26 H 107/65 97 08/07/21 02:30 88 29 H 107/65 96 08/07/21 02:00 88 27 H 107/65 96 08/07/21 01:30 85 26 H 107/65 97 08/07/21 01:00 86 25 H 107/65 96 08/07/21 00:30 82 26 H 107/65 96 08/07/21 00:00 98.4 F 80 26 H 119/69 96 08/06/21 23:51 85 08/06/21 23:30 82 17 119/69 98 08/06/21 23:26 84 08/06/21 23:08 85 28 H 119/69 97 08/06/21 23:00 85 28 H 119/69 97 08/06/21 22:30 80 27 H 119/69 97 08/06/21 22:00 82 28 H 119/69 97 08/06/21 21:30 87 27 H 119/69 96 08/06/21 21:00 89 21 119/69 96 08/06/21 20:30 89 30 H 119/69 94 L 08/06/21 20:00 98.4 F 90 33 H 126/75 96 08/06/21 19:30 81 37 H 126/75 97 08/06/21 19:23 80 08/06/21 19:00 84 26 H 126/75 95 08/06/21 18:30 98 32 H 126/75 95 08/06/21 18:00 92 26 H 126/75 96 08/06/21 17:30 92 28 H 97 08/06/21 17:00 96 23 98 08/06/21 16:30 96 30 H 126/75 98 08/06/21 16:00 98.7 F 94 29 H 125/82 98 08/06/21 15:30 85 26 H 08/06/21 15:27 85 08/06/21 15:17 84 08/06/21 15:00 86 29 H 125/82 100 08/06/21 14:30 82 26 H 99 08/06/21 14:00 87 21 125/82 99 08/06/21 13:30 89 31 H 92 L 08/06/21 13:00 92 29 H 125/82 96 08/06/21 12:30 84 26 H 99 08/06/21 12:00 99.1 F 88 29 H 119/64 99 Intake and Output 08/06/21 08/07/21 08/07/21 22:59 06:59 14:59 Intake Total 740.447 779.76 365.137 Output Total 780 1505 275 Balance -39.553 -725.24 90.137 Intake: IV 260 180 80 0.9 260 180 80 Intake, IV Titration 60.447 134.76 30.137 Amount Ertapenem 0.5 gm In 100 Sodium Chloride 0.9% 50 ml @ 100 mls/hr IVPB DAILY@2100 [facility] Rx#: [id number] Norepinephrine 32 mg In 60.447 Sodium Chloride 0.9% 218 ml @ 0.05 MCG/KG/MIN 1. 807 mls/hr IV .Q24H [facility] Rx#:[id number] propofoL 1,000 mg In 0 34.76 30.137 Empty Bag 1 bag @ Titrate IV .Q0M [facility] Rx#: [id number] Tube Feeding 360 405 225 Other 60 60 30 Output: Drainage 300 1000 Right Lateral Back 300 1000 Urine 480 505 275 Other: Voiding Method Indwelling Catheter Indwelling Catheter Indwelling Catheter Weight 93 kg ABP, PAP, CO, CI - Last 8 Hours Arterial Blood Pressure 117/63 Arterial Blood Pressure 116/66 Arterial Blood Pressure 104/60 Arterial Blood Pressure 95/63 Arterial Blood Pressure 105/73 Arterial Blood Pressure 99/81 Arterial Blood Pressure 109/68 Arterial Blood Pressure 125/65 Arterial Blood Pressure 117/67 Arterial Blood Pressure 103/63 Arterial Blood Pressure 116/59 Arterial Blood Pressure 93/73 Arterial Blood Pressure 99/81 Arterial Blood Pressure 99/77 Arterial Blood Pressure 114/58 GENERAL: The patient is lying in bed and does not seem in acute distress. CHEST: The heart rate is regular rate rhythm. No murmurs to auscultation. On IV norepinephrine. LUNG: Clear to auscultation bilaterally no wheezing noted throughout. Not labored breathing. Is intubated and on ventilator. ABDOMEN/GI: Bowel sounds present in all 4 quadrants. No tenderness to palpation throughout. NEUROLOGICAL: Limited IV Propofol 10mcg/kg/min held for 4 1/2 hours prior to my examination. Higher mental function: The patient is comatose 7 (E1, M5, VT1). Is not following command or verbally responsive. Cranial nerves: I had to manually open his eye. Primary gaze is midline. The pupils are round, equal (2mm) and reactive to light. +ve corneal reflex bilaterally. No facial weakness. +cough and henrietta. Is breathing over the vent. Motor: The strength is hard to assess but with painful stimuli withdrew over the left upper and slight right lower extremity. Normal tone and bulk. Cerebellum: Could not assess. Sensation: Could not assess light touch but he is grimacing to painful stimuli throughout. Reflexes (right/left): 1+ throughout. Plantars are mute bilaterally. Results - Laboratory Findings CBC and BMP: 08/07/21 04:00 08/07/21 04:00 Abnormal Lab Findings: Abnormal Labs 07/30/21 07/30/21 07/30/21 19:12 19:12 19:12 WBC 12.9 H RBC 3.51 L Hgb 10.3 L Hct 31.0 L RDW 15.7 H Plt Count Neutrophils # 11.6 H Neutrophils # (Manual) Lymphocytes # 0.5 L Lymphocytes # (Manual) Metamyelocytes # (Man) ABG pH ABG pCO2 ABG pO2 ABG HCO3 ABG Total CO2 ABG O2 Saturation Sodium Potassium 5.3 H Chloride Carbon Dioxide 16 L BUN 81 H Creatinine 6.82 H Glucose POC Glucose (mg/dL) Calcium Phosphorus Alkaline Phosphatase Creatine Kinase Troponin I 0.119 H* Total Protein 5.7 L Albumin 2.9 L Procalcitonin Ur Specific [place] Urine Protein Urine Blood Ur Leukocyte Esterase Urine RBC Urine WBC Urine Bacteria Crossmatch 07/30/21 07/30/21 07/31/21 19:12 19:12 00:45 WBC 11.0 H RBC 3.61 L Hgb 10.4 L Hct 32.8 L RDW Plt Count Neutrophils # 9.8 H Neutrophils # (Manual) Lymphocytes # 0.4 L Lymphocytes # (Manual) Metamyelocytes # (Man) ABG pH ABG pCO2 ABG pO2 ABG HCO3 ABG Total CO2 ABG O2 Saturation Sodium Potassium Chloride Carbon Dioxide BUN Creatinine Glucose POC Glucose (mg/dL) Calcium Phosphorus Alkaline Phosphatase Creatine Kinase 643 H Troponin I Total Protein Albumin Procalcitonin Ur Specific [place] Urine Protein Urine Blood Ur Leukocyte Esterase Urine RBC Urine WBC Urine Bacteria Crossmatch See Detail 07/31/21 07/31/21 07/31/21 04:00 05:08 05:08 WBC 13.3 H RBC 3.81 L Hgb 11.0 L Hct 34.1 L RDW 15.6 H Plt Count Neutrophils # 12.1 H Neutrophils # (Manual) Lymphocytes # 0.5 L Lymphocytes # (Manual) Metamyelocytes # (Man) ABG pH ABG pCO2 ABG pO2 ABG HCO3 ABG Total CO2 ABG O2 Saturation Sodium Potassium Chloride 114 H Carbon Dioxide 10 L BUN 77 H Creatinine 6.10 H Glucose POC Glucose (mg/dL) Calcium 8.3 L Phosphorus Alkaline Phosphatase Creatine Kinase Troponin I Total Protein 5.2 L Albumin 2.6 L Procalcitonin Ur Specific [place] Urine Protein Urine Blood Ur Leukocyte Esterase Urine RBC >182 H Urine WBC >182 H Urine Bacteria Crossmatch 07/31/21 07/31/21 07/31/21 05:08 14:45 15:34 WBC RBC Hgb Hct RDW Plt Count Neutrophils # Neutrophils # (Manual) Lymphocytes # Lymphocytes # (Manual) Metamyelocytes # (Man) ABG pH 7.04 L* ABG pCO2 48 H ABG pO2 ABG HCO3 13 L ABG Total CO2 15 L ABG O2 Saturation Sodium 146 H Potassium Chloride 116 H Carbon Dioxide 14 L BUN 81 H Creatinine 6.51 H Glucose 122 H POC Glucose (mg/dL) Calcium 8.1 L Phosphorus Alkaline Phosphatase Creatine Kinase Troponin I 0.077 H* Total Protein Albumin Procalcitonin Ur Specific [place] Urine Protein Urine Blood Ur Leukocyte Esterase Urine RBC Urine WBC Urine Bacteria Crossmatch 07/31/21 07/31/21 07/31/21 15:55 19:40 20:57 WBC RBC Hgb Hct RDW Plt Count Neutrophils # Neutrophils # (Manual) Lymphocytes # Lymphocytes # (Manual) Metamyelocytes # (Man) ABG pH 7.26 L ABG pCO2 34 L ABG pO2 156 H ABG HCO3 15 L ABG Total CO2 16 L ABG O2 Saturation 100.0 H Sodium Potassium Chloride Carbon Dioxide BUN Creatinine Glucose POC Glucose (mg/dL) 140 H Calcium Phosphorus Alkaline Phosphatase Creatine Kinase Troponin I Total Protein Albumin Procalcitonin Ur Specific [place] 1.049 H Urine Protein 2+ H Urine Blood Moderate H Ur Leukocyte Esterase Large H Urine RBC >182 H Urine WBC >182 H Urine Bacteria Many H Crossmatch 07/31/21 08/01/21 08/01/21 22:10 04:12 04:12 WBC 1.6 L 13.7 H RBC 3.63 L 3.78 L Hgb 10.7 L 10.7 L Hct 33.3 L 34.1 L RDW 16.1 H Plt Count Neutrophils # Neutrophils # (Manual) 1.20 L 13.20 H Lymphocytes # Lymphocytes # (Manual) 0.26 L 0.27 L Metamyelocytes # (Man) 0.14 H ABG pH ABG pCO2 ABG pO2 ABG HCO3 ABG Total CO2 ABG O2 Saturation Sodium Potassium Chloride 112 H Carbon Dioxide BUN 80 H Creatinine 6.53 H Glucose 178 H POC Glucose (mg/dL) Calcium 7.5 L Phosphorus Alkaline Phosphatase 133 H Creatine Kinase Troponin I Total Protein 4.8 L Albumin 2.2 L Procalcitonin Ur Specific [place] Urine Protein Urine Blood Ur Leukocyte Esterase Urine RBC Urine WBC Urine Bacteria Crossmatch 08/01/21 08/01/21 08/01/21 04:12 05:43 05:46 WBC RBC Hgb Hct RDW Plt Count Neutrophils # Neutrophils # (Manual) Lymphocytes # Lymphocytes # (Manual) Metamyelocytes # (Man) ABG pH 7.12 L* ABG pCO2 75 H* ABG pO2 70 L ABG HCO3 ABG Total CO2 27 H ABG O2 Saturation 93.7 L Sodium Potassium Chloride Carbon Dioxide BUN Creatinine Glucose POC Glucose (mg/dL) 174 H Calcium Phosphorus Alkaline Phosphatase Creatine Kinase Troponin I Total Protein Albumin Procalcitonin 42.40 H Ur Specific [place] Urine Protein Urine Blood Ur Leukocyte Esterase Urine RBC Urine WBC Urine Bacteria Crossmatch 08/01/21 08/01/21 08/01/21 11:07 16:00 23:57 WBC RBC Hgb Hct RDW Plt Count Neutrophils # Neutrophils # (Manual) Lymphocytes # Lymphocytes # (Manual) Metamyelocytes # (Man) ABG pH ABG pCO2 ABG pO2 ABG HCO3 ABG Total CO2 ABG O2 Saturation Sodium Potassium Chloride 111 H Carbon Dioxide BUN 80 H Creatinine 6.35 H Glucose 111 H POC Glucose (mg/dL) 131 H 121 H Calcium 7.0 L Phosphorus 6.0 H Alkaline Phosphatase Creatine Kinase Troponin I Total Protein Albumin Procalcitonin Ur Specific [place] Urine Protein Urine Blood Ur Leukocyte Esterase Urine RBC Urine WBC Urine Bacteria Crossmatch 08/02/21 08/02/21 08/02/21 05:18 05:18 05:48 WBC 21.2 H RBC 3.41 L Hgb 9.9 L Hct 30.1 L RDW 16.3 H Plt Count 125 L Neutrophils # Neutrophils # (Manual) 19.00 H Lymphocytes # Lymphocytes # (Manual) Metamyelocytes # (Man) ABG pH ABG pCO2 ABG pO2 ABG HCO3 ABG Total CO2 ABG O2 Saturation Sodium Potassium Chloride Carbon Dioxide BUN 78 H Creatinine 6.41 H Glucose 125 H POC Glucose (mg/dL) 113 H Calcium 6.8 L Phosphorus 6.1 H Alkaline Phosphatase Creatine Kinase Troponin I Total Protein Albumin Procalcitonin Ur Specific [place] Urine Protein Urine Blood Ur Leukocyte Esterase Urine RBC Urine WBC Urine Bacteria Crossmatch 08/02/21 08/02/21 08/02/21 06:20 11:52 17:51 WBC RBC Hgb Hct RDW Plt Count Neutrophils # Neutrophils # (Manual) Lymphocytes # Lymphocytes # (Manual) Metamyelocytes # (Man) ABG pH 7.28 L ABG pCO2 59 H ABG pO2 ABG HCO3 27 H ABG Total CO2 13 L ABG O2 Saturation 98.0 H Sodium Potassium Chloride Carbon Dioxide BUN Creatinine Glucose POC Glucose (mg/dL) 122 H 115 H Calcium Phosphorus Alkaline Phosphatase Creatine Kinase Troponin I Total Protein Albumin Procalcitonin Ur Specific [place] Urine Protein Urine Blood Ur Leukocyte Esterase Urine RBC Urine WBC Urine Bacteria Crossmatch 08/02/21 08/02/21 08/03/21 18:08 23:47 00:58 WBC RBC Hgb Hct RDW Plt Count Neutrophils # Neutrophils # (Manual) Lymphocytes # Lymphocytes # (Manual) Metamyelocytes # (Man) ABG pH ABG pCO2 ABG pO2 ABG HCO3 ABG Total CO2 ABG O2 Saturation Sodium Potassium Chloride Carbon Dioxide BUN 84 H Creatinine 6.28 H Glucose 109 H POC Glucose (mg/dL) 134 H 148 H Calcium 6.9 L Phosphorus Alkaline Phosphatase Creatine Kinase Troponin I Total Protein Albumin Procalcitonin Ur Specific [place] Urine Protein Urine Blood Ur Leukocyte Esterase Urine RBC Urine WBC Urine Bacteria Crossmatch 08/03/21 08/03/21 08/03/21 04:30 04:30 05:46 WBC 14.5 H RBC 3.17 L Hgb 9.3 L Hct 27.6 L RDW 16.3 H Plt Count 93 L Neutrophils # 13.3 H Neutrophils # (Manual) Lymphocytes # 0.6 L Lymphocytes # (Manual) Metamyelocytes # (Man) ABG pH ABG pCO2 ABG pO2 ABG HCO3 ABG Total CO2 ABG O2 Saturation Sodium Potassium 3.3 L Chloride Carbon Dioxide 21 L BUN 85 H Creatinine 6.47 H Glucose 125 H POC Glucose (mg/dL) 124 H Calcium 7.2 L Phosphorus Alkaline Phosphatase Creatine Kinase Troponin I Total Protein Albumin Procalcitonin Ur Specific [place] Urine Protein Urine Blood Ur Leukocyte Esterase Urine RBC Urine WBC Urine Bacteria Crossmatch 08/03/21 08/03/21 08/03/21 05:53 11:55 13:40 WBC RBC Hgb Hct RDW Plt Count Neutrophils # Neutrophils # (Manual) Lymphocytes # Lymphocytes # (Manual) Metamyelocytes # (Man) ABG pH ABG pCO2 ABG pO2 126 H ABG HCO3 ABG Total CO2 25 H ABG O2 Saturation 99.3 H Sodium Potassium 3.3 L Chloride Carbon Dioxide BUN Creatinine Glucose POC Glucose (mg/dL) 148 H Calcium Phosphorus Alkaline Phosphatase Creatine Kinase Troponin I Total Protein Albumin Procalcitonin Ur Specific [place] Urine Protein Urine Blood Ur Leukocyte Esterase Urine RBC Urine WBC Urine Bacteria Crossmatch 08/03/21 08/03/21 08/04/21 17:22 23:24 05:27 WBC RBC Hgb Hct RDW Plt Count Neutrophils # Neutrophils # (Manual) Lymphocytes # Lymphocytes # (Manual) Metamyelocytes # (Man) ABG pH ABG pCO2 ABG pO2 ABG HCO3 ABG Total CO2 ABG O2 Saturation Sodium Potassium Chloride Carbon Dioxide BUN Creatinine Glucose POC Glucose (mg/dL) 140 H 161 H 149 H Calcium Phosphorus Alkaline Phosphatase Creatine Kinase Troponin I Total Protein Albumin Procalcitonin Ur Specific [place] Urine Protein Urine Blood Ur Leukocyte Esterase Urine RBC Urine WBC Urine Bacteria Crossmatch 08/04/21 08/04/21 08/04/21 06:03 07:50 07:50 WBC 13.3 H RBC 2.99 L Hgb 8.8 L Hct 26.4 L RDW 15.9 H Plt Count 72 L Neutrophils # 12.0 H Neutrophils # (Manual) Lymphocytes # 0.7 L Lymphocytes # (Manual) Metamyelocytes # (Man) ABG pH ABG pCO2 ABG pO2 58 L* ABG HCO3 27 H ABG Total CO2 29 H ABG O2 Saturation 91.8 L Sodium Potassium 3.4 L Chloride Carbon Dioxide BUN 95 H Creatinine 5.96 H Glucose 124 H POC Glucose (mg/dL) Calcium 7.6 L Phosphorus Alkaline Phosphatase 198 H Creatine Kinase Troponin I Total Protein 4.0 L Albumin 1.8 L Procalcitonin Ur Specific [place] Urine Protein Urine Blood Ur Leukocyte Esterase Urine RBC Urine WBC Urine Bacteria Crossmatch 08/04/21 08/04/21 08/04/21 12:39 17:40 23:17 WBC RBC Hgb Hct RDW Plt Count Neutrophils # Neutrophils # (Manual) Lymphocytes # Lymphocytes # (Manual) Metamyelocytes # (Man) ABG pH ABG pCO2 ABG pO2 ABG HCO3 ABG Total CO2 ABG O2 Saturation Sodium Potassium Chloride Carbon Dioxide BUN Creatinine Glucose POC Glucose (mg/dL) 156 H 142 H 119 H Calcium Phosphorus Alkaline Phosphatase Creatine Kinase Troponin I Total Protein Albumin Procalcitonin Ur Specific [place] Urine Protein Urine Blood Ur Leukocyte Esterase Urine RBC Urine WBC Urine Bacteria Crossmatch 08/05/21 08/05/21 08/05/21 03:15 03:15 05:46 WBC RBC 2.86 L Hgb 8.1 L Hct 25.3 L RDW 15.9 H Plt Count 63 L Neutrophils # Neutrophils # (Manual) Lymphocytes # 0.7 L Lymphocytes # (Manual) Metamyelocytes # (Man) ABG pH ABG pCO2 ABG pO2 ABG HCO3 ABG Total CO2 ABG O2 Saturation Sodium Potassium Chloride 108 H Carbon Dioxide BUN 95 H Creatinine 5.68 H Glucose 118 H POC Glucose (mg/dL) 137 H Calcium 7.8 L Phosphorus Alkaline Phosphatase 227 H Creatine Kinase Troponin I Total Protein 4.0 L Albumin 1.8 L Procalcitonin Ur Specific [place] Urine Protein Urine Blood Ur Leukocyte Esterase Urine RBC Urine WBC Urine Bacteria Crossmatch 08/05/21 08/05/21 08/05/21 05:56 12:01 17:32 WBC RBC Hgb Hct RDW Plt Count Neutrophils # Neutrophils # (Manual) Lymphocytes # Lymphocytes # (Manual) Metamyelocytes # (Man) ABG pH ABG pCO2 ABG pO2 117 H ABG HCO3 28 H ABG Total CO2 29 H ABG O2 Saturation 98.8 H Sodium Potassium Chloride Carbon Dioxide BUN Creatinine Glucose POC Glucose (mg/dL) 133 H 114 H Calcium Phosphorus Alkaline Phosphatase Creatine Kinase Troponin I Total Protein Albumin Procalcitonin Ur Specific [place] Urine Protein Urine Blood Ur Leukocyte Esterase Urine RBC Urine WBC Urine Bacteria Crossmatch 08/05/21 08/06/21 08/06/21 23:02 04:23 04:23 WBC RBC 3.19 L Hgb 9.4 L Hct 27.8 L RDW 16.4 H Plt Count 99 L D Neutrophils # 8.9 H Neutrophils # (Manual) Lymphocytes # 0.7 L Lymphocytes # (Manual) Metamyelocytes # (Man) ABG pH ABG pCO2 ABG pO2 ABG HCO3 ABG Total CO2 ABG O2 Saturation Sodium Potassium 3.2 L Chloride 109 H Carbon Dioxide BUN 101 H* Creatinine 5.27 H Glucose 132 H POC Glucose (mg/dL) 130 H Calcium 8.0 L Phosphorus Alkaline Phosphatase Creatine Kinase Troponin I Total Protein Albumin Procalcitonin Ur Specific [place] Urine Protein Urine Blood Ur Leukocyte Esterase Urine RBC Urine WBC Urine Bacteria Crossmatch 08/06/21 08/06/21 08/06/21 06:10 11:21 15:34 WBC RBC Hgb Hct RDW Plt Count Neutrophils # Neutrophils # (Manual) Lymphocytes # Lymphocytes # (Manual) Metamyelocytes # (Man) ABG pH ABG pCO2 ABG pO2 78 L ABG HCO3 27 H ABG Total CO2 ABG O2 Saturation 97.9 H Sodium Potassium Chloride Carbon Dioxide BUN Creatinine Glucose POC Glucose (mg/dL) 165 H 151 H Calcium Phosphorus Alkaline Phosphatase Creatine Kinase Troponin I Total Protein Albumin Procalcitonin Ur Specific [place] Urine Protein Urine Blood Ur Leukocyte Esterase Urine RBC Urine WBC Urine Bacteria Crossmatch 08/07/21 08/07/21 08/07/21 00:14 04:00 04:00 WBC RBC 3.15 L Hgb 8.9 L Hct 27.1 L RDW 15.9 H Plt Count 124 L Neutrophils # 8.0 H Neutrophils # (Manual) Lymphocytes # 0.7 L Lymphocytes # (Manual) Metamyelocytes # (Man) ABG pH ABG pCO2 ABG pO2 ABG HCO3 ABG Total CO2 ABG O2 Saturation Sodium 147 H Potassium Chloride 112 H Carbon Dioxide BUN 106 H* Creatinine 4.92 H Glucose 132 H POC Glucose (mg/dL) 129 H Calcium 8.2 L Phosphorus Alkaline Phosphatase Creatine Kinase Troponin I Total Protein Albumin Procalcitonin Ur Specific [place] Urine Protein Urine Blood Ur Leukocyte Esterase Urine RBC Urine WBC Urine Bacteria Crossmatch 08/07/21 08/07/21 05:48 06:51 WBC RBC Hgb Hct RDW Plt Count Neutrophils # Neutrophils # (Manual) Lymphocytes # Lymphocytes # (Manual) Metamyelocytes # (Man) ABG pH ABG pCO2 32 L ABG pO2 ABG HCO3 ABG Total CO2 ABG O2 Saturation 98.3 H Sodium Potassium Chloride Carbon Dioxide BUN Creatinine Glucose POC Glucose (mg/dL) 148 H Calcium Phosphorus Alkaline Phosphatase Creatine Kinase Troponin I Total Protein Albumin Procalcitonin Ur Specific [place] Urine Protein Urine Blood Ur Leukocyte Esterase Urine RBC Urine WBC Urine Bacteria Crossmatch Assessment and Plan Assessment: * Mental status due to multifactorial: Metabolic encephalopathy and septic encephalopathy. Also component due to medication effect (IV propofol) * Septic shock related to the ESBL Klebsiella UTI and strep pneumo group B * Acute kidney injury--trending down (last creatnine is 4.92) * Bladder tumor last post cystoscopy scope he and biopsy on 07/31/2021. Pathology is positive for invasive high-grade urothelial carcinoma * Intubated on a ventilator airway protection for his procedure since 07/31/2021. * Anemia receive 1 unit of red blood cell. * Hypertension and during this hospital stay patient had hypotension because of sepsis * History of hyperlipidemia * History of hypothyroidism * History of nicotine use Plan: I will get a repeat CT of the head. I ordered an urgent EEG. 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 Every hour neuro checks Infection disease is on board Nephrology is on board Urology is on board. We'll defer the rest of the medical management to the primary and ICU team. Condition is very guarded. If Possible to continue to have the sedation off for us to have a good neurological exam. The plan is discussed with the patient's nurse. Thank you for the consultation. Dr. Roe will start neurology service tomorrow AM. Mayo Berry M.D. Neuro-hospitalist Time with Patient: Greater than 30
[2021-08-07] MEDS: NOREPINEPHRINE 32 MG in SODIUM CHLORIDE 0.9% 218 ML IV SCH (16:28)
--- NOTE | 2021-08-07 17:42 | CT ---
EXAMINATION TYPE: CT brain wo con DATE OF EXAM: 08/07/2021 COMPARISON: None HISTORY: Altered mental status CT DLP: 1181.4 mGycm Automated exposure control for dose reduction was used. There is cerebral cortical atrophy. There is no mass effect nor midline shift. There is no evidence o f intracranial hemorrhage. Calvarium is intact. Skull base is intact. Skull base is intact. There is some debris in the external auditory canals bilaterally. IMPRESSION: Cerebral atrophy. No acute intracranial abnormality.
[2021-08-07 17:58] LABS: Glucose,Whole Blood 142 mg/dL (75-99)
[2021-08-07] MEDS: ERTAPENEM 0.5 GM in SODIUM CHLORIDE 0.9% 50 ML IVPB SCH (21:52)
--- NOTE | 2021-08-07 22:27 | PN ---
PROGRESS NOTE DATE OF SERVICE: 08/07/2021 REASON FOR FOLLOWUP: ESBL Klebsiella complicated urinary tract infection. INTERVAL HISTORY: The patient is afebrile. The patient is currently hemodynamically stable, not on any pressor support. FiO2 is currently at 30%. Sedation has been cut off; however, the patient is not waking up. Good urine output in his nephrostomy tubes. PHYSICAL EXAMINATION: Blood pressure 115/74 with a pulse of 90, temperature 98.5. He is 98% on 30% FiO2. General description is an elderly male lying in bed in no distress. Respiratory system: Unlabored breathing, decreased intensity of breath sounds. No wheeze. Heart S1, S2. Regular rate and rhythm. Abdomen soft, no tenderness. Nephrostomy tube bag with clear urine. LABS: Hemoglobin is 8.2, white count 9.4. Creatinine is 4.92. DIAGNOSTIC IMPRESSION AND PLAN: Patient with a complicated urinary tract infection. Urine is positive for ESBL Klebsiella. Blood culture negative. Repeat urine is so far negative. Patient is covered with Invanz; to continue while monitoring his clinical course closely. Continue supportive care. MMODL / IJN: [id number] /
[2021-08-08 00:26] LABS: Glucose,Whole Blood 154 mg/dL (75-99)
[2021-08-08] MEDS: INSULIN ASPART (NovoLOG) 100 UNIT/ML VIAL SQ SCH ×4 (00:56→17:46)
[2021-08-08] MEDS: IPRATROPIUM-ALBUTEROL 3 ML NEB INHALATION SCH ×6 (03:24→23:50)
[2021-08-08 04:04] LABS: Anisocytosis Slight; Basophils % (A) 0 %; Eosinophils # (A) 0.2 k/uL (0-0.7); Eosinophils % (A) 2 %; HCT 27.2 % (39.0-53.0); HGB 8.9 gm/dL (13.0-17.5); Lymphocytes # (A) 0.7 k/uL (1.0-4.8); Lymphocytes % (A) 7 %; MCH 28.4 pg (25.0-35.0); MCHC 32.7 g/dL (31.0-37.0); MCV 86.9 fL (80.0-100.0); Mean Platelet Volume 9.5; Monocytes # (A) 0.3 k/uL (0-1.0); Monocytes % (A) 3 %; Neutrophils # (A) 8.8 k/uL (1.3-7.7); Neutrophils % (A) 86 %; RBC 3.13 m/uL (4.30-5.90); RDW 16.1 % (11.5-15.5); WBC 10.2 k/uL (3.8-10.6)
[2021-08-08 04:06] LABS: Platelet Count 190 k/uL (150-450)
[2021-08-08 04:24] LABS: Calcium 8.6 mg/dL (8.4-10.2); Potassium 3.9 mmol/L (3.5-5.1)
[2021-08-08 05:15] LABS: ABG Base Excess 5.4 mmol/L; ABG HCO3 29 mmol/L (21-25); ABG Oxygen Saturation 96.7 % (94-97); ABG PCO2 42 mmHg (35-45); ABG PH 7.45 (7.35-7.45); ABG PO2 79 mmHg (83-108); ABG TCO2 31 mmol/L (19-24); Allen Test Performed? Yes
[2021-08-08 06:01] LABS: Glucose,Whole Blood 135 mg/dL (75-99)
--- NOTE | 2021-08-08 06:48 | P.PN ---
Subjective Progress Note Date: 08/08/21 76-year-old male patient, currently the intensive care unit, intubated on a mechanical ventilator with septic shock along with a recent diagnosis of bladder tumor. The patient has known history of hypertension and hyperlipidemia and hypothyroidism and he came into the hospital after he had a fall/passing out episode. At that time, the patient had gross hematuria. CAT scan of the brain was negative. CAT scan of the abdomen and pelvis showed bilateral hydronephrosis with hydroureter without any calculus. The patient had a cystoscopy and a large tumor arising in the posterior right lateral bladder wall was noted consistent with high-grade/invasive cancer. During the course of the illness, the patient had a right-sided nephrostomy tube placed and the patient also had a cystoscopy and bladder tumor resection. The patient accordingly was intubated and placed on a mechanical ventilator. The patient became septic and the patient had Klebsiella sepsis from urinary source. The patient during the course of his illness was sedated, paralyzed, placed on high doses of pressors including a combination of norepinephrine and vasopressin. The patient was also given a bicarb infusion for significant metabolic acidosis. He did develop an acute kidney injury and his chest x-ray also showed diffuse but the pulmonary infiltrates consistent with pneumonia/edema. Subsequently, the patient was cul tured to have an ESBL producing capsula Klebsiella and the patient was covered with IV Invanz. Note that the patient also had a strep group B in the sputum. At this point in time, the patient remains intubated. The patient is post a day #8. The patient has a right-sided nephrostomy tube in place. The pathology from the bladder is consistent with malignancy. The patient remains intubated on a mechanical ventilator. He is an assist-control mode at the rate of 26 with a tidal volume of 500 FiO2 of 30% with a PEEP of 5. He was sedated with propofol and he was taken off the sedation yesterday. He did not show or demonstrated adequate neurologic recovery. As such, the patient was kept on hold and the patient was asked to be seen by neurology. A neurologic workup is in progress at this point in time. Meanwhile, the patient is receiving enteral feeding for nutritional support. The patient is on vital AF at goal. He remains on antibiotics. Norepinephrine infusion is running at 11 g per minute for hemodynamic support. The patient is also on Lovenox 30 mg subcu for DVT prophylaxis. Bicarb infusion has been discontinued and the patient is currently on IV fluids at [facility]. He did develop a component of hyponatremia from yesterday and the sodium from yesterday was 147. Creatinine continues to improve and the BUN was 106 with a creatinine of 4.9 from yesterday. Patient is also on IV Synthroid. Free T4 was 0.42 with TSH of 9.0. Serum cortisol was 16. CAT scan of the brain was done yesterday and showed no acute abnormalities. There was evidence of failure atrophy. On today's evaluation, the patient remains unresponsive. The patient still off sedation since yesterday. CAT scan of the brain as stated showed no acute abnormalities. The blood gases from today shows a pH of 7.45 with a pCO2 of 42 and pO2 of 79 and this was done on the above- mentioned ventilator setting. As for the chest x-ray, from this morning, the findings are essentially stable. There is probably a small left-sided pleural effusion. ET tube is in a good location at the level of the aortic knob and/or G-tube also is in a good location. No evidence of any consolidation or airspace disease. Meanwhile, the patient's sodium is up to 150, creatinine is slightly improved down to 4.57 with a BUN of 109 and a potassium level of 3.5. Cardiac rhythm remains sinus. Norepinephrine infusion is running at 0.08 mcg/kg per minute. Objective - Vital Signs Vital signs: Vital Signs Temp 98.2 F 08/08/21 00:00 Pulse 88 08/08/21 06:00 Resp 29 H 08/08/21 06:00 BP 102/68 08/08/21 06:00 Pulse Ox 98 08/08/21 06:00 Intake & Output 08/07/21 08/07/21 08/08/21 06:59 18:59 06:59 Intake Total 4749.202 6445.414 918.960 Output Total 2009 1620 1705 Balance -991.795 -617.586 -786.040 Weight 93 kg 92 kg Intake: IV 240 220 220 0.9 240 220 220 Intake, IV Titration 148.205 112.414 53.960 Amount Ertapenem 0.5 gm In 100 Sodium Chloride 0.9% 50 ml @ 100 mls/hr IVPB DAILY@2100 [facility] Rx#: [id number] Norepinephrine 32 mg In 13.445 82.277 53.960 Sodium Chloride 0.9% 218 ml @ 0.05 MCG/KG/MIN 1. 807 mls/hr IV .Q24H [facility] Rx#:[id number] propofoL 1,000 mg In 34.76 30.137 Empty Bag 1 bag @ Titrate IV .Q0M [facility] Rx#: [id number] Tube Feeding 540 540 495 Other 90 130 150 Output: Drainage 1300 900 Right Lateral Back 1300 900 Urine 503 531 0542 Other: Voiding Method Indwelling Catheter Indwelling Catheter Indwelling Catheter ABP, PAP, CO, CI - Last Documented Arterial Blood Pressure 74/11 - Exam Gen. appearance, the patient is currently intubated on a mechanical ventilator. Orogastric and orotracheal tube are both in place. There are no signs of any labored breathing. The patient is quite successful mechanical ventilator. No acute distress, the patient is not on any sedation, and has an orally placed endotracheal tube and NG tube HEENT examination is grossly unremarkable. Neck supple. Full range of motion. No adenopathy thyromegaly or neck vein distention. Cardiovascular examination reveals regular rhythm rate. S1-S2 normal. No S3 or S4. No discernible murmur noted. Cardiac exam revealed the PMI to be normally situated and sized. The rhythm was regular and no extrasystoles were noted during several minutes of auscultation. The first and second heart sounds were normal and physiologic splitting of the second heart sound was noted. There were no murmurs, rubs, clicks, or gallops. Lungs reveal diffuse bilateral coarse rhonchi. Breath sounds are equal. No wheezes or crackles noted. Saturations are 96%. AbdomenAbdominal exam revealed normal bowel sounds. The abdomen was soft, non- tender, and without masses, organomegaly, or appreciable enlargement of the abdominal aorta. Patient has a right-sided nephrostomy tube in place Extremities are intact. No cyanosis clubbing or edema. Examination of the skin revealed no evidence of significant rashes, suspicious appearing nevi or other concerning lesions. Neurologic examination reveals a patient who is not sedated, but is not responsive to verbal or painful stimuli. - Labs CBC & Chem 7: 08/08/21 03:30 08/08/21 03:30 Labs: Abnormal Lab Results - Last 24 Hours (Table) 08/07/21 08/07/21 08/07/21 Range/Units 04:00 04:00 06:51 RBC (4.30-5.90) m/uL Hgb (13.0-17.5) gm/dL Hct (39.0-53.0) % RDW (11.5-15.5) % Neutrophils # (1.3-7.7) k/uL Lymphocytes # (1.0-4.8) k/uL ABG pO2 (83-108) mmHg ABG HCO3 (21-25) mmol/L ABG Total CO2 (19-24) mmol/L Sodium (137-145) mmol/L Chloride (98-107) mmol/L BUN (9-20) mg/dL Creatinine (0.66-1.25) mg/dL Glucose (74-99) mg/dL POC Glucose (mg/dL) 148 H (75-99) mg/dL TSH 9.030 H (0.465-4.680) mIU/L Free T4 0.42 L (0.78-2.19) ng/dL 08/07/21 08/07/21 08/08/21 Range/Units 12:16 17:57 00:23 RBC (4.30-5.90) m/uL Hgb (13.0-17.5) gm/dL Hct (39.0-53.0) % RDW (11.5-15.5) % Neutrophils # (1.3-7.7) k/uL Lymphocytes # (1.0-4.8) k/uL ABG pO2 (83-108) mmHg ABG HCO3 (21-25) mmol/L ABG Total CO2 (19-24) mmol/L Sodium (137-145) mmol/L Chloride (98-107) mmol/L BUN (9-20) mg/dL Creatinine (0.66-1.25) mg/dL Glucose (74-99) mg/dL POC Glucose (mg/dL) 147 H 142 H 154 H (75-99) mg/dL TSH (0.465-4.680) mIU/L Free T4 (0.78-2.19) ng/dL 08/08/21 08/08/21 08/08/21 Range/Units 03:30 03:30 05:09 RBC 3.13 L (4.30-5.90) m/uL Hgb 8.9 L (13.0-17.5) gm/dL Hct 27.2 L (39.0-53.0) % RDW 16.1 H (11.5-15.5) % Neutrophils # 8.8 H (1.3-7.7) k/uL Lymphocytes # 0.7 L (1.0-4.8) k/uL ABG pO2 79 L (83-108) mmHg ABG HCO3 29 H (21-25) mmol/L ABG Total CO2 31 H (19-24) mmol/L Sodium 150 H (137-145) mmol/L Chloride 115 H (98-107) mmol/L BUN 109 H* (9-20) mg/dL Creatinine 4.57 H (0.66-1.25) mg/dL Glucose 117 H (74-99) mg/dL POC Glucose (mg/dL) (75-99) mg/dL TSH (0.465-4.680) mIU/L Free T4 (0.78-2.19) ng/dL 08/08/21 Range/Units 06:00 RBC (4.30-5.90) m/uL Hgb (13.0-17.5) gm/dL Hct (39.0-53.0) % RDW (11.5-15.5) % Neutrophils # (1.3-7.7) k/uL Lymphocytes # (1.0-4.8) k/uL ABG pO2 (83-108) mmHg ABG HCO3 (21-25) mmol/L ABG Total CO2 (19-24) mmol/L Sodium (137-145) mmol/L Chloride (98-107) mmol/L BUN (9-20) mg/dL Creatinine (0.66-1.25) mg/dL Glucose (74-99) mg/dL POC Glucose (mg/dL) 135 H (75-99) mg/dL TSH (0.465-4.680) mIU/L Free T4 (0.78-2.19) ng/dL Microbiology - Last 24 Hours (Table) 08/01/21 11:05 Blood Culture - Final Blood No Growth after 144 hours 08/02/21 05:18 Blood Culture - Preliminary Blood No Growth after 120 hours Assessment and Plan Plan: 1 septic shock secondary to an underlying UTI/complicated UTI with obstructive uropathy and acute kidney injury secondary to bladder tumor. Patient remains on pressors. 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 Creatinine is gradually improving. The patient is post cystoscopy and biopsies on 07/31/2021 with trans-ureteral resection of bladder tumor, postop day #8. 4 mild hypernatremia 5 acute hypoxic respiratory failure, the patient's been intubated since 07/31/2021 6 altered mentation with diminished level of consciousness, consider metabolic encephalopathy. CAT scan of the brain done yesterday was essentially negative for any acute abnormalities and this consistent with cerebral atrophy 7 hypotension secondary to septic shock 8 anemia of chronic disease post units of packed RBC transfusion 9 hypothyroidism currently on Synthroid replacement 10 troponin leak secondary to above 11 hyperlipidemia 12 hypertension, history of Plan In terms of mental status, the patient remains deeply encephalopathic and this is probably due to a component of metabolic encephalopathy nontender the patient continues to be in renal failure. CAT scan of the brain is negative and the patient has been taken off sedation for more than 24 hours. Mental status is being monitored closely. He responds only to deep painful stimulation with some emesis. He does not follow any commands. Pupils are equal and reactive to light. Continue ventilator support, no changes Continue IV Invanz Start the patient on D5 water at the rate of 75 mL an hour continue enteral feeding, vital AF at 45 mL an hour, currently at goal in addition to water flushes through the OG 50 mL every 4 hours Discussed with nephrology and urology and interventional radiology the possibility of inserting a left-sided nephrostomy tube Not ready for any weaning for now Wean off pressors if possible currently on norepinephrine infusion at 0.06 microvascular kilogram per minute We will insert another arterial line for blood pressure monitoring Continue Synthroid Continue the rest of the supportive care and will continue to follow make further recommendations based on his progress. The plan is to keep him off sedation for now and monitor his mental status. History care evaluation, more than 30 minutes. Time with Patient: Greater than 30
[2021-08-08] MEDS: CALCIUM ACETATE 667 MG TAB PO SCH ×3 (06:50→17:45)
[2021-08-08] MEDS: LEVOTHYROXINE 88 MCG TAB PO SCH (06:50)
[2021-08-08] MEDS: DEXTROSE 5% IN WATER 1,000 ML IV SCH ×2 (06:51→20:49)
[2021-08-08] MEDS ORDERED: POTASSIUM BICARBONATE/CIT AC 20 MEQ TABLET.EFF NG-TUBE SCH (07:00)
--- NOTE | 2021-08-08 09:03 | XR ---
EXAMINATION TYPE: XR chest 1V DATE OF EXAM: 08/08/2021 COMPARISON: 07/30/2021 HISTORY: Tube placement TECHNIQUE: Single frontal view of the chest is obtained. FINDINGS: ET and NG tube. The heart size is normal and there is a left lower lobe infiltrate and ple ural effusion. Subsegmental changes right lung. Arthropathy of the shoulders. No pneumothorax. Diffus e hyperinflation. Hypertrophic and degenerative change of the spine. IMPRESSION: COPD with bilateral infiltrate and small effusion stable.
[2021-08-08] MEDS: CHLORHEXIDINE GLUCONATE 15 ML CUP MUCOUS MEM SCH ×2 (10:02→20:49)
[2021-08-08] MEDS: ENOXAPARIN 30 MG/0.3 ML SYRINGE SQ SCH (10:07)
[2021-08-08] MEDS: PANTOPRAZOLE 40 MG/10 ML VIAL IV SCH (10:07)
[2021-08-08] MEDS: SODIUM BICARBONATE TAB 650 MG TAB PO SCH ×4 (10:08→20:49)
--- NOTE | 2021-08-08 11:09 | PN ---
PROGRESS NOTE Patient is seen for followup for acute kidney injury and hypernatremia. The patient is currently maintained on IV fluids. Serum creatinine is down to 4.5 from peak of 6.8 on initial admission. Patient is status post right nephrostomy tube. He has had good output from his nephrostomy tube as well as the Denny catheter. He will need a left nephrostomy tube placed as well. At this time, the sedation has been off for about 24 hours and patient is not been waking up yet. He is on very small dose of Levophed. PHYSICAL EXAMINATION: On examination today, blood pressure 91/63, heart rate 87 per minute. Patient is afebrile examination of the heart S1, S2. Examination of the lungs, bilateral breath sounds are heard. Abdomen is soft. Examination of lower extremities shows no significant edema. LAB: Show sodium 150, potassium 3.9, chloride 115, CO2 is 27, BUN 109, creatinine 4.5, hemoglobin 8.9 g/dL. ASSESSMENT: 1. Acute kidney injury ATN and obstructive uropathy status post right nephrostomy tube with good urine output, some improvement in kidney function noted. However, patient's creatinine remains elevated. He will benefit from a left nephrostomy tube as well. 2. Hematuria, bilateral hydronephrosis with high suspicion for bladder cancer. 3. Acute hypercapnic hypoxic respiratory failure. 4. Metabolic acidosis associated with acute kidney injury, status post bicarb drip. 5. Shock, septic shock. Maintained on low-dose Levophed. 6. Klebsiella urinary tract infection. 7. Hypernatremia associated with free water deficit. PLAN: Agree with D5W. Continue free water down the feeding tube as well and repeat sodium this evening. Recommend left nephrostomy tube placements so that renal function can improve and patient's mentation can be assessed better. MMODL / IJN: [id number] /
[2021-08-08 11:45] LABS: Glucose,Whole Blood 153 mg/dL (75-99)
--- NOTE | 2021-08-08 14:35 | US ---
EXAMINATION TYPE: US kidneys/renal and bladder DATE OF EXAM: 08/08/2021 COMPARISON: NONE CLINICAL HISTORY: assess for hydronephrosi. EXAM MEASUREMENTS: Right Kidney: 12.9 x 6.7 x 5.6 cm Left Kidney: 12.1 x 7.2 x 6.01 cm Right Kidney: Hydronephrosis Left Kidney: Prominent calyces Bladder: npt distended, reardon seen within Bilateral Jets seen: No No nephrolithiasis is seen. No masses are identified Limited left kidney due to bowel gas. IMPRESSION: 1. There remains a mild to moderate right-sided hydronephrosis with nephrostomy tube noted in positio n.
--- NOTE | 2021-08-08 14:40 | P.PN ---
Subjective Progress Note Date: 08/08/21 HISTORY OF PRESENT ILLNESS This 76-year-old pleasant gentleman, patient of Dr. Wills. History of hypertension hyperlipidemia, hypothyroidism, who was noted to have some bleeding in the toilet for several days, unsure how long the duration was, however he is on blood thinners, he was found on the floor today, patient denies any headache, however it's unclear how the patient fell. He does not admit to syncopal event, patient was subsequently setting to emergency room from home, to the emergency via EMS, a condom catheter was placed, and that's how they found that patient is having gross hematuria rather than rectal bleeding. In emergency room, central line was placed for IV hydration, blood pressure was 75/50, daily urinalysis, shows over 182 RBCs and WBC, hemoglobin 10.4 WBC count 11.0, platelet 297, creatinine of 6.1, BUN of 77, unknown baseline. Patient had CAT scan, head and cervical spine, shows multilevel cervical spondylosis change, no fracture, and no dislocation. No intracranial hemorrhage, intact calvarium. Computed tomography scan of the abdomen, shows bilateral hydronephrosis, and hydroureter, more on the right than the left, there is bilateral renal vascular calcification, no renal calculi, no ureteral calculi. There is no inguinal hernia, no fluid in the pelvis, bilateral stents in the abdominal aorta and iliac arteries, no mesenteric edema, no ascites or free air. No bowel obstruction, bladder imaging is not well evaluated due to lack of distention there is colonic diverticula, without signs of diverticulitis. Chest x-ray shows mild pulmonary fibrosis Consult was made with nephrology, urology and intensive care management, patient admitted to ICU for significant gross hematuria, obstructive uropathy, with mental status changes, and suspected syncope, with a fall long-term anticoagulation, elevated troponin Patient is taken to the operating room, for cystoscopy, evacuation of clot, and transient Trial resection of the bladder as a CAT scan per review from urology, shows bladder irregularity. There is a large sessile tumor, in the right posterolateral bladder wall. It was dense and suspected to have obviously a high grade tumor, with muscular invasion 08/01: Patient remains in the intensive care unit intubated on mechanical ventilation with tidal volume 500, FiO2 40, PEEP of 5. Patient is on levo fed, vasopressin, Nimbex, fentanyl, bicarb drip and propofol. The patient has hematuria from Denny catheter and nephrostomy tube and there is small amount of leaking from the meatus. 08/02: Patient remains in the intensive care unit intubated and on mechanical ventilation with tidal volume 500, FiO2 50, PEEP 5. Patient has been weaned down on norepinephrine continued on vasopressin, Nimbex, fentanyl and propofol. He has been afebrile, heart rate 77, blood pressure 92/59, pulse ox 100%. He had monitor sinus rhythm. Repeat blood work reveals WBC 21.2, hemoglobin 9.9, platelet count 125. Lites are within normal limits. BUN 78 creatinine 6.41. Capillary blood glucose running between 113 and 121. Urine culture has been finalized with ESBL Klebsiella oxytoca and antibiotics will be changed from ceftriaxone to Zosyn. 08/03 patient examined while intubated. Patient is postop 3 continues to remain ventilator on assist control mode respiratory rate of 26 and volume 500 FiO2 40 and PEEP of 5. FiO2 decreased to 30 with patient maintaining her oxygen saturations between 96-98%. He continues to remain on propofol at 25 valentin per KG per minute. Vasopressin at 0.04 units per minute, norepinephrine at 20 mics KG per minute and fentanyl 0.5 valentin per KG per minute. Patient's bicarb drip was discontinued and is currently on half-normal saline at 50 mL per hour. Nimbex has been discontinued. Patient vitals are stable with temp 97.8 pulse 63 respiratory rate 26 blood pressure 109/71. Leukocytosis of 14.5, hemoglobin 9.3 platelet has reduced to 93. Potassium is 3.3 bicarb 21 BUN 85 creatinine 6. 47. Urine output is approximately 10-15 mL per hour about 250 developed intermittent nephrostomy tube. Lasix 80 mg IV to be given today. Potassium is being repleted. No need for dialysis as at this point per nephrology Patient contineus to remain intubated with vent setting involving assist control, resp rate 26, tidal vol 500, PEEP 5 and Fio2 40 %. Patient continues to remain aon vasopressor and norepinephrine. Sedation mentained with propofol and fentanyl. Patient is noticed to move his lower extremities but doesnot follow any commands. UO has improved appears to be 40 ml/ hr but appears to be serosangunous, continues to have 250 - 300 ml every 6 hour. pathology consistent with high-grade, muscle invasive urothelial carcinoma. Patient was seen by urology who has recommended left nephrostomy tube in next few days. patient was noted to be in atrial fib ad is on cardizem drip, metoprolol dose increased to 25 mg po TID per cardiology 08/05 patient examined at bedside continues to remain on the ventilator. He is currently on assist control respiratory rate of 26 tidal volume 500 FiO2 40% and PEEP of 5. Continues to remain on normal saline 50 cc/h, vasopressin .02 micrograms per, norepi at 4.8 mics per KG per minute, propofol at 10 mics per KG per minute. Patient was given 1 dose of Lasix per pulmonary. Labs are reviewed patient has a hemoglobin of 8.1 platelets stable at 63. An ABG was obtained and pH 7.42 PO2 117 and bicarb 28 BUN 95 creatinine 5.68 albumin low at 1.8 patient continues to receive Invanz per infectious disease patient initiated on enteral tube feeding blood sugar stable less than 150 urine output is maintained at 40 cc/h. 300 mL drained out of the nephrostomy tube tube today. Nephrology recommend continuing IV fluids diuresis as needed. No plan for renal replacement 08/06 patient examined at bedside continues to remain intubated. Patient is noted to have nonpurposeful movement. currently on assist control respiratory rate of 26 tidal volume 500 FiO2 30% and PEEP of 5. Continues to remain on normal saline, patient is self weaned off his pressors apparently on levo fed at 60 valentin per KG per minute. Continuous remain in sinus rhythm blood pressure controlled. Chest x-ray showing persistent left mid lung and left greater than right basilar opacities with small left pleural effusion with no change compared to previous x-ray. Patient had good urine output after 40-50 mL per hour from the Denny catheter. He has right-sided nephrostomy tube with 1200 mL output since midnight. PH 7.41 pCO2 43 pO2 78, bicarb 27, hemoglobin stable at 9.4 Creatinine 5.27 calcium of 8. Plan for sedation withdrawal today for evaluating patient's mental status. 08/07 patient examined bedside neurology consultPatient is currently off PROPOFOL with nonpurposeful movement involving bilateral lower extremities. No episodes of agitation. Vitals are stable with a temp of 99.2, pulse 101 respiratory rate 32 blood pressure 1:30/63. Patient is currently on norepinephrine 0.13 valentin per KG per minute and normal saline running at 50 mL per hour. He is at assist control respiratory rate 26 tidal volume 500 FiO2 30 and PEEP of 5. Chest x-ray repeated this morning suggests of left greater than right bibasilar opacity with mild interstitial edema no significant change. No large effusion. Labs are reviewed patient hemoglobin is 8.9 dated 124 sodium 147 bicarb 112 BUN 106 creatinine 4.93 glucose stable between 130 and 148. Patient's nephew updated on the bladder cancer and poor prognosis. A CT head to be repeated this morning to check for change 08/08: Patient remains in the intensive care unit, intubated and on mechanical ventilation with tidal volume 500, FiO2 30 and PEEP of 5. He is currently on t ube feedings at 45 mL per hour, norepinephrine and D5W. Patient has been afebrile, heart rate in the 80s, respiratory rate 26, blood pressure 93/61, pulse ox 98%. Repeat blood work reveals WBC 10.2, hemoglobin 8.9, platelet 190. Sodium 150, potassium 3.9, chloride 115, CO2 27, BUN 109, creatinine 4.57. Blood sugars are running between 117 and 154. Repeat chest x-ray reveals COPD with bilateral infiltrate and small effusion stable. Patient continues to be followed by nephrology, train examiner, infectious disease, urology. Neurology consult was added yesterday. CAT scan of the brain performed yesterday revealed cerebral atrophy. No acute intracranial abnormality. Patient is currently on Invanz. REVIEW OF SYSTEMS Unable to obtain due to intubation PHYSICAL EXAMINATION Gen: This is a 76-year-old male. He is resting in ICU bed, intubated and on mechanical ventilation HEENT: Head is atraumatic, normocephalic. Sclerae is anicteric. Oral ET and gastric tube in place. NECK: Supple. No JVD. No lymphadenopathy. No thyromegaly. LUNGS: Bilateral rhonchi. No intercostal retractions. HEART: irregularly irregular rate and rhythm. No murmur. ABDOMEN: Soft. Bowel sounds are present. No masses. No tenderness. Denny catheter with hematuria. Nephrostomy tube draining jemal urine. EXTREMITIES: No pedal edema. No calf tenderness. NEUROLOGICAL: Patient is sedated. ASSESSMENT AND PLAN 1. Gross hematuria, with hypotension, obstructive uropathy, and a suspected bladder tumor, malignancy is highly suspected resumed UTI with pyuria. Patient was seen by urology, status post transurethral bladder resection on 07/31/2021 Dr. Vinson. Patient managed in ICU.pathology -high-grade, muscle invasive urothelial carcinoma as expected 2. Acute blood loss anemia, with hypovolemic and septic hypotension, from gross hematuria, requiring vasopressors, norepinephrine, maintained in ICU treatment, critical care medicine following. She is status post 1 unit packed RBCs. 3. Acute kidney injury secondary to bilateral hydronephrosis and hydroureter with workup suggestive of bladder cancer, unknown baseline for CKD. Nephrology consult appreciated. PhosLo, sodium bicar 650 mg po QID. 4. Elevated troponin, rule out non-ST elevated myocardial infarction, acute coronary syndrome ruled out. Cardiology consult appreciated. 5. Acute hypoxic respiratory failure requiring ongoing intubation and mechanical ventilation. Patient is managed by train examiner. 6. Acute ESBL Klebsiella urinary tract infection with sepsis and septic shock requiring vasopressors. IV antibiotics changed to Invanz, continue vasopressor support. 7. Thrombocytopenia secondary to sepsis. 8. BPH with prostatomegaly has indwelling Denny catheter at this time 9. Hypothyroidism. Continue levothyroxine 175 g daily 10. Hyperlipidemia 11. Hypertension currently hypotensive. 12. Tobacco use and dependence. DVT prophylaxis heparin subcu, to start in 24 hours. Post op patient reviewed his receive 1 dose kcentra 07/30 GI prophylaxis IV Protonix Prognosis guarded. Patient may need legal guardian appointed if he is not able to make his decisions CODE STATUS full code Impression and plan of care have been directed as dictated by the signing physician. Laurie Lawson nurse practitioner acting as scribe for signing physician. Objective - Vital Signs Vital signs: Vital Signs Temp 98.4 F 08/08/21 08:00 Pulse 94 08/08/21 11:00 Resp 28 H 08/08/21 11:00 BP 103/66 08/08/21 11:00 Pulse Ox 96 08/08/21 11:00 Intake & Output 08/07/21 08/08/21 08/08/21 18:59 06:59 18:59 Intake Total 1002.414 923.876 550 Output Total 1620 1705 555 Balance -617.586 -781.124 -5 Weight 92 kg 92 kg Intake: IV 220 220 320 0.9 220 220 20 Dextrose 5% in Water 1, 300 000 ml @ 75 mls/hr IV . [id number] [facility] Rx#:[id number] Intake, IV Titration 112.414 58.876 Amount Norepinephrine 32 mg In 82.277 58.876 Sodium Chloride 0.9% 218 ml @ 0.05 MCG/KG/MIN 1. 807 mls/hr IV .Q24H [facility] Rx#:[id number] propofoL 1,000 mg In 30.137 Empty Bag 1 bag @ Titrate IV .Q0M [facility] Rx#: [id number] Tube Feeding 540 495 180 Other 130 150 50 Output: Drainage 900 130 Right Lateral Back 900 130 Urine 720 1705 425 Other: Voiding Method Indwelling Catheter Indwelling Catheter Indwelling Catheter Ileal Conduit (Right) ABP, PAP, CO, CI - Last Documented Arterial Blood Pressure 74/11 - Labs CBC & Chem 7: 08/08/21 03:30 08/08/21 03:30 Labs: Abnormal Lab Results - Last 24 Hours (Table) 08/07/21 08/07/21 08/07/21 Range/Units 04:00 04:00 12:16 RBC (4.30-5.90) m/uL Hgb (13.0-17.5) gm/dL Hct (39.0-53.0) % RDW (11.5-15.5) % Neutrophils # (1.3-7.7) k/uL Lymphocytes # (1.0-4.8) k/uL ABG pO2 (83-108) mmHg ABG HCO3 (21-25) mmol/L ABG Total CO2 (19-24) mmol/L Sodium (137-145) mmol/L Chloride (98-107) mmol/L BUN (9-20) mg/dL Creatinine (0.66-1.25) mg/dL Glucose (74-99) mg/dL POC Glucose (mg/dL) 147 H (75-99) mg/dL TSH 9.030 H (0.465-4.680) mIU/L Free T4 0.42 L (0.78-2.19) ng/dL 08/07/21 08/08/21 08/08/21 Range/Units 17:57 00:23 03:30 RBC 3.13 L (4.30-5.90) m/uL Hgb 8.9 L (13.0-17.5) gm/dL Hct 27.2 L (39.0-53.0) % RDW 16.1 H (11.5-15.5) % Neutrophils # 8.8 H (1.3-7.7) k/uL Lymphocytes # 0.7 L (1.0-4.8) k/uL ABG pO2 (83-108) mmHg ABG HCO3 (21-25) mmol/L ABG Total CO2 (19-24) mmol/L Sodium (137-145) mmol/L Chloride (98-107) mmol/L BUN (9-20) mg/dL Creatinine (0.66-1.25) mg/dL Glucose (74-99) mg/dL POC Glucose (mg/dL) 142 H 154 H (75-99) mg/dL TSH (0.465-4.680) mIU/L Free T4 (0.78-2.19) ng/dL 08/08/21 08/08/21 08/08/21 Range/Units 03:30 05:09 06:00 RBC (4.30-5.90) m/uL Hgb (13.0-17.5) gm/dL Hct (39.0-53.0) % RDW (11.5-15.5) % Neutrophils # (1.3-7.7) k/uL Lymphocytes # (1.0-4.8) k/uL ABG pO2 79 L (83-108) mmHg ABG HCO3 29 H (21-25) mmol/L ABG Total CO2 31 H (19-24) mmol/L Sodium 150 H (137-145) mmol/L Chloride 115 H (98-107) mmol/L BUN 109 H* (9-20) mg/dL Creatinine 4.57 H (0.66-1.25) mg/dL Glucose 117 H (74-99) mg/dL POC Glucose (mg/dL) 135 H (75-99) mg/dL TSH (0.465-4.680) mIU/L Free T4 (0.78-2.19) ng/dL Microbiology - Last 24 Hours (Table) 08/02/21 05:18 Blood Culture - Final Blood No Growth after 144 hours 08/01/21 11:05 Blood Culture - Final Blood No Growth after 144 hours
--- NOTE | 2021-08-08 17:03 | P.PN ---
Subjective Progress Note Date: 08/08/21 Patient initially seen by Dr. Mayo Berry. Please refer to his note for details. Patient is a 76-year-old male came with altered mental status. Patient was brought to the hospital on 07/30/2021 after being found on the floor, unsure if he had passed out. Patient had evidence of bleeding in the toilet. Patient has history of bladder cancer, patient is intubated on ventilator. Patient has developed sepsis. No seizure-like activity has been noticed. Patient's urine is positive for Klebsiella Oxytoca.. Patient is currently on Levothroid 0.04 g. Patient is off propofol for last 24 hours. Recently during this hospital admission it was noted the patient has gross hematuria secondary due to a bladder tumor last post cystoscopy scope he and biopsy on 07/31/2021. 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 During his hospital stay it was felt the patient was in septic shock related to the ESBL Klebsiella UTI and strep pneumo group B Patient was intubated and on ventilator for the procedure on 07/31/21. Patient also had acute kidney injury and was improving as well as had anemia and received 1 unit of red blood cell. Patient's blood test shows WBC 10.2 hemoglobin 8.9, platelets 190. Sodium 150 potassium 3.9, BUN is 109, creatinine 4.57. Calcium 8.6. TFTs normal. Of the head on 07/30/2021 is reported as cerebral atrophy. No acute intracranial abnormality. CT cervical spine was reported as mild multilevel cervical spondylitic changes. No fracture. The echo was reported as left ventricular size is normal. Wall thickness is normal. Ejection fraction of 30-35%. Objective - Vital Signs Vital signs: Vital Signs Temp 98.4 F 08/08/21 08:00 Pulse 96 08/08/21 11:37 Resp 28 H 08/08/21 11:00 BP 103/66 08/08/21 11:00 Pulse Ox 96 08/08/21 11:00 Intake & Output 08/07/21 08/08/21 08/08/21 18:59 06:59 18:59 Intake Total 1002.414 923.876 751.749 Output Total 1620 1705 840 Balance -617.586 -781.124 -88.251 Weight 92 kg 92 kg Intake: IV 220 220 395 0.9 220 220 20 Dextrose 5% in Water 1, 375 000 ml @ 75 mls/hr IV . [id number] [facility] Rx#:[id number] Intake, IV Titration 112.414 58.876 11.749 Amount Norepinephrine 32 mg In 82.277 58.876 11.749 Sodium Chloride 0.9% 218 ml @ 0.05 MCG/KG/MIN 1. 807 mls/hr IV .Q24H [facility] Rx#:[id number] propofoL 1,000 mg In 30.137 Empty Bag 1 bag @ Titrate IV .Q0M [facility] Rx#: [id number] Tube Feeding 540 495 245 Other 130 150 100 Output: Drainage 900 370 Right Lateral Back 900 370 Urine 720 1705 470 Other: Voiding Method Indwelling Catheter Indwelling Catheter Indwelling Catheter Ileal Conduit (Right) ABP, PAP, CO, CI - Last Documented Arterial Blood Pressure 74/11 - Exam GENERAL: The patient is lying in bed and does not seem in acute distress. NEUROLOGICAL: Limited Patient is off sedation. Patient is on ventilator with mechanical ventilation. Higher mental function: Patient keeps his eyes closed. He does not follow, arms. Patient does withdraw to painful stimuli related to his lower extremities. He grimaces with painful stimuli in the upper ex-images. Response was equal bilaterally.. Cranial nerves: Patient keeps his eyes closed. Primary gaze is midline. The pupils are round, equal (2mm) and reactive to light. +ve corneal reflex bilaterally. No facial weakness. +cough and henrietta. Is breathing over the vent. Motor: The strength is hard to assess but responds equal as mentioned above. Cerebellum: Could not assess. Sensation: Could not assess light touch but he is grimacing to painful stimuli throughout. Reflexes (right/left): 1+ throughout. Plantars are mute bilaterally. - Labs CBC & Chem 7: 08/08/21 03:30 08/08/21 03:30 Labs: Abnormal Lab Results - Last 24 Hours (Table) 08/07/21 08/07/21 08/07/21 Range/Units 04:00 04:00 17:57 RBC (4.30-5.90) m/uL Hgb (13.0-17.5) gm/dL Hct (39.0-53.0) % RDW (11.5-15.5) % Neutrophils # (1.3-7.7) k/uL Lymphocytes # (1.0-4.8) k/uL ABG pO2 (83-108) mmHg ABG HCO3 (21-25) mmol/L ABG Total CO2 (19-24) mmol/L Sodium (137-145) mmol/L Chloride (98-107) mmol/L BUN (9-20) mg/dL Creatinine (0.66-1.25) mg/dL Glucose (74-99) mg/dL POC Glucose (mg/dL) 142 H (75-99) mg/dL TSH 9.030 H (0.465-4.680) mIU/L Free T4 0.42 L (0.78-2.19) ng/dL 08/08/21 08/08/21 08/08/21 Range/Units 00:23 03:30 03:30 RBC 3.13 L (4.30-5.90) m/uL Hgb 8.9 L (13.0-17.5) gm/dL Hct 27.2 L (39.0-53.0) % RDW 16.1 H (11.5-15.5) % Neutrophils # 8.8 H (1.3-7.7) k/uL Lymphocytes # 0.7 L (1.0-4.8) k/uL ABG pO2 (83-108) mmHg ABG HCO3 (21-25) mmol/L ABG Total CO2 (19-24) mmol/L Sodium 150 H (137-145) mmol/L Chloride 115 H (98-107) mmol/L BUN 109 H* (9-20) mg/dL Creatinine 4.57 H (0.66-1.25) mg/dL Glucose 117 H (74-99) mg/dL POC Glucose (mg/dL) 154 H (75-99) mg/dL TSH (0.465-4.680) mIU/L Free T4 (0.78-2.19) ng/dL 08/08/21 08/08/21 08/08/21 Range/Units 05:09 06:00 11:43 RBC (4.30-5.90) m/uL Hgb (13.0-17.5) gm/dL Hct (39.0-53.0) % RDW (11.5-15.5) % Neutrophils # (1.3-7.7) k/uL Lymphocytes # (1.0-4.8) k/uL ABG pO2 79 L (83-108) mmHg ABG HCO3 29 H (21-25) mmol/L ABG Total CO2 31 H (19-24) mmol/L Sodium (137-145) mmol/L Chloride (98-107) mmol/L BUN (9-20) mg/dL Creatinine (0.66-1.25) mg/dL Glucose (74-99) mg/dL POC Glucose (mg/dL) 135 H 153 H (75-99) mg/dL TSH (0.465-4.680) mIU/L Free T4 (0.78-2.19) ng/dL Microbiology - Last 24 Hours (Table) 08/02/21 05:18 Blood Culture - Final Blood No Growth after 144 hours 08/01/21 11:05 Blood Culture - Final Blood No Growth after 144 hours Assessment and Plan Assessment: * Mental status due to multifactorial: Metabolic encephalopathy and septic encephalopathy. Patient is off sedation for last 24 hours. * Septic shock related to the Klebsiella Oxytoca UTI and strep pneumo group B * Acute kidney injury--creatinine trending down (last creatnine is 4.57), however BUN seems to be getting worse with most recent BUN 109. * Bladder tumor last post cystoscopy scope he and biopsy on 07/31/2021. Pathology is positive for invasive high-grade urothelial carcinoma * Intubated on a ventilator airway protection since 07/31/2021. * Anemia, received 1 unit of PRBC. * Hypertension and during this hospital stay patient had hypotension because of sepsis * History of hyperlipidemia * History of hypothyroidism * History of nicotine use Plan: Repeat CT of the head 08/07/2021 showed cerebral atrophy, no acute intracranial abnormality. Preliminary EEG report showed background slowing of moderate to severe degree, consistent with toxic metabolic encephalopathy. Neuro checks every 4 hours. Infection disease is on board Nephrology is on board Urology is on board. We'll defer the rest of the medical management to the primary and ICU team. Condition is very guarded.
[2021-08-08 17:44] LABS: Glucose,Whole Blood 150 mg/dL (75-99)
[2021-08-08] MEDS: ERTAPENEM 0.5 GM in SODIUM CHLORIDE 0.9% 50 ML IVPB SCH (20:49)
--- NOTE | 2021-08-08 22:14 | PN ---
PROGRESS NOTE DATE OF SERVICE: 08/08/2021 REASON FOR FOLLOW UP: ESBL Klebsiella complicated urinary tract infection. INTERVAL HISTORY: The patient is afebrile. The patient is hemodynamically stable. Mentation remains an issue, as the patient is not waking up despite discontinuation of his sedation. CT brain negative for any bleed. FiO2 is currently 40%. No significant purulent secretions through the ET or diarrhea reported by the nursing staff. PHYSICAL EXAMINATION: Blood pressure is 87/55 with a pulse of 93, temperature 98.5. He is 98% on 40% FiO2. General description is an elderly male lying in bed in no distress. Respiratory system: Unlabored breathing, decreased breath sounds at the base. No wheeze. Heart S1, S2. Regular rate and rhythm. Abdomen soft, no tenderness. LABS: Hemoglobin is 8.9, white count 10.2, creatinine 4.57. DIAGNOSTIC IMPRESSION AND PLAN: Patient with a complicated urinary tract infection. Urine has been positive for ESBL Klebsiella. Patient is covered with ertapenem; to continue along with respiratory support and monitor his clinical course closely. Prognosis remains guarded. MMODL / IJN: [id number] / MTDD
[2021-08-09 00:46] LABS: Glucose,Whole Blood 144 mg/dL (75-99)
[2021-08-09] MEDS: NOREPINEPHRINE 32 MG in SODIUM CHLORIDE 0.9% 218 ML IV SCH (00:55)
[2021-08-09] MEDS: INSULIN ASPART (NovoLOG) 100 UNIT/ML VIAL SQ SCH ×4 (00:56→17:51)
[2021-08-09] MEDS: IPRATROPIUM-ALBUTEROL 3 ML NEB INHALATION SCH ×6 (03:12→23:00)
[2021-08-09 05:08] LABS: ABG Base Excess 4.9 mmol/L; ABG HCO3 29 mmol/L (21-25); ABG PCO2 41 mmHg (35-45); ABG PH 7.46 (7.35-7.45); ABG PO2 112 mmHg (83-108); ABG TCO2 30 mmol/L (19-24); Allen Test Performed? Yes
[2021-08-09 06:39] LABS: Glucose,Whole Blood 133 mg/dL (75-99)
[2021-08-09] MEDS: LEVOTHYROXINE 88 MCG TAB PO SCH (06:46)
[2021-08-09] MEDS: CALCIUM ACETATE 667 MG TAB PO SCH ×3 (06:46→17:51)
--- NOTE | 2021-08-09 07:51 | P.PN ---
Subjective Progress Note Date: 08/09/21 76-year-old male patient, currently the intensive care unit, intubated on a mechanical ventilator with septic shock along with a recent diagnosis of bladder tumor. The patient has known history of hypertension and hyperlipidemia and hypothyroidism and he came into the hospital after he had a fall/passing out episode. At that time, the patient had gross hematuria. CAT scan of the brain was negative. CAT scan of the abdomen and pelvis showed bilateral hydronephrosis with hydroureter without any calculus. The patient had a cystoscopy and a large tumor arising in the posterior right lateral bladder wall was noted consistent with high-grade/invasive cancer. During the course of the illness, the patient had a right-sided nephrostomy tube placed and the patient also had a cystoscopy and bladder tumor resection. The patient accordingly was intubated and placed on a mechanical ventilator. The patient became septic and the patient had Klebsiella sepsis from urinary source. The patient during the course of his illness was sedated, paralyzed, placed on high doses of pressors including a combination of norepinephrine and vasopressin. The patient was also given a bicarb infusion for significant metabolic acidosis. He did develop an acute kidney injury and his chest x-ray also showed diffuse but the pulmonary infiltrates consistent with pneumonia/edema. Subsequently, the patient was cu ltured to have an ESBL producing capsula Klebsiella and the patient was covered with IV Invanz. Note that the patient also had a strep group B in the sputum. At this point in time, the patient remains intubated. The patient is post a day #8. The patient has a right-sided nephrostomy tube in place. The pathology from the bladder is consistent with malignancy. The patient remains intubated on a mechanical ventilator. He is an assist-control mode at the rate of 26 with a tidal volume of 500 FiO2 of 30% with a PEEP of 5. He was sedated with propofol and he was taken off the sedation yesterday. He did not show or demonstrated adequate neurologic recovery. As such, the patient was kept on hold and the patient was asked to be seen by neurology. A neurologic workup is in progress at this point in time. Meanwhile, the patient is receiving enteral feeding for nutritional support. The patient is on vital AF at goal. He remains on antibiotics. Norepinephrine infusion is running at 11 g per minute for hemodynamic support. The patient is also on Lovenox 30 mg subcu for DVT prophylaxis. Bicarb infusion has been discontinued and the patient is currently on IV fluids at [facility]. He did develop a component of hyponatremia from yesterday and the sodium from yesterday was 147. Creatinine continues to improve and the BUN was 106 with a creatinine of 4.9 from yesterday. Patient is also on IV Synthroid. Free T4 was 0.42 with TSH of 9.0. Serum cortisol was 16. CAT scan of the brain was done yesterday and showed no acute abnormalities. There was evidence of failure atrophy. On today's evaluation, the patient remains unresponsive. The patient still off sedation since yesterday. CAT scan of the brain as stated showed no acute abnormalities. The blood gases from today shows a pH of 7.45 with a pCO2 of 42 and pO2 of 79 and this was done on the above- mentioned ventilator setting. As for the chest x-ray, from this morning, the findings are essentially stable. There is probably a small left-sided pleural effusion. ET tube is in a good location at the level of the aortic knob and/or G-tube also is in a good location. No evidence of any consolidation or airspace disease. Meanwhile, the patient's sodium is up to 150, creatinine is slightly improved down to 4.57 with a BUN of 109 and a potassium level of 3.5. Cardiac rhythm remains sinus. Norepinephrine infusion is running at 0.08 mcg/kg per minute. On today's evaluation of 08/09/2021, the patient is being seen for a follow-up. The patient has been off sedation for the past 72 hours. On today's evaluation, he remains still unresponsive. He grimaces to painful stimulation. I've seen him with no his lower extremities to painful stimulation. His pupils are equal and reactive. He has a positive cough and a gag reflex. Nevertheless, he does not follow any commands. He remains on a mechanical ventilator. This morning, he is on assist-control at the rate of 26, tidal volume of 500, FiO2 of 40%, and a PEEP of 5. Chest x-ray remains unchanged and ET tube is in a good location. The blood gases from today showed a pO2 of 112, pCO2 of 41 and a pO2 pH of 7.46. The patient is afebrile. The patient is hemodynamically stable. In fact, he is on a very low dose of norepinephrine running at 0.03 mcg/kg per minute which obviously can be weaned off today. Meanwhile, an ultrasound of the kidney was done yesterday again to reevaluate for any hydronephrosis. The ultrasound showed a [id number] right-sided hydronephrosis with nephrostomy tube and good location. Left kidney examination was limited due to bowel gas pattern. Based on that, the urologist have made a decision not to insert a nephrostomy tube on the left considering that the benefit of this intervention will be quite low. The urine output and his Denny catheter is in the order of 2000 mL over the past 24 hours and output from the right-sided nephrostomy is in order of 800 mL over the past 24 hours. Labs from today is still pending. He is receiving enteral feeding for nutritional support and the patient is currently on vital AF at the goal of 65 mL an hour. He is also receiving water flushes every 4 hours in the order of 100 mL an hour. Repeat sodium from yesterday evening was 150. Follow-up levels are still pending. Meanwhile the patient is on D5 water at the rate of 75 mL an hour. Objective - Vital Signs Vital signs: Vital Signs Temp 98.5 F 08/08/21 20:00 Pulse 88 08/09/21 07:24 Resp 26 H 08/09/21 07:00 BP 90/62 08/09/21 07:00 Pulse Ox 98 08/09/21 07:00 Intake & Output 08/08/21 08/09/21 08/09/21 18:59 06:59 18:59 Intake Total 8004.745 8120 140 Output Total 1430 1400 50 Balance 154.267 365 90 Weight 92 kg Intake: IV 845 900 75 0.9 20 Dextrose 5% in Water 1, 825 900 75 000 ml @ 75 mls/hr IV . [id number] LADONNA Rx#:[id number] Intake, IV Titration 19.267 Amount Norepinephrine 32 mg In 19.267 Sodium Chloride 0.9% 218 ml @ 0.05 MCG/KG/MIN 1. 807 mls/hr IV .Q24H LADONNA Rx#:[id number] Tube Feeding 570 715 65 Other 150 150 Output: Drainage 665 150 Right Lateral Back 665 150 Urine 765 1250 50 Other: Voiding Method Indwelling Catheter Indwelling Catheter Ileal Conduit (Right) Ileal Conduit (Right) ABP, PAP, CO, CI - Last Documented Arterial Blood Pressure 74/11 - Exam Gen. appearance, the patient is currently intubated on a mechanical ventilator. Orogastric and orotracheal tube are both in place. There are no signs of any la bored breathing. The patient is quite successful mechanical ventilator. No acute distress, the patient is not on any sedation, and has an orally placed endotracheal tube and NG tube HEENT examination is grossly unremarkable. Neck supple. Full range of motion. No adenopathy thyromegaly or neck vein distention. Cardiovascular examination reveals regular rhythm rate. S1-S2 normal. No S3 or S4. No discernible murmur noted. Cardiac exam revealed the PMI to be normally situated and sized. The rhythm was regular and no extrasystoles were noted during several minutes of auscultation. The first and second heart sounds were normal and physiologic splitting of the second heart sound was noted. There were no murmurs, rubs, clicks, or gallops. Lungs reveal diffuse bilateral coarse rhonchi. Breath sounds are equal. No wheezes or crackles noted. Saturations are 96%. AbdomenAbdominal exam revealed normal bowel sounds. The abdomen was soft, non- tender, and without masses, organomegaly, or appreciable enlargement of the abdominal aorta. Patient has a right-sided nephrostomy tube in place Extremities are intact. No cyanosis clubbing or edema. Examination of the skin revealed no evidence of significant rashes, suspicious appearing nevi or other concerning lesions. Neurologic examination reveals a patient who is not sedated, but is not responsive to verbal or painful stimuli. - Labs CBC & Chem 7: 08/08/21 03:30 08/08/21 16:40 Labs: Abnormal Lab Results - Last 24 Hours (Table) 08/08/21 08/08/21 08/08/21 Range/Units 11:43 16:40 17:43 ABG pH (7.35-7.45) ABG pO2 (83-108) mmHg ABG HCO3 (21-25) mmol/L ABG Total CO2 (19-24) mmol/L ABG O2 Saturation (94-97) % Sodium 150 H (137-145) mmol/L POC Glucose (mg/dL) 153 H 150 H (75-99) mg/dL 08/09/21 08/09/21 08/09/21 Range/Units 00:44 05:00 06:38 ABG pH 7.46 H (7.35-7.45) ABG pO2 112 H (83-108) mmHg ABG HCO3 29 H (21-25) mmol/L ABG Total CO2 30 H (19-24) mmol/L ABG O2 Saturation 99.0 H (94-97) % Sodium (137-145) mmol/L POC Glucose (mg/dL) 144 H 133 H (75-99) mg/dL Microbiology - Last 24 Hours (Table) 08/02/21 05:18 Blood Culture - Final Blood No Growth after 144 hours Assessment and Plan Plan: 1 septic shock secondary to an underlying UTI/complicated UTI with obstructive uropathy and acute kidney injury secondary to bladder tumor. Patient remains on pressors. 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 Creatinine is gradually improving. The patient is post cystoscopy and biopsies on 07/31/2021 with trans-ureteral resection of bladder tumor, postop day #10 4 mild hypernatremia amount currently on D5 water 5 acute hypoxic respiratory failure, the patient's been intubated since 07/31/2021 6 altered mentation with diminished level of consciousness, consider metabolic encephalopathy. CAT scan of the brain done yesterday was essentially negative for any acute abnormalities and this consistent with cerebral atrophy 7 hypotension secondary to septic shock 8 anemia of chronic disease post units of packed RBC transfusion 9 hypothyroidism currently on Synthroid replacement 10 troponin leak secondary to above 11 hyperlipidemia 12 hypertension, history of Plan In terms of mental status, the patient remains deeply encephalopathic and this is probably due to a component of metabolic encephalopathy nontender the patient continues to be in renal failure. CAT scan of the brain is negative and the patient has been taken off sedation for more than 48-72 hours. Mental status is being monitored closely. He responds only to deep painful stimulation . He does not follow any commands. Pupils are equal and reactive to light. On today's evaluation, slightly more interactive compared to yesterday. I consider this to be related to metabolic encephalopathy. He may potentially improve with either improvement in renal function and/or dialysis. This will be discussed further. Continue ventilator support, no changes, no plans for extubation today Continue IV Invanz Start the patient on D5 water at the rate of 75 mL an hour , awaiting follow-up sodium levels continue enteral feeding, vital AF at 45 mL an hour, currently at goal in addition to water flushes through the OG 50 mL every 4 hours No plans for nephrostomy tube on the left. Still has some hydronephrosis on the right post nephrostomy tube insertion Wean off pressors if possible currently on norepinephrine infusion at 0.02 microvascular kilogram per minute We will insert another arterial line for blood pressure monitoring Continue Synthroid, increase the dose of Synthroid to 200 g on a daily basis oral Continue the rest of the supportive care and will continue to follow make [facility] recommendations based on his progress. The plan is to keep him off sedation for now and monitor his mental status. History care evaluation, more than 30 minutes. Time with Patient: Greater than 30
[2021-08-09] MEDS ORDERED: LEVOTHYROXINE 25 MCG TAB PO ONE (08:00)
[2021-08-09 08:17] LABS: Basophils % (A) 0 %; Eosinophils # (A) 0.2 k/uL (0-0.7); Eosinophils % (A) 3 %; HGB 8.4 gm/dL (13.0-17.5); Hypochromasia Slight; Lymphocytes # (A) 0.7 k/uL (1.0-4.8); Lymphocytes % (A) 8 %; MCH 28.9 pg (25.0-35.0); MCHC 32.5 g/dL (31.0-37.0); MCV 89.1 fL (80.0-100.0); Mean Platelet Volume 9.4; Monocytes # (A) 0.3 k/uL (0-1.0); Monocytes % (A) 3 %; Neutrophils # (A) 8.2 k/uL (1.3-7.7); Neutrophils % (A) 85 %; Platelet Count 226 k/uL (150-450); RBC 2.92 m/uL (4.30-5.90); RDW 15.9 % (11.5-15.5); WBC 9.6 k/uL (3.8-10.6)
--- NOTE | 2021-08-09 08:28 | XR ---
EXAMINATION TYPE: XR chest 1V portable DATE OF EXAM: 08/09/2021 COMPARISON: 08/08/2021 HISTORY: Shortness of breath TECHNIQUE: Single frontal view of the chest is obtained. FINDINGS: Hyperinflation. ET and NG tube stable. Left lower lobe infiltrate and small effusion. Hype rtrophic and degenerative change the spine. Arthropathy of the shoulders. Heart size normal. IMPRESSION: COPD with left lower lobe infiltrate and small effusion. Findings stable.
[2021-08-09 08:36] LABS: Albumin 2.1 g/dL (3.5-5.0); Calcium 8.5 mg/dL (8.4-10.2); Total Bilirubin 0.4 mg/dL (0.2-1.3); Total Protein 4.7 g/dL (6.3-8.2)
[2021-08-09] MEDS: SODIUM BICARBONATE TAB 650 MG TAB PO SCH ×4 (08:42→21:30)
[2021-08-09] MEDS: PANTOPRAZOLE 40 MG/10 ML VIAL IV SCH (08:42)
[2021-08-09] MEDS: CHLORHEXIDINE GLUCONATE 15 ML CUP MUCOUS MEM SCH ×2 (08:42→21:30)
[2021-08-09] MEDS: ENOXAPARIN 30 MG/0.3 ML SYRINGE SQ SCH (08:43)
[2021-08-09] MEDS: DEXTROSE 5% IN WATER 1,000 ML IV SCH ×3 (11:25→21:00)
--- NOTE | 2021-08-09 11:29 | PN ---
PROGRESS NOTE Patient is seen for followup for acute kidney injury and hypernatremia. He is status post right nephrostomy tube placement with improvement in creatinine. Serum creatinine is down to 4.1 from 6.8 at peak. Patient has good urine output from the Denny catheter as well as the right nephrostomy. His mentation has not improved significantly yet. Patient remains on the vent. There was concern for need for left nephrostomy as well. Ultrasound done on 08/08 shows right hydronephrosis still noted. The left kidney was not easily visualized. Patient remains on the vent. Urine output for 24 hours about 2.8 L. Blood pressure was 103/70, heart rate 90 per minute. Patient is afebrile. EXAMINATION OF THE HEART: S1 and S2. Examination of lungs shows bilateral breath sounds. EXAMINATION OF THE ABDOMEN: Soft, non-tender. Lower extremities show no significant edema. DONOR TECHNICIAN exam cannot be assessed. Labs show sodium 150, potassium 4.0, chloride 117. CO2 is 26, BUN 109, serum creatinine 4.1. ASSESSMENT: 1. Acute kidney injury, obstructive uropathy, currently improving, status post right nephrostomy tube placement with good urine output from the nephrostomy as well in the Denny catheter. However, creatinine remains significantly elevated, although it is improved from initial admission. Therefore patient will still have some underlying component of uremia which is most likely contributing to his mentation as well. At this time, given the improving renal function, I would hold off on dialysis and will discuss with Urology again regarding left nephrostomy tube placement. The left kidney could not be visualized well on the recent ultrasound done on 08/08/2021. 2. Hypernatremia associated with free water deficit, maintained on D5W as well as free water down the feeding tube. I will increase the D5W to 100 mL/hour. 3. Acute hypoxic respiratory failure. Currently on the vent. 4. Hematuria, bilateral hydronephrosis with high suspicion for bladder cancer. 5. Klebsiella urinary tract infection. 6. Septic shock. Remains on small dose of Levophed. PLAN: Will discuss with Urology regarding left nephrostomy tube. At this time, given the improving renal function, I would hold off on any renal replacement therapy. Hopefully we can speed up the renal recovery with left nephrostomy tube placement. MMODL / IJN: [id number] /
[2021-08-09 11:52] LABS: Glucose,Whole Blood 145 mg/dL (75-99)
--- NOTE | 2021-08-09 13:41 | EEG ---
ELECTROENCEPHALOGRAM REPORT DATE OF SERVICE: 08/08/2021. PREAMBLE: This is a 76-year-old male with altered mental status. EEG FINDINGS: This is a 21 channel digital EEG recorded with video competent, utilizing 10/20 international system with referential and bipolar montages. The background consists of moderately well-developed, poorly regulated, predominantly 4-6 hertz theta, intermixed with low amplitude delta slowing in bihemispheric region. Background does not seem to be reactive to eye opening and closing. Photic driving response was not seen. Different stages of sleep were not seen. No focal or generalized epileptiform activity was seen. IMPRESSION: This is an abnormal EEG due to background slowing of at least moderate degree. This is suggestive of generalized cerebral dysfunction as can be seen with toxic metabolic encephalopathy or related to diffuse structural brain abnormality. No epileptiform activity was seen. [id number] / IJN: [id number] /
--- NOTE | 2021-08-09 15:07 | P.PN ---
Subjective Progress Note Date: 08/09/21 HISTORY OF PRESENT ILLNESS This 76-year-old pleasant gentleman, patient of Dr. Wills. History of hypertension hyperlipidemia, hypothyroidism, who was noted to have some bleeding in the toilet for several days, unsure how long the duration was, however he is on blood thinners, he was found on the floor today, patient denies any headache, however it's unclear how the patient fell. He does not admit to syncopal event, patient was subsequently setting to emergency room from home, to the emergency via EMS, a condom catheter was placed, and that's how they found that patient is having gross hematuria rather than rectal bleeding. In emergency room, central line was placed for IV hydration, blood pressure was 75/50, daily urinalysis, shows over 182 RBCs and WBC, hemoglobin 10.4 WBC count 11.0, platelet 297, creatinine of 6.1, BUN of 77, unknown baseline. Patient had CAT scan, head and cervical spine, shows multilevel cervical spondylosis change, no fracture, and no dislocation. No intracranial hemorrhage, intact calvarium. Computed tomography scan of the abdomen, shows bilateral hydronephrosis, and hydroureter, more on the right than the left, there is bilateral renal vascular calcification, no renal calculi, no ureteral calculi. There is no inguinal hernia, no fluid in the pelvis, bilateral stents in the abdominal aorta and iliac arteries, no mesenteric edema, no ascites or free air. No bowel obstruction, bladder imaging is not well evaluated due to lack of distention there is colonic diverticula, without signs of diverticulitis. Chest x-ray shows mild pulmonary fibrosis Consult was made with nephrology, urology and intensive care management, patient admitted to ICU for significant gross hematuria, obstructive uropathy, with mental status changes, and suspected syncope, with a fall long-term anticoagulation, elevated troponin Patient is taken to the operating room, for cystoscopy, evacuation of clot, and transient Trial resection of the bladder as a CAT scan per review from urology, shows bladder irregularity. There is a large sessile tumor, in the right posterolateral bladder wall. It was dense and suspected to have obviously a high grade tumor, with muscular invasion 08/01: Patient remains in the intensive care unit intubated on mechanical ventilation with tidal volume 500, FiO2 40, PEEP of 5. Patient is on levo fed, vasopressin, Nimbex, fentanyl, bicarb drip and propofol. The patient has hematuria from Denny catheter and nephrostomy tube and there is small amount of leaking from the meatus. 08/02: Patient remains in the intensive care unit intubated and on mechanical ventilation with tidal volume 500, FiO2 50, PEEP 5. Patient has been weaned down on norepinephrine continued on vasopressin, Nimbex, fentanyl and propofol. He has been afebrile, heart rate 77, blood pressure 92/59, pulse ox 100%. He had monitor sinus rhythm. Repeat blood work reveals WBC 21.2, hemoglobin 9.9, platelet count 125. Lites are within normal limits. BUN 78 creatinine 6.41. Capillary blood glucose running between 113 and 121. Urine culture has been finalized with ESBL Klebsiella oxytoca and antibiotics will be changed from ceftriaxone to Zosyn. 08/03 patient examined while intubated. Patient is postop 3 continues to remain ventilator on assist control mode respiratory rate of 26 and volume 500 FiO2 40 and PEEP of 5. FiO2 decreased to 30 with patient maintaining her oxygen saturations between 96-98%. He continues to remain on propofol at 25 valentin per KG per minute. Vasopressin at 0.04 units per minute, norepinephrine at 20 mics KG per minute and fentanyl 0.5 valentin per KG per minute. Patient's bicarb drip was discontinued and is currently on half-normal saline at 50 mL per hour. Nimbex has been discontinued. Patient vitals are stable with temp 97.8 pulse 63 respiratory rate 26 blood pressure 109/71. Leukocytosis of 14.5, hemoglobin 9.3 platelet has reduced to 93. Potassium is 3.3 bicarb 21 BUN 85 creatinine 6. 47. Urine output is approximately 10-15 mL per hour about 250 developed intermittent nephrostomy tube. Lasix 80 mg IV to be given today. Potassium is being repleted. No need for dialysis as at this point per nephrology Patient contineus to remain intubated with vent setting involving assist control, resp rate 26, tidal vol 500, PEEP 5 and Fio2 40 %. Patient continues to remain aon vasopressor and norepinephrine. Sedation mentained with propofol and fentanyl. Patient is noticed to move his lower extremities but doesnot follow any commands. UO has improved appears to be 40 ml/ hr but appears to be serosangunous, continues to have 250 - 300 ml every 6 hour. pathology consistent with high-grade, muscle invasive urothelial carcinoma. Patient was seen by urology who has recommended left nephrostomy tube in next few days. patient was noted to be in atrial fib ad is on cardizem drip, metoprolol dose increased to 25 mg po TID per cardiology 08/05 patient examined at bedside continues to remain on the ventilator. He is currently on assist control respiratory rate of 26 tidal volume 500 FiO2 40% and PEEP of 5. Continues to remain on normal saline 50 cc/h, vasopressin .02 micrograms per, norepi at 4.8 mics per KG per minute, propofol at 10 mics per KG per minute. Patient was given 1 dose of Lasix per pulmonary. Labs are reviewed patient has a hemoglobin of 8.1 platelets stable at 63. An ABG was obtained and pH 7.42 PO2 117 and bicarb 28 BUN 95 creatinine 5.68 albumin low at 1.8 patient continues to receive Invanz per infectious disease patient initiated on enteral tube feeding blood sugar stable less than 150 urine output is maintained at 40 cc/h. 300 mL drained out of the nephrostomy tube tube today. Nephrology recommend continuing IV fluids diuresis as needed. No plan for renal replacement 08/06 patient examined at bedside continues to remain intubated. Patient is noted to have nonpurposeful movement. currently on assist control respiratory rate of 26 tidal volume 500 FiO2 30% and PEEP of 5. Continues to remain on normal saline, patient is self weaned off his pressors apparently on levo fed at 60 valentin per KG per minute. Continuous remain in sinus rhythm blood pressure controlled. Chest x-ray showing persistent left mid lung and left greater than right basilar opacities with small left pleural effusion with no change compared to previous x-ray. Patient had good urine output after 40-50 mL per hour from the Denny catheter. He has right-sided nephrostomy tube with 1200 mL output since midnight. PH 7.41 pCO2 43 pO2 78, bicarb 27, hemoglobin stable at 9.4 Creatinine 5.27 calcium of 8. Plan for sedation withdrawal today for evaluating patient's mental status. 08/07 patient examined bedside neurology consultPatient is currently off PROPOFOL with nonpurposeful movement involving bilateral lower extremities. No episodes of agitation. Vitals are stable with a temp of 99.2, pulse 101 respiratory rate 32 blood pressure 1:30/63. Patient is currently on norepinephrine 0.13 valentin per KG per minute and normal saline running at 50 mL per hour. He is at assist control respiratory rate 26 tidal volume 500 FiO2 30 and PEEP of 5. Chest x-ray repeated this morning suggests of left greater than right bibasilar opacity with mild interstitial edema no significant change. No large effusion. Labs are reviewed patient hemoglobin is 8.9 dated 124 sodium 147 bicarb 112 BUN 106 creatinine 4.93 glucose stable between 130 and 148. Patient's nephew updated on the bladder cancer and poor prognosis. A CT head to be repeated this morning to check for change 08/08: Patient remains in the intensive care unit, intubated and on mechanical ventilation with tidal volume 500, FiO2 30 and PEEP of 5. He is currently on t ube feedings at 45 mL per hour, norepinephrine and D5W. Patient has been afebrile, heart rate in the 80s, respiratory rate 26, blood pressure 93/61, pulse ox 98%. Repeat blood work reveals WBC 10.2, hemoglobin 8.9, platelet 190. Sodium 150, potassium 3.9, chloride 115, CO2 27, BUN 109, creatinine 4.57. Blood sugars are running between 117 and 154. Repeat chest x-ray reveals COPD with bilateral infiltrate and small effusion stable. Patient continues to be followed by nephrology, cloth weaver, infectious disease, urology. Neurology consult was added yesterday. CAT scan of the brain performed yesterday revealed cerebral atrophy. No acute intracranial abnormality. Patient is currently on Invanz. 08/09: Patient remains in the intensive care unit on mechanical ventilation with tidal volume 500, FiO2 40, PEEP of 5. Patient has been off sedation since 08/07. He is followed by neurology. There is concern that patient has less movement on the right upper extremity. He has minimal response to pain. Patient also followed by nephrology with no plan at this time to start dialysis. Dr. Contreras is planning to discuss possible insertion of left-sided nephrostomy tube with urology. Renal ultrasound revealed mild to moderate right-sided hydronephrosis with nephrostomy tube. Repeat chest x-ray reveals COPD and left lower lobe infiltrate and small effusions . Pathology report remains pending. REVIEW OF SYSTEMS Unable to obtain due to intubation PHYSICAL EXAMINATION Gen: This is a 76-year-old male. He is resting in ICU bed, intubated and on mechanical ventilation HEENT: Head is atraumatic, normocephalic. Sclerae is anicteric. Oral ET and gastric tube in place. NECK: Supple. No JVD. No lymphadenopathy. No thyromegaly. LUNGS: Bilateral rhonchi. No intercostal retractions. HEART: irregularly irregular rate and rhythm. No murmur. ABDOMEN: Soft. Bowel sounds are present. No masses. No tenderness. Denny cath eter. Nephrostomy tube draining jemal urine. EXTREMITIES: No pedal edema. No calf tenderness. NEUROLOGICAL: Patient is sedated. ASSESSMENT AND PLAN 1. Gross hematuria, with hypotension, obstructive uropathy, and a suspected bladder tumor, malignancy is highly suspected resumed UTI with pyuria. Patient was seen by urology, status post transurethral bladder resection on 07/31/2021 Dr. Vinson. Patient managed in ICU.pathology -high-grade, muscle invasive urothelial carcinoma is expected 2. Acute blood loss anemia, with hypovolemic and septic hypotension, from gross hematuria, requiring vasopressors, norepinephrine, maintained in ICU treatment, critical care medicine following. She is status post 1 unit packed RBCs. 3. Acute kidney injury secondary to bilateral hydronephrosis and hydroureter with workup suggestive of bladder cancer, unknown baseline for CKD. Nephrology consult appreciated. PhosLo, sodium bicar 650 mg po QID. 4. Elevated troponin, rule out non-ST elevated myocardial infarction, acute coronary syndrome ruled out. Cardiology consult appreciated. 5. Acute hypoxic respiratory failure requiring ongoing intubation and mechanical ventilation. Patient is managed by cloth weaver. 6. Acute ESBL Klebsiella urinary tract infection with sepsis and septic shock requiring vasopressors. IV antibiotics changed to Invanz, continue vasopressor support. 7. Thrombocytopenia secondary to sepsis. 8. BPH with prostatomegaly has indwelling Denny catheter at this time 9. Hypothyroidism. Continue levothyroxine 200 g daily 10. Hyperlipidemia 11. Hypertension currently hypotensive. 12. Tobacco use and dependence. DVT prophylaxis with Lovenox 30 mg subcu daily GI prophylaxis IV Protonix Prognosis guarded. Patient may need legal guardian appointed if he is not able to make his decisions CODE STATUS full code Impression and plan of care have been directed as dictated by the signing physician. Laurie Lawson nurse practitioner acting as scribe for signing physician. Objective - Vital Signs Vital signs: Vital Signs Temp 99.0 F 08/09/21 08:00 Pulse 90 08/09/21 11:04 Resp 27 H 08/09/21 10:00 BP 103/70 08/09/21 10:00 Pulse Ox 97 08/09/21 10:00 Intake & Output 08/08/21 08/09/21 08/09/21 18:59 06:59 18:59 Intake Total 6923.074 7525 555.947 Output Total 1430 1400 375 Balance 154.267 365 180.947 Weight 92 kg Intake: IV 845 900 300 0.9 20 Dextrose 5% in Water 1, 825 900 300 000 ml @ 75 mls/hr IV . [id number] [facility] Rx#:[id number] Intake, IV Titration .267 17.947 Amount Norepinephrine 32 mg In 17.947 Sodium Chloride 0.9% 218 ml @ 0.05 MCG/KG/MIN 1. 807 mls/hr IV .Q24H [facility] Rx#:[id number] Tube Feeding 570 715 238 Other 150 150 Output: Drainage 665 150 125 Right Lateral Back 665 150 125 Urine 765 1250 250 Other: Voiding Method Indwelling Catheter Indwelling Catheter Indwelling Catheter Ileal Conduit (Right) Ileal Conduit (Right) Ileal Conduit (Right) ABP, PAP, CO, CI - Last Documented Arterial Blood Pressure 74/11 - Labs CBC & Chem 7: 08/09/21 07:47 08/09/21 07:47 Labs: Abnormal Lab Results - Last 24 Hours (Table) 08/08/21 08/08/21 08/08/21 Range/Units 11:43 16:40 17:43 RBC (4.30-5.90) m/uL Hgb (13.0-17.5) gm/dL Hct (39.0-53.0) % RDW (11.5-15.5) % Neutrophils # (1.3-7.7) k/uL Lymphocytes # (1.0-4.8) k/uL ABG pH (7.35-7.45) ABG pO2 (83-108) mmHg ABG HCO3 (21-25) mmol/L ABG Total CO2 (19-24) mmol/L ABG O2 Saturation (94-97) % Sodium 150 H (137-145) mmol/L Chloride (98-107) mmol/L BUN (9-20) mg/dL Creatinine (0.66-1.25) mg/dL Glucose (74-99) mg/dL POC Glucose (mg/dL) 153 H 150 H (75-99) mg/dL AST (17-59) U/L Alkaline Phosphatase (38-126) U/L Total Protein (6.3-8.2) g/dL Albumin (3.5-5.0) g/dL 08/09/21 08/09/21 08/09/21 Range/Units 00:44 05:00 06:38 RBC (4.30-5.90) m/uL Hgb (13.0-17.5) gm/dL Hct (39.0-53.0) % RDW (11.5-15.5) % Neutrophils # (1.3-7.7) k/uL Lymphocytes # (1.0-4.8) k/uL ABG pH 7.46 H (7.35-7.45) ABG pO2 112 H (83-108) mmHg ABG HCO3 29 H (21-25) mmol/L ABG Total CO2 30 H (19-24) mmol/L ABG O2 Saturation 99.0 H (94-97) % Sodium (137-145) mmol/L Chloride (98-107) mmol/L BUN (9-20) mg/dL Creatinine (0.66-1.25) mg/dL Glucose (74-99) mg/dL POC Glucose (mg/dL) 144 H 133 H (75-99) mg/dL AST (17-59) U/L Alkaline Phosphatase (38-126) U/L Total Protein (6.3-8.2) g/dL Albumin (3.5-5.0) g/dL 08/09/21 08/09/21 Range/Units 07:47 07:47 RBC 2.92 L (4.30-5.90) m/uL Hgb 8.4 L (13.0-17.5) gm/dL Hct 26.0 L (39.0-53.0) % RDW 15.9 H (11.5-15.5) % Neutrophils # 8.2 H (1.3-7.7) k/uL Lymphocytes # 0.7 L (1.0-4.8) k/uL ABG pH (7.35-7.45) ABG pO2 (83-108) mmHg ABG HCO3 (21-25) mmol/L ABG Total CO2 (19-24) mmol/L ABG O2 Saturation (94-97) % Sodium 150 H (137-145) mmol/L Chloride 117 H (98-107) mmol/L BUN 109 H* (9-20) mg/dL Creatinine 4.16 H (0.66-1.25) mg/dL Glucose 129 H (74-99) mg/dL POC Glucose (mg/dL) (75-99) mg/dL AST 74 H (17-59) U/L Alkaline Phosphatase 156 H (38-126) U/L Total Protein 4.7 L (6.3-8.2) g/dL Albumin 2.1 L (3.5-5.0) g/dL Microbiology - Last 24 Hours (Table) 08/02/21 05:18 Blood Culture - Final Blood No Growth after 144 hours
--- NOTE | 2021-08-09 15:16 | CT ---
EXAMINATION TYPE: CT abdomen pelvis wo con DATE OF EXAM: 08/09/2021 COMPARISON: 07/30/2021 HISTORY: Patient poor historian. CT DLP: 1071.4 mGycm Automated exposure control for dose reduction was used. TECHNIQUE: Helical acquisition of images was performed from the lung bases through the pelvis. FINDINGS: There is bilateral pleural effusions and basilar subsegmental consolidation. Heart appears to be prominent in size and there is an NG tube extending into the gastric body. Motion artifact significantly limits exam. Bowel gas pattern is nonspecific. There appears to be aort ic stent graft. No abnormal attenuation within the [place] sac which measures approximately 4.1 cm. An eurysmal dilation of the [place] right common iliac artery measuring 3.1 cm. Vascular calcifications a re noted. Bowel gas pattern is nonspecific with changes of diverticulosis. There is subcutaneous edema diffusel y compatible with mild anasarca. Hypertrophic and degenerative changes spine are noted. No evidence o f bowel obstruction. Lack of contrast limits assessment for mass grossly the spleen and liver are homogeneous. Pancreas de monstrates no definite abnormality of the adrenal glands have a normal morphology. There is a right-sided nephrostomy tube with mild right hydronephrosis. Mild pelvic caliectasis on th e left with a 2 mm left renal calculus. Bladder is nondistended with thickened wall and suspected Fol ey catheter correlate clinically. Air within the bladder likely related to the Denny catheter. There is abnormal attenuation within the left pelvic sidewall is nonspecific and of vague density Arthropathy of the hips. Tip of the Denny catheter may be within the prosthetic urethra or just withi n the bladder correlate clinically. Coronary artery calcification noted. IMPRESSION: 1. Mild right hydronephrosis with nephrostomy tube noted in position. This is significantly improved relative to the prior exam. 2. Mild left-sided hydronephrosis similar to the prior exam with no significant interval change. Nono bstructing left renal calculus as measured above. 3. Anasarca. 4. Thickened bladder wall may correspond to the patient's history of previous bladder cancer. Correla te for positioning of the Denny catheter. 5. Vague attenuation along the left pelvic sidewall measuring 5.4 cm adjacent to the iliac vasculatur e may represent a mild amount of fluid, ascites, urine extravasation or inflammatory change. No discr ete abscess. Small amount of hemorrhage not excluded correlate with hemoglobin hematocrit. 6. Bilateral infiltrate and small effusion greater on the left. 7. Aortic aneurysm post stent graft. 8. There is a tiny amount of air in the subcutaneous tissues of the anterior abdominal wall on axial image 63 of indeterminate etiology possibly iatrogenic correlate clinically.
[2021-08-09 17:37] LABS: Glucose,Whole Blood 149 mg/dL (75-99)
[2021-08-09] MEDS: ERTAPENEM 0.5 GM in SODIUM CHLORIDE 0.9% 50 ML IVPB SCH (21:30)
--- NOTE | 2021-08-09 22:47 | PN ---
PROGRESS NOTE DATE OF SERVICE: 08/09/2021 REASON FOR FOLLOWUP: 1. Complicated UTI. 2. Stage II sacral pressure ulcer. INTERVAL HISTORY: The patient is afebrile. The patient's mentation remains an issue. The patient remains intubated on the vent. He is hemodynamically stable. No significant purulent secretions through the ET or diarrhea reported by the nursing staff. Patient pressure ulcer to the sacral area since admission. PHYSICAL EXAMINATION: Blood pressure 105/70 with a pulse of 83, temperature 98. He is 94% on 40% FiO2. General description is an elderly male lying in bed in no distress. Respiratory system: Unlabored breathing, decreased breath sounds at the base. No wheeze. Heart S1, S2. Regular rate and rhythm. Abdomen soft, no tenderness. Examination of sacral region shows stage II ulcer with some deep tissue injury but no cellulitis. LABS: Hemoglobin 8.4, white count 9.6, BUN 109, creatinine 4.13. DIAGNOSTIC IMPRESSION AND PLAN: 1. Patient with a complicated urinary tract infection with ESBL Klebsiella. Patient is covered with ertapenem; to continue. 2. Patient with deep tissue injury to sacral area with some of stage II ulcer. No cellulitis. Dry Aquacel Silver dressing. Keep the area dry and off pressure. Local care was discussed with nursing staff. MMODL / IJN: [id number] / EMMANUEL
[2021-08-10] LABS: Glucose,Whole Blood 161 mg/dL (75-99)
[2021-08-10] MEDS: NOREPINEPHRINE 32 MG in SODIUM CHLORIDE 0.9% 218 ML IV SCH (00:42)
[2021-08-10] MEDS: INSULIN ASPART (NovoLOG) 100 UNIT/ML VIAL SQ SCH ×4 (00:52→18:02)
[2021-08-10] MEDS: IPRATROPIUM-ALBUTEROL 3 ML NEB INHALATION SCH ×6 (03:14→23:20)
[2021-08-10 04:08] LABS: Basophils % (A) 0 %; Eosinophils # (A) 0.2 k/uL (0-0.7); Eosinophils % (A) 2 %; HCT 24.6 % (39.0-53.0); HGB 7.8 gm/dL (13.0-17.5); Hypochromasia Slight; Lymphocytes # (A) 0.7 k/uL (1.0-4.8); Lymphocytes % (A) 9 %; MCH 28.1 pg (25.0-35.0); MCHC 31.7 g/dL (31.0-37.0); MCV 88.5 fL (80.0-100.0); Mean Platelet Volume 9.2; Monocytes # (A) 0.3 k/uL (0-1.0); Monocytes % (A) 3 %; Neutrophils # (A) 6.5 k/uL (1.3-7.7); Neutrophils % (A) 84 %; Platelet Count 224 k/uL (150-450); RBC 2.78 m/uL (4.30-5.90); RDW 15.8 % (11.5-15.5); WBC 7.8 k/uL (3.8-10.6)
[2021-08-10 04:33] LABS: Calcium 8.4 mg/dL (8.4-10.2); Total Bilirubin 0.4 mg/dL (0.2-1.3); Total Protein 4.5 g/dL (6.3-8.2)
[2021-08-10 04:34] LABS: Potassium 3.7 mmol/L (3.5-5.1)
[2021-08-10 05:51] LABS: ABG HCO3 28 mmol/L (21-25); ABG PCO2 40 mmHg (35-45); ABG PH 7.46 (7.35-7.45); ABG PO2 119 mmHg (83-108); ABG TCO2 29 mmol/L (19-24); Allen Test Performed? Yes
[2021-08-10 06:24] LABS: Glucose,Whole Blood 120 mg/dL (75-99)
[2021-08-10] MEDS: DEXTROSE 5% IN WATER 1,000 ML IV SCH ×3 (06:29→19:00)
[2021-08-10] MEDS: CALCIUM ACETATE 667 MG TAB PO SCH ×3 (06:41→18:04)
[2021-08-10] MEDS: LEVOTHYROXINE 100 MCG TAB PO SCH (06:41)
--- NOTE | 2021-08-10 07:38 | P.PN ---
Subjective Progress Note Date: 08/10/21 76-year-old male patient, currently the intensive care unit, intubated on a mechanical ventilator with septic shock along with a recent diagnosis of bladder tumor. The patient has known history of hypertension and hyperlipidemia and hypothyroidism and he came into the hospital after he had a fall/passing out episode. At that time, the patient had gross hematuria. CAT scan of the brain was negative. CAT scan of the abdomen and pelvis showed bilateral hydronephrosis with hydroureter without any calculus. The patient had a cystoscopy and a large tumor arising in the posterior right lateral bladder wall was noted consistent with high-grade/invasive cancer. During the course of the illness, the patient had a right-sided nephrostomy tube placed and the patient also had a cystoscopy and bladder tumor resection. The patient accordingly was intubated and placed on a mechanical ventilator. The patient became septic and the patient had Klebsiella sepsis from urinary source. The patient during the course of his illness was sedated, paralyzed, placed on high doses of pressors including a combination of norepinephrine and vasopressin. The patient was also given a bicarb infusion for significant metabolic acidosis. He did develop an acute kidney injury and his chest x-ray also showed diffuse but the pulmonary infiltrates consistent with pneumonia/edema. Subsequently, the patient was cu ltured to have an ESBL producing capsula Klebsiella and the patient was covered with IV Invanz. Note that the patient also had a strep group B in the sputum. At this point in time, the patient remains intubated. The patient is post a day #8. The patient has a right-sided nephrostomy tube in place. The pathology from the bladder is consistent with malignancy. The patient remains intubated on a mechanical ventilator. He is an assist-control mode at the rate of 26 with a tidal volume of 500 FiO2 of 30% with a PEEP of 5. He was sedated with propofol and he was taken off the sedation yesterday. He did not show or demonstrated adequate neurologic recovery. As such, the patient was kept on hold and the patient was asked to be seen by neurology. A neurologic workup is in progress at this point in time. Meanwhile, the patient is receiving enteral feeding for nutritional support. The patient is on vital AF at goal. He remains on antibiotics. Norepinephrine infusion is running at 11 g per minute for hemodynamic support. The patient is also on Lovenox 30 mg subcu for DVT prophylaxis. Bicarb infusion has been discontinued and the patient is currently on IV fluids at [facility]. He did develop a component of hyponatremia from yesterday and the sodium from yesterday was 147. Creatinine continues to improve and the BUN was 106 with a creatinine of 4.9 from yesterday. Patient is also on IV Synthroid. Free T4 was 0.42 with TSH of 9.0. Serum cortisol was 16. CAT scan of the brain was done yesterday and showed no acute abnormalities. There was evidence of failure atrophy. On today's evaluation, the patient remains unresponsive. The patient still off sedation since yesterday. CAT scan of the brain as stated showed no acute abnormalities. The blood gases from today shows a pH of 7.45 with a pCO2 of 42 and pO2 of 79 and this was done on the above- mentioned ventilator setting. As for the chest x-ray, from this morning, the findings are essentially stable. There is probably a small left-sided pleural effusion. ET tube is in a good location at the level of the aortic knob and/or G-tube also is in a good location. No evidence of any consolidation or airspace disease. Meanwhile, the patient's sodium is up to 150, creatinine is slightly improved down to 4.57 with a BUN of 109 and a potassium level of 3.5. Cardiac rhythm remains sinus. Norepinephrine infusion is running at 0.08 mcg/kg per minute. On today's evaluation of 08/09/2021, the patient is being seen for a follow-up. The patient has been off sedation for the past 72 hours. On today's evaluation, he remains still unresponsive. He grimaces to painful stimulation. I've seen him with no his lower extremities to painful stimulation. His pupils are equal and reactive. He has a positive cough and a gag reflex. Nevertheless, he does not follow any commands. He remains on a mechanical ventilator. This morning, he is on assist-control at the rate of 26, tidal volume of 500, FiO2 of 40%, and a PEEP of 5. Chest x-ray remains unchanged and ET tube is in a good location. The blood gases from today showed a pO2 of 112, pCO2 of 41 and a pO2 pH of 7.46. The patient is afebrile. The patient is hemodynamically stable. In fact, he is on a very low dose of norepinephrine running at 0.03 mcg/kg per minute which obviously can be weaned off today. Meanwhile, an ultrasound of the kidney was done yesterday again to reevaluate for any hydronephrosis. The ultrasound showed a [id number] right-sided hydronephrosis with nephrostomy tube and good location. Left kidney examination was limited due to bowel gas pattern. Based on that, the urologist have made a decision not to insert a nephrostomy tube on the left considering that the benefit of this intervention will be quite low. The urine output and his Denny catheter is in the order of 2000 mL over the past 24 hours and output from the right-sided nephrostomy is in order of 800 mL over the past 24 hours. Labs from today is still pending. He is receiving enteral feeding for nutritional support and the patient is currently on vital AF at the goal of 65 mL an hour. He is also receiving water flushes every 4 hours in the order of 100 mL an hour. Repeat sodium from yesterday evening was 150. Follow-up levels are still pending. Meanwhile the patient is on D5 water at the rate of 75 mL an hour. 08/10/2021, the patient remains unresponsive. His been off sedation for the past 72 hours. With suspected metabolic encephalopathy knowing that the patient has been showing ongoing improvement in his mentation or at least neurologic functions. The patient was completely unresponsive. He continues to grimaces to painful stimulation and he is more interactive on today's evaluation where the patient moves his arms and legs spontaneously. Nevertheless, he still not following any commands. Prior discussion with nephrology. The patient had a CAT scan of the abdomen yesterday to reevaluate the left kidney. Back based on the findings, there is no evidence of any hydroureter or hydronephrosis and as such there was no indication for a nephrostomy tube insertion on the left. There was still mild right sided hydronephrosis with a nephrostomy tube being in a good location. There was a nonobstructive calculus in the left renal system/kidney. There was also diffuse anasarca. The bladder wall was thickened and this was consistent with the underlying malignancy. There was also bilateral infiltration of the lung bases addition to small pleural effusion more so on the left. There was abdominal aortic stent grafting that was present extending to the iliacs bilaterally. Meanwhile, the patient's is still prod ucing output from the nephrostomy tube and that his Denny catheter. The creatinine is on the decline. Currently, he has a creatinine of 3.65. Sodium level is at 149 and the patient is still on D5 water that is running at the rate of 75 mL an hour. The patient is hemodynamically stable. The patient is on no pressors. He remains on a mechanical ventilator. He is on assist control mode at the rate of 26 with a tidal volume of 500 and FiO2 of 40% with a PEEP of 5. Blood gases from today shows a pH of 7.46 with a pO2 of 40 and pO2 119. The chest x-ray from today is showing adequate expansion of both lungs. ET tube is in good location. There is some limited infiltration of the lung bases along with small effusions. Otherwise, there is no significant interval change in his chest x-ray findings compared to yesterday. The patient has a positive cough. The patient is a positive gag. He withdraws to painful stimulation all 4 extremities. No seizure activity has been noted. Objective - Vital Signs Vital signs: Vital Signs Temp 98.9 F 08/10/21 04:30 Pulse 78 08/10/21 07:00 Resp 18 08/10/21 04:00 BP 106/65 08/10/21 07:00 Pulse Ox 99 08/10/21 07:00 Intake & Output 08/09/21 08/10/21 08/10/21 18:59 06:59 18:59 Intake Total 2112.866 2287.437 165 Output Total 1580 1125 30 Balance 600.377 5224.437 135 Weight 90.8 kg Intake: IV 1100 1200 100 Dextrose 5% in Water 1, 800 1200 100 000 ml @ 100 mls/hr IV . Q10H [facility] Rx#:[id number] Dextrose 5% in Water 1, 300 000 ml @ 75 mls/hr IV . [id number] [facility] Rx#:[id number] Intake, IV Titration 19.866 7.437 Amount Norepinephrine 32 mg In 19.866 7.437 Sodium Chloride 0.9% 218 ml @ 0.05 MCG/KG/MIN 1. 807 mls/hr IV .Q24H [facility] Rx#:[id number] Tube Feeding 693 780 65 Other 300 300 Output: Drainage 675 100 Right Lateral Back 675 100 Urine 905 1025 30 Other: Voiding Method Indwelling Catheter Indwelling Catheter Ileal Conduit (Right) Ileal Conduit (Right) ABP, PAP, CO, CI - Last Documented Arterial Blood Pressure 74/11 - Exam Gen. appearance, the patient is currently intubated on a mechanical ventilator. Orogastric and orotracheal tube are both in place. There are no signs of any labored breathing. The patient is quite successful mechanical ventilator. No acute distress, the patient is not on any sedation, and has an orally placed endotracheal tube and NG tube HEENT examination is grossly unremarkable. Neck supple. Full range of motion. No adenopathy thyromegaly or neck vein distention. Cardiovascular examination reveals regular rhythm rate. S1-S2 normal. No S3 or S4. No discernible murmur noted. Cardiac exam revealed the PMI to be normally situated and sized. The rhythm was regular and no extrasystoles were noted during several minutes of auscultation. The first and second heart sounds were normal and physiologic splitting of the second heart sound was noted. There were no murmurs, rubs, clicks, or gallops. Lungs reveal diffuse bilateral coarse rhonchi. Breath sounds are equal. No wheezes or crackles noted. Saturations are 96%. AbdomenAbdominal exam revealed normal bowel sounds. The abdomen was soft, non- tender, and without masses, organomegaly, or appreciable enlargement of the abdominal aorta. Patient has a right-sided nephrostomy tube in place Extremities are intact. No cyanosis clubbing or edema. Examination of the skin revealed no evidence of significant rashes, suspicious appearing nevi or other concerning lesions. Neurologic examination reveals a patient who is not sedated, but is not responsive to verbal or painful stimuli. - Labs CBC & Chem 7: 08/10/21 03:30 08/10/21 03:30 Labs: Abnormal Lab Results - Last 24 Hours (Table) 08/09/21 08/09/21 08/09/21 Range/Units 07:47 07:47 11:50 RBC 2.92 L (4.30-5.90) m/uL Hgb 8.4 L (13.0-17.5) gm/dL Hct 26.0 L (39.0-53.0) % RDW 15.9 H (11.5-15.5) % Neutrophils # 8.2 H (1.3-7.7) k/uL Lymphocytes # 0.7 L (1.0-4.8) k/uL ABG pH (7.35-7.45) ABG pO2 (83-108) mmHg ABG HCO3 (21-25) mmol/L ABG Total CO2 (19-24) mmol/L ABG O2 Saturation (94-97) % Sodium 150 H (137-145) mmol/L Chloride 117 H (98-107) mmol/L BUN 109 H* (9-20) mg/dL Creatinine 4.16 H (0.66-1.25) mg/dL Glucose 129 H (74-99) mg/dL POC Glucose (mg/dL) 145 H (75-99) mg/dL AST 74 H (17-59) U/L Alkaline Phosphatase 156 H (38-126) U/L Total Protein 4.7 L (6.3-8.2) g/dL Albumin 2.1 L (3.5-5.0) g/dL 08/09/21 08/09/21 08/09/21 Range/Units 17:35 17:54 23:58 RBC (4.30-5.90) m/uL Hgb (13.0-17.5) gm/dL Hct (39.0-53.0) % RDW (11.5-15.5) % Neutrophils # (1.3-7.7) k/uL Lymphocytes # (1.0-4.8) k/uL ABG pH (7.35-7.45) ABG pO2 (83-108) mmHg ABG HCO3 (21-25) mmol/L ABG Total CO2 (19-24) mmol/L ABG O2 Saturation (94-97) % Sodium 149 H (137-145) mmol/L Chloride (98-107) mmol/L BUN (9-20) mg/dL Creatinine (0.66-1.25) mg/dL Glucose (74-99) mg/dL POC Glucose (mg/dL) 149 H 161 H (75-99) mg/dL AST (17-59) U/L Alkaline Phosphatase (38-126) U/L Total Protein (6.3-8.2) g/dL Albumin (3.5-5.0) g/dL 08/10/21 08/10/21 08/10/21 Range/Units 03:30 03:30 05:45 RBC 2.78 L (4.30-5.90) m/uL Hgb 7.8 L (13.0-17.5) gm/dL Hct 24.6 L (39.0-53.0) % RDW 15.8 H (11.5-15.5) % Neutrophils # (1.3-7.7) k/uL Lymphocytes # 0.7 L (1.0-4.8) k/uL ABG pH 7.46 H (7.35-7.45) ABG pO2 119 H (83-108) mmHg ABG HCO3 28 H (21-25) mmol/L ABG Total CO2 29 H (19-24) mmol/L ABG O2 Saturation 99.0 H (94-97) % Sodium 149 H (137-145) mmol/L Chloride 115 H (98-107) mmol/L BUN 100 H (9-20) mg/dL Creatinine 3.65 H (0.66-1.25) mg/dL Glucose 100 H (74-99) mg/dL POC Glucose (mg/dL) (75-99) mg/dL AST 62 H (17-59) U/L Alkaline Phosphatase 133 H (38-126) U/L Total Protein 4.5 L (6.3-8.2) g/dL Albumin 2.0 L (3.5-5.0) g/dL 08/10/21 Range/Units 06:22 RBC (4.30-5.90) m/uL Hgb (13.0-17.5) gm/dL Hct (39.0-53.0) % RDW (11.5-15.5) % Neutrophils # (1.3-7.7) k/uL Lymphocytes # (1.0-4.8) k/uL ABG pH (7.35-7.45) ABG pO2 (83-108) mmHg ABG HCO3 (21-25) mmol/L ABG Total CO2 (19-24) mmol/L ABG O2 Saturation (94-97) % Sodium (137-145) mmol/L Chloride (98-107) mmol/L BUN (9-20) mg/dL Creatinine (0.66-1.25) mg/dL Glucose (74-99) mg/dL POC Glucose (mg/dL) 120 H (75-99) mg/dL AST (17-59) U/L Alkaline Phosphatase (38-126) U/L Total Protein (6.3-8.2) g/dL Albumin (3.5-5.0) g/dL Assessment and Plan Plan: 1 septic shock secondary to an underlying UTI/complicated UTI with obstructive uropathy and acute kidney injury secondary to bladder tumor. Patient remains on pressors. 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 Creatinine is gradually improving. The patient is post cystoscopy and biopsies on 07/31/2021 with trans-ureteral resection of bladder tumor, postop day #11 4 mild hypernatremia amount currently on D5 water, currently at 75 mL an hour 5 acute hypoxic respiratory failure, the patient's been intubated since 07/31/2021 6 altered mentation with diminished level of consciousness, consider metabolic encephalopathy. CAT scan of the brain done yesterday was essentially negative for any acute abnormalities and this consistent with cerebral atrophy, and I do believe that this is still ongoing metabolic encephalopathy. The patient has become much more interactive and his grimacing to painful stimulation. He is not awake enough to follow any simple commands. Nevertheless, I'm still interested in and extubating this patient knowing that the patient is doing slow recovery in terms of his mentation. 7 hypotension secondary to septic shock, recovered 8 anemia of chronic disease post units of packed RBC transfusion 9 hypothyroidism currently on Synthroid replacement 10 troponin leak secondary to above 11 hyperlipidemia 12 hypertension, history of Plan Keep the patient off sedation Check weaning parameters and put the patient on a CPAP trial. No final decision extubation. I think the patient potentially can be extubated. Nevertheless, the ongoing mental status change is an issue. I believe that the patient has metabolic encephalopathy. CAT scan of the brain on multiple occasions have shown atrophy without any acute abnormalities. His neurologic exam is nonfocal. I believe that with his ongoing renal failure improvement, the patient may see some further improvement in his neurological functions. He is still not following commands. I think it's reasonable to give him a spontaneous breathing trial and if he is able to protect her airway I may even consider extubation. Prior to doing that, I would like also to reestablish his CODE STATUS with the family Continue IV Invanz Start the patient on D5 water at the rate of 100 mL an hour , awaiting follow-up sodium levels continue enteral feeding, vital AF at 45 mL an hour, currently at goal in ad dition to water flushes through the OG 50 mL every 4 hours No plans for nephrostomy tube on the left. Still has some hydronephrosis on the right post nephrostomy tube insertion Wean off pressors if possible currently off norepinephrine Continue Synthroid, increase the dose of Synthroid to 200 g on a daily basis oral Continue the rest of the supportive care and will continue to follow make [facility] recommendations based on his progress. The plan is to keep him off sedation for now and monitor his mental status. History care evaluation, more than 30 minutes.
[2021-08-10] MEDS: CHLORHEXIDINE GLUCONATE 15 ML CUP MUCOUS MEM SCH ×2 (08:10→21:32)
[2021-08-10] MEDS: ENOXAPARIN 30 MG/0.3 ML SYRINGE SQ SCH (08:10)
[2021-08-10] MEDS: PANTOPRAZOLE 40 MG/10 ML VIAL IV SCH (08:10)
[2021-08-10] MEDS: SODIUM BICARBONATE TAB 650 MG TAB PO SCH ×2 (08:11→22:06)
--- NOTE | 2021-08-10 09:03 | XR ---
EXAMINATION TYPE: XR chest 1V portable DATE OF EXAM: 08/10/2021 COMPARISON: 08/09/2021 HISTORY: Shortness of breath TECHNIQUE: Single frontal view of the chest is obtained. FINDINGS: Hyperinflation. ET and NG tube stable. Left lower lobe infiltrate and small effusion. Hype rtrophic and degenerative change the spine. Arthropathy of the shoulders. Heart size normal. IMPRESSION: COPD with left lower lobe infiltrate and small effusion. Findings stable.
--- NOTE | 2021-08-10 09:07 | P.PN ---
Subjective Progress Note Date: 08/10/21 No acute overnight event, creat continue to trend down to 3.65. CT showed mild bilateral hydronephrosis Objective - Vital Signs Vital signs: Vital Signs Temp 98.9 F 08/10/21 04:30 Pulse 86 08/10/21 08:00 Resp 18 08/10/21 08:00 BP 95/64 08/10/21 08:00 Pulse Ox 90 L 08/10/21 08:00 Intake & Output 08/09/21 08/10/21 08/10/21 18:59 06:59 18:59 Intake Total 2112.866 2287.437 490 Output Total 1580 1125 570 Balance 595.160 0769.437 -80 Weight 90.8 kg 90.8 kg Intake: IV 1100 1200 200 Dextrose 5% in Water 1, 800 1200 200 000 ml @ 100 mls/hr IV . Q10H [facility] Rx#:[id number] Dextrose 5% in Water 1, 300 000 ml @ 75 mls/hr IV . [id number] [facility] Rx#:[id number] Intake, IV Titration 19.866 7.437 Amount Norepinephrine 32 mg In 19.866 7.437 Sodium Chloride 0.9% 218 ml @ 0.05 MCG/KG/MIN 1. 807 mls/hr IV .Q24H [facility] Rx#:[id number] Tube Feeding 693 780 130 Other 300 300 160 Output: Drainage 675 100 475 Right Lateral Back 675 100 475 Urine 905 1025 95 Other: Voiding Method Indwelling Catheter Indwelling Catheter Ileal Conduit (Right) Ileal Conduit (Right) ABP, PAP, CO, CI - Last Documented Arterial Blood Pressure 74/11 - Constitutional General appearance: Present: no acute distress - Labs CBC & Chem 7: 08/10/21 03:30 08/10/21 03:30 Labs: Abnormal Lab Results - Last 24 Hours (Table) 08/09/21 08/09/21 08/09/21 Range/Units 07:47 11:50 17:35 RBC (4.30-5.90) m/uL Hgb (13.0-17.5) gm/dL Hct (39.0-53.0) % RDW (11.5-15.5) % Lymphocytes # (1.0-4.8) k/uL ABG pH (7.35-7.45) ABG pO2 (83-108) mmHg ABG HCO3 (21-25) mmol/L ABG Total CO2 (19-24) mmol/L ABG O2 Saturation (94-97) % Sodium 150 H (137-145) mmol/L Chloride 117 H (98-107) mmol/L BUN 109 H* (9-20) mg/dL Creatinine 4.16 H (0.66-1.25) mg/dL Glucose 129 H (74-99) mg/dL POC Glucose (mg/dL) 145 H 149 H (75-99) mg/dL AST 74 H (17-59) U/L Alkaline Phosphatase 156 H (38-126) U/L Total Protein 4.7 L (6.3-8.2) g/dL Albumin 2.1 L (3.5-5.0) g/dL 08/09/21 08/09/21 08/10/21 Range/Units 17:54 23:58 03:30 RBC 2.78 L (4.30-5.90) m/uL Hgb 7.8 L (13.0-17.5) gm/dL Hct 24.6 L (39.0-53.0) % RDW 15.8 H (11.5-15.5) % Lymphocytes # 0.7 L (1.0-4.8) k/uL ABG pH (7.35-7.45) ABG pO2 (83-108) mmHg ABG HCO3 (21-25) mmol/L ABG Total CO2 (19-24) mmol/L ABG O2 Saturation (94-97) % Sodium 149 H (137-145) mmol/L Chloride (98-107) mmol/L BUN (9-20) mg/dL Creatinine (0.66-1.25) mg/dL Glucose (74-99) mg/dL POC Glucose (mg/dL) 161 H (75-99) mg/dL AST (17-59) U/L Alkaline Phosphatase (38-126) U/L Total Protein (6.3-8.2) g/dL Albumin (3.5-5.0) g/dL 08/10/21 08/10/21 08/10/21 Range/Units 03:30 05:45 06:22 RBC (4.30-5.90) m/uL Hgb (13.0-17.5) gm/dL Hct (39.0-53.0) % RDW (11.5-15.5) % Lymphocytes # (1.0-4.8) k/uL ABG pH 7.46 H (7.35-7.45) ABG pO2 119 H (83-108) mmHg ABG HCO3 28 H (21-25) mmol/L ABG Total CO2 29 H (19-24) mmol/L ABG O2 Saturation 99.0 H (94-97) % Sodium 149 H (137-145) mmol/L Chloride 115 H (98-107) mmol/L BUN 100 H (9-20) mg/dL Creatinine 3.65 H (0.66-1.25) mg/dL Glucose 100 H (74-99) mg/dL POC Glucose (mg/dL) 120 H (75-99) mg/dL AST 62 H (17-59) U/L Alkaline Phosphatase 133 H (38-126) U/L Total Protein 4.5 L (6.3-8.2) g/dL Albumin 2.0 L (3.5-5.0) g/dL Assessment and Plan Assessment: 76 yo hx of high-grade, muscle invasive urothelial carcinoma, underwent right nephrostomy tube placement on 07/31. Underwent CT showed bilateral hydro. his creat continues to trend down and making good urine output. Given minimal hydr onephrosis and continues creat trend will hold off on any nephrostomy tube placement. Will continue to trend his urine output and creat
[2021-08-10 11:38] LABS: Glucose,Whole Blood 144 mg/dL (75-99)
--- NOTE | 2021-08-10 15:15 | P.PN ---
Subjective Progress Note Date: 08/10/21 08/10/2021: Patient was seen for a follow-up. Patient continues to be intubated on mechanical ventilation. He has been off sedation for last 72 hours. Patient continues to be encephalopathic, but slightly better response as per examination below. No seizure-like activity noted. Chest x-ray showed COPD with left lower lobe infiltrate and small effusion. 08/08/2021: Patient initially seen by Dr. Mayo Berry. Please refer to his note for details. Patient is a 76-year-old male came with altered mental status. Patient was brought to the hospital on 07/30/2021 after being found on the floor, unsure if he had passed out. Patient had evidence of bleeding in the toilet. Patient has history of bladder cancer, patient is intubated on ventilator. Patient has developed sepsis. No seizure-like activity has been noticed. Patient's urine is positive for Klebsiella Oxytoca.. Patient is currently on Levothroid 0.04 g. Patient is off propofol for last 24 hours. Recently during this hospital admission it was noted the patient has gross hematuria secondary due to a bladder tumor last post cystoscopy scope he and biopsy on 07/31/2021. 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 During his hospital stay it was felt the patient was in septic shock related to the ESBL Klebsiella UTI and strep pneumo group B Patient was intubated and on ventilator for the procedure on 07/31/21. Patient also had acute kidney injury and was improving as well as had anemia and received 1 unit of red blood cell. Patient's blood test shows WBC 10.2 hemoglobin 8.9, platelets 190. Sodium 150 potassium 3.9, BUN is 109, creatinine 4.57. Calcium 8.6. TFTs normal. Of the head on 07/30/2021 is reported as cerebral atrophy. No acute intracranial abnormality. CT cervical spine was reported as mild multilevel cervical spondylitic changes. No fracture. The echo was reported as left ventricular size is normal. Wall thickness is normal. Ejection fraction of 30-35%. Objective - Vital Signs Vital signs: Vital Signs Temp 97.6 F 08/10/21 12:00 Pulse 93 08/10/21 14:00 Resp 27 H 08/10/21 14:00 BP 111/71 08/10/21 14:00 Pulse Ox 95 08/10/21 14:00 Intake & Output 08/09/21 08/10/21 08/10/21 18:59 06:59 18:59 Intake Total 2112.866 2287.437 1580 Output Total 1580 1125 1380 Balance 590.707 8406.437 200 Weight 90.8 kg 90.8 kg Intake: IV 1100 1200 900 Dextrose 5% in Water 1, 800 1200 900 000 ml @ 100 mls/hr IV . Q10H [facility] Rx#:[id number] Dextrose 5% in Water 1, 300 000 ml @ 75 mls/hr IV . [id number] [facility] Rx#:[id number] Intake, IV Titration 19.866 7.437 Amount Norepinephrine 32 mg In 19.866 7.437 Sodium Chloride 0.9% 218 ml @ 0.05 MCG/KG/MIN 1. 807 mls/hr IV .Q24H [facility] Rx#:[id number] Tube Feeding 693 780 520 Other 300 300 160 Output: Drainage 675 100 850 Right Lateral Back 675 100 850 Urine 905 1025 530 Other: Voiding Method Indwelling Catheter Indwelling Catheter Indwelling Catheter Ileal Conduit (Right) Ileal Conduit (Right) Ileal Conduit (Right) ABP, PAP, CO, CI - Last Documented Arterial Blood Pressure 74/11 - Exam GENERAL: The patient is lying in bed and does not seem in acute distress. Patient's abdomen is protuberant, and appears excessive. On percussion. Patient has significant peripheral edema. NEUROLOGICAL: Limited Patient is off sedation. Patient is on ventilator with mechanical ventilation. Higher mental function: Patient keeps his eyes closed. He does not follow any commands. Patient does withdraw to painful stimuli related to his lower extremities. He grimaces with painful stimuli in the upper extremities. Response was equal bilaterally.. Cranial nerves: Patient keeps his eyes closed. Primary gaze is midline. The pupils are round, equal (3mm) and reactive to light. +ve corneal reflex bilaterally. No facial weakness. +cough and henrietta. Is breathing over the vent. Motor: The strength is hard to assess but responds equal as mentioned above. Cerebellum: Could not assess. Sensation: Could not assess light touch but he is grimacing to painful stimuli throughout. Reflexes (right/left): 1+ throughout. Plantars are downgoing bilaterally. - Labs CBC & Chem 7: 08/10/21 03:30 08/10/21 03:30 Labs: Abnormal Lab Results - Last 24 Hours (Table) 08/09/21 08/09/21 08/09/21 Range/Units 17:35 17:54 23:58 RBC (4.30-5.90) m/uL Hgb (13.0-17.5) gm/dL Hct (39.0-53.0) % RDW (11.5-15.5) % Lymphocytes # (1.0-4.8) k/uL ABG pH (7.35-7.45) ABG pO2 (83-108) mmHg ABG HCO3 (21-25) mmol/L ABG Total CO2 (19-24) mmol/L ABG O2 Saturation (94-97) % Sodium 149 H (137-145) mmol/L Chloride (98-107) mmol/L BUN (9-20) mg/dL Creatinine (0.66-1.25) mg/dL Glucose (74-99) mg/dL POC Glucose (mg/dL) 149 H 161 H (75-99) mg/dL AST (17-59) U/L Alkaline Phosphatase (38-126) U/L Total Protein (6.3-8.2) g/dL Albumin (3.5-5.0) g/dL 08/10/21 08/10/21 08/10/21 Range/Units 03:30 03:30 05:45 RBC 2.78 L (4.30-5.90) m/uL Hgb 7.8 L (13.0-17.5) gm/dL Hct 24.6 L (39.0-53.0) % RDW 15.8 H (11.5-15.5) % Lymphocytes # 0.7 L (1.0-4.8) k/uL ABG pH 7.46 H (7.35-7.45) ABG pO2 119 H (83-108) mmHg ABG HCO3 28 H (21-25) mmol/L ABG Total CO2 29 H (19-24) mmol/L ABG O2 Saturation 99.0 H (94-97) % Sodium 149 H (137-145) mmol/L Chloride 115 H (98-107) mmol/L BUN 100 H (9-20) mg/dL Creatinine 3.65 H (0.66-1.25) mg/dL Glucose 100 H (74-99) mg/dL POC Glucose (mg/dL) (75-99) mg/dL AST 62 H (17-59) U/L Alkaline Phosphatase 133 H (38-126) U/L Total Protein 4.5 L (6.3-8.2) g/dL Albumin 2.0 L (3.5-5.0) g/dL 08/10/21 08/10/21 Range/Units 06:22 11:35 RBC (4.30-5.90) m/uL Hgb (13.0-17.5) gm/dL Hct (39.0-53.0) % RDW (11.5-15.5) % Lymphocytes # (1.0-4.8) k/uL ABG pH (7.35-7.45) ABG pO2 (83-108) mmHg ABG HCO3 (21-25) mmol/L ABG Total CO2 (19-24) mmol/L ABG O2 Saturation (94-97) % Sodium (137-145) mmol/L Chloride (98-107) mmol/L BUN (9-20) mg/dL Creatinine (0.66-1.25) mg/dL Glucose (74-99) mg/dL POC Glucose (mg/dL) 120 H 144 H (75-99) mg/dL AST (17-59) U/L Alkaline Phosphatase (38-126) U/L Total Protein (6.3-8.2) g/dL Albumin (3.5-5.0) g/dL Assessment and Plan Assessment: * Mental status due to multifactorial: Metabolic encephalopathy and septic encephalopathy. Patient is off sedation for last 72 hours. * Septic shock related to the Klebsiella Oxytoca UTI and strep pneumo group B * Acute kidney injury--creatinine trending down (last creatnine is 3.65), however BUN seems to be getting worse with most recent BUN 100. * Bladder tumor last post cystoscopy scope he and biopsy on 07/31/2021. Pathology is positive for invasive high-grade urothelial carcinoma * Intubated on a ventilator airway protection since 07/31/2021. * Anemia, received 1 unit of PRBC. * Hypertension and during this hospital stay patient had hypotension because of sepsis * History of hyperlipidemia * History of hypothyroidism * History of nicotine use Plan: Patient's mentation has minimally improved, with slightly more response, but st ill very encephalopathic. Patient does not follow any commands. Renal functions are improving. Patient is anemic with hemoglobin 7.8. AST mildly elevated 62. Repeat CT of the head 08/07/2021 showed cerebral atrophy, no acute intracranial abnormality. EEG 08/08/2021 showed background slowing of at least moderate degree, consistent with toxic metabolic encephalopathy. No epileptiform activity was seen. Infection disease is on board CT abdomen and pelvis report reviewed. Patient has hydronephrosis. Thickened bladder wall may correspond to patient's history of previous bladder cancer. Nephrology is on board Urology is on board. We'll defer the rest of the medical management to the primary and ICU team. Condition is very guarded.
--- NOTE | 2021-08-10 15:17 | PN ---
PROGRESS NOTE Patient is seen for followup for acute kidney injury, mostly obstructive uropathy, status post right nephrostomy tube with good output from the nephrostomy tube as well as the Denny catheter. Renal function has been improving with creatinine down to 3.65. The patient remains on the vent. There may be some improvement in his mentation today. There are plans for possible extubation by tomorrow. PHYSICAL EXAMINATION: On examination today, blood pressure 129/74, heart rate 86 per minute. Patient is afebrile. Examination of the heart S1, S2. Examination of the lungs, bilateral breath sounds are heard. Abdomen is soft. Examination of lower extremities shows no significant edema. 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 According to nursing staff, the patient was not following commands but did voice that he was in pain. LABS: From today show sodium 149, potassium 3.7, chloride 115, BUN 100, serum creatinine 3.65, hemoglobin of 7. ASSESSMENT: 1. Acute kidney injury, obstructive uropathy and acute tubular necrosis, currently improving status post right nephrostomy tube. Repeat CT scan shows some persistent right hydronephrosis as well as left hydronephrosis but in view of continued improvement in renal function and decrease in creatinine, urology is not planning on any further intervention at this time. 2. Hypernatremia associated with free water deficit, maintained on D5W and getting free water down the feeding tube. 3. Anemia, no active bleeding noted at this time. 4. Metabolic acidosis, maintained on sodium bicarb. 5. Hyperphosphatemia, maintained on PhosLo. Expect improvement with improving renal function. 6. Urinary tract infection with urine culture growing Klebsiella oxytoca, maintained on antibiotics. PLAN: Continue D5W. Continue free water down the feeding tube. Repeat labs in a.m. Decrease sodium bicarb to twice a day. MMODL / IJN: [id number] /
--- NOTE | 2021-08-10 15:50 | XR ---
EXAMINATION TYPE: XR chest 1V portable DATE OF EXAM: 08/10/2021 HISTORY: Shortness of breath. COMPARISON: 08/10/2021 TECHNIQUE: Single view of the chest is submitted. The lung apices are cut off the [id number] limit ing evaluation. FINDINGS: NG tube is seen with its distal tip within the stomach. Endotracheal tube not well visualized. Left lower lobe infiltrate with small effusion. The right lung appears clear. The heart is stable. Hilar and mediastinal structures are within normal limits. Degenerative changes are seen of the dorsal spine. IMPRESSION: 1. NG tube is seen with its distal tip within the stomach. Endotracheal tube not well visualized. Left lower lobe infiltrate with small effusion. The right lung appears clear.
--- NOTE | 2021-08-10 16:18 | PN ---
PROGRESS NOTE DATE OF SERVICE: 08/10/2021 REASON FOR FOLLOWUP: ESBL Klebsiella complicated urinary tract infection. INTERVAL HISTORY: Patient is afebrile. The patient has been extubated, is currently breathing comfortably on nasal cannula oxygen. No vomiting, diarrhea or any other changes reported by the nursing staff. The patient himself was unable to provide any history. PHYSICAL EXAMINATION: Blood pressure is 121/73 with pulse of 96, temperature is 97.6. He is 95% on 6 L nasal cannula. General description is an elderly male lying in bed in no distress. Respiratory system: Unlabored breathing, decreased intensity of breath sounds. No wheeze. Heart S1, S2. Regular rate and rhythm. Abdomen: Soft, no tenderness. Extremities: No edema of the feet. LABS: Hemoglobin 10.1, white count 7.8, creatinine 3.65. DIAGNOSTIC IMPRESSION AND PLAN: Patient with complicated urinary tract infection in this patient status post right nephrostomy. Urine with ESBL Klebsiella. Patient is covered with Invanz to continue while monitoring clinical course closely. Continue supportive care. MMODL / IJN: [id number] /
[2021-08-10 17:34] LABS: Glucose,Whole Blood 108 mg/dL (75-99)
[2021-08-10] MEDS: ERTAPENEM 0.5 GM in SODIUM CHLORIDE 0.9% 50 ML IVPB SCH (22:06)
[2021-08-10] MEDS ORDERED: IPRATROPIUM-ALBUTEROL 3 ML NEB INHALATION PRN (23:21)
[2021-08-11 01:18] LABS: Glucose,Whole Blood 164 mg/dL (75-99)
[2021-08-11] MEDS: INSULIN ASPART (NovoLOG) 100 UNIT/ML VIAL SQ SCH ×4 (01:22→17:43)
[2021-08-11] MEDS: NOREPINEPHRINE 32 MG in SODIUM CHLORIDE 0.9% 218 ML IV SCH (01:23)
[2021-08-11 04:22] LABS: Basophils % (A) 0 %; Eosinophils # (A) 0.1 k/uL (0-0.7); Eosinophils % (A) 1 %; HCT 26.2 % (39.0-53.0); HGB 8.3 gm/dL (13.0-17.5); Hypochromasia Slight; Lymphocytes # (A) 0.7 k/uL (1.0-4.8); Lymphocytes % (A) 9 %; MCH 28.2 pg (25.0-35.0); MCHC 31.8 g/dL (31.0-37.0); MCV 88.8 fL (80.0-100.0); Mean Platelet Volume 9.6; Monocytes # (A) 0.3 k/uL (0-1.0); Monocytes % (A) 3 %; Neutrophils % (A) 85 %; Platelet Count 265 k/uL (150-450); RBC 2.95 m/uL (4.30-5.90); RDW 15.7 % (11.5-15.5); WBC 8.2 k/uL (3.8-10.6)
[2021-08-11 04:29] LABS: Albumin 2.1 g/dL (3.5-5.0); Calcium 8.1 mg/dL (8.4-10.2); Potassium 3.8 mmol/L (3.5-5.1); Total Bilirubin 0.2 mg/dL (0.2-1.3); Total Protein 4.7 g/dL (6.3-8.2)
[2021-08-11] MEDS: DEXTROSE 5% IN WATER 1,000 ML IV SCH (06:21)
[2021-08-11] MEDS: CALCIUM ACETATE 667 MG TAB PO SCH ×3 (06:55→17:41)
[2021-08-11] MEDS: LEVOTHYROXINE 100 MCG TAB PO SCH (06:55)
--- NOTE | 2021-08-11 08:14 | P.PN ---
Subjective Progress Note Date: 08/11/21 76-year-old male patient, currently the intensive care unit, intubated on a mechanical ventilator with septic shock along with a recent diagnosis of bladder tumor. The patient has known history of hypertension and hyperlipidemia and hypothyroidism and he came into the hospital after he had a fall/passing out episode. At that time, the patient had gross hematuria. CAT scan of the brain was negative. CAT scan of the abdomen and pelvis showed bilateral hydronephrosis with hydroureter without any calculus. The patient had a cystoscopy and a large tumor arising in the posterior right lateral bladder wall was noted consistent with high-grade/invasive cancer. During the course of the illness, the patient had a right-sided nephrostomy tube placed and the patient also had a cystoscopy and bladder tumor resection. The patient accordingly was intubated and placed on a mechanical ventilator. The patient became septic and the patient had Klebsiella sepsis from urinary source. The patient during the course of his illness was sedated, paralyzed, placed on high doses of pressors including a combination of norepinephrine and vasopressin. The patient was also given a bicarb infusion for significant metabolic acidosis. He did develop an acute kidney injury and his chest x-ray also showed diffuse but the pulmonary infiltrates consistent with pneumonia/edema. Subsequently, the patient was cu ltured to have an ESBL producing capsula Klebsiella and the patient was covered with IV Invanz. Note that the patient also had a strep group B in the sputum. At this point in time, the patient remains intubated. The patient is post a day #8. The patient has a right-sided nephrostomy tube in place. The pathology from the bladder is consistent with malignancy. The patient remains intubated on a mechanical ventilator. He is an assist-control mode at the rate of 26 with a tidal volume of 500 FiO2 of 30% with a PEEP of 5. He was sedated with propofol and he was taken off the sedation yesterday. He did not show or demonstrated adequate neurologic recovery. As such, the patient was kept on hold and the patient was asked to be seen by neurology. A neurologic workup is in progress at this point in time. Meanwhile, the patient is receiving enteral feeding for nutritional support. The patient is on vital AF at goal. He remains on antibiotics. Norepinephrine infusion is running at 11 g per minute for hemodynamic support. The patient is also on Lovenox 30 mg subcu for DVT prophylaxis. Bicarb infusion has been discontinued and the patient is currently on IV fluids at [facility] He did develop a component of hyponatremia from yesterday and the sodium from yesterday was 147. Creatinine continues to improve and the BUN was 106 with a creatinine of 4.9 from yesterday. Patient is also on IV Synthroid. Free T4 was 0.42 with TSH of 9.0. Serum cortisol was 16. CAT scan of the brain was done yesterday and showed no acute abnormalities. There was evidence of failure atrophy. On today's evaluation, the patient remains unresponsive. The patient still off sedation since yesterday. CAT scan of the brain as stated showed no acute abnormalities. The blood gases from today shows a pH of 7.45 with a pCO2 of 42 and pO2 of 79 and this was done on the above- mentioned ventilator setting. As for the chest x-ray, from this morning, the findings are essentially stable. There is probably a small left-sided pleural effusion. ET tube is in a good location at the level of the aortic knob and/or G-tube also is in a good location. No evidence of any consolidation or airspace disease. Meanwhile, the patient's sodium is up to 150, creatinine is slightly improved down to 4.57 with a BUN of 109 and a potassium level of 3.5. Cardiac rhythm remains sinus. Norepinephrine infusion is running at 0.08 mcg/kg per minute. On today's evaluation of 08/09/2021, the patient is being seen for a follow-up. The patient has been off sedation for the past 72 hours. On today's evaluation, he remains still unresponsive. He grimaces to painful stimulation. I've seen him with no his lower extremities to painful stimulation. His pupils are equal and reactive. He has a positive cough and a gag reflex. Nevertheless, he does not follow any commands. He remains on a mechanical ventilator. This morning, he is on assist-control at the rate of 26, tidal volume of 500, FiO2 of 40%, and a PEEP of 5. Chest x-ray remains unchanged and ET tube is in a good location. The blood gases from today showed a pO2 of 112, pCO2 of 41 and a pO2 pH of 7.46. The patient is afebrile. The patient is hemodynamically stable. In fact, he is on a very low dose of norepinephrine running at 0.03 mcg/kg per minute which obviously can be weaned off today. Meanwhile, an ultrasound of the kidney was done yesterday again to reevaluate for any hydronephrosis. The ultrasound showed a [id number] right-sided hydronephrosis with nephrostomy tube and good location. Left kidney examination was limited due to bowel gas pattern. Based on that, the urologist have made a decision not to insert a nephrostomy tube on the left considering that the benefit of this intervention will be quite low. The urine output and his Denny catheter is in the order of 2000 mL over the past 24 hours and output from the right-sided nephrostomy is in order of 800 mL over the past 24 hours. Labs from today is still pending. He is receiving enteral feeding for nutritional support and the patient is currently on vital AF at the goal of 65 mL an hour. He is also receiving water flushes every 4 hours in the order of 100 mL an hour. Repeat sodium from yesterday evening was 150. Follow-up levels are still pending. Meanwhile the patient is on D5 water at the rate of 75 mL an hour. 08/10/2021, the patient remains unresponsive. His been off sedation for the past 72 hours. With suspected metabolic encephalopathy knowing that the patient has been showing ongoing improvement in his mentation or at least neurologic functions. The patient was completely unresponsive. He continues to grimaces to painful stimulation and he is more interactive on today's evaluation where the patient moves his arms and legs spontaneously. Nevertheless, he still not following any commands. Prior discussion with nephrology. The patient had a CAT scan of the abdomen yesterday to reevaluate the left kidney. Back based on the findings, there is no evidence of any hydroureter or hydronephrosis and as such there was no indication for a nephrostomy tube insertion on the left. There was still mild right sided hydronephrosis with a nephrostomy tube being in a good location. There was a nonobstructive calculus in the left renal system/kidney. There was also diffuse anasarca. The bladder wall was thickened and this was consistent with the underlying malignancy. There was also bilateral infiltration of the lung bases addition to small pleural effusion more so on the left. There was abdominal aortic stent grafting that was present extending to the iliacs bilaterally. Meanwhile, the patient's is still prod ucing output from the nephrostomy tube and that his Denny catheter. The creatinine is on the decline. Currently, he has a creatinine of 3.65. Sodium level is at 149 and the patient is still on D5 water that is running at the rate of 75 mL an hour. The patient is hemodynamically stable. The patient is on no pressors. He remains on a mechanical ventilator. He is on assist control mode at the rate of 26 with a tidal volume of 500 and FiO2 of 40% with a PEEP of 5. Blood gases from today shows a pH of 7.46 with a pO2 of 40 and pO2 119. The chest x-ray from today is showing adequate expansion of both lungs. ET tube is in good location. There is some limited infiltration of the lung bases along with small effusions. Otherwise, there is no significant interval change in his chest x-ray findings compared to yesterday. The patient has a positive cough. The patient is a positive gag. He withdraws to painful stimulation all 4 extremities. No seizure activity has been noted. On 08/11/2021, the patient is extubated. We have encouraged extubated this patient yesterday as the patient was gradually waking up. He was getting more and more agitated and restless while being on a mechanical ventilator. He has been off sedation for the past 96 hours. I noted that he was becoming more active and trying to reach his tube and pulling on things. Based on that, I made a decision to extubate the patient knowing that he was able to tolerate CPAP therapy for an extended period of time and the patient was able to generate good volumes and the lower legs. As such, the patient was extubated and patient is currently on oxygen at 6 L per minute nasal cannula. Unfortunately, he eliseo nues to have a weak cough and a chest x-ray from today showing atelectasis or at least partial atelectasis of the left lung probably related to mucous plugs. The patient currently is being seen for a follow-up. He is still very lethargic. He was able to open up his eyes spontaneously. He is not following commands consistently. He tries to speak. His speech is very weak and not understandable. He has an NG tube in place. His breathing is nonlabored. The nephrostomy tube is draining approximately 350 of urine output for yesterday and the Denny catheter drained approximately 75 mL an hour of urine output. As such, the patient is producing urine output. The patient has a creatinine of 3.1 which is improved compared to yesterday. Rest of the electrodes are all stable. White cell count of 8.2 with a hemoglobin of 8.3. The patient has strep agalactiae, and his sputum and Klebsiella in his urine. Antibiotic coverage is with IV Invanz. I discussed the findings with his grandson yesterday. I think we need to again reconfirmed the cause status. Based on my conversation, we discussed of not the intubating this patient and changing him to a DNR/DNI CODE STATUS based on his multiple comorbidities as mentioned. Neurologist on the case and his altered mentation is felt to be related to metabolic encephalopathy. Objective - Vital Signs Vital signs: Vital Signs Temp 98.6 F 08/11/21 04:00 Pulse 88 08/11/21 07:00 Resp 22 08/11/21 07:00 BP 112/69 08/11/21 07:00 Pulse Ox 97 08/11/21 07:00 Intake & Output 08/10/21 08/11/21 08/11/21 18:59 06:59 18:59 Intake Total 2175 2080 165 Output Total 1865 1265 355 Balance 310 815 -190 Weight 90.8 kg 91.6 kg Intake: IV 1200 1200 100 Dextrose 5% in Water 1, 1200 1200 100 000 ml @ 100 mls/hr IV . Q10H [facility] Rx#:[id number] Tube Feeding 715 780 65 Other 260 100 Output: Drainage 1150 725 325 Right Lateral Back 1150 725 325 Urine 715 540 30 Other: Voiding Method Indwelling Catheter Indwelling Catheter Ileal Conduit (Right) Ileal Conduit (Right) # Bowel Movements 1 ABP, PAP, CO, CI - Last Documented Arterial Blood Pressure 74/11 - Exam Gen. appearance, the patient is currently intubated on a mechanical ventilator. Orogastric and orotracheal tube are both in place. There are no signs of any labored breathing. Currently extubated to 6 L of oxygen by nasal cannula. He remains quite lethargic, we asked to verbal stimulation. Atrial fibrillation. Unable to hold a conversation still. Still encephalopathic and this is essentially metabolic encephalopathy. HEENT examination is grossly unremarkable. Neck supple. Full range of motion. No adenopathy thyromegaly or neck vein distention. Cardiovascular examination reveals regular rhythm rate. S1-S2 normal. No S3 or S4. No discernible murmur noted. Cardiac exam revealed the PMI to be normally situated and sized. The rhythm was regular and no extrasystoles were noted during several minutes of auscultation. The first and second heart sounds were normal and physiologic splitting of the second heart sound was noted. There were no murmurs, rubs, clicks, or gallops. Lungs reveal diffuse bilateral coarse rhonchi. Breath sounds are equal. No wh eezes or crackles noted. Saturations are 96%. The patient is currently on 6 L about 2 by nasal cannula. The breath sounds on the left and markedly diminished compared to the right. AbdomenAbdominal exam revealed normal bowel sounds. The abdomen was soft, non- tender, and without masses, organomegaly, or appreciable enlargement of the abdominal aorta. Patient has a right-sided nephrostomy tube in place Extremities are intact. No cyanosis clubbing or edema. Examination of the skin revealed no evidence of significant rashes, suspicious appearing nevi or other concerning lesions. Neurologic examination profound weakness in all 4 extremities, weak cough, unable to speak, mumbles a few words, reacts by withdrawing to painful stimulation in all 4 extremities. Neurologic exam is nonfocal. Still in significant metabolic encephalopathy. - Labs CBC & Chem 7: 08/11/21 03:21 08/11/21 03:21 Labs: Abnormal Lab Results - Last 24 Hours (Table) 08/10/21 08/10/21 08/11/21 Range/Units 11:35 17:32 01:16 RBC (4.30-5.90) m/uL Hgb (13.0-17.5) gm/dL Hct (39.0-53.0) % RDW (11.5-15.5) % Lymphocytes # (1.0-4.8) k/uL Chloride (98-107) mmol/L BUN (9-20) mg/dL Creatinine (0.66-1.25) mg/dL Glucose (74-99) mg/dL POC Glucose (mg/dL) 144 H 108 H 164 H (75-99) mg/dL Calcium (8.4-10.2) mg/dL Total Protein (6.3-8.2) g/dL Albumin (3.5-5.0) g/dL 08/11/21 08/11/21 Range/Units 03:21 03:21 RBC 2.95 L (4.30-5.90) m/uL Hgb 8.3 L (13.0-17.5) gm/dL Hct 26.2 L (39.0-53.0) % RDW 15.7 H (11.5-15.5) % Lymphocytes # 0.7 L (1.0-4.8) k/uL Chloride 112 H (98-107) mmol/L BUN 90 H (9-20) mg/dL Creatinine 3.15 H (0.66-1.25) mg/dL Glucose 109 H (74-99) mg/dL POC Glucose (mg/dL) (75-99) mg/dL Calcium 8.1 L (8.4-10.2) mg/dL Total Protein 4.7 L (6.3-8.2) g/dL Albumin 2.1 L (3.5-5.0) g/dL Assessment and Plan Plan: 1 septic shock secondary to an underlying UTI/complicated UTI with obstructive uropathy and acute kidney injury secondary to bladder tumor. Patient remains on pressors. 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 Creatinine is gradually improving. The patient is post cystoscopy and biopsies on 07/31/2021 with trans-ureteral resection of bladder t umor, postop day #12, and the patient's renal function continues to improve in the creatinine currently is down to 3.15 4 mild hypernatremia, recovered and sodium level is currently down to 143 and t he D5W can be switched to normal saline at the rate of 75 mL an hour. 5 acute hypoxic respiratory failure, the patient's been intubated since 07/31/2021, the patient was extubated on 08/10/2021. On today's evaluation, the chest x-rays atelectatic poor ability to cough and perform pulmonary toileting. Currently the patient on 6 L of oxygen by nasal cannula. 6 altered mentation with diminished level of consciousness, consider metabolic encephalopathy. CAT scan of the brain done yesterday was essentially negative for any acute abnormalities and this consistent with cerebral atrophy, and I do believe that this is still ongoing metabolic encephalopathy. The patient has become much more interactive and his grimacing to painful stimulation. He is not awake enough to follow any simple commands. Neurologically, the patient is showing mild daily improvement and level of alertness although he is still very much lethargic as mentioned in my dictations. 7 hypotension secondary to septic shock, recovered 8 anemia of chronic disease post units of packed RBC transfusion 9 hypothyroidism currently on Synthroid replacement 10 troponin leak secondary to above 11 hyperlipidemia 12 hypertension, history of Plan Aggressive pulmonary toileting and deep suctioning if possible Chest PT to the left Keep oxygen 6 L per minute nasal cannula Utilizes BiPAP if needed at the pressure of 10/5 cm of water Avoid all forms of sedation Continued IV Invanz and the patient has strep in his sputum The patient also has a ESBL producing gram-negative bacteria in the urine and the patient is currently on IV Invanz Keep the patient off sedation and the patient is off any form of sedative Monitor mental status Monitor renal function and change IV fluids to normal saline at the rate of 75 mL an hour Keep NG tube in place and continue with enteral feeding for nutritional support DNR/DNI CODE STATUS We'll continue to follow History care evaluation, more than 30 minutes. Time with Patient: Greater than 30
[2021-08-11] MEDS ORDERED: SODIUM CHLORIDE 0.9% 1,000 ML IV SCH (08:15)
[2021-08-11] MEDS: CHLORHEXIDINE GLUCONATE 15 ML CUP MUCOUS MEM SCH ×2 (08:31→22:18)
[2021-08-11] MEDS: PANTOPRAZOLE 40 MG/10 ML VIAL IV SCH (08:31)
[2021-08-11] MEDS: SODIUM BICARBONATE TAB 650 MG TAB PO SCH ×2 (08:32→22:22)
[2021-08-11] MEDS: ENOXAPARIN 30 MG/0.3 ML SYRINGE SQ SCH (08:32)
[2021-08-11] MEDS: IPRATROPIUM-ALBUTEROL 3 ML NEB INHALATION SCH ×4 (08:49→20:22)
[2021-08-11] MEDS ORDERED: POTASSIUM BICARBONATE/CIT AC 20 MEQ TABLET.EFF NG-TUBE SCH (09:00)
[2021-08-11] MEDS ORDERED: DEXTROSE 5% IN WATER 1,000 ML IV ONE (10:09)
--- NOTE | 2021-08-11 10:16 | XR ---
EXAMINATION TYPE: XR chest 1V portable DATE OF EXAM: 08/11/2021 COMPARISON: 08/10/2021 HISTORY: NG tube placement TECHNIQUE: Single frontal view of the chest is obtained. FINDINGS: There is abrupt cutoff of the left mainstem bronchus. There is now complete opacification left hemithorax markedly worsened from prior exam. NG tube seen with the sidehole at the level of the GE junction. Subsegmental changes right lung bases likely degree of underlying COPD. Hypertrophic ch anges of the spine. Arthropathy of the shoulders. IMPRESSION: 1. Near complete opacification left hemithorax markedly worsened from prior exam with abrupt cut off of the left mainstem bronchus correlate for mucous plug or endobronchial lesion.
[2021-08-11 12:17] LABS: Glucose,Whole Blood 129 mg/dL (75-99)
--- NOTE | 2021-08-11 13:51 | P.PN ---
Subjective Progress Note Date: 08/10/21 HISTORY OF PRESENT ILLNESS This 76-year-old pleasant gentleman, patient of Dr. Wills. History of hypertension hyperlipidemia, hypothyroidism, who was noted to have some bleeding in the toilet for several days, unsure how long the duration was, however he is on blood thinners, he was found on the floor today, patient denies any headache, however it's unclear how the patient fell. He does not admit to syncopal event, patient was subsequently setting to emergency room from home, to the emergency via EMS, a condom catheter was placed, and that's how they found that patient is having gross hematuria rather than rectal bleeding. In emergency room, central line was placed for IV hydration, blood pressure was 75/50, daily urinalysis, shows over 182 RBCs and WBC, hemoglobin 10.4 WBC count 11.0, platelet 297, creatinine of 6.1, BUN of 77, unknown baseline. Patient had CAT scan, head and cervical spine, shows multilevel cervical spondylosis change, no fracture, and no dislocation. No intracranial hemorrhage, intact calvarium. Computed tomography scan of the abdomen, shows bilateral hydronephrosis, and hydroureter, more on the right than the left, there is bilateral renal vascular calcification, no renal calculi, no ureteral calculi. There is no inguinal hernia, no fluid in the pelvis, bilateral stents in the abdominal aorta and iliac arteries, no mesenteric edema, no ascites or free air. No bowel obstruction, bladder imaging is not well evaluated due to lack of distention there is colonic diverticula, without signs of diverticulitis. Chest x-ray shows mild pulmonary fibrosis Consult was made with nephrology, urology and intensive care management, patient admitted to ICU for significant gross hematuria, obstructive uropathy, with mental status changes, and suspected syncope, with a fall long-term anticoagulation, elevated troponin Patient is taken to the operating room, for cystoscopy, evacuation of clot, and transient Trial resection of the bladder as a CAT scan per review from urology, shows bladder irregularity. There is a large sessile tumor, in the right posterolateral bladder wall. It was dense and suspected to have obviously a high grade tumor, with muscular invasion 08/01: Patient remains in the intensive care unit intubated on mechanical ventilation with tidal volume 500, FiO2 40, PEEP of 5. Patient is on levo fed, vasopressin, Nimbex, fentanyl, bicarb drip and propofol. The patient has hematuria from Denny catheter and nephrostomy tube and there is small amount of leaking from the meatus. 08/02: Patient remains in the intensive care unit intubated and on mechanical ventilation with tidal volume 500, FiO2 50, PEEP 5. Patient has been weaned down on norepinephrine continued on vasopressin, Nimbex, fentanyl and propofol. He has been afebrile, heart rate 77, blood pressure 92/59, pulse ox 100%. He had monitor sinus rhythm. Repeat blood work reveals WBC 21.2, hemoglobin 9.9, platelet count 125. Lites are within normal limits. BUN 78 creatinine 6.41. Capillary blood glucose running between 113 and 121. Urine culture has been finalized with ESBL Klebsiella oxytoca and antibiotics will be changed from ceftriaxone to Zosyn. 08/03 patient examined while intubated. Patient is postop 3 continues to remain ventilator on assist control mode respiratory rate of 26 and volume 500 FiO2 40 and PEEP of 5. FiO2 decreased to 30 with patient maintaining her oxygen saturations between 96-98%. He continues to remain on propofol at 25 valentin per KG per minute. Vasopressin at 0.04 units per minute, norepinephrine at 20 mics KG per minute and fentanyl 0.5 valentin per KG per minute. Patient's bicarb drip was discontinued and is currently on half-normal saline at 50 mL per hour. Nimbex has been discontinued. Patient vitals are stable with temp 97.8 pulse 63 respiratory rate 26 blood pressure 109/71. Leukocytosis of 14.5, hemoglobin 9.3 platelet has reduced to 93. Potassium is 3.3 bicarb 21 BUN 85 creatinine 6. 47. Urine output is approximately 10-15 mL per hour about 250 developed intermittent nephrostomy tube. Lasix 80 mg IV to be given today. Potassium is being repleted. No need for dialysis as at this point per nephrology Patient contineus to remain intubated with vent setting involving assist control, resp rate 26, tidal vol 500, PEEP 5 and Fio2 40 %. Patient continues to remain aon vasopressor and norepinephrine. Sedation mentained with propofol and fentanyl. Patient is noticed to move his lower extremities but doesnot follow any commands. UO has improved appears to be 40 ml/ hr but appears to be serosangunous, continues to have 250 - 300 ml every 6 hour. pathology consistent with high-grade, muscle invasive urothelial carcinoma. Patient was seen by urology who has recommended left nephrostomy tube in next few days. patient was noted to be in atrial fib ad is on cardizem drip, metoprolol dose increased to 25 mg po TID per cardiology 08/05 patient examined at bedside continues to remain on the ventilator. He is currently on assist control respiratory rate of 26 tidal volume 500 FiO2 40% and PEEP of 5. Continues to remain on normal saline 50 cc/h, vasopressin .02 micrograms per, norepi at 4.8 mics per KG per minute, propofol at 10 mics per KG per minute. Patient was given 1 dose of Lasix per pulmonary. Labs are reviewed patient has a hemoglobin of 8.1 platelets stable at 63. An ABG was obtained and pH 7.42 PO2 117 and bicarb 28 BUN 95 creatinine 5.68 albumin low at 1.8 patient continues to receive Invanz per infectious disease patient initiated on enteral tube feeding blood sugar stable less than 150 urine output is maintained at 40 cc/h. 300 mL drained out of the nephrostomy tube tube today. Nephrology recommend continuing IV fluids diuresis as needed. No plan for renal replacement 08/06 patient examined at bedside continues to remain intubated. Patient is noted to have nonpurposeful movement. currently on assist control respiratory rate of 26 tidal volume 500 FiO2 30% and PEEP of 5. Continues to remain on normal saline, patient is self weaned off his pressors apparently on levo fed at 60 valentin per KG per minute. Continuous remain in sinus rhythm blood pressure controlled. Chest x-ray showing persistent left mid lung and left greater than right basilar opacities with small left pleural effusion with no change compared to previous x-ray. Patient had good urine output after 40-50 mL per hour from the Denny catheter. He has right-sided nephrostomy tube with 1200 mL output since midnight. PH 7.41 pCO2 43 pO2 78, bicarb 27, hemoglobin stable at 9.4 Creatinine 5.27 calcium of 8. Plan for sedation withdrawal today for evaluating patient's mental status. 08/07 patient examined bedside neurology consultPatient is currently off PROPOFOL with nonpurposeful movement involving bilateral lower extremities. No episodes of agitation. Vitals are stable with a temp of 99.2, pulse 101 respiratory rate 32 blood pressure 1:30/63. Patient is currently on norepinephrine 0.13 valentin per KG per minute and normal saline running at 50 mL per hour. He is at assist control respiratory rate 26 tidal volume 500 FiO2 30 and PEEP of 5. Chest x-ray repeated this morning suggests of left greater than right bibasilar opacity with mild interstitial edema no significant change. No large effusion. Labs are reviewed patient hemoglobin is 8.9 dated 124 sodium 147 bicarb 112 BUN 106 creatinine 4.93 glucose stable between 130 and 148. Patient's nephew updated on the bladder cancer and poor prognosis. A CT head to be repeated this morning to check for change 08/08: Patient remains in the intensive care unit, intubated and on mechanical ventilation with tidal volume 500, FiO2 30 and PEEP of 5. He is currently on t ube feedings at 45 mL per hour, norepinephrine and D5W. Patient has been afebrile, heart rate in the 80s, respiratory rate 26, blood pressure 93/61, pulse ox 98%. Repeat blood work reveals WBC 10.2, hemoglobin 8.9, platelet 190. Sodium 150, potassium 3.9, chloride 115, CO2 27, BUN 109, creatinine 4.57. Blood sugars are running between 117 and 154. Repeat chest x-ray reveals COPD with bilateral infiltrate and small effusion stable. Patient continues to be followed by nephrology, fly raiser lockstitch, infectious disease, urology. Neurology consult was added yesterday. CAT scan of the brain performed yesterday revealed cerebral atrophy. No acute intracranial abnormality. Patient is currently on Invanz. 08/09: Patient remains in the intensive care unit on mechanical ventilation with tidal volume 500, FiO2 40, PEEP of 5. Patient has been off sedation since 08/07. He is followed by neurology. There is concern that patient has less movement on the right upper extremity. He has minimal response to pain. Patient also followed by nephrology with no plan at this time to start dialysis. Dr. Contreras is planning to discuss possible insertion of left-sided nephrostomy tube with urology. Renal ultrasound revealed mild to moderate right-sided hydronephrosis with nephrostomy tube. Repeat chest x-ray reveals COPD and left lower lobe infiltrate and small effusions . Pathology report remains pending. 08/10: Remains intubated and on mechanical ventilation with tidal volume 500, FiO2 of 40, PEEP of 5. Patient does have a gag reflex and cough. He is currently on CPAP settings. Plan is to probably extubate tomorrow. Nephrology is not planning for dialysis at this time. He does have output from nephrostomy tube and from his Denny catheter. He is having gradual improvement of his renal function with BUN 100 and creatinine 3.65. Patient has been made DO NOT RESUSCITATE. Patient has been started on D5W at 100 mL per hour for sodium of 149. Patient is followed by nephrology, pulmonary medicine and urology, neurology. Pathology report reveals dense acute inflammatory cells, i nsufficient for evaluation due to obscuring acute inflammation. Patient is continued on Invanz. REVIEW OF SYSTEMS Unable to obtain due to intubation PHYSICAL EXAMINATION Gen: This is a 76-year-old male. He is resting in ICU bed, intubated and on mechanical ventilation. Patient appears to be comfortable. HEENT: Head is atraumatic, normocephalic. Sclerae is anicteric. Oral ET and gastric tube in place. NECK: Supple. No JVD. No lymphadenopathy. No thyromegaly. LUNGS: Bilateral rhonchi. No intercostal retractions. HEART: irregularly irregular rate and rhythm. No murmur. ABDOMEN: Soft. Bowel sounds are present. No masses. No tenderness. Denny catheter. Nephrostomy tube draining jemal urine. EXTREMITIES: No pedal edema. No calf tenderness. NEUROLOGICAL: Patient is sedated. ASSESSMENT AND PLAN 1. Gross hematuria, with hypotension, obstructive uropathy, and a suspected bladder tumor, malignancy is highly suspected resumed UTI with pyuria. Patient was seen by urology, status post transurethral bladder resection on 07/31/2021 Dr. Vinson. Patient managed in ICU.pathology -high-grade, muscle invasive urothelial carcinoma is expected 2. Acute blood loss anemia, with hypovolemic and septic hypotension, from gross hematuria, requiring vasopressors, norepinephrine, maintained in ICU treatment, critical care medicine following. She is status post 1 unit packed RBCs. 3. Acute kidney injury secondary to bilateral hydronephrosis and hydroureter with workup suggestive of bladder cancer, unknown baseline for CKD. Nephrology consult appreciated. PhosLo, sodium bicar 650 mg po QID, IV fluids at D5 W at 100 mL per hour for hypernatremia. 4. Elevated troponin, rule out non-ST elevated myocardial infarction, acute coronary syndrome ruled out. Cardiology consult appreciated. 5. Acute hypoxic respiratory failure requiring ongoing intubation and mechanical ventilation. Patient is managed by fly raiser lockstitch. 6. Acute ESBL Klebsiella urinary tract infection with sepsis and septic shock requiring vasopressors. IV antibiotics changed to Invanz, continue vasopressor support. 7. Thrombocytopenia secondary to sepsis. 8. BPH with prostatomegaly has indwelling Denny catheter at this time 9. Hypothyroidism. Continue levothyroxine 200 g daily 10. Hyperlipidemia 11. Hypertension currently hypotensive. 12. Tobacco use and dependence. DVT prophylaxis with Lovenox 30 mg subcu daily GI prophylaxis IV Protonix Prognosis guarded. CODE STATUS full code Impression and plan of care have been directed as dictated by the signing physician. Laurie Lawson nurse practitioner acting as scribe for signing physician. Objective - Vital Signs Vital signs: Vital Signs Temp 98.8 F 08/11/21 08:00 Pulse 104 H 08/11/21 10:00 Resp 33 H 08/11/21 10:00 BP 115/65 08/11/21 10:00 Pulse Ox 87 L 08/11/21 10:00 Intake & Output 08/10/21 08/11/21 08/11/21 18:59 06:59 18:59 Intake Total 2175 2080 475 Output Total 1865 1265 790 Balance 310 815 -315 Weight 90.8 kg 91.6 kg Intake: IV 1200 1200 200 Dextrose 5% in Water 1, 1200 1200 200 000 ml @ 100 mls/hr IV . Q10H [facility] Rx#:[id number] Intake, IV Titration 145 Amount Dextrose 5% in Water 1, 70 000 ml @ 70 mls/hr IV . [id number] [facility] Rx#:[id number] Sodium Chloride 0.9% 1, 75 000 ml @ 75 mls/hr IV . [id number] [facility] Rx#:[id number] Tube Feeding 715 780 130 Other 260 100 Output: Drainage 1150 725 525 Right Lateral Back 1150 725 525 Urine 715 540 265 Other: Voiding Method Indwelling Catheter Indwelling Catheter Indwelling Catheter Ileal Conduit (Right) Ileal Conduit (Right) Ileal Conduit (Right) # Bowel Movements 1 1 ABP, PAP, CO, CI - Last Documented Arterial Blood Pressure 74/11 - Labs CBC & Chem 7: 08/11/21 03:21 08/11/21 03:21 Labs: Abnormal Lab Results - Last 24 Hours (Table) 08/10/21 08/10/21 08/11/21 Range/Units 11:35 17:32 01:16 RBC (4.30-5.90) m/uL Hgb (13.0-17.5) gm/dL Hct (39.0-53.0) % RDW (11.5-15.5) % Lymphocytes # (1.0-4.8) k/uL Chloride (98-107) mmol/L BUN (9-20) mg/dL Creatinine (0.66-1.25) mg/dL Glucose (74-99) mg/dL POC Glucose (mg/dL) 144 H 108 H 164 H (75-99) mg/dL Calcium (8.4-10.2) mg/dL Total Protein (6.3-8.2) g/dL Albumin (3.5-5.0) g/dL 08/11/21 08/11/21 Range/Units 03:21 03:21 RBC 2.95 L (4.30-5.90) m/uL Hgb 8.3 L (13.0-17.5) gm/dL Hct 26.2 L (39.0-53.0) % RDW 15.7 H (11.5-15.5) % Lymphocytes # 0.7 L (1.0-4.8) k/uL Chloride 112 H (98-107) mmol/L BUN 90 H (9-20) mg/dL Creatinine 3.15 H (0.66-1.25) mg/dL Glucose 109 H (74-99) mg/dL POC Glucose (mg/dL) (75-99) mg/dL Calcium 8.1 L (8.4-10.2) mg/dL Total Protein 4.7 L (6.3-8.2) g/dL Albumin 2.1 L (3.5-5.0) g/dL
--- NOTE | 2021-08-11 14:00 | P.PN ---
Subjective Progress Note Date: 08/11/21 HISTORY OF PRESENT ILLNESS This 76-year-old pleasant gentleman, patient of Dr. Wills. History of hypertension hyperlipidemia, hypothyroidism, who was noted to have some bleeding in the toilet for several days, unsure how long the duration was, however he is on blood thinners, he was found on the floor today, patient denies any headache, however it's unclear how the patient fell. He does not admit to syncopal event, patient was subsequently setting to emergency room from home, to the emergency via EMS, a condom catheter was placed, and that's how they found that patient is having gross hematuria rather than rectal bleeding. In emergency room, central line was placed for IV hydration, blood pressure was 75/50, daily urinalysis, shows over 182 RBCs and WBC, hemoglobin 10.4 WBC count 11.0, platelet 297, creatinine of 6.1, BUN of 77, unknown baseline. Patient had CAT scan, head and cervical spine, shows multilevel cervical spondylosis change, no fracture, and no dislocation. No intracranial hemorrhage, intact calvarium. Computed tomography scan of the abdomen, shows bilateral hydronephrosis, and hydroureter, more on the right than the left, there is bilateral renal vascular calcification, no renal calculi, no ureteral calculi. There is no inguinal hernia, no fluid in the pelvis, bilateral stents in the abdominal aorta and iliac arteries, no mesenteric edema, no ascites or free air. No bowel obstruction, bladder imaging is not well evaluated due to lack of distention there is colonic diverticula, without signs of diverticulitis. Chest x-ray shows mild pulmonary fibrosis Consult was made with nephrology, urology and intensive care management, patient admitted to ICU for significant gross hematuria, obstructive uropathy, with mental status changes, and suspected syncope, with a fall long-term anticoagulation, elevated troponin Patient is taken to the operating room, for cystoscopy, evacuation of clot, and transient Trial resection of the bladder as a CAT scan per review from urology, shows bladder irregularity. There is a large sessile tumor, in the right posterolateral bladder wall. It was dense and suspected to have obviously a high grade tumor, with muscular invasion 08/01: Patient remains in the intensive care unit intubated on mechanical ventilation with tidal volume 500, FiO2 40, PEEP of 5. Patient is on levo fed, vasopressin, Nimbex, fentanyl, bicarb drip and propofol. The patient has hematuria from Denny catheter and nephrostomy tube and there is small amount of leaking from the meatus. 08/02: Patient remains in the intensive care unit intubated and on mechanical ventilation with tidal volume 500, FiO2 50, PEEP 5. Patient has been weaned down on norepinephrine continued on vasopressin, Nimbex, fentanyl and propofol. He has been afebrile, heart rate 77, blood pressure 92/59, pulse ox 100%. He had monitor sinus rhythm. Repeat blood work reveals WBC 21.2, hemoglobin 9.9, platelet count 125. Lites are within normal limits. BUN 78 creatinine 6.41. Capillary blood glucose running between 113 and 121. Urine culture has been finalized with ESBL Klebsiella oxytoca and antibiotics will be changed from ceftriaxone to Zosyn. 08/03 patient examined while intubated. Patient is postop 3 continues to remain ventilator on assist control mode respiratory rate of 26 and volume 500 FiO2 40 and PEEP of 5. FiO2 decreased to 30 with patient maintaining her oxygen saturations between 96-98%. He continues to remain on propofol at 25 valentin per KG per minute. Vasopressin at 0.04 units per minute, norepinephrine at 20 mics KG per minute and fentanyl 0.5 valentin per KG per minute. Patient's bicarb drip was discontinued and is currently on half-normal saline at 50 mL per hour. Nimbex has been discontinued. Patient vitals are stable with temp 97.8 pulse 63 respiratory rate 26 blood pressure 109/71. Leukocytosis of 14.5, hemoglobin 9.3 platelet has reduced to 93. Potassium is 3.3 bicarb 21 BUN 85 creatinine 6. 47. Urine output is approximately 10-15 mL per hour about 250 developed intermittent nephrostomy tube. Lasix 80 mg IV to be given today. Potassium is being repleted. No need for dialysis as at this point per nephrology Patient contineus to remain intubated with vent setting involving assist control, resp rate 26, tidal vol 500, PEEP 5 and Fio2 40 %. Patient continues to remain aon vasopressor and norepinephrine. Sedation mentained with propofol and fentanyl. Patient is noticed to move his lower extremities but doesnot follow any commands. UO has improved appears to be 40 ml/ hr but appears to be serosangunous, continues to have 250 - 300 ml every 6 hour. pathology consistent with high-grade, muscle invasive urothelial carcinoma. Patient was seen by urology who has recommended left nephrostomy tube in next few days. patient was noted to be in atrial fib ad is on cardizem drip, metoprolol dose increased to 25 mg po TID per cardiology 08/05 patient examined at bedside continues to remain on the ventilator. He is currently on assist control respiratory rate of 26 tidal volume 500 FiO2 40% and PEEP of 5. Continues to remain on normal saline 50 cc/h, vasopressin .02 micrograms per, norepi at 4.8 mics per KG per minute, propofol at 10 mics per KG per minute. Patient was given 1 dose of Lasix per pulmonary. Labs are reviewed patient has a hemoglobin of 8.1 platelets stable at 63. An ABG was obtained and pH 7.42 PO2 117 and bicarb 28 BUN 95 creatinine 5.68 albumin low at 1.8 patient continues to receive Invanz per infectious disease patient initiated on enteral tube feeding blood sugar stable less than 150 urine output is maintained at 40 cc/h. 300 mL drained out of the nephrostomy tube tube today. Nephrology recommend continuing IV fluids diuresis as needed. No plan for renal replacement 08/06 patient examined at bedside continues to remain intubated. Patient is noted to have nonpurposeful movement. currently on assist control respiratory rate of 26 tidal volume 500 FiO2 30% and PEEP of 5. Continues to remain on normal saline, patient is self weaned off his pressors apparently on levo fed at 60 valentin per KG per minute. Continuous remain in sinus rhythm blood pressure controlled. Chest x-ray showing persistent left mid lung and left greater than right basilar opacities with small left pleural effusion with no change compared to previous x-ray. Patient had good urine output after 40-50 mL per hour from the Denny catheter. He has right-sided nephrostomy tube with 1200 mL output since midnight. PH 7.41 pCO2 43 pO2 78, bicarb 27, hemoglobin stable at 9.4 Creatinine 5.27 calcium of 8. Plan for sedation withdrawal today for evaluating patient's mental status. 08/07 patient examined bedside neurology consultPatient is currently off PROPOFOL with nonpurposeful movement involving bilateral lower extremities. No episodes of agitation. Vitals are stable with a temp of 99.2, pulse 101 respiratory rate 32 blood pressure 1:30/63. Patient is currently on norepinephrine 0.13 valentin per KG per minute and normal saline running at 50 mL per hour. He is at assist control respiratory rate 26 tidal volume 500 FiO2 30 and PEEP of 5. Chest x-ray repeated this morning suggests of left greater than right bibasilar opacity with mild interstitial edema no significant change. No large effusion. Labs are reviewed patient hemoglobin is 8.9 dated 124 sodium 147 bicarb 112 BUN 106 creatinine 4.93 glucose stable between 130 and 148. Patient's nephew updated on the bladder cancer and poor prognosis. A CT head to be repeated this morning to check for change 08/08: Patient remains in the intensive care unit, intubated and on mechanical ventilation with tidal volume 500, FiO2 30 and PEEP of 5. He is currently on t ube feedings at 45 mL per hour, norepinephrine and D5W. Patient has been afebrile, heart rate in the 80s, respiratory rate 26, blood pressure 93/61, pulse ox 98%. Repeat blood work reveals WBC 10.2, hemoglobin 8.9, platelet 190. Sodium 150, potassium 3.9, chloride 115, CO2 27, BUN 109, creatinine 4.57. Blood sugars are running between 117 and 154. Repeat chest x-ray reveals COPD with bilateral infiltrate and small effusion stable. Patient continues to be followed by nephrology, continuous improvement coordinator, infectious disease, urology. Neurology consult was added yesterday. CAT scan of the brain performed yesterday revealed cerebral atrophy. No acute intracranial abnormality. Patient is currently on Invanz. 08/09: Patient remains in the intensive care unit on mechanical ventilation with tidal volume 500, FiO2 40, PEEP of 5. Patient has been off sedation since 08/07. He is followed by neurology. There is concern that patient has less movement on the right upper extremity. He has minimal response to pain. Patient also followed by nephrology with no plan at this time to start dialysis. Dr. Contreras is planning to discuss possible insertion of left-sided nephrostomy tube with urology. Renal ultrasound revealed mild to moderate right-sided hydronephrosis with nephrostomy tube. Repeat chest x-ray reveals COPD and left lower lobe infiltrate and small effusions . Pathology report remains pending. 08/10: Remains intubated and on mechanical ventilation with tidal volume 500, FiO2 of 40, PEEP of 5. Patient does have a gag reflex and cough. He is currently on CPAP settings. Plan is to probably extubate tomorrow. Nephrology is not planning for dialysis at this time. He does have output from nephrostomy tube and from his Denny catheter. He is having gradual improvement of his renal function with BUN 100 and creatinine 3.65. Patient has been made DO NOT RESUSCITATE. Patient has been started on D5W at 100 mL per hour for sodium of 149. Patient is followed by nephrology, pulmonary medicine and urology, neurology. Pathology report reveals dense acute inflammatory cells, i nsufficient for evaluation due to obscuring acute inflammation. Patient is continued on Invanz. 08/11: Patient has been successfully extubated. NG tube is still in place with tube feedings at 65 mL/h. He is also receiving water flushes every 4 hours. IV fluids of D5W decreased to 70 mL per hour. Patient has been afebrile, heart rate 96, blood pressure 130/78, pulse ox 99% on 5 L nasal cannula. Repeat blood work reveals continued improvement of his renal function was BUN of 90 and creatinine 3.15. Hemoglobin is 8.3. Sodium is down to 143. Repeat chest x-ray reveals near complete opacities of the left hemithorax markedly worsened from prior exam with abrupt cutoff of the left mainstem bronchus correlate for mucous plug or endobronchial lesion. Chest PT on the left was added by pulmonary medicine. REVIEW OF SYSTEMS Unable to obtain due to intubation PHYSICAL EXAMINATION Gen: This is a 76-year-old male. He is resting in ICU bed, and appears to be comfortable. HEENT: Head is atraumatic, normocephalic. Sclerae is anicteric. Gastric tube in place to the right nares. NECK: Supple. No JVD. No lymphadenopathy. No thyromegaly. LUNGS: Bilateral rhonchi. No intercostal retractions. Left side breath sounds diminished throughout HEART: irregularly irregular rate and rhythm. No murmur. ABDOMEN: Soft. Bowel sounds are present. No masses. No tenderness. Denny catheter. Nephrostomy tube draining jemal urine. EXTREMITIES: No pedal edema. No calf tenderness. NEUROLOGICAL: Patient is lethargic. ASSESSMENT AND PLAN 1. Gross hematuria, with hypotension, obstructive uropathy, and a suspected bladder tumor, malignancy is highly suspected resumed UTI with pyuria. Patient was seen by urology, status post transurethral bladder resection on 07/31/2021 Dr. Vinson. Patient managed in ICU.pathology -high-grade, muscle invasive urothelial carcinoma is expected 2. Acute blood loss anemia, with hypovolemic and septic hypotension, from gross hematuria, requiring vasopressors, norepinephrine, maintained in ICU treatment, critical care medicine following. She is status post 1 unit packed RBCs. 3. Acute kidney injury secondary to bilateral hydronephrosis and hydroureter with workup suggestive of bladder cancer, unknown baseline for CKD. Nephrology consult appreciated. PhosLo, sodium bicar 650 mg po QID, IV fluids at D5 W at 100 mL per hour for hypernatremia. 4. Elevated troponin, rule out non-ST elevated myocardial infarction, acute coronary syndrome ruled out. Cardiology consult appreciated. 5. Acute hypoxic respiratory failure requiring ongoing intubation and mecha nical ventilation. Patient is managed by continuous improvement coordinator. 6. Acute ESBL Klebsiella urinary tract infection with sepsis and septic shock requiring vasopressors. IV antibiotics changed to Invanz. 7. Thrombocytopenia secondary to sepsis. 8. BPH with prostatomegaly has indwelling Denny catheter at this time 9. Metabolic encephalopathy secondary to acute uremia, sepsis. 10. Total opacification of the left lung possible mucous plug or endobronchial lesion. Chest PT has been started. 11. Hypothyroidism. Continue levothyroxine 200 g daily 12. Hyperlipidemia 13. Hypertension currently hypotensive. 14. Tobacco use and dependence. DVT prophylaxis with Lovenox 30 mg subcu daily GI prophylaxis IV Protonix Prognosis guarded. CODE STATUS NO code Impression and plan of care have been directed as dictated by the signing physician. Laurie Lawson nurse practitioner acting as scribe for signing physician. Objective - Vital Signs Vital signs: Vital Signs Temp 98.8 F 08/11/21 08:00 Pulse 104 H 08/11/21 10:00 Resp 33 H 08/11/21 10:00 BP 115/65 08/11/21 10:00 Pulse Ox 87 L 08/11/21 10:00 Intake & Output 08/10/21 08/11/21 08/11/21 18:59 06:59 18:59 Intake Total 2175 2080 475 Output Total 1865 1265 790 Balance 310 815 -315 Weight 90.8 kg 91.6 kg Intake: IV 1200 1200 200 Dextrose 5% in Water 1, 1200 1200 200 000 ml @ 100 mls/hr IV . Q10H [facility] Rx#:[id number] Intake, IV Titration 145 Amount Dextrose 5% in Water 1, 70 000 ml @ 70 mls/hr IV . [id number] [facility] Rx#:[id number] Sodium Chloride 0.9% 1, 75 000 ml @ 75 mls/hr IV . [id number] [facility] Rx#:[id number] Tube Feeding 715 780 130 Other 260 100 Output: Drainage 1150 725 525 Right Lateral Back 1150 725 525 Urine 715 540 265 Other: Voiding Method Indwelling Catheter Indwelling Catheter Indwelling Catheter Ileal Conduit (Right) Ileal Conduit (Right) Ileal Conduit (Right) # Bowel Movements 1 1 ABP, PAP, CO, CI - Last Documented Arterial Blood Pressure 74/11 - Labs CBC & Chem 7: 08/11/21 03:21 08/11/21 03:21 Labs: Abnormal Lab Results - Last 24 Hours (Table) 08/10/21 08/10/21 08/11/21 Range/Units 11:35 17:32 01:16 RBC (4.30-5.90) m/uL Hgb (13.0-17.5) gm/dL Hct (39.0-53.0) % RDW (11.5-15.5) % Lymphocytes # (1.0-4.8) k/uL Chloride (98-107) mmol/L BUN (9-20) mg/dL Creatinine (0.66-1.25) mg/dL Glucose (74-99) mg/dL POC Glucose (mg/dL) 144 H 108 H 164 H (75-99) mg/dL Calcium (8.4-10.2) mg/dL Total Protein (6.3-8.2) g/dL Albumin (3.5-5.0) g/dL 08/11/21 08/11/21 Range/Units 03:21 03:21 RBC 2.95 L (4.30-5.90) m/uL Hgb 8.3 L (13.0-17.5) gm/dL Hct 26.2 L (39.0-53.0) % RDW 15.7 H (11.5-15.5) % Lymphocytes # 0.7 L (1.0-4.8) k/uL Chloride 112 H (98-107) mmol/L BUN 90 H (9-20) mg/dL Creatinine 3.15 H (0.66-1.25) mg/dL Glucose 109 H (74-99) mg/dL POC Glucose (mg/dL) (75-99) mg/dL Calcium 8.1 L (8.4-10.2) mg/dL Total Protein 4.7 L (6.3-8.2) g/dL Albumin 2.1 L (3.5-5.0) g/dL
--- NOTE | 2021-08-11 14:27 | PN ---
PROGRESS NOTE Patient is seen for followup for acute kidney injury. The patient was extubated yesterday. He is currently confused but maintained on 5 L nasal cannula. Patient has had good urine output from his right nephrostomy tube as well as Denny catheter. PHYSICAL EXAMINATION: Blood pressure 115/65, heart rate 104 per minute. The patient is afebrile. Examination of the heart S1, S2. Examination of the lungs, decreased breath sounds at the bases. Abdomen is soft, nontender. Examination of lower extremities, no significant edema. LAB: Show sodium 143, potassium 3.8, chloride 112, BUN 90, serum creatinine 3.1, hemoglobin 8.3 g/dL. ASSESSMENT: 1. Acute kidney injury, ATN and obstructive uropathy, currently improved with right nephrostomy tube. Patient has output from the Denny catheter as well as a nephrostomy tube. No plans for further intervention. Patient is being followed by Urology. Renal function continues to improve with some improvement in mentation as well. 2. Hypernatremia associated with free water deficit, maintained on D5W which I will continue and continue with the free water down the feeding tube as well. 3. Metabolic acidosis maintained on sodium bicarb. I will decrease the dose to once a day. 4. Acute hypoxic respiratory failure, currently extubated. 5. Urinary tract infection with urine culture growing Klebsiella oxytoca. 6. Status post bronchoscopy for complete opacification of left hemothorax with good results per nursing staff. PLAN: Resume D5W. Continue with the free water down the feeding tube. Repeat labs in a.m. Hopefully we can discontinue D5W tomorrow based on his repeat sodium. Continue to avoid nephrotoxic agents. MMODL / IJN: [id number] /
--- NOTE | 2021-08-11 14:37 | P.PN ---
Subjective Progress Note Date: 08/11/21 08/11/2021: Patient was extubated yesterday. Patient continues to be significantly encephalopathic. Patient does not speak, or follow any commands. He does open his eyes to calling his name, and makes eye contact and tracks. Please refer to examination below. Not able to tell if he has any headache or any symptoms. 08/10/2021: Patient was seen for a follow-up. Patient continues to be intubated on mechanical ventilation. He has been off sedation for last 72 hours. Patient continues to be encephalopathic, but slightly better response as per examination below. No seizure-like activity noted. Chest x-ray showed COPD with left lower lobe infiltrate and small effusion. 08/08/2021: Patient initially seen by Dr. Mayo Berry. Please refer to his note for details. Patient is a 76-year-old male came with altered mental status. Patient was brought to the hospital on 07/30/2021 after being found on the floor, unsure if he had passed out. Patient had evidence of bleeding in the toilet. Patient has history of bladder cancer, patient is intubated on ventilator. Patient has developed sepsis. No seizure-like activity has been noticed. Patient's urine is positive for Klebsiella Oxytoca.. Patient is currently on Levothroid 0.04 g. Patient is off propofol for last 24 hours. Recently during this hospital admission it was noted the patient has gross hematuria secondary due to a bladder tumor last post cystoscopy scope he and biopsy on 07/31/2021. 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 During his hospital stay it was felt the patient was in septic shock related to the ESBL Klebsiella UTI and strep pneumo group B Patient was intubated and on ventilator for the procedure on 07/31/21. Patient also had acute kidney injury and was improving as well as had anemia and received 1 unit of red blood cell. Patient's blood test shows WBC 10.2 hemoglobin 8.9, platelets 190. Sodium 150 potassium 3.9, BUN is 109, creatinine 4.57. Calcium 8.6. TFTs normal. Of the head on 07/30/2021 is reported as cerebral atrophy. No acute intracranial abnormality. CT cervical spine was reported as mild multilevel cervical spondylitic changes. No fracture. The echo was reported as left ventricular size is normal. Wall thickness is normal. Ejection fraction of 30-35%. Objective - Vital Signs Vital signs: Vital Signs Temp 99.8 F H 08/11/21 12:00 Pulse 102 H 08/11/21 12:52 Resp 25 H 08/11/21 12:00 BP 120/71 08/11/21 12:00 Pulse Ox 91 L 08/11/21 12:00 Intake & Output 08/10/21 08/11/21 08/11/21 18:59 06:59 18:59 Intake Total 2175 2080 615 Output Total 1865 1265 1130 Balance 310 815 -515 Weight 90.8 kg 91.6 kg Intake: IV 1200 1200 200 Dextrose 5% in Water 1, 1200 1200 200 000 ml @ 100 mls/hr IV . Q10H [facility] Rx#:[id number] Intake, IV Titration 285 Amount Dextrose 5% in Water 1, 210 000 ml @ 70 mls/hr IV . [id number] Rx#:[id number] Sodium Chloride 0.9% 1, 75 000 ml @ 75 mls/hr IV . [id number] [facility] Rx#:[id number] Tube Feeding 715 780 130 Other 260 100 Output: Drainage 1150 725 725 Right Lateral Back 1150 725 725 Urine 715 540 405 Other: Voiding Method Indwelling Catheter Indwelling Catheter Indwelling Catheter Ileal Conduit (Right) Ileal Conduit (Right) Ileal Conduit (Right) # Bowel Movements 1 1 ABP, PAP, CO, CI - Last Documented Arterial Blood Pressure 74/11 - Exam GENERAL: The patient is lying in bed and seems to be in mild distress. Patient has significant peripheral edema. NEUROLOGICAL: Patient is extubated, not on any sedation. Higher mental function: Patient keeps his eyes closed. He does open his eyes to calling his name, makes eye contact, but moans, groans and mumbles. Patient does withdraw to painful stimuli related to his lower extremities much better than upper extremities. He grimaces with painful stimuli in the upper extremities. Response was equal bilaterally.. Cranial nerves: Patient keeps his eyes closed. Primary gaze is midline. The pupils are round, equal (3mm) and reactive to light. +ve corneal reflex bilaterally. No facial weakness. Motor: The strength is hard to assess but responds equal as mentioned above. Cerebellum: Could not assess. Sensation: Could not assess light touch but he is grimacing to painful stimuli throughout. Reflexes (right/left): 1+ throughout. Plantars are downgoing bilaterally. - Labs CBC & Chem 7: 08/11/21 03:21 08/11/21 03:21 Labs: Abnormal Lab Results - Last 24 Hours (Table) 08/10/21 08/11/21 08/11/21 Range/Units 17:32 01:16 03:21 RBC 2.95 L (4.30-5.90) m/uL Hgb 8.3 L (13.0-17.5) gm/dL Hct 26.2 L (39.0-53.0) % RDW 15.7 H (11.5-15.5) % Lymphocytes # 0.7 L (1.0-4.8) k/uL Chloride (98-107) mmol/L BUN (9-20) mg/dL Creatinine (0.66-1.25) mg/dL Glucose (74-99) mg/dL POC Glucose (mg/dL) 108 H 164 H (75-99) mg/dL Calcium (8.4-10.2) mg/dL Total Protein (6.3-8.2) g/dL Albumin (3.5-5.0) g/dL 08/11/21 08/11/21 Range/Units 03:21 12:15 RBC (4.30-5.90) m/uL Hgb (13.0-17.5) gm/dL Hct (39.0-53.0) % RDW (11.5-15.5) % Lymphocytes # (1.0-4.8) k/uL Chloride 112 H (98-107) mmol/L BUN 90 H (9-20) mg/dL Creatinine 3.15 H (0.66-1.25) mg/dL Glucose 109 H (74-99) mg/dL POC Glucose (mg/dL) 129 H (75-99) mg/dL Calcium 8.1 L (8.4-10.2) mg/dL Total Protein 4.7 L (6.3-8.2) g/dL Albumin 2.1 L (3.5-5.0) g/dL Assessment and Plan Assessment: * Mental status due to multifactorial: Metabolic encephalopathy and septic encephalopathy. Patient is extubated 08/10/2021. * Septic shock related to the Klebsiella Oxytoca UTI and strep pneumo group B * Acute kidney injury--creatinine trending down (last creatnine is 3.15), BUN 90. * Bladder tumor last post cystoscopy scope he and biopsy on 07/31/2021. Pathology is positive for invasive high-grade urothelial carcinoma * Anemia, hemoglobin 8.3. * Hypertension and during this hospital stay patient had hypotension because of sepsis * History of hyperlipidemia * History of hypothyroidism * History of nicotine use. Plan: Patient's mentation has minimally improved, with slightly more response, but still very encephalopathic. Patient does not follow any obvious commands. Renal functions are improving. Repeat CT of the head 08/07/2021 showed cerebral atrophy, no acute intracranial abnormality. EEG 08/08/2021 showed background slowing of at least moderate degree, consistent with toxic metabolic encephalopathy. No epileptiform activity was seen. Infection disease is on board CT abdomen and pelvis report reviewed. Patient has hydronephrosis. Thickened bladder wall may correspond to patient's history of previous bladder cancer. Nephrology is on board Urology is on board. We'll defer the rest of the medical management to the primary and ICU team. Condition is very guarded. Patient is DO NOT RESUSCITATE. We will follow clinically.
[2021-08-11 17:43] LABS: Glucose,Whole Blood 118 mg/dL (75-99)
--- NOTE | 2021-08-11 22:53 | PN ---
PROGRESS NOTE DATE OF SERVICE: 08/11/2021 REASON FOR FOLLOWUP: Complicated urinary tract infection. INTERVAL HISTORY: The patient is afebrile. The patient remains lethargic, unable to provide any history. The patient is hemodynamically stable, though. No vomiting, diarrhea or other changes reported by the nursing staff. PHYSICAL EXAMINATION: Blood pressure is 107/83 with a pulse of 100, temperature 98. General description is an elderly male lying in bed in no distress. Respiratory system: Unlabored breathing, decreased intensity of breath sounds. No wheeze. Heart S1, S2. Regular rate and rhythm. Abdomen is soft, no tenderness. LABS: Hemoglobin 8.3, white count 8.2, creatinine 3.15. DIAGNOSTIC IMPRESSION AND PLAN: Patient with complicated urinary tract infection with urine showing ESBL Klebsiella. Patient is currently covered with ertapenem; will be continued for now while monitoring his clinical course closely. Continue with supportive care. MMODL / IJN: [id number] /
[2021-08-12 00:37] LABS: Glucose,Whole Blood 118 mg/dL (75-99)
[2021-08-12] MEDS: ERTAPENEM 0.5 GM in SODIUM CHLORIDE 0.9% 50 ML IVPB SCH ×2 (00:58→22:04)
[2021-08-12] MEDS: INSULIN ASPART (NovoLOG) 100 UNIT/ML VIAL SQ SCH ×4 (00:58→17:25)
[2021-08-12 05:08] LABS: Glucose,Whole Blood 121 mg/dL (75-99)
[2021-08-12] MEDS: LEVOTHYROXINE 100 MCG TAB PO SCH (05:46)
[2021-08-12 07:09] LABS: Anisocytosis Slight; Basophils % (A) 0 %; Eosinophils # (A) 0.1 k/uL (0-0.7); Eosinophils % (A) 1 %; HCT 26.7 % (39.0-53.0); HGB 8.5 gm/dL (13.0-17.5); Lymphocytes # (A) 0.8 k/uL (1.0-4.8); Lymphocytes % (A) 10 %; MCH 28.3 pg (25.0-35.0); MCHC 31.8 g/dL (31.0-37.0); MCV 89.1 fL (80.0-100.0); Mean Platelet Volume 9.5; Monocytes # (A) 0.2 k/uL (0-1.0); Monocytes % (A) 3 %; Neutrophils % (A) 85 %; Platelet Count 340 k/uL (150-450); RDW 16.2 % (11.5-15.5); WBC 8.3 k/uL (3.8-10.6)
[2021-08-12] MEDS: IPRATROPIUM-ALBUTEROL 3 ML NEB INHALATION SCH ×5 (07:15→19:16)
[2021-08-12] MEDS: CALCIUM ACETATE 667 MG TAB PO SCH ×2 (09:07→12:33)
[2021-08-12] MEDS: CHLORHEXIDINE GLUCONATE 15 ML CUP MUCOUS MEM SCH (09:12)
[2021-08-12] MEDS: SODIUM BICARBONATE TAB 650 MG TAB PO SCH ×2 (09:18→09:39)
[2021-08-12] MEDS: ENOXAPARIN 30 MG/0.3 ML SYRINGE SQ SCH (09:18)
[2021-08-12] MEDS: PANTOPRAZOLE 40 MG/10 ML VIAL IV SCH (09:23)
--- NOTE | 2021-08-12 09:29 | XR ---
EXAMINATION TYPE: XR chest 1V portable DATE OF EXAM: 08/12/2021 COMPARISON: 08/11/2021 HISTORY: Shortness of breath TECHNIQUE: Single frontal view of the chest is obtained. FINDINGS: There is improved aeration involving the left upper lobe with persistent large area of con solidation pleural effusion. NG tube stable. There is developing right perihilar lower lobe infiltrat e in the right. Heart size normal. Underlying COPD noted. Arthropathy of the shoulders and hypertroph ic change of the spine. IMPRESSION: 1. Improving area of consolidation involving the left lung. 2. Development new area of right perihilar lower lobe infiltrate.
[2021-08-12 09:58] LABS: African American GFR (CKD) 24.5 (60.0-200.0); Albumin 2.3 g/dL (3.8-4.9); Albumin/Globulin Ratio 0.96 (1.60-3.17); Anion Gap 13.5 mmol/L (10.00-18.00); BUN/Creat Ratio 27.71 Ratio (12.00-20.00); Blood Urea Nitrogen 77.6 mg/dL (9.0-27.0); Calcium 8.3 mg/dL (8.7-10.3); Carbon Dioxide 21.5 mmol/L (20.0-27.5); Globulin 2.4 g/dL (1.6-3.3); Non-African American GFR(CKD) 21.1 (60.0-200.0); Potassium 4.3 mmol/L (3.5-5.5); Total Bilirubin 0.3 mg/dL (0.30-1.20); Total Protein 4.7 g/dL (6.2-8.2)
[2021-08-12 10:32] VITALS: BMI 28.3
--- NOTE | 2021-08-12 11:31 | CT ---
EXAMINATION TYPE: CT brain wo con DATE OF EXAM: 08/12/2021 COMPARISON: 08/07/2021 INDICATION: ams DLP: 1266.9 mGycm, Automated exposure control for dose reduction was used. CONTRAST: None CT of the brain is performed utilizing 3 mm thick sections through the posterior fossa and 3 mm thick sections through the remaining calvarium. Study is not performed within 24 hours of arrival to the hospital. No abnormal hyperdensity is present to suggest an acute intracranial hemorrhage. No mass lesion is evident. No acute infarcts are evident. Minimal hypodensities in the periventricular white matter is nonspecif ic, this could correlate with chronic appearing white matter ischemic change. MRI could be performed for closer evaluation. Findings are stable comparison. Ventricles and sulci are prominent for the patient age. Paranasal sinuses and mastoid air cells within the [id number] are clear. IMPRESSIONS: 1. Atrophy with chronic appearing periventricular white matter ischemic changes. 2. MRI can be performed for persistent neurologic changes
[2021-08-12] MEDS: ACETAMINOPHEN TAB 325 MG TAB PO SCH ×2 (12:32→17:24)
[2021-08-12] MEDS: DEXTROSE 5% IN WATER 1,000 ML IV SCH (12:33)
--- NOTE | 2021-08-12 12:37 | P.PN ---
Subjective Progress Note Date: 08/12/21 76-year-old male patient, currently the intensive care unit, intubated on a mechanical ventilator with septic shock along with a recent diagnosis of bladder tumor. The patient has known history of hypertension and hyperlipidemia and hypothyroidism and he came into the hospital after he had a fall/passing out episode. At that time, the patient had gross hematuria. CAT scan of the brain was negative. CAT scan of the abdomen and pelvis showed bilateral hydronephrosis with hydroureter without any calculus. The patient had a cystoscopy and a large tumor arising in the posterior right lateral bladder wall was noted consistent with high-grade/invasive cancer. During the course of the illness, the patient had a right-sided nephrostomy tube placed and the patient also had a cystoscopy and bladder tumor resection. The patient accordingly was intubated and placed on a mechanical ventilator. The patient became septic and the patient had Klebsiella sepsis from urinary source. The patient during the course of his illness was sedated, paralyzed, placed on high doses of pressors including a combination of norepinephrine and vasopressin. The patient was also given a bicarb infusion for significant metabolic acidosis. He did develop an acute kidney injury and his chest x-ray also showed diffuse but the pulmonary infiltrates consistent with pneumonia/edema. Subsequently, the patient was cul tured to have an ESBL producing capsula Klebsiella and the patient was covered with IV Invanz. Note that the patient also had a strep group B in the sputum. At this point in time, the patient remains intubated. The patient is post a day #8. The patient has a right-sided nephrostomy tube in place. The pathology from the bladder is consistent with malignancy. The patient remains intubated on a mechanical ventilator. He is an assist-control mode at the rate of 26 with a tidal volume of 500 FiO2 of 30% with a PEEP of 5. He was sedated with propofol and he was taken off the sedation yesterday. He did not show or demonstrated adequate neurologic recovery. As such, the patient was kept on hold and the patient was asked to be seen by neurology. A neurologic workup is in progress at this point in time. Meanwhile, the patient is receiving enteral feeding for nutritional support. The patient is on vital AF at goal. He remains on antibiotics. Norepinephrine infusion is running at 11 g per minute for hemodynamic support. The patient is also on Lovenox 30 mg subcu for DVT prophylaxis. Bicarb infusion has been discontinued and the patient is currently on IV fluids at [facility]. He did develop a component of hyponatremia from yesterday and the sodium from yesterday was 147. Creatinine continues to improve and the BUN was 106 with a creatinine of 4.9 from yesterday. Patient is also on IV Synthroid. Free T4 was 0.42 with TSH of 9.0. Serum cortisol was 16. CAT scan of the brain was done yesterday and showed no acute abnormalities. There was evidence of failure atrophy. On today's evaluation, the patient remains unresponsive. The patient still off sedation since yesterday. CAT scan of the brain as stated showed no acute abnormalities. The blood gases from today shows a pH of 7.45 with a pCO2 of 42 and pO2 of 79 and this was done on the above- mentioned ventilator setting. As for the chest x-ray, from this morning, the findings are essentially stable. There is probably a small left-sided pleural effusion. ET tube is in a good location at the level of the aortic knob and/or G-tube also is in a good location. No evidence of any consolidation or airspace disease. Meanwhile, the patient's sodium is up to 150, creatinine is slightly improved down to 4.57 with a BUN of 109 and a potassium level of 3.5. Cardiac rhythm remains sinus. Norepinephrine infusion is running at 0.08 mcg/kg per minute. On today's evaluation of 08/09/2021, the patient is being seen for a follow-up. The patient has been off sedation for the past 72 hours. On today's evaluation, he remains still unresponsive. He grimaces to painful stimulation. I've seen him with no his lower extremities to painful stimulation. His pupils are equal and reactive. He has a positive cough and a gag reflex. Nevertheless, he does not follow any commands. He remains on a mechanical ventilator. This morning, he is on assist-control at the rate of 26, tidal volume of 500, FiO2 of 40%, and a PEEP of 5. Chest x-ray remains unchanged and ET tube is in a good location. The blood gases from today showed a pO2 of 112, pCO2 of 41 and a pO2 pH of 7.46. The patient is afebrile. The patient is hemodynamically stable. In fact, he is on a very low dose of norepinephrine running at 0.03 mcg/kg per minute which obviously can be weaned off today. Meanwhile, an ultrasound of the kidney was done yesterday again to reevaluate for any hydronephrosis. The ultrasound showed a [id number] right-sided hydronephrosis with nephrostomy tube and good location. Left kidney examination was limited due to bowel gas pattern. Based on that, the urologist have made a decision not to insert a nephrostomy tube on the left considering that the benefit of this intervention will be quite low. The urine output and his Denny catheter is in the order of 2000 mL over the past 24 hours and output from the right-sided nephrostomy is in order of 800 mL over the past 24 hours. Labs from today is still pending. He is receiving enteral feeding for nutritional support and the patient is currently on vital AF at the goal of 65 mL an hour. He is also receiving water flushes every 4 hours in the order of 100 mL an hour. Repeat sodium from yesterday evening was 150. Follow-up levels are still pending. Meanwhile the patient is on D5 water at the rate of 75 mL an hour. 08/10/2021, the patient remains unresponsive. His been off sedation for the past 72 hours. With suspected metabolic encephalopathy knowing that the patient has been showing ongoing improvement in his mentation or at least neurologic functions. The patient was completely unresponsive. He continues to grimaces to painful stimulation and he is more interactive on today's evaluation where the patient moves his arms and legs spontaneously. Nevertheless, he still not following any commands. Prior discussion with nephrology. The patient had a CAT scan of the abdomen yesterday to reevaluate the left kidney. Back based on the findings, there is no evidence of any hydroureter or hydronephrosis and as such there was no indication for a nephrostomy tube insertion on the left. There was still mild right sided hydronephrosis with a nephrostomy tube being in a good location. There was a nonobstructive calculus in the left renal system/kidney. There was also diffuse anasarca. The bladder wall was thickened and this was consistent with the underlying malignancy. There was also bilateral infiltration of the lung bases addition to small pleural effusion more so on the left. There was abdominal aortic stent grafting that was present extending to the iliacs bilaterally. Meanwhile, the patient's is still produ cing output from the nephrostomy tube and that his Denny catheter. The creatinine is on the decline. Currently, he has a creatinine of 3.65. Sodium level is at 149 and the patient is still on D5 water that is running at the rate of 75 mL an hour. The patient is hemodynamically stable. The patient is on no pressors. He remains on a mechanical ventilator. He is on assist control mode at the rate of 26 with a tidal volume of 500 and FiO2 of 40% with a PEEP of 5. Blood gases from today shows a pH of 7.46 with a pO2 of 40 and pO2 119. The chest x-ray from today is showing adequate expansion of both lungs. ET tube is in good location. There is some limited infiltration of the lung bases along with small effusions. Otherwise, there is no significant interval change in his chest x-ray findings compared to yesterday. The patient has a positive cough. The patient is a positive gag. He withdraws to painful stimulation all 4 extremities. No seizure activity has been noted. On 08/11/2021, the patient is extubated. We have encouraged extubated this patient yesterday as the patient was gradually waking up. He was getting more and more agitated and restless while being on a mechanical ventilator. He has been off sedation for the past 96 hours. I noted that he was becoming more active and trying to reach his tube and pulling on things. Based on that, I made a decision to extubate the patient knowing that he was able to tolerate CPAP therapy for an extended period of time and the patient was able to generate good volumes and the lower legs. As such, the patient was extubated and patient is currently on oxygen at 6 L per minute nasal cannula. Unfortunately, he continues to have a weak cough and a chest x-ray from today showing atelectasis or at least partial atelectasis of the left lung probably related to mucous plugs. The patient currently is being seen for a follow-up. He is still very lethargic. He was able to open up his eyes spontaneously. He is not following commands consistently. He tries to speak. His speech is very weak and not understandable. He has an NG tube in place. His breathing is nonlabored. The nephrostomy tube is draining approximately 350 of urine output for yesterday and the Denny catheter drained approximately 75 mL an hour of urine output. As such, the patient is producing urine output. The patient has a creatinine of 3.1 which is improved compared to yesterday. Rest of the electrodes are all stable. White cell count of 8.2 with a hemoglobin of 8.3. The patient has strep agalactiae, and his sputum and Klebsiella in his urine. Antibiotic coverage is with IV Invanz. I discussed the findings with his grandson y esterday. I think we need to again reconfirmed the cause status. Based on my conversation, we discussed of not the intubating this patient and changing him to a DNR/DNI CODE STATUS based on his multiple comorbidities as mentioned. Neurologist on the case and his altered mentation is felt to be related to metabolic encephalopathy. The patient is seen today 08/12/2021 on the regular medical floor. He was transferred out of the ICU yesterday. He is arousable, still with some altered mental status He is maintaining O2 saturations in the 90s on 6 L high flow nasal cannula. Chest x-ray showing improvement in the consolidation of the left lung. There is a new right perihilar lobe infiltrate. He continues to use to receive nebulized treatments and chest physiotherapy. CT scan of the brain revealed atrophy with chronic appearing periventricular white matter ischemic changes. White count 8.3. Hemoglobin 8.5. Sodium 149. Potassium 4.3. BUN 77. Creatinine 2.8. AST 39. ALT 30. Albumin 2.3. He is receiving D5W at 75 ML's per hour. Remains on antibiotics in the form of ertapenem. Lovenox for DVT prophylaxis. Objective - Vital Signs Vital signs: Vital Signs Temp 98.3 F 08/12/21 04:45 Pulse 108 H 08/12/21 11:43 Resp 32 H 08/12/21 04:45 BP 124/62 08/12/21 04:45 Pulse Ox 84 L 08/12/21 04:45 Intake & Output 08/11/21 08/12/21 08/12/21 18:59 06:59 18:59 Intake Total 1100 0 Output Total 2215 1600 Balance -1115 -1600 Weight 92 kg 92 kg Intake: IV 200 Dextrose 5% in Water 1, 200 000 ml @ 100 mls/hr IV . Q10H [facility] Rx#:[id number] Intake, IV Titration 705 Amount Dextrose 5% in Water 1, 630 000 ml @ 70 mls/hr IV . [id number] [facility] Rx#:[id number] Sodium Chloride 0.9% 1, 75 000 ml @ 75 mls/hr IV . [id number] [facility] Rx#:[id number] Oral 0 Tube Feeding 195 Output: Drainage 1425 1100 Right Lateral Back 1425 1100 Urine 790 500 Other: Voiding Method Indwelling Catheter Ileal Conduit (Right) # Bowel Movements 1 ABP, PAP, CO, CI - Last Documented Arterial Blood Pressure 74/11 - Exam GENERAL EXAM: Arousable, frail, cachectic, very weak 76-year-old male patient, on 6 L nasal cannula, fairly comfortable in no apparent distress. HEAD: Normocephalic. EYES: Normal reaction of pupils, equal size. NOSE: Clear with pink turbinates. THROAT: No erythema or exudates. NECK: No masses, no JVD. CHEST: No chest wall deformity. LUNGS: Equal air entry with lateral scattered rhonchi CVS: S1 and S2 normal with no audible murmur, regular rhythm. ABDOMEN: No hepatosplenomegaly, normal bowel sounds, no guarding or rigidity. SPINE: No scoliosis or deformity SKIN: No rashes CENTRAL NERVOUS SYSTEM: No focal deficits, tone is normal in all 4 extremities. EXTREMITIES: There is no peripheral edema. No clubbing, no cyanosis. Periphera l pulses are intact. - Labs CBC & Chem 7: 08/12/21 05:36 08/12/21 05:36 Labs: Abnormal Lab Results - Last 24 Hours (Table) 08/11/21 08/12/21 08/12/21 Range/Units 17:42 00:27 05:06 RBC (4.30-5.90) m/uL Hgb (13.0-17.5) gm/dL Hct (39.0-53.0) % RDW (11.5-15.5) % Lymphocytes # (1.0-4.8) k/uL Sodium (135-145) mmol/L Chloride (96-109) mmol/L BUN (9.0-27.0) mg/dL Creatinine (0.6-1.5) mg/dL Est GFR (CKD-EPI)AfAm (60.0-200.0) Est GFR (CKD-EPI)NonAf (60.0-200.0) BUN/Creatinine Ratio (12.00-20.00) Ratio POC Glucose (mg/dL) 118 H 118 H 121 H (75-99) mg/dL Calcium (8.7-10.3) mg/dL AST (14-35) U/L Total Protein (6.2-8.2) g/dL Albumin (3.8-4.9) g/dL Albumin/Globulin Ratio (1.60-3.17) g/dL 08/12/21 08/12/21 Range/Units 05:36 05:36 RBC 3.00 L (4.30-5.90) m/uL Hgb 8.5 L (13.0-17.5) gm/dL Hct 26.7 L (39.0-53.0) % RDW 16.2 H (11.5-15.5) % Lymphocytes # 0.8 L (1.0-4.8) k/uL Sodium 149 H (135-145) mmol/L Chloride 114 H (96-109) mmol/L BUN 77.6 H (9.0-27.0) mg/dL Creatinine 2.8 H (0.6-1.5) mg/dL Est GFR (CKD-EPI)AfAm 24.5 L (60.0-200.0) Est GFR (CKD-EPI)NonAf 21.1 L (60.0-200.0) BUN/Creatinine Ratio 27.71 H (12.00-20.00) Ratio POC Glucose (mg/dL) (75-99) mg/dL Calcium 8.3 L (8.7-10.3) mg/dL AST 39 H (14-35) U/L Total Protein 4.7 L (6.2-8.2) g/dL Albumin 2.3 L (3.8-4.9) g/dL Albumin/Globulin Ratio 0.96 L (1.60-3.17) g/dL Assessment and Plan Assessment: 1 septic shock secondary to an underlying UTI/complicated UTI with obstructive uropathy and acute kidney injury secondary to bladder tumor. 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 Creatinine is gradually improving. The patient is post cystoscopy and biopsies on 07/31/2021 with trans-ureteral resection of bladder tumor, postop day #13, and the patient's renal function continues to improve in the creatinine currently is down to 2.8 4 mild hypernatremia, recovered and sodium level is currently 149 5 acute hypoxic respiratory failure, the patient's been intubated since 07/31/2021, the patient was extubated on 08/10/2021. On today's evaluation, the chest x-rays atelectatic poor ability to cough and perform pulmonary toileting. Currently the patient on 6 L of oxygen by nasal cannula. 6 altered mentation with diminished level of consciousness, consider metabolic e ncephalopathy. CAT scan of the brain was essentially negative for any acute abnormalities and this consistent with cerebral atrophy, and I do believe that this is still ongoing metabolic encephalopathy. The patient has become much more interactive and his grimacing to painful stimulation. He is not awake enough to follow any simple commands. Neurologically, the patient is showing mild daily improvement and level of alertness although he is still very much lethargic. Follow-up computed tomography scan of the brain 08/12/2021 revealed atrophy with chronic appearing periventricular white matter ischemic changes. 7 hypotension secondary to septic shock, recovered 8 anemia of chronic disease post units of packed RBC transfusion 9 hypothyroidism currently on Synthroid replacement 10 troponin leak secondary to above 11 hyperlipidemia 12 hypertension, history of Plan: The patient was seen and evaluated Chest x-ray, computed tomography scan of the brain and labs reviewed Overall prognosis is quite poor DO NOT RESUSCITATE/DO NOT INTUBATE CODE STATUS Will most likely need subacute rehabilitation/placement We will see as needed
--- NOTE | 2021-08-12 13:44 | P.PN ---
Subjective Progress Note Date: 08/12/21 HISTORY OF PRESENT ILLNESS This 76-year-old pleasant gentleman, patient of Dr. Wills. History of hypertension hyperlipidemia, hypothyroidism, who was noted to have some bleeding in the toilet for several days, unsure how long the duration was, however he is on blood thinners, he was found on the floor today, patient denies any headache, however it's unclear how the patient fell. He does not admit to syncopal event, patient was subsequently setting to emergency room from home, to the emergency via EMS, a condom catheter was placed, and that's how they found that patient is having gross hematuria rather than rectal bleeding. In emergency room, central line was placed for IV hydration, blood pressure was 75/50, daily urinalysis, shows over 182 RBCs and WBC, hemoglobin 10.4 WBC count 11.0, platelet 297, creatinine of 6.1, BUN of 77, unknown baseline. Patient had CAT scan, head and cervical spine, shows multilevel cervical spondylosis change, no fracture, and no dislocation. No intracranial hemorrhage, intact calvarium. Computed tomography scan of the abdomen, shows bilateral hydronephrosis, and hydroureter, more on the right than the left, there is bilateral renal vascular calcification, no renal calculi, no ureteral calculi. There is no inguinal hernia, no fluid in the pelvis, bilateral stents in the abdominal aorta and iliac arteries, no mesenteric edema, no ascites or free air. No bowel obstruction, bladder imaging is not well evaluated due to lack of distention there is colonic diverticula, without signs of diverticulitis. Chest x-ray shows mild pulmonary fibrosis Consult was made with nephrology, urology and intensive care management, patient admitted to ICU for significant gross hematuria, obstructive uropathy, with mental status changes, and suspected syncope, with a fall long-term anticoagulation, elevated troponin Patient is taken to the operating room, for cystoscopy, evacuation of clot, and transient Trial resection of the bladder as a CAT scan per review from urology, shows bladder irregularity. There is a large sessile tumor, in the right posterolateral bladder wall. It was dense and suspected to have obviously a high grade tumor, with muscular invasion 08/01: Patient remains in the intensive care unit intubated on mechanical ventilation with tidal volume 500, FiO2 40, PEEP of 5. Patient is on levo fed, vasopressin, Nimbex, fentanyl, bicarb drip and propofol. The patient has hematuria from Denny catheter and nephrostomy tube and there is small amount of leaking from the meatus. 08/02: Patient remains in the intensive care unit intubated and on mechanical ventilation with tidal volume 500, FiO2 50, PEEP 5. Patient has been weaned down on norepinephrine continued on vasopressin, Nimbex, fentanyl and propofol. He has been afebrile, heart rate 77, blood pressure 92/59, pulse ox 100%. He had monitor sinus rhythm. Repeat blood work reveals WBC 21.2, hemoglobin 9.9, platelet count 125. Lites are within normal limits. BUN 78 creatinine 6.41. Capillary blood glucose running between 113 and 121. Urine culture has been finalized with ESBL Klebsiella oxytoca and antibiotics will be changed from ceftriaxone to Zosyn. 08/03 patient examined while intubated. Patient is postop 3 continues to remain ventilator on assist control mode respiratory rate of 26 and volume 500 FiO2 40 and PEEP of 5. FiO2 decreased to 30 with patient maintaining her oxygen saturations between 96-98%. He continues to remain on propofol at 25 valentin per KG per minute. Vasopressin at 0.04 units per minute, norepinephrine at 20 mics KG per minute and fentanyl 0.5 valentin per KG per minute. Patient's bicarb drip was discontinued and is currently on half-normal saline at 50 mL per hour. Nimbex has been discontinued. Patient vitals are stable with temp 97.8 pulse 63 respiratory rate 26 blood pressure 109/71. Leukocytosis of 14.5, hemoglobin 9.3 platelet has reduced to 93. Potassium is 3.3 bicarb 21 BUN 85 creatinine 6. 47. Urine output is approximately 10-15 mL per hour about 250 developed intermittent nephrostomy tube. Lasix 80 mg IV to be given today. Potassium is being repleted. No need for dialysis as at this point per nephrology Patient contineus to remain intubated with vent setting involving assist control, resp rate 26, tidal vol 500, PEEP 5 and Fio2 40 %. Patient continues to remain aon vasopressor and norepinephrine. Sedation mentained with propofol and fentanyl. Patient is noticed to move his lower extremities but doesnot follow any commands. UO has improved appears to be 40 ml/ hr but appears to be serosangunous, continues to have 250 - 300 ml every 6 hour. pathology consistent with high-grade, muscle invasive urothelial carcinoma. Patient was seen by urology who has recommended left nephrostomy tube in next few days. patient was noted to be in atrial fib ad is on cardizem drip, metoprolol dose increased to 25 mg po TID per cardiology 08/05 patient examined at bedside continues to remain on the ventilator. He is currently on assist control respiratory rate of 26 tidal volume 500 FiO2 40% and PEEP of 5. Continues to remain on normal saline 50 cc/h, vasopressin .02 micrograms per, norepi at 4.8 mics per KG per minute, propofol at 10 mics per KG per minute. Patient was given 1 dose of Lasix per pulmonary. Labs are reviewed patient has a hemoglobin of 8.1 platelets stable at 63. An ABG was obtained and pH 7.42 PO2 117 and bicarb 28 BUN 95 creatinine 5.68 albumin low at 1.8 patient continues to receive Invanz per infectious disease patient initiated on enteral tube feeding blood sugar stable less than 150 urine output is maintained at 40 cc/h. 300 mL drained out of the nephrostomy tube tube today. Nephrology recommend continuing IV fluids diuresis as needed. No plan for renal replacement 08/06 patient examined at bedside continues to remain intubated. Patient is noted to have nonpurposeful movement. currently on assist control respiratory rate of 26 tidal volume 500 FiO2 30% and PEEP of 5. Continues to remain on normal saline, patient is self weaned off his pressors apparently on levo fed at 60 valentin per KG per minute. Continuous remain in sinus rhythm blood pressure controlled. Chest x-ray showing persistent left mid lung and left greater than right basilar opacities with small left pleural effusion with no change compared to previous x-ray. Patient had good urine output after 40-50 mL per hour from the Denny catheter. He has right-sided nephrostomy tube with 1200 mL output since midnight. PH 7.41 pCO2 43 pO2 78, bicarb 27, hemoglobin stable at 9.4 Creatinine 5.27 calcium of 8. Plan for sedation withdrawal today for evaluating patient's mental status. 08/07 patient examined bedside neurology consultPatient is currently off PROPOFOL with nonpurposeful movement involving bilateral lower extremities. No episodes of agitation. Vitals are stable with a temp of 99.2, pulse 101 respiratory rate 32 blood pressure 1:30/63. Patient is currently on norepinephrine 0.13 valentin per KG per minute and normal saline running at 50 mL per hour. He is at assist control respiratory rate 26 tidal volume 500 FiO2 30 and PEEP of 5. Chest x-ray repeated this morning suggests of left greater than right bibasilar opacity with mild interstitial edema no significant change. No large effusion. Labs are reviewed patient hemoglobin is 8.9 dated 124 sodium 147 bicarb 112 BUN 106 creatinine 4.93 glucose stable between 130 and 148. Patient's nephew updated on the bladder cancer and poor prognosis. A CT head to be repeated this morning to check for change 08/08: Patient remains in the intensive care unit, intubated and on mechanical ventilation with tidal volume 500, FiO2 30 and PEEP of 5. He is currently on t ube feedings at 45 mL per hour, norepinephrine and D5W. Patient has been afebrile, heart rate in the 80s, respiratory rate 26, blood pressure 93/61, pulse ox 98%. Repeat blood work reveals WBC 10.2, hemoglobin 8.9, platelet 190. Sodium 150, potassium 3.9, chloride 115, CO2 27, BUN 109, creatinine 4.57. Blood sugars are running between 117 and 154. Repeat chest x-ray reveals COPD with bilateral infiltrate and small effusion stable. Patient continues to be followed by nephrology, data keyer, infectious disease, urology. Neurology consult was added yesterday. CAT scan of the brain performed yesterday revealed cerebral atrophy. No acute intracranial abnormality. Patient is currently on Invanz. 08/09: Patient remains in the intensive care unit on mechanical ventilation with tidal volume 500, FiO2 40, PEEP of 5. Patient has been off sedation since 08/07. He is followed by neurology. There is concern that patient has less movement on the right upper extremity. He has minimal response to pain. Patient also followed by nephrology with no plan at this time to start dialysis. Dr. Contreras is planning to discuss possible insertion of left-sided nephrostomy tube with urology. Renal ultrasound revealed mild to moderate right-sided hydronephrosis with nephrostomy tube. Repeat chest x-ray reveals COPD and left lower lobe infiltrate and small effusions . Pathology report remains pending. 08/10: Remains intubated and on mechanical ventilation with tidal volume 500, FiO2 of 40, PEEP of 5. Patient does have a gag reflex and cough. He is currently on CPAP settings. Plan is to probably extubate tomorrow. Nephrology is not planning for dialysis at this time. He does have output from nephrostomy tube and from his Denny catheter. He is having gradual improvement of his renal function with BUN 100 and creatinine 3.65. Patient has been made DO NOT RESUSCITATE. Patient has been started on D5W at 100 mL per hour for sodium of 149. Patient is followed by nephrology, pulmonary medicine and urology, neurology. Pathology report reveals dense acute inflammatory cells, i nsufficient for evaluation due to obscuring acute inflammation. Patient is continued on Invanz. 08/11: Patient has been successfully extubated. NG tube is still in place with tube feedings at 65 mL/h. He is also receiving water flushes every 4 hours. IV fluids of D5W decreased to 70 mL per hour. Patient has been afebrile, heart rate 96, blood pressure 130/78, pulse ox 99% on 5 L nasal cannula. Repeat blood work reveals continued improvement of his renal function was BUN of 90 and creatinine 3.15. Hemoglobin is 8.3. Sodium is down to 143. Repeat chest x-ray reveals near complete opacities of the left hemithorax markedly worsened from prior exam with abrupt cutoff of the left mainstem bronchus correlate for mucous plug or endobronchial lesion. Chest PT on the left was added by pulmonary medicine. 08/12: [facility] Patient's left arm is flaccid. Patient is grimacing in pain and scheduled Tylenol will be added. He is off all sedating medication Pulse ox is 84% on 6 L nasal cannula, heart rate 104, respiratory rate 32, blood pressure 10/03/1960. He has been afebrile. Repeat blood work reveals WBC 8.3, hemoglobin 8.5, platelet count 340. Total pathology reveals invasive urothelial carcinoma high-grade. Sodium 149, potassium 4.3, chloride 114, CO2 21, BUN 77 creatinine 2.8. Blood sugars are running between 107 and 121. Chest x-ray reveals improving area of consolidation involving the left lung. Development new area of right perihilar lower lobe infiltrate. Computed tomography scan of the brain revealed atrophy with chronic appearing. Ventricular white matter ischemic changes. Pulmonary medicine is following on an as-needed basis. Dr. Andrade will contact the patient's family regarding further plan as prognosis is very guarded. REVIEW OF SYSTEMS Unable to obtain due to mental status PHYSICAL EXAMINATION Gen: This is a 76-year-old male. He is resting in ICU bed, and appears to be comfortable. HEENT: Head is atraumatic, normocephalic. Sclerae is anicteric. Gastric tube in place to the right nares. NECK: Supple. No JVD. No lymphadenopathy. No thyromegaly. LUNGS: Bilateral rhonchi. No intercostal retractions. Left side breath sounds diminished throughout HEART: irregularly irregular rate and rhythm. No murmur. ABDOMEN: Soft. Bowel sounds are present. No masses. No tenderness. Denny catheter. Nephrostomy tube draining jemal urine. EXTREMITIES: No pedal edema. No calf tenderness. NEUROLOGICAL: Patient is lethargic. ASSESSMENT AND PLAN 1. Gross hematuria secondary to high-grade invasive urothelial carcinoma with hypotension, obstructive uropathy, UTI and sepsis. Patient was seen by urology, status post transurethral bladder resection on 07/31/2021 Dr. Vinson. Patient transferred to the [facility] floor. Surgical pathology revealed high-grade, invasive urothelial carcinoma. 2. Acute blood loss anemia, with hypovolemic and septic hypotension, from gross hematuria, requiring vasopressors, norepinephrine, maintained in ICU treatment, critical care medicine following. He is status post 1 unit packed RBCs. 3. Acute kidney injury secondary to bilateral hydronephrosis and hydroureter with workup suggestive of bladder cancer, unknown baseline for CKD. Nephrology consult appreciated. PhosLo, sodium bicar 650 mg po QID, IV fluids at D5 W at 100 mL per hour for hypernatremia. 4. Elevated troponin, rule out non-ST elevated myocardial infarction, acute coronary syndrome ruled out. Cardiology consult appreciated. 5. Acute hypoxic respiratory failure requiring ongoing intubation and mechanical ventilation. Patient is managed by data keyer. 6. Acute ESBL Klebsiella urinary tract infection with sepsis and septic shock requiring vasopressors. IV antibiotics changed to Invanz. 7. Thrombocytopenia secondary to sepsis. 8. BPH with prostatomegaly has indwelling Denny catheter at this time 9. Metabolic encephalopathy secondary to acute uremia, sepsis. Right arm is flaccid but no sign of CVA on CAT scan 10. Total opacification of the left lung possible mucous plug or endobronchial lesion. Chest PT has been started. 11. Hypothyroidism. Continue levothyroxine 200 g daily 12. Hyperlipidemia 13. Hypertension. Hypotension has resolved. 14. Tobacco use and dependence. DVT prophylaxis with Lovenox 30 mg subcu daily GI prophylaxis IV Protonix Prognosis guarded. CODE STATUS NO code Impression and plan of care have been directed as dictated by the signing physic ian. Laurie Lawson nurse practitioner acting as scribe for signing physician. Objective - Vital Signs Vital signs: Vital Signs Temp 98.3 F 08/12/21 04:45 Pulse 104 H 08/12/21 07:34 Resp 32 H 08/12/21 04:45 BP 124/62 08/12/21 04:45 Pulse Ox 84 L 08/12/21 04:45 Intake & Output 08/11/21 08/12/21 08/12/21 18:59 06:59 18:59 Intake Total 1100 0 Output Total 2215 1600 Balance -1115 -1600 Weight 92 kg Intake: IV 200 Dextrose 5% in Water 1, 200 000 ml @ 100 mls/hr IV . Q10H [facility] Rx#:[id number] Intake, IV Titration 705 Amount Dextrose 5% in Water 1, 630 000 ml @ 70 mls/hr IV . [id number] Rx#:[id number] Sodium Chloride 0.9% 1, 75 000 ml @ 75 mls/hr IV . [id number] [facility] Rx#:[id number] Oral 0 Tube Feeding 195 Output: Drainage 1425 1100 Right Lateral Back 1425 1100 Urine 790 500 Other: Voiding Method Indwelling Catheter Ileal Conduit (Right) # Bowel Movements 1 ABP, PAP, CO, CI - Last Documented Arterial Blood Pressure 74/11 - Labs CBC & Chem 7: 08/12/21 05:36 08/12/21 05:36 Labs: Abnormal Lab Results - Last 24 Hours (Table) 08/11/21 08/11/21 08/12/21 Range/Units 12:15 17:42 00:27 RBC (4.30-5.90) m/uL Hgb (13.0-17.5) gm/dL Hct (39.0-53.0) % RDW (11.5-15.5) % Lymphocytes # (1.0-4.8) k/uL POC Glucose (mg/dL) 129 H 118 H 118 H (75-99) mg/dL 08/12/21 08/12/21 Range/Units 05:06 05:36 RBC 3.00 L (4.30-5.90) m/uL Hgb 8.5 L (13.0-17.5) gm/dL Hct 26.7 L (39.0-53.0) % RDW 16.2 H (11.5-15.5) % Lymphocytes # 0.8 L (1.0-4.8) k/uL POC Glucose (mg/dL) 121 H (75-99) mg/dL
[2021-08-12 14:44] LABS: Glucose,Whole Blood 131 mg/dL (75-99)
[2021-08-12 17:30] LABS: Glucose,Whole Blood 120 mg/dL (75-99)
--- NOTE | 2021-08-12 17:36 | PN ---
PROGRESS NOTE DATE OF SERVICE: 08/12/2021 REASON FOR FOLLOWUP: Complicated urinary tract infection. INTERVAL HISTORY: The patient is afebrile, has been transferred out of the ICU. Patient is currently breathing comfortably. Remains lethargic and is unable to provide any history. No vomiting, diarrhea or other changes reported by the nursing staff. PHYSICAL EXAMINATION: Blood pressure 118/68 with a pulse of 109, temperature 99.7. General description is an elderly male lying in bed in no distress. Respiratory system: Unlabored breathing, decreased intensity of breath sounds. No wheeze. Heart S1, S2. Regular rate and rhythm. Abdomen soft, no tenderness. LABS: Hemoglobin 8.5, white count 8.3, creatinine is 2.8. DIAGNOSTIC IMPRESSION AND PLAN: Patient with a complicated urinary tract infection with ESBL Klebsiella. Patient is currently covered with Invanz. That will be continued for now in this patient whose x- ray is showing developing new infiltrate on the right with improvement on the left side; possible aspiration pneumonitis; needs to be monitored closely. Continue with supportive care. MMODL / IJN: [id number] /
--- NOTE | 2021-08-12 18:42 | PN ---
PROGRESS NOTE Patient is seen for followup for acute kidney injury, hypernatremia. His renal function continues to improve. He continues to have the right nephrostomy and Denny catheter. Mentation has not improved much. CODE STATUS being considered again for possible hospice care. On examination today, blood pressure this morning 118/68, heart rate of 109 per minute. Patient is afebrile. EXAMINATION OF THE HEART: S1 and S2. EXAMINATION OF LUNGS: Decreased breath sounds at the bases. Upper respiratory sounds are heard. Examination of lower extremities shows edema 1+ bilaterally. COMPUTER OPERATOR exam cannot be assessed, as patient is not following commands. Labs show hemoglobin 8.5, sodium 149, potassium 4.3, BUN 77.6, creatinine 2.8. ASSESSMENT: 1. Acute kidney injury, obstructive uropathy and acute tubular necrosis, currently improving. Patient has right nephrostomy tube. His renal function continues to improve at this time. 2. Hypernatremia associated with free water deficit, maintained on D5W as well as free water down his feeding tube. 3. Anemia. No active bleeding noted at this time. 4. Metabolic acidosis, maintained on sodium bicarb. 5. Hyperphosphatemia, currently on PhosLo. 6. Encephalopathy with plans for possible consideration of hospice care. 7. Urinary tract infection. Urine culture grew Klebsiella oxytoca. PLAN: Resume D5W due to hypernatremia. Discontinue PhosLo and repeat labs in a.m. [id number] / IJN: [id number] /
--- NOTE | 2021-08-12 19:11 | P.PN ---
Subjective Progress Note Date: 08/12/21 08/12/2021: Patient was seen for a follow-up. Patient is more awake, trying to speak, mumbling, slightly falling more commands, but still very groggy, dry mouth. Mouth breathing. 08/11/2021: Patient was extubated yesterday. Patient continues to be significantly encephalopathic. Patient does not speak, or follow any commands. He does open his eyes to calling his name, and makes eye contact and tracks. Please refer to examination below. Not able to tell if he has any headache or any symptoms. 08/10/2021: Patient was seen for a follow-up. Patient continues to be intubated on mechanical ventilation. He has been off sedation for last 72 hours. Patient continues to be encephalopathic, but slightly better response as per examination below. No seizure-like activity noted. Chest x-ray showed COPD with left lower lobe infiltrate and small effusion. 08/08/2021: Patient initially seen by Dr. Mayo Berry. Please refer to his note for details. Patient is a 76-year-old male came with altered mental status. Patient was brought to the hospital on 07/30/2021 after being found on the floor, unsure if he had passed out. Patient had evidence of bleeding in the toilet. Patient has history of bladder cancer, patient is intubated on ventilator. Patient has developed sepsis. No seizure-like activity has been noticed. Patient's urine is positive for Klebsiella Oxytoca.. Patient is currently on Levothroid 0.04 g. Patient is off propofol for last 24 hours. Recently during this hospital admission it was noted the patient has gross hematuria secondary due to a bladder tumor last post cystoscopy scope he and biopsy on 07/31/2021. 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 During his hospital stay it was felt the patient was in septic shock related to the ESBL Klebsiella UTI and strep pneumo group B Patient was intubated and on ventilator for the procedure on 07/31/21. Patient also had acute kidney injury and was improving as well as had anemia and received 1 unit of red blood cell. Patient's blood test shows WBC 10.2 hemoglobin 8.9, platelets 190. Sodium 150 potassium 3.9, BUN is 109, creatinine 4.57. Calcium 8.6. TFTs normal. Of the head on 07/30/2021 is reported as cerebral atrophy. No acute intracranial abnormality. CT cervical spine was reported as mild multilevel cervical spondylitic changes. No fracture. The echo was reported as left ventricular size is normal. Wall thickness is normal. Ejection fraction of 30-35%. Objective - Vital Signs Vital signs: Vital Signs Temp 99.7 F H 08/12/21 11:30 Pulse 104 H 08/12/21 15:40 Resp 22 08/12/21 11:30 BP 118/68 08/12/21 11:30 Pulse Ox 90 L 08/12/21 15:33 Intake & Output 08/12/21 08/12/21 08/13/21 06:59 18:59 06:59 Intake Total 0 Output Total 1600 400 Balance -1600 -400 Weight 92 kg 92 kg Intake: Oral 0 Output: Drainage 1100 400 Right Lateral Back 1100 400 Urine 500 Other: Voiding Method Indwelling Catheter Ileal Conduit (Right) ABP, PAP, CO, CI - Last Documented Arterial Blood Pressure 74/11 - Exam GENERAL: The patient is lying in bed and seems to be in mild distress. Patient has significant peripheral edema. NEUROLOGICAL: Patient is extubated, not on any sedation. Higher mental function: Patient keeps his eyes closed. He does open his eyes to calling his name, makes eye contact. He is trying to communicate, mumbling, sliding because of severe dry mouth. He is not morning.. Patient following commands, he is squeezing the hands about 3, left more than right. Also able to flex the arm. Patient wiggling his feet on commands. Cranial nerves: Patient keeps his eyes closed. Primary gaze is midline. The pupils are round, equal (3mm) and reactive to light. +ve corneal reflex bilaterally. No facial weakness. Motor: The strength is hard to assess but responds equal as mentioned above. Cerebellum: Could not assess. Sensation: Equal. Reflexes (right/left): 1+ throughout. Plantars are downgoing bilaterally. - Labs CBC & Chem 7: 08/12/21 05:36 08/12/21 05:36 Labs: Abnormal Lab Results - Last 24 Hours (Table) 08/12/21 08/12/21 08/12/21 Range/Units 00:27 05:06 05:36 RBC 3.00 L (4.30-5.90) m/uL Hgb 8.5 L (13.0-17.5) gm/dL Hct 26.7 L (39.0-53.0) % RDW 16.2 H (11.5-15.5) % Lymphocytes # 0.8 L (1.0-4.8) k/uL Sodium (135-145) mmol/L Chloride (96-109) mmol/L BUN (9.0-27.0) mg/dL Creatinine (0.6-1.5) mg/dL Est GFR (CKD-EPI)AfAm (60.0-200.0) Est GFR (CKD-EPI)NonAf (60.0-200.0) BUN/Creatinine Ratio (12.00-20.00) Ratio POC Glucose (mg/dL) 118 H 121 H (75-99) mg/dL Calcium (8.7-10.3) mg/dL AST (14-35) U/L Total Protein (6.2-8.2) g/dL Albumin (3.8-4.9) g/dL Albumin/Globulin Ratio (1.60-3.17) g/dL 08/12/21 08/12/21 08/12/21 Range/Units 05:36 14:32 17:22 RBC (4.30-5.90) m/uL Hgb (13.0-17.5) gm/dL Hct (39.0-53.0) % RDW (11.5-15.5) % Lymphocytes # (1.0-4.8) k/uL Sodium 149 H (135-145) mmol/L Chloride 114 H (96-109) mmol/L BUN 77.6 H (9.0-27.0) mg/dL Creatinine 2.8 H (0.6-1.5) mg/dL Est GFR (CKD-EPI)AfAm 24.5 L (60.0-200.0) Est GFR (CKD-EPI)NonAf 21.1 L (60.0-200.0) BUN/Creatinine Ratio 27.71 H (12.00-20.00) Ratio POC Glucose (mg/dL) 131 H 120 H (75-99) mg/dL Calcium 8.3 L (8.7-10.3) mg/dL AST 39 H (14-35) U/L Total Protein 4.7 L (6.2-8.2) g/dL Albumin 2.3 L (3.8-4.9) g/dL Albumin/Globulin Ratio 0.96 L (1.60-3.17) g/dL Assessment and Plan Assessment: * Mental status due to multifactorial: Metabolic encephalopathy and septic encephalopathy. Patient is extubated 08/10/2021. Patient's mentation has improved, but continues to be encephalopathic. * Pneumonia, slightly getting worse, perhaps aspiration. * Status post Septic shock related to the Klebsiella Oxytoca UTI and strep pneumo group B * Acute kidney injury--creatinine trending down (last creatnine is 2.8), BUN 77. * Bladder tumor last post cystoscopy scope he and biopsy on 07/31/2021. Pathology is positive for invasive high-grade urothelial carcinoma * Anemia, hemoglobin 8.5. * Hypertension and during this hospital stay patient had hypotension because of sepsis * History of hyperlipidemia * History of hypothyroidism * History of nicotine use. Plan: Patient's mentation has much improved. He is following commands to some extent. But still very encephalopathic, likely toxic metabolic. Repeat computed tomography scan of head from today, 08/12/2021 shows atrophy changes, with no acute stroke. Renal functions are improving. Prior CT of the head 08/07/2021 showed cerebral atrophy, no acute intracranial abnormality. EEG 08/08/2021 showed background slowing of at least moderate degree, consistent with toxic metabolic encephalopathy. No epileptiform activity was seen. Infection disease is on board CT abdomen and pelvis report reviewed. Patient has hydronephrosis. Thickened bladder wall may correspond to patient's history of previous bladder cancer. Nephrology is on board Urology is on board. We'll defer the rest of the medical management to the primary and ICU team. Patient on Lovenox for DVT prophylaxis. Condition is very guarded. Patient is DO NOT RESUSCITATE. Neurology will sign off. Please reconsult if any concerns.
[2021-08-12 20:49] VITALS: RESP 20
[2021-08-13 00:09] LABS: Glucose,Whole Blood 102 mg/dL (75-99)
[2021-08-13] MEDS: INSULIN ASPART (NovoLOG) 100 UNIT/ML VIAL SQ SCH ×2 (00:10→06:18)
[2021-08-13] MEDS: ACETAMINOPHEN TAB 325 MG TAB PO SCH ×4 (00:18→16:55)
[2021-08-13] MEDS: DEXTROSE 5% IN WATER 1,000 ML IV SCH (00:21)
[2021-08-13] MEDS: LEVOTHYROXINE 100 MCG TAB PO SCH (06:16)
[2021-08-13 06:17] LABS: Glucose,Whole Blood 119 mg/dL (75-99)
[2021-08-13 07:39] LABS: Basophils % (A) 0 %; Eosinophils # (A) 0.1 k/uL (0-0.7); Eosinophils % (A) 2 %; HGB 8.9 gm/dL (13.0-17.5); Hypochromasia Slight; Lymphocytes # (A) 0.6 k/uL (1.0-4.8); Lymphocytes % (A) 7 %; MCH 28.6 pg (25.0-35.0); MCHC 31.9 g/dL (31.0-37.0); MCV 89.9 fL (80.0-100.0); Mean Platelet Volume 8.9; Monocytes # (A) 0.3 k/uL (0-1.0); Monocytes % (A) 3 %; Neutrophils # (A) 7.7 k/uL (1.3-7.7); Neutrophils % (A) 87 %; Platelet Count 332 k/uL (150-450); RBC 3.11 m/uL (4.30-5.90); RDW 15.9 % (11.5-15.5); WBC 8.8 k/uL (3.8-10.6)
--- NOTE | 2021-08-13 07:41 | XR ---
EXAMINATION TYPE: XR chest 1V portable DATE OF EXAM: 08/13/2021 COMPARISON: 08/12/2021 HISTORY: There is complete opacification of the left lung with shift of the mediastinal structures to the left indicating volume loss. There is mild focal air space consolidation in the right midlung zo ne which is unchanged. There is an NG tube within the stomach. The osseous structures are intact TECHNIQUE: Single frontal view of the chest is obtained. FINDINGS: Marked interval worsening in the left hemithorax with now near complete opacification like ly secondary to combination of atelectasis and large pleural effusion. IMPRESSION: No acute process.
[2021-08-13] MEDS: IPRATROPIUM-ALBUTEROL 3 ML NEB INHALATION SCH (08:01)
[2021-08-13] MEDS: PANTOPRAZOLE 40 MG/10 ML VIAL IV SCH (08:16)
[2021-08-13] MEDS: ENOXAPARIN 30 MG/0.3 ML SYRINGE SQ SCH (08:17)
[2021-08-13] MEDS ORDERED: ATROPINE OPHTH SOLN 1% 5ML BTL SUBLINGUAL PRN (09:24)
[2021-08-13] MEDS ORDERED: ONDANSETRON 4 MG/2 ML VIAL IVP PRN (09:24)
[2021-08-13] MEDS ORDERED: LORazepam 2 MG/ML INJ IV PRN (09:24)
[2021-08-13] MEDS ORDERED: DRY MOUTH SPRAY 44.3 SPRAY/44.3 ML SPRAY MUCOUS MEM PRN (09:24)
[2021-08-13] MEDS ORDERED: MORPHINE SULFATE 4 MG/ML SYRINGE IVP ONE (09:30)
[2021-08-13] MEDS ORDERED: MORPHINE SULFATE (100 MG/2 ML) 100 MG in SODIUM CHLORIDE 0.9% 100 ML IV SCH (10:00)
[2021-08-13 11:41] VITALS: BP 128/72; PULSE 94; TEMP 98.3
[2021-08-13 11:59] LABS: African American GFR (CKD) 25.6 (60.0-200.0); Albumin 2.4 g/dL (3.8-4.9); Albumin/Globulin Ratio 0.92 (1.60-3.17); Anion Gap 13.7 mmol/L (10.00-18.00); BUN/Creat Ratio 26.48 Ratio (12.00-20.00); Blood Urea Nitrogen 71.5 mg/dL (9.0-27.0); Calcium 8.5 mg/dL (8.7-10.3); Carbon Dioxide 20.3 mmol/L (20.0-27.5); Globulin 2.6 g/dL (1.6-3.3); Non-African American GFR(CKD) 22.1 (60.0-200.0); Potassium 4.3 mmol/L (3.5-5.5); Total Bilirubin 0.3 mg/dL (0.30-1.20)
--- NOTE | 2021-08-13 14:08 | P.PN ---
Subjective Progress Note Date: 08/13/21 HISTORY OF PRESENT ILLNESS This 76-year-old pleasant gentleman, patient of Dr. Wills. History of hypertension hyperlipidemia, hypothyroidism, who was noted to have some bleeding in the toilet for several days, unsure how long the duration was, however he is on blood thinners, he was found on the floor today, patient denies any headache, however it's unclear how the patient fell. He does not admit to syncopal event, patient was subsequently setting to emergency room from home, to the emergency via EMS, a condom catheter was placed, and that's how they found that patient is having gross hematuria rather than rectal bleeding. In emergency room, central line was placed for IV hydration, blood pressure was 75/50, daily urinalysis, shows over 182 RBCs and WBC, hemoglobin 10.4 WBC count 11.0, platelet 297, creatinine of 6.1, BUN of 77, unknown baseline. Patient had CAT scan, head and cervical spine, shows multilevel cervical spondylosis change, no fracture, and no dislocation. No intracranial hemorrhage, intact calvarium. Computed tomography scan of the abdomen, shows bilateral hydronephrosis, and hydroureter, more on the right than the left, there is bilateral renal vascular calcification, no renal calculi, no ureteral calculi. There is no inguinal hernia, no fluid in the pelvis, bilateral stents in the abdominal aorta and iliac arteries, no mesenteric edema, no ascites or free air. No bowel obstruction, bladder imaging is not well evaluated due to lack of distention there is colonic diverticula, without signs of diverticulitis. Chest x-ray shows mild pulmonary fibrosis Consult was made with nephrology, urology and intensive care management, patient admitted to ICU for significant gross hematuria, obstructive uropathy, with mental status changes, and suspected syncope, with a fall long-term anticoagulation, elevated troponin Patient is taken to the operating room, for cystoscopy, evacuation of clot, and transient Trial resection of the bladder as a CAT scan per review from urology, shows bladder irregularity. There is a large sessile tumor, in the right posterolateral bladder wall. It was dense and suspected to have obviously a high grade tumor, with muscular invasion 08/01: Patient remains in the intensive care unit intubated on mechanical ventilation with tidal volume 500, FiO2 40, PEEP of 5. Patient is on levo fed, vasopressin, Nimbex, fentanyl, bicarb drip and propofol. The patient has hematuria from Denny catheter and nephrostomy tube and there is small amount of leaking from the meatus. 08/02: Patient remains in the intensive care unit intubated and on mechanical ventilation with tidal volume 500, FiO2 50, PEEP 5. Patient has been weaned down on norepinephrine continued on vasopressin, Nimbex, fentanyl and propofol. He has been afebrile, heart rate 77, blood pressure 92/59, pulse ox 100%. He had monitor sinus rhythm. Repeat blood work reveals WBC 21.2, hemoglobin 9.9, platelet count 125. Lites are within normal limits. BUN 78 creatinine 6.41. Capillary blood glucose running between 113 and 121. Urine culture has been finalized with ESBL Klebsiella oxytoca and antibiotics will be changed from ceftriaxone to Zosyn. 08/03 patient examined while intubated. Patient is postop 3 continues to remain ventilator on assist control mode respiratory rate of 26 and volume 500 FiO2 40 and PEEP of 5. FiO2 decreased to 30 with patient maintaining her oxygen saturations between 96-98%. He continues to remain on propofol at 25 valentin per KG per minute. Vasopressin at 0.04 units per minute, norepinephrine at 20 mics KG per minute and fentanyl 0.5 valentin per KG per minute. Patient's bicarb drip was discontinued and is currently on half-normal saline at 50 mL per hour. Nimbex has been discontinued. Patient vitals are stable with temp 97.8 pulse 63 respiratory rate 26 blood pressure 109/71. Leukocytosis of 14.5, hemoglobin 9.3 platelet has reduced to 93. Potassium is 3.3 bicarb 21 BUN 85 creatinine 6. 47. Urine output is approximately 10-15 mL per hour about 250 developed intermittent nephrostomy tube. Lasix 80 mg IV to be given today. Potassium is being repleted. No need for dialysis as at this point per nephrology Patient contineus to remain intubated with vent setting involving assist control, resp rate 26, tidal vol 500, PEEP 5 and Fio2 40 %. Patient continues to remain aon vasopressor and norepinephrine. Sedation mentained with propofol and fentanyl. Patient is noticed to move his lower extremities but doesnot follow any commands. UO has improved appears to be 40 ml/ hr but appears to be serosangunous, continues to have 250 - 300 ml every 6 hour. pathology consistent with high-grade, muscle invasive urothelial carcinoma. Patient was seen by urology who has recommended left nephrostomy tube in next few days. patient was noted to be in atrial fib ad is on cardizem drip, metoprolol dose increased to 25 mg po TID per cardiology 08/05 patient examined at bedside continues to remain on the ventilator. He is currently on assist control respiratory rate of 26 tidal volume 500 FiO2 40% and PEEP of 5. Continues to remain on normal saline 50 cc/h, vasopressin .02 micrograms per, norepi at 4.8 mics per KG per minute, propofol at 10 mics per KG per minute. Patient was given 1 dose of Lasix per pulmonary. Labs are reviewed patient has a hemoglobin of 8.1 platelets stable at 63. An ABG was obtained and pH 7.42 PO2 117 and bicarb 28 BUN 95 creatinine 5.68 albumin low at 1.8 patient continues to receive Invanz per infectious disease patient initiated on enteral tube feeding blood sugar stable less than 150 urine output is maintained at 40 cc/h. 300 mL drained out of the nephrostomy tube tube today. Nephrology recommend continuing IV fluids diuresis as needed. No plan for renal replacement 08/06 patient examined at bedside continues to remain intubated. Patient is noted to have nonpurposeful movement. currently on assist control respiratory rate of 26 tidal volume 500 FiO2 30% and PEEP of 5. Continues to remain on normal saline, patient is self weaned off his pressors apparently on levo fed at 60 valentin per KG per minute. Continuous remain in sinus rhythm blood pressure controlled. Chest x-ray showing persistent left mid lung and left greater than right basilar opacities with small left pleural effusion with no change compared to previous x-ray. Patient had good urine output after 40-50 mL per hour from the Denny catheter. He has right-sided nephrostomy tube with 1200 mL output since midnight. PH 7.41 pCO2 43 pO2 78, bicarb 27, hemoglobin stable at 9.4 Creatinine 5.27 calcium of 8. Plan for sedation withdrawal today for evaluating patient's mental status. 08/07 patient examined bedside neurology consultPatient is currently off PROPOFOL with nonpurposeful movement involving bilateral lower extremities. No episodes of agitation. Vitals are stable with a temp of 99.2, pulse 101 respiratory rate 32 blood pressure 1:30/63. Patient is currently on norepinephrine 0.13 valentin per KG per minute and normal saline running at 50 mL per hour. He is at assist control respiratory rate 26 tidal volume 500 FiO2 30 and PEEP of 5. Chest x-ray repeated this morning suggests of left greater than right bibasilar opacity with mild interstitial edema no significant change. No large effusion. Labs are reviewed patient hemoglobin is 8.9 dated 124 sodium 147 bicarb 112 BUN 106 creatinine 4.93 glucose stable between 130 and 148. Patient's nephew updated on the bladder cancer and poor prognosis. A CT head to be repeated this morning to check for change 08/08: Patient remains in the intensive care unit, intubated and on mechanical ventilation with tidal volume 500, FiO2 30 and PEEP of 5. He is currently on t ube feedings at 45 mL per hour, norepinephrine and D5W. Patient has been afebrile, heart rate in the 80s, respiratory rate 26, blood pressure 93/61, pulse ox 98%. Repeat blood work reveals WBC 10.2, hemoglobin 8.9, platelet 190. Sodium 150, potassium 3.9, chloride 115, CO2 27, BUN 109, creatinine 4.57. Blood sugars are running between 117 and 154. Repeat chest x-ray reveals COPD with bilateral infiltrate and small effusion stable. Patient continues to be followed by nephrology, brain wave technician, infectious disease, urology. Neurology consult was added yesterday. CAT scan of the brain performed yesterday revealed cerebral atrophy. No acute intracranial abnormality. Patient is currently on Invanz. 08/09: Patient remains in the intensive care unit on mechanical ventilation with tidal volume 500, FiO2 40, PEEP of 5. Patient has been off sedation since 08/07. He is followed by neurology. There is concern that patient has less movement on the right upper extremity. He has minimal response to pain. Patient also followed by nephrology with no plan at this time to start dialysis. Dr. Contreras is planning to discuss possible insertion of left-sided nephrostomy tube with urology. Renal ultrasound revealed mild to moderate right-sided hydronephrosis with nephrostomy tube. Repeat chest x-ray reveals COPD and left lower lobe infiltrate and small effusions . Pathology report remains pending. 08/10: Remains intubated and on mechanical ventilation with tidal volume 500, FiO2 of 40, PEEP of 5. Patient does have a gag reflex and cough. He is currently on CPAP settings. Plan is to probably extubate tomorrow. Nephrology is not planning for dialysis at this time. He does have output from nephrostomy tube and from his Denny catheter. He is having gradual improvement of his renal function with BUN 100 and creatinine 3.65. Patient has been made DO NOT RESUSCITATE. Patient has been started on D5W at 100 mL per hour for sodium of 149. Patient is followed by nephrology, pulmonary medicine and urology, neurology. Pathology report reveals dense acute inflammatory cells, i nsufficient for evaluation due to obscuring acute inflammation. Patient is continued on Invanz. 08/11: Patient has been successfully extubated. NG tube is still in place with tube feedings at 65 mL/h. He is also receiving water flushes every 4 hours. IV fluids of D5W decreased to 70 mL per hour. Patient has been afebrile, heart rate 96, blood pressure 130/78, pulse ox 99% on 5 L nasal cannula. Repeat blood work reveals continued improvement of his renal function was BUN of 90 and creatinine 3.15. Hemoglobin is 8.3. Sodium is down to 143. Repeat chest x-ray reveals near complete opacities of the left hemithorax markedly worsened from prior exam with abrupt cutoff of the left mainstem bronchus correlate for mucous plug or endobronchial lesion. Chest PT on the left was added by pulmonary medicine. 08/12: [facility] Patient's left arm is flaccid. Patient is grimacing in pain and scheduled Tylenol will be added. He is off all sedating medication Pulse ox is 84% on 6 L nasal cannula, heart rate 104, respiratory rate 32, blood pressure 10/03/1960. He has been afebrile. Repeat blood work reveals WBC 8.3, hemoglobin 8.5, platelet count 340. Total pathology reveals invasive urothelial carcinoma high-grade. Sodium 149, potassium 4.3, chloride 114, CO2 21, BUN 77 creatinine 2.8. Blood sugars are running between 107 and 121. Chest x-ray reveals improving area of consolidation involving the left lung. Development new area of right perihilar lower lobe infiltrate. Computed tomography scan of the brain revealed atrophy with chronic appearing. Ventricular white matter ischemic changes. Pulmonary medicine is following on an as-needed basis. Dr. Andrade will contact the patient's family regarding further plan as prognosis is very guarded. 08/13: Patient continues to do very poorly. We have contacted patient's next of kin, nephew and he is agreeable to start comfort care. All aggressive treatments discontinued. REVIEW OF SYSTEMS Unable to obtain due to mental status PHYSICAL EXAMINATION Gen: This is a 76-year-old male. He is resting in bed, and appears to be uncomfortable. HEENT: Head is atraumatic, normocephalic. Sclerae is anicteric. Gastric tube in place to the right nares. NECK: Supple. No JVD. No lymphadenopathy. No thyromegaly. LUNGS: Bilateral rhonchi. No intercostal retractions. Left side breath sounds diminished throughout HEART: irregularly irregular rate and rhythm. No murmur. ABDOMEN: Soft. Bowel sounds are present. No masses. No tenderness. Denny catheter with hematuria. Nephrostomy tube draining jemal urine. EXTREMITIES: No pedal edema. NEUROLOGICAL: Patient is lethargic. ASSESSMENT AND PLAN 1. Gross hematuria secondary to high-grade invasive urothelial carcinoma with hypotension, obstructive uropathy, UTI and sepsis. Status post transurethral bladder resection on 07/31/2021 Dr. Vinson. Surgical pathology revealed high- grade, invasive urothelial carcinoma. 2. Acute blood loss anemia, with hypovolemic and septic hypotension, from gross hematuria. He is status post 1 unit packed RBCs, off vasopressors. 3. Acute kidney injury secondary to bilateral hydronephrosis and hydroureter with workup suggestive of bladder cancer, unknown baseline for CKD. 4. Elevated troponin, rule out non-ST elevated myocardial infarction, acute coronary syndrome ruled out. 5. Acute hypoxic respiratory failure requiring ongoing intubation and mechanical ventilation. 6. Acute ESBL Klebsiella urinary tract infection with sepsis and septic shock requiring vasopressors. 7. Thrombocytopenia secondary to sepsis. 8. BPH with prostatomegaly has indwelling Denny catheter at this time 9. Metabolic encephalopathy secondary to acute uremia, sepsis. Right arm is flaccid but no sign of CVA on CAT scan 10. Total opacification of the left lung possible mucous plug or endobronchial lesion. 11. Hypothyroidism. 12. Hyperlipidemia 13. Hypertension. 14. Tobacco use and dependence. Prognosis guarded. CODE STATUS NO code Impression and plan of care have been directed as dictated by the signing physician. Laurie Lawson nurse practitioner acting as scribe for signing physici an. Objective - Vital Signs Vital signs: Vital Signs Temp 97.6 F 08/13/21 05:00 Pulse 92 08/13/21 08:18 Resp 20 08/13/21 05:00 BP 133/73 08/13/21 05:00 Pulse Ox 92 L 08/13/21 05:00 Intake & Output 08/12/21 08/13/21 08/13/21 18:59 06:59 18:59 Intake Total 0 Output Total 400 2550 150 Balance -400 -2550 -150 Weight 92 kg 81 kg Intake: Oral 0 Output: Drainage 400 900 150 Right Lateral Back 400 900 150 Urine 1650 Other: Voiding Method Indwelling Catheter Ileal Conduit (Right) # Bowel Movements 1 ABP, PAP, CO, CI - Last Documented Arterial Blood Pressure 74/11 - Labs CBC & Chem 7: 08/13/21 07:00 08/13/21 07:00 Labs: Abnormal Lab Results - Last 24 Hours (Table) 08/12/21 08/12/21 08/12/21 Range/Units 05:36 14:32 17:22 RBC (4.30-5.90) m/uL Hgb (13.0-17.5) gm/dL Hct (39.0-53.0) % RDW (11.5-15.5) % Lymphocytes # (1.0-4.8) k/uL Sodium 149 H (135-145) mmol/L Chloride 114 H (96-109) mmol/L BUN 77.6 H (9.0-27.0) mg/dL Creatinine 2.8 H (0.6-1.5) mg/dL Est GFR (CKD-EPI)AfAm 24.5 L (60.0-200.0) Est GFR (CKD-EPI)NonAf 21.1 L (60.0-200.0) BUN/Creatinine Ratio 27.71 H (12.00-20.00) Ratio POC Glucose (mg/dL) 131 H 120 H (75-99) mg/dL Calcium 8.3 L (8.7-10.3) mg/dL AST 39 H (14-35) U/L Total Protein 4.7 L (6.2-8.2) g/dL Albumin 2.3 L (3.8-4.9) g/dL Albumin/Globulin Ratio 0.96 L (1.60-3.17) g/dL 08/12/21 08/13/21 08/13/21 Range/Units 23:59 06:15 07:00 RBC 3.11 L (4.30-5.90) m/uL Hgb 8.9 L (13.0-17.5) gm/dL Hct 28.0 L (39.0-53.0) % RDW 15.9 H (11.5-15.5) % Lymphocytes # 0.6 L (1.0-4.8) k/uL Sodium (135-145) mmol/L Chloride (96-109) mmol/L BUN (9.0-27.0) mg/dL Creatinine (0.6-1.5) mg/dL Est GFR (CKD-EPI)AfAm (60.0-200.0) Est GFR (CKD-EPI)NonAf (60.0-200.0) BUN/Creatinine Ratio (12.00-20.00) Ratio POC Glucose (mg/dL) 102 H 119 H (75-99) mg/dL Calcium (8.7-10.3) mg/dL AST (14-35) U/L Total Protein (6.2-8.2) g/dL Albumin (3.8-4.9) g/dL Albumin/Globulin Ratio (1.60-3.17) g/dL
--- NOTE | 2021-08-14 08:43 | P.DS ---
Providers Date of admission: 07/30/21 22:29 Expected date of discharge: 08/14/21 Attending physician: Bren Andrade Consults: 07/30/21 22:29 Consult Physician Stat Consulting Provider: Renay Hampton Consult Reason/Comments: critical care Do you want consulting provider notified?: Already Contacted Consult Physician Urgent Consulting Provider: Aime Vinson Consult Reason/Comments: hematuria Do you want consulting provider notified?: Already Contacted 07/30/21 22:37 Consult Physician Urgent Consulting Provider: Saji Fletcher Consult Reason/Comments: arf Do you want consulting provider notified?: Yes 08/01/21 10:00 Consult Physician Routine Consulting Provider: Lenard Hubbard Consult Reason/Comments: elevated troponins and echo results Do you want consulting provider notified?: Already Contacted 08/02/21 12:17 Consult Physician Urgent Consulting Provider: Jimena Amos Consult Reason/Comments: Positive urine culture Do you want consulting provider notified?: Already Contacted 08/07/21 11:04 Consult Physician Routine Consulting Provider: Mayo Berry Consult Reason/Comments: Unresponsive off sedation, on vent Do you want consulting provider notified?: Yes Primary care physician: O[facility] Hospital Course: HISTORY OF PRESENT ILLNESS This 76-year-old pleasant gentleman, patient of Dr. Wills. History of hypertension hyperlipidemia, hypothyroidism, who was noted to have some bleeding in the toilet for several days, unsure how long the duration was, however he is on blood thinners, he was found on the floor today, patient denies any headache, however it's unclear how the patient fell. He does not admit to syncopal event, patient was subsequently setting to emergency room from home, to the emergency via EMS, a condom catheter was placed, and that's how they found that patient is having gross hematuria rather than rectal bleeding. In emergency room, central line was placed for IV hydration, blood pressure was 75/50, daily urinalysis, shows over 182 RBCs and WBC, hemoglobin 10.4 WBC count 11.0, platelet 297, creatinine of 6.1, BUN of 77, unknown baseline. Patient had CAT scan, head and cervical spine, shows multilevel cervical spondylosis change, no fracture, and no dislocation. No intracranial hemorrhage, intact calvarium. Computed tomography scan of the abdomen, shows bilateral hydronephrosis, and hy droureter, more on the right than the left, there is bilateral renal vascular calcification, no renal calculi, no ureteral calculi. There is no inguinal hernia, no fluid in the pelvis, bilateral stents in the abdominal aorta and iliac arteries, no mesenteric edema, no ascites or free air. No bowel obstruction, bladder imaging is not well evaluated due to lack of distention there is colonic diverticula, without signs of diverticulitis. Chest x-ray shows mild pulmonary fibrosis Consult was made with nephrology, urology and intensive care management, patient admitted to ICU for significant gross hematuria, obstructive uropathy, with mental status changes, and suspected syncope, with a fall long-term anticoagulation, elevated troponin Patient is taken to the operating room, for cystoscopy, evacuation of clot, and transient Trial resection of the bladder as a CAT scan per review from urology, shows bladder irregularity. There is a large sessile tumor, in the right posterolateral bladder wall. It was dense and suspected to have obviously a high grade tumor, with muscular invasion 08/01: Patient remains in the intensive care unit intubated on mechanical ventilation with tidal volume 500, FiO2 40, PEEP of 5. Patient is on levo fed, vasopressin, Nimbex, fentanyl, bicarb drip and propofol. The patient has hematuria from Denny catheter and nephrostomy tube and there is small amount of leaking from the meatus. 08/02: Patient remains in the intensive care unit intubated and on mechanical ventilation with tidal volume 500, FiO2 50, PEEP 5. Patient has been weaned down on norepinephrine continued on vasopressin, Nimbex, fentanyl and propofol. He has been afebrile, heart rate 77, blood pressure 92/59, pulse ox 100%. He had monitor sinus rhythm. Repeat blood work reveals WBC 21.2, hemoglobin 9.9, platelet count 125. Lites are within normal limits. BUN 78 creatinine 6.41. Capillary blood glucose running between 113 and 121. Urine culture has been finalized with ESBL Klebsiella oxytoca and antibiotics will be changed from ceftriaxone to Zosyn. 08/03 patient examined while intubated. Patient is postop 3 continues to remain ventilator on assist control mode respiratory rate of 26 and volume 500 FiO2 40 and PEEP of 5. FiO2 decreased to 30 with patient maintaining her oxygen saturations between 96-98%. He continues to remain on propofol at 25 valentin per KG per minute. Vasopressin at 0.04 units per minute, norepinephrine at 20 mics KG per minute and fentanyl 0.5 valentin per KG per minute. Patient's bicarb drip was discontinued and is currently on half-normal saline at 50 mL per hour. Nimbex has been discontinued. Patient vitals are stable with temp 97.8 pulse 63 respiratory rate 26 blood pressure 109/71. Leukocytosis of 14.5, hemoglobin 9.3 platelet has reduced to 93. Potassium is 3.3 bicarb 21 BUN 85 creatinine 6. 47. Urine output is approximately 10-15 mL per hour about 250 developed intermittent nephrostomy tube. Lasix 80 mg IV to be given today. Potassium is being repleted. No need for dialysis as at this point per nephrology Patient contineus to remain intubated with vent setting involving assist control, resp rate 26, tidal vol 500, PEEP 5 and Fio2 40 %. Patient continues to remain aon vasopressor and norepinephrine. Sedation mentained with propofol and fentanyl. Patient is noticed to move his lower extremities but doesnot follow any commands. UO has improved appears to be 40 ml/ hr but appears to be serosangunous, continues to have 250 - 300 ml every 6 hour. pathology consistent with high-grade, muscle invasive urothelial carcinoma. Patient was seen by urology who has recommended left nephrostomy tube in next few days. patient was noted to be in atrial fib ad is on cardizem drip, metoprolol dose increased to 25 mg po TID per cardiology 08/05 patient examined at bedside continues to remain on the ventilator. He is currently on assist control respiratory rate of 26 tidal volume 500 FiO2 40% and PEEP of 5. Continues to remain on normal saline 50 cc/h, vasopressin .02 micrograms per, norepi at 4.8 mics per KG per minute, propofol at 10 mics per KG per minute. Patient was given 1 dose of Lasix per pulmonary. Labs are reviewed patient has a hemoglobin of 8.1 platelets stable at 63. An ABG was obtained and pH 7.42 PO2 117 and bicarb 28 BUN 95 creatinine 5.68 albumin low at 1.8 patient continues to receive Invanz per infectious disease patient initiated on enteral tube feeding blood sugar stable less than 150 urine output is maintained at 40 cc/h. 300 mL drained out of the nephrostomy tube tube today. Nephrology recommend continuing IV fluids diuresis as needed. No plan for renal replacement 08/06 patient examined at bedside continues to remain intubated. Patient is noted to have nonpurposeful movement. currently on assist control respiratory rate of 26 tidal volume 500 FiO2 30% and PEEP of 5. Continues to remain on normal saline, patient is self weaned off his pressors apparently on levo fed at 60 valentin per KG per minute. Continuous remain in sinus rhythm blood pressure controlled. Chest x-ray showing persistent left mid lung and left greater than right basilar opacities with small left pleural effusion with no change compared to previous x-ray. Patient had good urine output after 40-50 mL per hour from the Denny catheter. He has right-sided nephrostomy tube with 1200 mL output since midnight. PH 7.41 pCO2 43 pO2 78, bicarb 27, hemoglobin stable at 9.4 Creatinine 5.27 calcium of 8. Plan for sedation withdrawal today for evaluating patient's mental status. 08/07 patient examined bedside neurology consultPatient is currently off PROPOFOL with nonpurposeful movement involving bilateral lower extremities. No episodes of agitation. Vitals are stable with a temp of 99.2, pulse 101 respiratory rate 32 blood pressure 1:30/63. Patient is currently on norepinephrine 0.13 valentin per KG per minute and normal saline running at 50 mL per hour. He is at assist control respiratory rate 26 tidal volume 500 FiO2 30 and PEEP of 5. Chest x-ray repeated this morning suggests of left greater than right bibasilar opacity with mild interstitial edema no significant change. No large effusion. Labs are reviewed patient hemoglobin is 8.9 dated 124 sodium 147 bicarb 112 BUN 106 creatinine 4.93 glucose stable between 130 and 148. Patient's nephew updated on the bladder cancer and poor prognosis. A CT head to be repeated this morning to check for change 08/08: Patient remains in the intensive care unit, intubated and on mechanical ventilation with tidal volume 500, FiO2 30 and PEEP of 5. He is currently on tube feedings at 45 mL per hour, norepinephrine and D5W. Patient has been afebrile, heart rate in the 80s, respiratory rate 26, blood pressure 93/61, pulse ox 98%. Repeat blood work reveals WBC 10.2, hemoglobin 8.9, platelet 190. Sodium 150, potassium 3.9, chloride 115, CO2 27, BUN 109, creatinine 4.57. Blood sugars are running between 117 and 154. Repeat chest x-ray reveals COPD with bilateral infiltrate and small effusion stable. Patient continues to be followed by nephrology, rn intake, infectious disease, urology. Neurology consult was added yesterday. CAT scan of the brain performed yesterday revealed cerebral atrophy. No acute intracranial abnormality. Patient is currently on Invanz. 08/09: Patient remains in the intensive care unit on mechanical ventilation with tidal volume 500, FiO2 40, PEEP of 5. Patient has been off sedation since 08/07. He is followed by neurology. There is concern that patient has less movement on the right upper extremity. He has minimal response to pain. Patient also followed by nephrology with no plan at this time to start dialysis. Dr. Contreras is planning to discuss possible insertion of left-sided nephrostomy tube with urology. Renal ultrasound revealed mild to moderate right-sided hydronephrosis with nephrostomy tube. Repeat chest x-ray reveals COPD and left lower lobe infiltrate and small effusions . Pathology report remains pending. 08/10: Remains intubated and on mechanical ventilation with tidal volume 500, FiO2 of 40, PEEP of 5. Patient does have a gag reflex and cough. He is currently on CPAP settings. Plan is to probably extubate tomorrow. Nephrology is not planning for dialysis at this time. He does have output from nephrostomy tube and from his Denny catheter. He is having gradual improvement of his renal function with BUN 100 and creatinine 3.65. Patient has been made DO NOT RESUSCITATE. Patient has been started on D5W at 100 mL per hour for sodium of 149. Patient is followed by nephrology, pulmonary medicine and urology, neurology. Pathology report reveals dense acute inflammatory cells, insufficient for evaluation due to obscuring acute inflammation. Patient is continued on Invanz. 08/11: Patient has been successfully extubated. NG tube is still in place with tube feedings at 65 mL/h. He is also receiving water flushes every 4 hours. IV fluids of D5W decreased to 70 mL per hour. Patient has been afebrile, heart rate 96, blood pressure 130/78, pulse ox 99% on 5 L nasal cannula. Repeat blood work reveals continued improvement of his renal function was BUN of 90 and creatinine 3.15. Hemoglobin is 8.3. Sodium is down to 143. Repeat chest x-ray reveals near complete opacities of the left hemithorax markedly worsened from prior exam with abrupt cutoff of the left mainstem bronchus correlate for mucous plug or endobronchial lesion. Chest PT on the left was added by pulmonary medicine. 08/12: Patient is seen today on the [facility] floor. Patient's left arm is flaccid. Patient is grimacing in pain and scheduled Tylenol will be added. He is off all sedating medication Pulse ox is 84% on 6 L nasal cannula, heart rate 104, respiratory rate 32, blood pressure 10/03/1960. He has been afebrile. Repeat blood work reveals WBC 8.3, hemoglobin 8.5, platelet count 340. Total pathology reveals invasive urothelial carcinoma high-grade. Sodium 149, potassium 4.3, chloride 114, CO2 21, BUN 77 creatinine 2.8. Blood sugars are running between 107 and 121. Chest x-ray reveals improving area of consolidation involving the left lung. Development new area of right perihilar lower lobe infiltrate. Computed tomography scan of the brain revealed atrophy with chronic appearing. Ventricular white matter ischemic changes. Pulmonary medicine is following on an as-needed basis. Dr. Andrade will contact the patient's family regarding further plan as prognosis is very guarded. 08/13: Patient continues to do very poorly. We have contacted patient's next of kin, nephew and he is agreeable to start comfort care. All aggressive treatments discontinued. 08/14: She was placed into comfort care measures only and all aggressive treatments were discontinued yesterday. Patient on the license clerk of 08/14. Please see nursing documentation for details. DISCHARGE DIAGNOSES 1. Gross hematuria secondary to high-grade invasive urothelial carcinoma with hypotension, obstructive uropathy, UTI and sepsis. Status post transurethral bladder resection on 07/31/2021 Dr. Vinson. Surgical pathology revealed high- grade, invasive urothelial carcinoma. 2. Acute blood loss anemia, with hypovolemic and septic hypotension, from gross hematuria. He is status post 1 unit packed RBCs AND vasopressors. 3. Acute kidney injury secondary to bilateral hydronephrosis and hydroureter with workup suggestive of bladder cancer, unknown baseline for CKD. 4. Elevated troponin, ruled out non-ST elevated myocardial infarction, acute coronary syndrome ruled out. 5. Acute hypoxic respiratory failure requiring ongoing intubation and mechanical ventilation. 6. Acute ESBL Klebsiella urinary tract infection with sepsis and septic shock requiring vasopressors. 7. Thrombocytopenia secondary to sepsis. 8. BPH with prostatomegaly. 9. Metabolic encephalopathy secondary to acute uremia, sepsis. 10. Total opacification of the left lung possible mucous plug or endobronchial lesion. 11. Hypothyroidism. 12. Hyperlipidemia 13. Hypertension. 14. Tobacco use and dependence. Greater than 35 minutes was utilized and coordinating patient's discharge. Impression and plan of care have been directed as dictated by the signing physician. Laurie Lawson nurse practitioner acting as scribe for signing physician. Patient Condition at Discharge: Undetermined Plan - Discharge Summary Discharge Rx Participant: No New Discharge Prescriptions: No Action lisinopriL 40 mg PO DAILY hydroCHLOROthiazide 25 mg PO DAILY Rosuvastatin Calcium [Crestor] 5 mg PO DAILY rOPINIRole HCL [Requip] 1 mg PO BID Levothyroxine Sodium [Euthyrox] 175 mcg PO DAILY Clopidogrel [Plavix] 75 mg PO DAILY Discharge Medication List hydroCHLOROthiazide 25 mg PO DAILY 03/12/16 [History] lisinopriL 40 mg PO DAILY 03/12/16 [History] Clopidogrel [Plavix] 75 mg PO DAILY 07/31/21 [History] Levothyroxine Sodium [Euthyrox] 175 mcg PO DAILY 07/31/21 [History] Rosuvastatin Calcium [Crestor] 5 mg PO DAILY 07/31/21 [History] rOPINIRole HCL [Requip] 1 mg PO BID 07/31/21 [History] Follow up Appointment(s)/Referral(s): None,Stated [REFERRING] - 1-2 days Discharge Disposition: - Preliminary Cause of Preliminary Cause of : high-grade, invasive urothelial carcinoma
--- NOTE | 2021-08-18 11:06 | CDI ---
Documentation Clarification Form Date: 08/18/2021 09:05:00 AM From: Rocío Esparza RN, CCDS Admit Date: 07/30/2021 10:29:00 PM Patient Name: Shree James Visit Number: [id number] Discharge Date: 08/13/2021 10:00:00 PM ATTENTION: The Clinical Documentation Specialists (CDI) and [facility] Coding Staff appreciate your assistance in clarifying documentation. Please respond to the clarification below the line at the bottom and electronically sign. The CDI & [facility] Coding staff will review the response and follow-up if needed. Please note: Queries are made part of the Legal Health Record. If you have any questions, please contact the author of this message via ITS. Dr. Michel Tamayo Partial atelectasis of the left lung probably related to mucus plugs is documented in the progress note on 08/11/21, in this patient with multiple medical conditions. Additional clarification is requested 08/11 Chest x-ray: Near complete opacification left hemithorax markedly worsened from prior exam with abrupt cut off or the left mainstem bronchus correlate for mucous plug or endobronchial lesion. 08/12 Chest x-ray: Improving area of consolidation involving the left lung. Development new area of right perihilar lower lobe infiltrate 08/13 Chest x-ray: Finding: Marked interval worsening in the left hemithorax with now complete opacification likely secondary to combination of atelectasis and large pleural effusion. History/Risk Factors: Hyperlipidemia, Hematuria, Hydronephrosis, High-grade urothelial carcinoma with invasion of the muscularis Clinical Indicators: 76-year-old male present to ED on 07/30/21 found to have gross hematuria, obstructive uropathy admitted to ICU. He was intubated on 08/30/21 and extubated on 08/11/21. 07/30 CXR: Mild pulmonary fibrosis 08/11 Pulmonary progress note: chest x-ray from today showing atelectasis or at least partial atelectasis of the left lung probably related to mucous plugs. On today's evaluation, chest x-ray atelectasis, poor ability to cough and perform pulmonary toileting. Currently on 6/L of oxygen by nasal cannula. Assessment and plan: 08/12 Pulmonary progress note: Chest x-ray showing improvement in the consolidation of the left lung. There is a new right perihilar lobe infiltrate. Lungs: Equal air entry with lateral scattered rhonchi. Treatment: Nebulized/Duoneb 0.5MG Inhalation RT-Q4 HRS Aggressive pulmonary toileting and deep suctioning if possible Chest physiotherapy to the left Chest x ray daily per orders Keep oxygen 6 L per minute nasal cannula Utilizes BiPAP if needed at the pressure of 10/5 cm of water Keep the patient off sedation, monitor mental status. Invanz 0.5 GM IVPB Q DAY 08/02-08/12 DNR/DNI CODE STATUS Please clarify if left lung mucous plugs is a valid diagnosis? [ x] Yes, left lung mucous plugs is present as evidence by (additional clinical support): ____bronchoscopy [ ] No, left lung mucous plugs is ruled out [ ] Other (please specify diagnosis) [ ] Unable to determine (Template Last Revised: November 2020) MTDD
--- NOTE | 2021-09-15 07:21 | CDI ---
Documentation Clarification Form Date: 09/15/21 From: Ernestine Escobar Admit Date: 07/30/2021 10:29:00 PM Patient Name: Shree James Visit Number: [id number] Discharge Date: 08/13/2021 10:00:00 PM ATTENTION: The Clinical Documentation Specialists (CDI) and [facility] Coding Staff appreciate your assistance in clarifying documentation. Please respond to the clarification below the line at the bottom and electronically sign. The CDI & [facility] Coding staff will review the response and follow-up if needed. Please note: Queries are made part of the Legal Health Record. If you have any questions, please contact the author of this message via ITS. Dr. Bharat Wills, Atrial Fibrillation is documented starting in 08/04 PNs. Additional clarification regarding the type of atrial fibrillation is requested. History/Risk Factors: HTN, HLD, hypothyroidism Clinical Indicators: Per 08/04 PN - patient was noted to be in atrial fib. Treatment: Cardizem drip, Metoprolol dose increased to 25 mg po TID Consults: Add is on cardizem drip, metoprolol dose increased to 25 mg po TID per cardiology. Please clarify the type of atrial fibrillation, if known: [ ] Chronic [ ] Permanent [ xx ] Paroxysmal [ ] Persistent [ ] Other, please specify [ ] Unable to determine MTDD
== END 2021-08-13 22:00 | disposition expired | DRG 853 ==
LOC: SUPCPDRO 19:03 → EC 19:03 → 2SICU 22:29 → 5NMEDONC 08-11 18:52
PROVIDERS: ADMIT Family Medicine; ATTEND Family Medicine
PROC: 3E033XZ Introduction of Vasopressor into Peripheral Vein, Percutaneous Approach (ICD-10-PCS; 2021-07-30)
PROC: 06HM33Z Insertion of Infusion Device into Right Femoral Vein, Percutaneous Approach (ICD-10-PCS; 2021-07-30)
PROC: 30233N1 Transfusion of Nonautologous Red Blood Cells into Peripheral Vein, Percutaneous Approach (ICD-10-PCS; 2021-07-30)
PROC: 0T9030Z Drainage of Right Kidney with Drainage Device, Percutaneous Approach (ICD-10-PCS; 2021-07-31)
PROC: 0TBB8ZZ Excision of Bladder, Via Natural or Artificial Opening Endoscopic (ICD-10-PCS; principal; 2021-07-31 11:00)
PROC: 0TCB8ZZ Extirpation of Matter from Bladder, Via Natural or Artificial Opening Endoscopic (ICD-10-PCS; principal; 2021-07-31 11:00)
PROC: 5A1955Z Respiratory Ventilation, Greater than 96 Consecutive Hours (ICD-10-PCS; 2021-07-31 11:00)
PROC: 0D9670Z Drainage of Stomach with Drainage Device, Via Natural or Artificial Opening (ICD-10-PCS; 2021-07-31 11:00)
PROC: 3E0G76Z Introduction of Nutritional Substance into Upper GI, Via Natural or Artificial Opening (ICD-10-PCS; 2021-08-02)
DX: A41.59 Other Gram-negative sepsis (principal); G92.8 Other toxic encephalopathy; R65.21 Severe sepsis with septic shock; N17.0 Acute kidney failure with tubular necrosis; J96.02 Acute respiratory failure with hypercapnia; J96.01 Acute respiratory failure with hypoxia; J69.0 Pneumonitis due to inhalation of food and vomit; J90 Pleural effusion, not elsewhere classified; T17.890A Other foreign object in other parts of respiratory tract causing asphyxiation, initial encounter; E87.2 Acidosis; E87.0 Hyperosmolality and hypernatremia; D62 Acute posthemorrhagic anemia; N13.6 Pyonephrosis; Z16.12 Extended spectrum beta lactamase (ESBL) resistance; J98.11 Atelectasis; Z16.24 Resistance to multiple antibiotics; L89.152 Pressure ulcer of sacral region, stage 2; E83.39 Other disorders of phosphorus metabolism; J84.10 Pulmonary fibrosis, unspecified; J44.9 Chronic obstructive pulmonary disease, unspecified; C67.8 Malignant neoplasm of overlapping sites of bladder; I48.0 Paroxysmal atrial fibrillation; G31.9 Degenerative disease of nervous system, unspecified; Z66 Do not resuscitate; Z51.5 Encounter for palliative care; Z20.822 Contact with and (suspected) exposure to COVID-19; D69.59 Other secondary thrombocytopenia; N18.9 Chronic kidney disease, unspecified; E86.1 Hypovolemia; R31.0 Gross hematuria; N20.0 Calculus of kidney; N40.0 Benign prostatic hyperplasia without lower urinary tract symptoms; I12.9 Hypertensive chronic kidney disease with stage 1 through stage 4 chronic kidney disease, or unspecified chronic kidney disease; E87.6 Hypokalemia; E87.5 Hyperkalemia; M47.812 Spondylosis without myelopathy or radiculopathy, cervical region; K57.30 Diverticulosis of large intestine without perforation or abscess without bleeding; H91.90 Unspecified hearing loss, unspecified ear; M19.90 Unspecified osteoarthritis, unspecified site; E78.5 Hyperlipidemia, unspecified; E03.9 Hypothyroidism, unspecified; R77.8 Other specified abnormalities of plasma proteins; R91.8 Other nonspecific abnormal finding of lung field; F17.200 Nicotine dependence, unspecified, uncomplicated; Z71.6 Tobacco abuse counseling; Z79.02 Long term (current) use of antithrombotics/antiplatelets; Z79.01 Long term (current) use of anticoagulants; Z79.82 Long term (current) use of aspirin; Z79.890 Hormone replacement therapy; Z79.899 Other long term (current) drug therapy; Z86.79 Personal history of other diseases of the circulatory system; Z90.6 Acquired absence of other parts of urinary tract; Z98.890 Other specified postprocedural states; W19.XXXA Unspecified fall, initial encounter
CPT/HCPCS: 36415; 36556; 36600; 50432; 70450; 71045; 72125; 74176; 76770; 80048; 80053; 81001; 82140; 82533; 82550; 82805; 83605; 83735; 83880; 84100; 84132; 84145; 84295; 84439; 84443; 84484; 85025; 85610; 85730; 86704; 86706; 86850; 86900; 86901; 86920; 87040; 87070; 87077; 87086; 87186; 87205; 87324; 87340; 87635; 88108; 88307; 93005; 93306; 94002; 94003; 94640; 94667; 94668; 94760; 95822; 96361; 96365; 96375; 96376; 99291